=== PATIENT | male | born 1945 | race Caucasian/White ===

== ENCOUNTER 2016-05-29 20:33 | Emergency (ER) | payer OTHER ==
[~2016-05-29] VITALS: Ht 175.3 cm; Wt 87.3 kg
[~2016-05-29 20:33] MED LIST: EFFSR75 PO; METF1TAB85 PO; RISP0.5T3 PO
[2016-05-29 20:46] VITALS: TEMP 36.5; Ht 175.3 cm; Wt 87.3 kg
[2016-05-29 21:10] VITALS: O2SAT 98
[2016-05-29] MEDS ORDERED: ARC10 PO (21:15)
[2016-05-29] MEDS ORDERED: CARB50TA3 PO (21:15)
[2016-05-29] MEDS ORDERED: LPT/20 PO (21:15)
[2016-05-29] MEDS ORDERED: QUET5TAB PO (21:15)
[2016-05-29] MEDS ORDERED: PRED20TA PO (21:19)
[2016-05-29] MEDS ORDERED: ULT50 PO (21:19)
[2016-05-29 21:20] LABS: BASO % 0.2 %; BASO ABS # 0.02 K/uL (0-0.2); COMPLETE YES; IG% 2.1 %; MEAN CELL VOLUME 91.9 fL (80-100); MEAN CORPUSCULAR HEMOGLOBIN 33.4 pg (25-34); MEAN CORPUSCULAR HGB CONC 36.4 g/dl (32-36); MEAN PLATELET VOLUME 10.6 fL (7.4-10.4); MONO % 6.3 %; NEUT % 70.4 %; PLATELET COUNT 248 K/uL (130-400); RED BLOOD COUNT 4.79 M/uL (4.7-6.1); WHITE BLOOD COUNT 8.09 K/uL (4.8-10.8)
[2016-05-29] MEDS ORDERED: EFFSR150 PO (21:33)
[2016-05-29] MEDS ORDERED: ASPI81TA28 PO (21:33)
[2016-05-29] MEDS ORDERED: DIVA250T4 PO (21:41)
[2016-05-29] MEDS ORDERED: DIVA500T5 PO (21:41)
[2016-05-29] MEDS ORDERED: SODIUM CHLORIDE 0.9% 500ML 500 ML IV STA ×2 (21:44→23:38)
[2016-05-29] MEDS ORDERED: SODIUM CHLORIDE 0.9% 1000ML 1,000 ML IV STA (21:44)
[2016-05-29 21:46] LABS: ALKALINE PHOSPHATASE 76 U/L (45-117); ALT/SGPT 19 U/L (12-78); AST/SGOT 11 U/L (15-37); BLOOD UREA NITROGEN 18 mg/dl (7-18); BUN/CREATININE RATIO 16.5 (10-20); CALCIUM 9.1 mg/dl (8.5-10.1); CARBON DIOXIDE 26 mmol/L (21-32); CHLORIDE 94 mmol/L (98-107); GLUCOSE 521 mg/dl (70-99); POTASSIUM 4.8 mmol/L (3.5-5.1); SODIUM 131 mmol/L (136-145)
[2016-05-29 21:58] LABS: BETA-HYDROXYBUTYRATE 2.01 mg/dL (0.2-2.81)
--- NOTE | 2016-05-29 22:05 | DIAGNOSTIC IMAGING REPORT ---
CHEST ONE VIEW PORTABLE CLINICAL HISTORY: Chest pain. COMPARISON STUDY: Chest radiograph May 14, 2015. FINDINGS: Lung volumes are normal. There is no pneumothorax or pleural effusion. Cardiomediastinal silhouette is stable. There is no evidence of pulmonary edema. IMPRESSION: No acute cardiopulmonary findings. Electronically signed by: Vladimir Sharp M.D. 05/29/2016 10:04 PM Dictated Date/Time: 05/29/2016 10:02 PM
[2016-05-29 22:15] LABS: ALB/GLOB RATIO 0.8 (0.9-2)
--- NOTE | 2016-05-29 22:31 | DIAGNOSTIC IMAGING REPORT ---
CT OF THE HEAD WITHOUT CONTRAST CLINICAL HISTORY: Blurry vision. COMPARISON STUDY: Head CT May 17, 2014. CT DOSE: 580.48 mGy.cm TECHNIQUE: Helical axial images of the head were obtained without IV contrast. Automated exposure control was utilized for the study. FINDINGS: No acute intracranial hemorrhage, midline shift or mass effect is present. Ventricular system is stable. The basilar cisterns are patent. There are no extra axial collections. Extensive white matter hypodensities likely reflect small vessel disease. There are no findings to suggest acute dural sinus thrombosis or acute territorial infarct. There are no significant calvarial abnormalities. IMPRESSION: No acute intracranial findings. Electronically signed by: Vladimir Sharp M.D. 05/29/2016 10:30 PM Dictated Date/Time: 05/29/2016 10:28 PM
[2016-05-29 22:41] LABS: VEN BLD GAS O2 SATURATION 84.2 %; VEN BLOOD GAS BASE EXCESS 4.2 mmol/L
[2016-05-29] MEDS ORDERED: NovoLIN-R INSULIN PER UNIT CHARGE IV STA (23:38)
--- NOTE | 2016-05-29 23:42 | EMERGENCY ROOM VISIT NOTE ---
ED Visit Note First contact with patient: 21:22 Patient was seen by our PA/DIESEL ENGINE INSPECTOR. I was involved in the patient's care and did evaluate the patient myself. I was involved in the care throughout the ER stay. The patient presents with hyperglycemia. He recently started prednisone and I think this is causing the elevation to the sugar. He is receiving IV saline and will receive some IV insulin. He does not appear to be in DKA. Once his sugar is better controlled, he can be discharged home. He will need to stop the prednisone.
[2016-05-30 01:01] VITALS: BP 131/82; PULSE 61; O2SAT 97
--- NOTE | 2016-05-30 01:05 | EMERGENCY ROOM VISIT NOTE ---
History First contact with patient: 21:22 Chief Complaint: HYPERGLYCEMIA Stated Complaint: SUGAR IS ABOVE 600, CANT SEE Nursing Triage Summary: Patient c/o high blood sugars x a few days. Worsened tonight. Patient developed blurred vision. Denies any recent illness. NIDDM. History of Present Illness The patient is a 71 year old male who presents to the Emergency Department by private vehicle for evaluation of his elevated blood glucose levels and blurry vision. Patient reports that this evening he was having difficulty with vision while reading the newspaper at approximately 6 PM. He did take his blood glucose which was found to be greater than 600. His symptoms persisted which prompted visit to the emergency department today. The patient is only on metformin in the evening. There is been no changes in his diabetic medications recently. The patient was recently placed on prednisone on Thursday for ongoing back pain issues. His symptoms of back pain have improved. He has an MRI scheduled for tomorrow. The patient currently denies any pain. He denies any double vision, headaches, dizziness, lightheadedness, slurred speech, facial droop, unilateral weakness/numbness, chest pain, palpitations, shortness of breath, nausea, vomiting, or abdominal pain. Review of Systems A complete 10-point Review of Systems was discussed with the patient, with pertinent positives and negatives listed in the History of Present Illness. All remaining Review of Systems questions can be considered negative unless otherwise specified. Past Medical/Surgical History Medical Problems: (1) Depression (2) Diabetes Family History Diabetes mellitus Social History Smoking Status: Never Smoker Smokeless Tobacco Use: No Alcohol Use: none Drug Use: none Marital Status: Housing Status: lives with family Occupation Status: retired Current/Historical Medications Scheduled Aspirin (Aspirin Ec), 81 MG PO DAILY Atorvastatin (Atorvastatin Calcium), 20 MG PO BID Carbidopa/Levodopa (Sinemet Cr 50MG/200MG), 1 TAB PO TID Divalproex Sodium (Depakote Delay Rel), 250 MG PO HS Divalproex Sodium (Depakote Delay Rel), 1,000 MG PO HS Donepezil HCl (Donepezil HCl), 10 MG PO HS Metformin Hcl (Metformin Hcl Er), 500 MG PO QPM Prednisone (Prednisone), 20 MG PO TAPER UD Quetiapine Fumarate (Seroquel), 50 MG PO HS Risperidone (Risperdal), 0.5 MG PO HS Tramadol HCl (Tramadol HCl), 50 MG PO PRN UD Venlafaxine Hcl (Effexor Extended Rel), 150 MG PO BID Allergies Coded Allergies: Penicillins (Verified Allergy, Severe, SWELL UP,HIVES, 05/29/16) SWELLS UP, HIVES Sulfa Drugs (Verified Allergy, Unknown, 05/29/16) Uncoded Allergies: [id number] (Allergy, Severe, SWELL UP,HIVES, 07/29/14) Penicillins [id number] (Allergy, Unknown, 07/29/14) Sulfa Drugs Physical Exam Vital Signs Date Time Temp Pulse Resp B/P Pulse Ox O2 Delivery O2 Flow Rate FiO2 05/30/16 01:01 61 18 131/82 97 Room Air 05/30/16 00:20 56 18 142/93 98 Room Air 05/29/16 22:21 69 20 129/87 98 Room Air 05/29/16 21:18 61 05/29/16 21:10 98 Room Air 05/29/16 20:46 36.5 66 20 128/84 93 Room Air Pain Rating (0-10): 0 Physical Exam VITAL SIGNS - Vital signs and nursing notes were reviewed. GENERAL - 71-year-old male appearing his stated age who is in no acute distress. Communicates well with provider and answers questions appropriately. HEAD - Normocephalic, Atraumatic. No Damico's Sign or Raccoon's Eyes. No depressed skull fractures palpable. EYES - PERRL with EOMI bilaterally. Sclera anicteric. Palpebral conjunctiva pink and moist with no injection noted. EARS - No deformities of external structures noted on gross examination bilaterally. No pain elicited with palpation of the tragus bilaterally. External auditory canals without discharge or otorrhea. Tympanic membranes pearly walters without retraction or bulging. NOSE - Midline and without cyanosis. No epistaxis or purulent drainage noted. Septum midline without deviation or septal hematoma noted. MOUTH/OROPHARYNX - Without perioral cyanosis. Buccal mucosa pink and moist and without leukoplakia. Tongue midline with equal elevation of palate bilaterally. No tonsillar hypertrophy, erythema, or exudates noted. NECK - Neck with FROM. Supple to palpation. No lymphadenopathy noted. No nuchal rigidity. LUNGS - Chest wall symmetric without accessory muscle use, intercostals retractions, or central cyanosis. Normal vesicular breath sounds CTA B/L. No wheezes, rales, or rhonchi appreciated. CARDIAC - RRR with S1/S2. No murmur, rubs, or gallops appreciated. ABDOMEN - Abdominal contour flat and without pulsations or visible masses. BS normoactive all four quadrants. No tenderness, palpable masses, hepatosplenomegaly, or ascites noted. EXTREMITIES - No pretibial edema present. +3/5 radial and dorsalis pedis pulses palpated throughout. FROM with no tremors, fasciculations, or clonus noted on PROM throughout. +5/5 strength noted in UE/LE bilaterally. NEUROLOGIC - Cranial nerves II through XII grossly intact. Sensory intact to light touch throughout. Patellar reflexes +2/4. Patient able to perform rapid alternating movements appropriately. Negative Pronator Drift. Negative finger-to -nose. PSYCH - A&Ox3 and cooperates fully with examiner. Pt is very pleasant and interacts well with examiner. Medical Decision & Procedures ER Provider Diagnostic Interpretation: Radiological imaging and reports were reviewed by myself. Radiologist's Interpretation as follows: CHEST ONE VIEW PORTABLE CLINICAL HISTORY: Chest pain. COMPARISON STUDY: Chest radiograph May 14, 2015. FINDINGS: Lung volumes are normal. There is no pneumothorax or pleural effusion. Cardiomediastinal silhouette is stable. There is no evidence of pulmonary edema. IMPRESSION: No acute cardiopulmonary findings. CT OF THE HEAD WITHOUT CONTRAST CLINICAL HISTORY: Blurry vision. COMPARISON STUDY: Head CT May 17, 2014. CT DOSE: 580.48 mGy.cm TECHNIQUE: Helical axial images of the head were obtained without IV contrast. Automated exposure control was utilized for the study. FINDINGS: No acute intracranial hemorrhage, midline shift or mass effect is present. Ventricular system is stable. The basilar cisterns are patent. There are no extra axial collections. Extensive white matter hypodensities likely reflect small vessel disease. There are no findings to suggest acute dural sinus thrombosis or acute territorial infarct. There are no significant calvarial abnormalities. IMPRESSION: No acute intracranial findings. Laboratory Results 05/29/16 21:05 Red Blood Count 4.79, Mean Corpuscular Volume 91.9, Mean Corpuscular Hemoglobin 33.4, Mean Corpuscular Hemoglobin Concent 36.4, Mean Platelet Volume 10.6, Neutrophils (%) (Auto) 70.4, Lymphocytes (%) (Auto) 21.0, Monocytes (%) (Auto) 6.3, Eosinophils (%) (Auto) 0.0, Basophils (%) (Auto) 0.2, Neutrophils # (Auto) 5.69, Lymphocytes # (Auto) 1.70, Monocytes # (Auto) 0.51, Eosinophils # (Auto) 0.00, Basophils # (Auto) 0.02 05/29/16 21:05 Test 05/29/16 21:05 05/29/16 22:22 05/30/16 00:57 White Blood Count 8.09 K/uL (4.8-10.8) Red Blood Count 4.79 M/uL (4.7-6.1) Hemoglobin 16.0 g/dL (14.0-18.0) Hematocrit 44.0 % (42-52) Mean Corpuscular Volume 91.9 fL (80-100) Mean Corpuscular Hemoglobin 33.4 pg (25-34) Mean Corpuscular Hemoglobin Concent 36.4 g/dl (32-36) Platelet Count 248 K/uL (130-400) Mean Platelet Volume 10.6 fL (7.4-10.4) Neutrophils (%) (Auto) 70.4 % Lymphocytes (%) (Auto) 21.0 % Monocytes (%) (Auto) 6.3 % Eosinophils (%) (Auto) 0.0 % Basophils (%) (Auto) 0.2 % Neutrophils # (Auto) 5.69 K/uL (1.4-6.5) Lymphocytes # (Auto) 1.70 K/uL (1.2-3.4) Monocytes # (Auto) 0.51 K/uL (0.11-0.59) Eosinophils # (Auto) 0.00 K/uL (0-0.5) Basophils # (Auto) 0.02 K/uL (0-0.2) RDW Standard Deviation 41.3 fL (36.4-46.3) RDW Coefficient of Variation 12.3 % (11.5-14.5) Immature Granulocyte % (Auto) 2.1 % Immature Granulocyte # (Auto) 0.17 K/uL (0.00-0.02) Anion Gap 11.0 mmol/L (3-11) Est Creatinine Clear Calc Drug Dose 69.4 ml/min Estimated GFR () 79.0 Estimated GFR (Non- 68.1 BUN/Creatinine Ratio 16.5 (10-20) Calcium Level 9.1 mg/dl (8.5-10.1) Total Bilirubin 0.7 mg/dl (0.2-1) Aspartate Amino Transf (AST/SGOT) 11 U/L (15-37) Alanine Aminotransferase (ALT/SGPT) 19 U/L (12-78) Alkaline Phosphatase 76 U/L (45-117) Troponin I < 0.015 ng/ml (0-0.045) Total Protein 7.5 gm/dl (6.4-8.2) Albumin 3.4 gm/dl (3.4-5.0) Globulin 4.1 gm/dl (2.5-4.0) Albumin/Globulin Ratio 0.8 (0.9-2) Beta-Hydroxybutyric Acid 2.01 mg/dL (0.2-2.81) Thyroid Stimulating Hormone (TSH) 1.890 uIu/ml (0.300-4.500) Venous Blood pH 7.47 (7.36-7.41) Venous Blood Partial Pressure CO2 39 mmHg (38.0-50.0) Venous Blood Partial Pressure O2 48 mmHg Venous Blood HCO3 28 mmol/L Venous Blood Oxygen Saturation 84.2 % Venous Blood Base Excess 4.2 mmol/L Bedside Glucose 258 mg/dl (70-99) Medications Administered Medications (Trade) Dose Ordered Sig/Maria De Jesus Route Start Time Stop Time Status Last Admin Dose Admin Sodium Chloride 500 ml @ 999 mls/hr Q31M STAT IV 05/29/16 21:44 05/29/16 22:14 DC 05/29/16 21:55 999 MLS/HR Sodium Chloride 1,000 ml @ 250 mls/hr Q4H STAT IV 05/29/16 21:44 05/30/16 01:42 DC 05/29/16 21:44 250 MLS/HR Sodium Chloride (Nss 500ml) 500 ml @ 999 mls/hr Q31M STAT IV 05/29/16 23:38 05/30/16 00:08 DC 05/29/16 23:49 999 MLS/HR Insulin Human Regular (novoLIN-R U-100 PER UNIT) 8 units NOW STAT IV 05/29/16 23:38 05/29/16 23:39 DC 05/29/16 23:49 8 UNITS Procedure Patient was placed on the groundwater monitoring technician and monitored throughout the entire extent of their stay. In addition, the patient's pulse oximetry was monitored throughout the entire stay. Any abnormalities or aberrancies were addressed appropriately. ECG Indication: toxicologic Rate (beats per minute): 52 Rhythm: normal sinus Findings: RBBB, no acute ischemic change, no ectopy Change: no significant change (05/31/2013.) ED Course Patient was seen and evaluated by myself. Labs were drawn, saline lock in place. The patient was hydrated with 500 mL normal saline bolus followed by 1000 mL at a rate of [address] the head and chest x-rays were obtained. EKG was obtained. Laboratory results demonstrate no acute leukocytosis, worrisome anemia, or bandemia. The patient has no significant electrolyte abnormalities. VBG was otherwise unremarkable. Patient's BSG was elevated at 512. Case was discussed my attending physician who independently evaluated the patient and agrees with the diagnostic approach and treatment plan. Patient was hydrated with an additional 500 mL normal saline bolus and received 8 units of normal insulin IV. Patient was monitored for greater than 1 hour period his blood glucose did drop to 258. The patient has no complaints other than continued blurry vision. Patient feels fine otherwise. The patient was encouraged to follow-up with his primary care provider for continued management. He was instructed on refraining from continued prednisone doses. He was educated on worrisome symptoms for return visit to the emergency department. Patient discharged home in good condition. Medical Decision Given the patient's presentation and stated complaints, I did elect to perform the above-mentioned workup. The patient presents with elevated blood glucose and blurry vision. His exam is otherwise unremarkable. He has no focal neurological deficits. CT the head and chest x-rays are unremarkable. Cardiac enzymes are negative. The patient is not acidotic. His blood glucose is elevated. This does appear to be independent to the recent steroid use. I suspect that his vision changes are certainly related to this as well. His blood glucose was aggressively managed in the emergency setting. He will refrain from outpatient prednisone use. He'll follow-up with his primary care provider or return for any changing/worsening symptoms. Patient discharged home afebrile and in good condition. In the evaluation and treatment of this patient, the following differential diagnoses were considered: Migraine Headache, Intracranial Hemorrhage, Subdural Hematoma, Subarachnoid Hemorrhage, Cerebral Aneurysm, Temporal/Giant Cell Arteritis, Tension Headache, Meningitis, Encephalitis, or Hydrocephalus. Impression Primary Impression: Hyperglycemia Additional Impression: Blurry vision, bilateral Departure Information Dispostion Home / Self-Care Condition GOOD Referrals Gilberto Pollard M.D. (PCP) Patient Instructions ED Hyperglycemia Diabetic, My [facility] Additional Instructions You have been seen in the emergency department today for your hyperglycemia and blurry vision. Please refrain from using your steroid. Follow-up with your primary care provider from today's visit. Return for any changing or worsening symptoms. Problem Qualifiers
[2016-06-25] MEDS ORDERED: OXYC-57 PO (10:28)
[2016-10-30] MEDS ORDERED: RXC5 PO (08:04)
== END 2016-05-30 01:14 | disposition home or self-care (01) ==
LOC: C.EDB 20:36 → C.EDC 05-30 01:14
DX: E11.65 Type 2 diabetes mellitus with hyperglycemia (principal); F32.9 Major depressive disorder, single episode, unspecified; Z79.4 Long term (current) use of insulin; Z79.82 Long term (current) use of aspirin; Z79.84 Long term (current) use of oral hypoglycemic drugs; Z79.899 Other long term (current) drug therapy; Z88.0 Allergy status to penicillin; Z88.2 Allergy status to sulfonamides; Z83.3 Family history of diabetes mellitus

== ENCOUNTER 2016-06-02 16:38 | Emergency (ER) | payer OTHER ==
[~2016-06-02] VITALS: Ht 177.8 cm; Wt 83.7 kg
[~2016-06-02 16:38] MED LIST changes: +ARC10 PO; +ASPI81TA28 PO; +CARB50TA3 PO; +DIVA250T4 PO; +DIVA500T5 PO; +EFFSR150 PO; -EFFSR75 PO; +LPT/20 PO; +PRED20TA PO; +QUET5TAB PO; +ULT50 PO
[2016-06-02 17:00] VITALS: TEMP 36.5; Ht 177.8 cm; Wt 83.7 kg
[2016-06-02] MEDS ORDERED: NovoLIN-R INSULIN PER UNIT CHARGE SC STA (18:30)
[2016-06-02] MEDS ORDERED: PERCOCET HOME PACK PO ONE (18:30)
[2016-06-02] MEDS ORDERED: MoRPHine SULFATE 4 MG/ML 1 ML CARP\\VIAL IM STA (18:30)
--- NOTE | 2016-06-02 18:37 | EMERGENCY ROOM VISIT NOTE ---
History Report prepared by Mikayla: Zack Barnes Under the Supervision of: Dr. Fransico Malik D.O. First contact with patient: 18:20 Chief Complaint: HYPERGLYCEMIA Stated Complaint: SEVERE BACK PAIN, HIGH SUGAR Nursing Triage Summary: Patient c/o back pain all the time that "runs up and down the back" worse today , vomiting today and BSG was high. 346 at home. MRI done Thursday Steroids until because his BSG was running high. History of Present Illness The patient is a 71 year old male who presents to the Emergency Room with complaints of worsening back pain beginning about 1 week ago. Per the patient and his family, he has bulging discs per an MRI, and had been on steroids which he stopped taking 4 days ago. He had been on the steroids for about 5 days which helped his back pain. He somewhat relieves his pain by lying on the floor on his side, but notes being generally unable to control his pain currently. He is taking 50 mg of Tramadol with no relief of his symptoms. The patient also notes having episodes of hyperglycemia recently, and reports his blood sugar was over 600 last week. His blood sugar was 369 today in the hospital. He takes metformin to manage his sugar levels. The patient reports vomiting today, but denies having any fever or urinary symptoms. Source of History: patient, transfer records Onset: about 1 week ago Position: back Quality: other (back pain) Timing: worsening Modifying Factors (Relieving): other (lying down) Associated Symptoms: + vomiting, No fevers, No urinary symptoms Review of Systems See HPI for pertinent positives & negatives. A total of 10 systems reviewed and were otherwise negative. Past Medical & Surgical Medical Problems: (1) Depression (2) Diabetes (3) History of back pain Family History Diabetes mellitus Social History Smoking Status: Never Smoker Alcohol Use: none Drug Use: none Marital Status: Housing Status: lives with family Occupation Status: retired Current/Historical Medications Scheduled Aspirin (Aspirin Ec), 81 MG PO DAILY Atorvastatin (Atorvastatin Calcium), 20 MG PO BID Carbidopa/Levodopa (Sinemet Cr 50MG/200MG), 1 TAB PO TID Divalproex Sodium (Depakote Delay Rel), 250 MG PO HS Divalproex Sodium (Depakote Delay Rel), 1,000 MG PO HS Donepezil HCl (Donepezil HCl), 10 MG PO HS Metformin Hcl (Metformin Hcl Er), 500 MG PO QPM Quetiapine Fumarate (Seroquel), 50 MG PO HS Risperidone (Risperdal), 0.5 MG PO HS Tramadol HCl (Tramadol HCl), 50 MG PO PRN UD Venlafaxine Hcl (Effexor Extended Rel), 150 MG PO BID Allergies Coded Allergies: Penicillins (Verified Allergy, Severe, SWELL UP,HIVES, 06/02/16) SWELLS UP, HIVES Sulfa Drugs (Verified Allergy, Unknown, 06/02/16) Physical Exam Vital Signs Date Time Temp Pulse Resp B/P Pulse Ox O2 Delivery O2 Flow Rate FiO2 06/02/16 20:42 65 18 126/87 93 06/02/16 19:29 71 16 127/85 95 06/02/16 17:00 36.5 70 16 96/75 93 Room Air Physical Exam CONSTITUTIONAL/VITAL SIGNS: Reviewed / noted above. GENERAL: Non-toxic in appearance. INTEGUMENTARY: Warm, dry, and [place]. HEAD: Normocephalic. EYES: without scleral icterus or trauma. ENT/OROPHARYNX: clear and moist. LYMPHADENOPATHY/NECK: Is supple without lymphadenopathy or meningismus. RESPIRATORY: Lungs clear and equal. CARDIOVASCULAR: Regular rate and rhythm. GI/ABDOMEN: Soft and nontender. No organomegaly or pulsatile mass. No rebound or guarding. Normal bowel sounds. EXTREMITIES: Warm and well perfused. BACK: No CVA tenderness. NEUROLOGICAL: Intact without focal deficits. PSYCHIATRIC: normal affect. MUSCULOSKELETAL: Normally developed with good muscle tone. Medical Decision & Procedures Laboratory Results Test 06/02/16 19:28 Bedside Glucose 266 mg/dl (70-99) Laboratory results as stated above per my review. Medications Administered Medications (Trade) Dose Ordered Sig/Maria De Jesus Route Start Time Stop Time Status Last Admin Dose Admin Morphine Sulfate (MoRPHine SULFATE INJ) 4 mg NOW STAT IM 06/02/16 18:30 06/02/16 18:32 DC 06/02/16 19:35 4 MG Oxycodone/ Acetaminophen (Percocet 5/ 325MG Home Pack) 1 homepack UD ONCE PO 06/02/16 18:30 06/02/16 18:32 DC 06/02/16 20:34 1 HOMEPACK Insulin Human Regular (novoLIN-R) 3 units ACHS SC 06/02/16 21:00 06/02/16 21:00 DC 06/02/16 20:34 3 UNITS ED Course 1819: Previous medical records were reviewed. The patient was evaluated in room B11B. A complete history and physical examination was performed. 183: Ordered Insulin Human Regular 5 units SC, Oxycodone/Acetaminophen 1 homepack PO, and Morphine Sulfate 4 mg IM. 1839: On reevaluation, the patient is doing well. I discussed the results and findings with the patient. He verbalized agreement of the treatment plan. The patient was discharged home. Medical Decision Differential considered includes cauda equina syndrome, conus medullaris, spinal cord compression syndrome, peripheral nerve compression, fractures or subluxations, intra-abdominal pathology such as abdominal aortic aneurysm or kidney stones, muscle strain, transverse myelitis, spinal cord injury. This is a 71-year-old male who presents to the ED with a chief complaint of low back pain. The patient has had the pack pain for a long time, according to the patient and family. The patient had an MRI on the of last month that revealed multi-level degenerative disc changes. This was ordered by Dr. Nguyen. He has an appointment with Dr. Nguyen tomorrow as well as Dr. Olivier. He has seen Dr. Olivier for pain management. He is currently on Ultra. The daughter states that the pain is only improved with him lying on one of his sides. He recently hasn't been on steroids for his back which did seem to help the pain. He has not been on them since . His blood sugar here today was around 370. His physical exam did not reveal any obvious abnormalities. He is in no distress while lying on his back. His vital signs are stable. The patient was treated here with morphine 4 mg IM. He was given 5 units of subcutaneous insulin and a Percocet home pack. He is to see his back specialist and pain specialist tomorrow. Impression Primary Impression: Acute exacerbation of chronic low back pain Scribe Attestation The scribe's documentation has been prepared under my direction and personally reviewed by me in its entirety. I confirm that the note above accurately reflects all work, treatment, procedures, and medical decision making performed by me. Departure Information Dispostion Home / Self-Care Referrals Gilberto Pollard M.D. (PCP) Patient Instructions My [facility] Additional Instructions Take 1 Percocet every 6 hours as needed for pain. No driving within 6 hours of use. See your doctors tomorrow as scheduled. See your PCP with regards to your blood sugar sometime this week. Drink plenty of water.
[2016-06-02] MEDS ORDERED: NovoLIN-R INSULIN PER UNIT CHARGE ONE (20:38)
[2016-06-02 20:42] VITALS: BP 126/87; PULSE 65; O2SAT 93
[2016-06-02] MEDS ORDERED: INSULIN HUMAN REGULAR SC SCH (21:00)
[2016-06-25] MEDS ORDERED: OXYC-57 PO (10:28)
[2016-10-30] MEDS ORDERED: RXC5 PO (08:04)
== END 2016-06-02 20:42 | disposition home or self-care (01) ==
LOC: C.EDB 16:39
DX: M54.5 Low back pain (principal); E11.65 Type 2 diabetes mellitus with hyperglycemia; R11.10 Vomiting, unspecified; F32.9 Major depressive disorder, single episode, unspecified; Z79.899 Other long term (current) drug therapy

== ENCOUNTER 2016-06-04 12:46 | Inpatient (IN) | payer OTHER ==
[~2016-06-04] VITALS: Ht 177.8 cm; Wt 84.6 kg
[~2016-06-04 12:46] MED LIST changes: -PRED20TA PO
[2016-06-04 13:45] VITALS: BP 105/66; PULSE 62; TEMP 36.5; O2SAT 94
[2016-06-04 13:54] VITALS: O2SAT 97; BMI 26.8
[2016-06-04] MEDS ORDERED: ONDANSETRON INJ 2 MG/ML 2 ML VIAL IV PRN (14:15)
[2016-06-04] MEDS ORDERED: LORAZEPAM 2 MG/ML 1 ML VIAL IV PRN (14:15)
[2016-06-04] MEDS ORDERED: LORAZEPAM 0.5 MG TAB PO PRN (14:15)
[2016-06-04] MEDS ORDERED: HYDROmorphone INJ 1 MG/ML SYR IV PRN (14:15)
[2016-06-04] MEDS ORDERED: POLYETHYLENE (MIRALAX) 17 GM PACK PO PRN (14:15)
[2016-06-04] MEDS ORDERED: ACETAMINOPHEN 325 MG TAB PO PRN (14:15)
[2016-06-04] MEDS ORDERED: PNEUMOCOCCAL ADMINISTRATION CHARGE ONE ×2 (14:15→14:30)
[2016-06-04] MEDS ORDERED: INFLUENZA ADMINISTRATION CHARGE ONE ×2 (14:15→14:30)
[2016-06-04] MEDS ORDERED: HYDROmorphone INJ 0.5 MG/0.5 ML SYR IV PRN (14:15)
[2016-06-04] MEDS ORDERED: PNEUMOCOCCAL POLYSACCHARIDES 25 MCG/0.5 ML VIAL/SYR IM. ONE (14:15)
[2016-06-04] MEDS ORDERED: INFLUENZA VIRUS QUAD VACCINE 0.5 ML SYR IM. ONE (14:15)
[2016-06-04] MEDS ORDERED: MAGNESIUM HYDROXIDE SUSP 30 ML UDC PO PRN (14:15)
[2016-06-04] MEDS ORDERED: INSULIN GLARGINE PER UNIT 8 UNITS in SYRINGE 0 ML SC STA (14:17)
[2016-06-04] MEDS ORDERED: GLUCAGON FOR INJ 1 MG VIAL SQ PRN (14:30)
[2016-06-04] MEDS ORDERED: GLUCOSE 40% GEL 15 GM TUBE PO PRN (14:30)
[2016-06-04] MEDS ORDERED: GLUCOSE 10 TABS/TUBE PO PRN (14:30)
[2016-06-04] MEDS ORDERED: DEXTROSE 50% 50 ML SYR IV PRN (14:30)
[2016-06-04] MEDS: SODIUM CHLORIDE 0.9% 1000ML 1,000 ML IV SCH ×2 (14:30→23:35)
[2016-06-04] MEDS ORDERED: LORAZEPAM INJ 0.5 MG in SYRINGE 0.75 ML IV PRN (14:45)
[2016-06-04] MEDS ORDERED: BISACODYL 10 MG SUPP PR STA (14:50)
[2016-06-04] MEDS: INSULIN ASPART 100 UNITS/ML 3 ML PEN SC SCH ×3 (14:58→22:02)
[2016-06-04] MEDS ORDERED: OXYCODONE HCL IR 5 MG TAB (IMMEDIATE RELEASE) PO PRN (15:00)
[2016-06-04] MEDS ORDERED: INSULIN GLARGINE SOLOSTAR 100 UNITS/ML 3 ML PEN SC SCH (15:00)
[2016-06-04 15:21] LABS: BASO % 0.2 %; BASO ABS # 0.01 K/uL (0-0.2); COMPLETE YES; EOS % 1.4 %; IG% 0.3 %; LYMPH % 35.8 %; LYMPH ABS # 2.35 K/uL (1.2-3.4); MEAN CORPUSCULAR HEMOGLOBIN 33.9 pg (25-34); MEAN CORPUSCULAR HGB CONC 35.7 g/dl (32-36); MEAN PLATELET VOLUME 10.5 fL (7.4-10.4); MONO % 6.4 %; NEUT % 55.9 %; PLATELET COUNT 167 K/uL (130-400); RED BLOOD COUNT 4.84 M/uL (4.7-6.1); WHITE BLOOD COUNT 6.56 K/uL (4.8-10.8)
[2016-06-04 15:29] LABS: INR 0.9 (0.9-1.1); PROTHROMBIN TIME (PATIENT) 10.1 SECONDS (9.0-12.0)
[2016-06-04] MEDS: LIDODERM (LIDOCAINE) PATCH 5% TD SCH (15:43)
[2016-06-04 15:44] LABS: BUN/CREATININE RATIO 25.6 (10-20); CALCIUM 8.9 mg/dl (8.5-10.1); CREATININE 0.81 mg/dl (0.60-1.40); POTASSIUM 4.1 mmol/L (3.5-5.1)
[2016-06-04 15:47] VITALS: BP 98/61; PULSE 69; TEMP 36.2; O2SAT 93
[2016-06-04 15:54] LABS: BETA-HYDROXYBUTYRATE 1.15 mg/dL (0.2-2.81)
[2016-06-04 16:00] VITALS: O2SAT 97
[2016-06-04] MEDS: SENNA 8.6 MG TAB PO SCH (16:09)
--- NOTE | 2016-06-04 16:36 | HISTORY & PHYSICAL EXAMINATION ---
DATE OF ADMISSION: 06/04/2016 CHIEF COMPLAINT: Back pain. ADMITTING DIAGNOSES: 1. Uncontrolled diabetes. 2. Intractable back pain. HISTORY OF PRESENT ILLNESS: Mr. Ratliff is a 71-year-old male patient of Dr. Gilberto Pollard. Over the last [address] Pollard, he has had an escalation of his usual chronic low back pain. Reportedly, the patient had an MRI scan done which did not show any operative opportunity to help relieve his pain. The patient's was at the bedside states that Dr. Salinas said that there was a disc impinging on her and that he may be amenable to injections; however, his blood glucose is poorly controlled. To this end, the patient was placed on steroids but he presented to the Emergency Department at [facility] last week with uncontrolled pain and was found to have markedly elevated blood glucose, this was on June 02. The patient had his prednisone discontinued, was given insulin and sent home to take along with his metformin. The patient presented to Dr. Pollard's office today with no relief of his discomfort with the blood glucose that was elevated with clinical signs of dehydration due to dry mucous membranes and lower blood pressure per him and he was therefore recommended for direct admission to our facility. Upon my evaluation, his is at the bedside. He is lying on his left side with his knees flexed. He says this is the only position he can get into that this relieves his pain. He says his pain is radicular, radiates down his leg, does not cross his knee, it sort of circles around from his SI area to the side or front of his knee, but does not go to his foot. He has no paresthesias with it. He has had no loss of bowel or bladder function. He has been constipated because of his recent opiate use. Initial bedside glucose testing on presentation was 284. 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 MEDICATIONS: On presentation are aspirin 81 a day, Lipitor 20 a day, Sinemet extended release 250 t.i.d., Depakote extended release 1250 bedtime, Aricept 10 a day, metformin 500 as directed, Neurontin 300 b.i.d., Seroquel 25 mg at bedtime and Effexor ER 300 a day. SOCIAL HISTORY: The patient has never smoked or drank. FAMILY HISTORY: Positive for hypertension, marked diabetes throughout his family, many people on insulin and addiction. REVIEW OF SYSTEMS: Ten systems were reviewed and are negative with the exception listed in the HPI. PHYSICAL EXAMINATION: VITAL SIGNS: Temperature 36.5, pulse 62, respirations 14, BP 105/66, O2 sat 94 on room air. HEENT: PERRL, EOMI. Oropharynx clear. Normocephalic, atraumatic. Dry mucous membranes. NECK: Without lymphadenopathy. Trachea is midline. HEART: Regular without murmur. LUNGS: Clear without wheezes or crackles. Good air movement. ABDOMEN: Normoactive bowel sounds, soft. He is minorly uncomfortable in the left lower quadrant. BACK AND SPINE: His spine is tender to percussion in the lower spine. His CVA angles are not tender. His SI joints are slightly tender on the left. EXTREMITIES: He has tenderness to straight leg raising. His reflexes are equal and symmetrical bilaterally. He has good sensation distally to his feet in normal plantar flexion, dorsiflexion and proprioception. SKIN: Without lesions, growths, bruises or bleeding. LABORATORIES: currently pending at this time. ASSESSMENT: A 71-year-old male here with intractable radicular back pain and uncontrolled diabetes, worsened by steroid use. PLAN: For his diabetes, we will put him on insulin sliding scale. We discussed the pros and cons of remaining on insulin. He may benefit as this may be a situational thing from his steroids; however, we may consider involving glycemic management because this would involve diabetic education etc. We will have him on a sliding scale right now and a diabetic diet. Regarding his back, we will try to amend his back pain with parenteral and oral opiates. We will put Lidoderm patch on, begin Celebrex, schedule Tylenol, and a Lidoderm patch. A pain management consult will be undertaken. We will not perform additional imaging, although this may be required. We will try to obtain the image performed from Dr. Adame's office. Regarding his psychological and closed head injury situations, we will continue his Sinemet, Depakote, Aricept, Seroquel, and Effexor. Not mentioned above, we will continue his Neurontin for possibility of any neuropathic pain. Heparin will be used for DVT prevention. MTDD
[2016-06-04] MEDS: GABAPENTIN 300 MG CAP PO SCH (20:00)
[2016-06-04] MEDS: CeleBREX 100 MG CAP PO SCH (20:01)
[2016-06-04] MEDS: CARBIDOPA/LEVODOPA 50/200MG EXT REL TAB PO SCH (20:02)
[2016-06-04] MEDS: ACETAMINOPHEN 500 MG TAB PO SCH (20:02)
[2016-06-04] MEDS: VENLAFAXINE HCL XR 150 MG CAPXR PO SCH (20:02)
[2016-06-04] MEDS: QUETIAPINE FUMARATE 25 MG TAB PO SCH (21:55)
[2016-06-04] MEDS: DIVALPROEX SODIUM 500 MG DELAY RELEASE TAB PO SCH (21:55)
[2016-06-04] MEDS: DONEPEZIL HCL 10 MG TAB PO SCH (21:56)
[2016-06-04] MEDS: DIVALPROEX SODIUM 250 MG DELAY REL TAB PO SCH (21:56)
[2016-06-04] MEDS: RISPERIDONE 0.5 MG TAB PO SCH (21:57)
[2016-06-04] MEDS: HEPARIN SOD 5000 UNIT/0.5 ML CARP SQ SCH (22:02)
[2016-06-04 23:56] VITALS: BP 106/64; PULSE 72; TEMP 36.8; O2SAT 92
[2016-06-05 06:55] LABS: HEMATOCRIT 39.6 % (42-52); MEAN CELL VOLUME 95.7 fL (80-100); MEAN CORPUSCULAR HEMOGLOBIN 33.3 pg (25-34); MEAN CORPUSCULAR HGB CONC 34.8 g/dl (32-36); MEAN PLATELET VOLUME 10.2 fL (7.4-10.4); PLATELET COUNT 135 K/uL (130-400); RED BLOOD COUNT 4.14 M/uL (4.7-6.1); WHITE BLOOD COUNT 7.73 K/uL (4.8-10.8)
[2016-06-05 06:59] VITALS: BP 114/77; PULSE 66; TEMP 36.8; O2SAT 92
[2016-06-05 07:12] LABS: BUN/CREATININE RATIO 28.5 (10-20); CALCIUM 7.1 mg/dl (8.5-10.1); CREATININE 0.65 mg/dl (0.60-1.40); POTASSIUM 3.3 mmol/L (3.5-5.1)
[2016-06-05] MEDS: CARBIDOPA/LEVODOPA 50/200MG EXT REL TAB PO SCH ×3 (08:20→20:45)
[2016-06-05] MEDS: GABAPENTIN 300 MG CAP PO SCH ×2 (08:20→20:45)
[2016-06-05] MEDS: ACETAMINOPHEN 500 MG TAB PO SCH ×2 (08:20→20:45)
[2016-06-05] MEDS: CeleBREX 100 MG CAP PO SCH ×2 (08:22→20:47)
[2016-06-05] MEDS: SENNA 8.6 MG TAB PO SCH (08:23)
[2016-06-05] MEDS: VENLAFAXINE HCL XR 150 MG CAPXR PO SCH ×2 (08:24→20:46)
[2016-06-05] MEDS: LIDODERM (LIDOCAINE) PATCH 5% TD SCH (08:24)
[2016-06-05] MEDS: INSULIN ASPART 100 UNITS/ML 3 ML PEN SC SCH ×4 (08:32→21:01)
[2016-06-05] MEDS: HEPARIN SOD 5000 UNIT/0.5 ML CARP SQ SCH ×2 (10:06→21:02)
[2016-06-05] MEDS: SODIUM CHLORIDE 0.9% 1000ML 1,000 ML IV SCH (10:30)
[2016-06-05 10:38] VITALS: O2SAT 97
--- NOTE | 2016-06-05 11:51 | Progress Note ---
Subjective Date of Service: Jun 05, 2016. Subjective Pt evaluation today including: conversation w/ patient, conversation w/ family , physical exam, chart review Problem List Medical Problems: (1) Acute exacerbation of chronic low back pain Status: Acute (2) Blurry vision, bilateral Status: Acute (3) Hyperglycemia Status: Acute Review of Systems Respiratory: No cough, No dyspnea at rest, No dyspnea on exertion, No hemoptysis, No problem reported, No see HPI, No shortness of breath, No sputum, No wheezing Cardiac: No PND, No chest pain, No claudication, No edema, No orthopnea, No palpitations, No problem reported, No see HPI Musculoskeletal: + problem reported (back pain) Medications Medications (Trade) Dose Ordered Sig/Maria De Jesus Route Start Time Stop Time Status Last Admin Dose Admin Polyethylene (Miralax Powder Packet) 17 gm DAILY PRN PO 06/04/16 14:15 07/04/16 14:14 06/05/16 10:07 17 GM Heparin Sodium (Porcine) (Heparin Sq 5000 Unit/0.5ml) 5,000 unit Q12H SQ 06/04/16 21:00 07/04/16 20:59 06/05/16 10:06 5,000 UNIT Insulin Aspart (novoLOG ASPART) SLIDING SCALE PARAMETER ACHS SC 06/04/16 16:30 07/04/16 16:29 06/05/16 08:32 1 UNITS Carbidopa/Levodopa (Sinemet Cr 50/ 200MG Tab) 1 tab TID PO 06/04/16 20:00 07/04/16 19:59 06/05/16 08:20 1 TAB Divalproex Sodium (Depakote Delay Rel Tab) 250 mg HS PO 06/04/16 22:00 07/04/16 21:59 06/04/16 21:56 250 MG Divalproex Sodium (Depakote Delay Rel Tab) 1,000 mg HS PO 06/04/16 22:00 07/04/16 21:59 06/04/16 21:55 1,000 MG Donepezil HCl (Aricept Tab) 10 mg HS PO 06/04/16 22:00 07/04/16 21:59 06/04/16 21:56 10 MG Quetiapine Fumarate (seroQUEL TAB) 50 mg HS PO 06/04/16 22:00 07/04/16 21:59 06/04/16 21:55 50 MG Risperidone (Risperdal Tab) 0.5 mg HS PO 06/04/16 22:00 07/04/16 21:59 06/04/16 21:57 0.5 MG Venlafaxine HCl 150 mg 150 mg BID PO 06/04/16 20:00 07/04/16 19:59 06/05/16 08:24 150 MG Sodium Chloride (Nss 1000ml) 1,000 ml @ 100 mls/hr Q10H IV 06/04/16 14:30 07/04/16 14:29 06/04/16 23:35 100 MLS/HR Acetaminophen (Tylenol Tab) 1,000 mg BID PO 06/04/16 20:00 07/04/16 19:59 06/05/16 08:20 1,000 MG Lidocaine (Lidoderm Patch 5%) 1 patch QAM TD 06/04/16 15:00 07/04/16 14:59 06/05/16 08:24 1 PATCH Miscellaneous (Remove Lidoderm Patch) 1 ea DAILY@21 N/A 06/04/16 21:00 07/04/16 20:59 06/04/16 21:00 1 EA Celecoxib (CeleBREX CAP) 100 mg BID PO 06/04/16 20:00 07/04/16 19:59 06/05/16 08:22 100 MG Bisacodyl (Dulcolax Supp) 10 mg NOW STAT OR 06/04/16 14:50 06/04/16 15:09 DC 06/04/16 15:42 10 MG Senna (Senokot Tab) 17.2 mg QAM PO 06/04/16 16:00 07/04/16 15:59 06/05/16 08:23 17.2 MG Gabapentin (Neurontin Cap) 300 mg BID PO 06/04/16 20:00 07/04/16 19:59 06/05/16 08:20 300 MG Objective Vital Signs Date Time Temp Pulse Resp B/P Pulse Ox O2 Delivery O2 Flow Rate FiO2 06/05/16 10:38 97 Room Air 06/05/16 06:59 36.8 66 20 114/77 92 Room Air 06/05/16 00:00 Room Air 06/04/16 23:56 36.8 72 18 106/64 92 Room Air 06/04/16 16:00 97 Room Air 06/04/16 15:47 36.2 69 18 98/61 93 Room Air 06/04/16 13:54 97 Room Air 06/04/16 13:45 36.5 62 14 105/66 94 Room Air Laboratory Results Last 24 Hours Test 06/04/16 13:42 06/04/16 15:00 06/04/16 16:47 06/04/16 20:47 Bedside Glucose 284 mg/dl 258 mg/dl 210 mg/dl White Blood Count 6.56 K/uL Red Blood Count 4.84 M/uL Hemoglobin 16.4 g/dL Hematocrit 46.0 % Mean Corpuscular Volume 95.0 fL Mean Corpuscular Hemoglobin 33.9 pg Mean Corpuscular Hemoglobin Concent 35.7 g/dl Platelet Count 167 K/uL Mean Platelet Volume 10.5 fL Neutrophils (%) (Auto) 55.9 % Lymphocytes (%) (Auto) 35.8 % Monocytes (%) (Auto) 6.4 % Eosinophils (%) (Auto) 1.4 % Basophils (%) (Auto) 0.2 % Neutrophils # (Auto) 3.67 K/uL Lymphocytes # (Auto) 2.35 K/uL Monocytes # (Auto) 0.42 K/uL Eosinophils # (Auto) 0.09 K/uL Basophils # (Auto) 0.01 K/uL RDW Standard Deviation 44.5 fL RDW Coefficient of Variation 12.8 % Immature Granulocyte % (Auto) 0.3 % Immature Granulocyte # (Auto) 0.02 K/uL Prothrombin Time 10.1 SECONDS Prothromb Time International Ratio 0.9 Activated Partial Thromboplast Time 25.6 SECONDS Partial Thromboplastin Ratio 1.0 Sodium Level 138 mmol/L Potassium Level 4.1 mmol/L Chloride Level 103 mmol/L Carbon Dioxide Level 26 mmol/L Anion Gap 9.0 mmol/L Blood Urea Nitrogen 21 mg/dl Creatinine 0.81 mg/dl Est Creatinine Clear Calc Drug Dose 88.9 ml/min Estimated GFR () 105.1 Estimated GFR (Non- 90.7 BUN/Creatinine Ratio 25.6 Random Glucose 316 mg/dl Calcium Level 8.9 mg/dl Beta-Hydroxybutyric Acid 1.15 mg/dL Test 06/05/16 05:50 06/05/16 07:14 06/05/16 11:11 White Blood Count 7.73 K/uL Red Blood Count 4.14 M/uL Hemoglobin 13.8 g/dL Hematocrit 39.6 % Mean Corpuscular Volume 95.7 fL Mean Corpuscular Hemoglobin 33.3 pg Mean Corpuscular Hemoglobin Concent 34.8 g/dl RDW Standard Deviation 44.2 fL RDW Coefficient of Variation 12.8 % Platelet Count 135 K/uL Mean Platelet Volume 10.2 fL Sodium Level 145 mmol/L Potassium Level 3.3 mmol/L Chloride Level 112 mmol/L Carbon Dioxide Level 26 mmol/L Anion Gap 7.0 mmol/L Blood Urea Nitrogen 19 mg/dl Creatinine 0.65 mg/dl Est Creatinine Clear Calc Drug Dose 110.7 ml/min Estimated GFR () 115.1 Estimated GFR (Non- 99.3 BUN/Creatinine Ratio 28.5 Random Glucose 141 mg/dl Calcium Level 7.1 mg/dl Bedside Glucose 163 mg/dl 318 mg/dl Assessment and Plan Back pain secondary to disc disease Consult to . Cont with current pain meds Eventual PT/OT. DM2 Restart home DM meds check Hgb a1c. Hypokalemia Replete K.
--- NOTE | 2016-06-05 12:39 | Pain Management Consultation ---
Pain Management Consultation Date of Consultation Jun 05, 2016. Reason for Consultation Hyperglycemia, confusion, lumbar radiculitis History Mr. Ratliff is a 71 y/o white male that has been referred for hyperglycemia, confusion, and left low back pain. Patient states that over the last 2-3 weeks he has developed left low back pain without any known injury. He described a sharp, stabbing, burning pain along the left low back and into the left lateral leg into the foot. Patient was prescribed Prednisone and receive a lumbar MRI recently. Reportedly, he has a nerve impingement in the lumbar spine that is causing the patient's pain. Patient has seen Dr. Olivier regarding this low back pain but injection was going to be performed at this time because his blood sugars were elevated too high. He had discontinued the Prednisone but his blood sugar levels did continue to escalate and the patient developed confusion. As the patient has been admitted, he is now on Celebrex 100mg BID with moderate pain relief. He states that the back pain has significantly decreased. He is able to walk further and perform more activities. He does continue to experience increased pain with sitting for extended amounts of time. Patient denies any leg weakness, foot drop, saddle anesthesia, bowel/ bladder incontinence, or falls. Case discussed with Dr. 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 (8) Diabetes Social / Work History Smoking Status: Never smoker Smokeless Tobacco Use: No Alcohol Use: none Drug Use: none Marital Status: Housing Status: lives with family Occupation: retired Allergies Coded Allergies: Penicillins (Verified Allergy, Severe, SWELL UP,HIVES, 06/02/16) SWELLS UP, HIVES Sulfa Drugs (Verified Allergy, Unknown, 06/02/16) Medications Current Inpatient Medications Medications (Trade) Dose Ordered Sig/Maria De Jesus Route Start Time Stop Time Status Last Admin Dose Admin Acetaminophen (Tylenol Tab) 650 mg Q4H PRN PO 06/04/16 14:15 07/04/16 14:14 Magnesium Hydroxide (Milk Of Magnesia Susp) 30 ml Q6H PRN PO 06/04/16 14:15 07/04/16 14:14 Polyethylene (Miralax Powder Packet) 17 gm DAILY PRN PO 06/04/16 14:15 07/04/16 14:14 06/05/16 10:07 17 GM Ondansetron HCl (Zofran Inj) 4 mg Q6H PRN IV 06/04/16 14:15 07/04/16 14:14 Heparin Sodium (Porcine) (Heparin Sq 5000 Unit/0.5ml) 5,000 unit Q12H SQ 06/04/16 21:00 07/04/16 20:59 06/05/16 10:06 5,000 UNIT Lorazepam (Ativan Inj) 0.5 mg Q4H PRN IV 06/04/16 14:15 07/04/16 14:14 Lorazepam (Ativan Tab) 0.5 mg Q6 PRN PO 06/04/16 14:15 07/04/16 14:14 Hydromorphone HCl (Dilaudid Inj) 0.5 mg Q4 PRN IV 06/04/16 14:15 06/18/16 14:14 Hydromorphone HCl (Dilaudid Inj) 1 mg Q4 PRN IV 06/04/16 14:15 06/18/16 14:14 Insulin Aspart (novoLOG ASPART) SLIDING SCALE PARAMETER ACHS SC 06/04/16 16:30 07/04/16 16:29 06/05/16 08:32 1 UNITS Carbidopa/Levodopa (Sinemet Cr 50/ 200MG Tab) 1 tab TID PO 06/04/16 20:00 07/04/16 19:59 06/05/16 08:20 1 TAB Divalproex Sodium (Depakote Delay Rel Tab) 250 mg HS PO 06/04/16 22:00 07/04/16 21:59 06/04/16 21:56 250 MG Divalproex Sodium (Depakote Delay Rel Tab) 1,000 mg HS PO 06/04/16 22:00 07/04/16 21:59 06/04/16 21:55 1,000 MG Donepezil HCl (Aricept Tab) 10 mg HS PO 06/04/16 22:00 07/04/16 21:59 06/04/16 21:56 10 MG Quetiapine Fumarate (seroQUEL TAB) 50 mg HS PO 06/04/16 22:00 07/04/16 21:59 06/04/16 21:55 50 MG Risperidone (Risperdal Tab) 0.5 mg HS PO 06/04/16 22:00 07/04/16 21:59 06/04/16 21:57 0.5 MG Venlafaxine HCl 150 mg 150 mg BID PO 06/04/16 20:00 07/04/16 19:59 06/05/16 08:24 150 MG Sodium Chloride (Nss 1000ml) 1,000 ml @ 100 mls/hr Q10H IV 06/04/16 14:30 07/04/16 14:29 06/04/16 23:35 100 MLS/HR Acetaminophen (Tylenol Tab) 1,000 mg BID PO 06/04/16 20:00 07/04/16 19:59 06/05/16 08:20 1,000 MG Lidocaine (Lidoderm Patch 5%) 1 patch QAM TD 06/04/16 15:00 07/04/16 14:59 06/05/16 08:24 1 PATCH Miscellaneous (Remove Lidoderm Patch) 1 ea DAILY@21 N/A 06/04/16 21:00 07/04/16 20:59 06/04/16 21:00 1 EA Glucose (Glucose 40% Gel) 15-30 GRAMS 15 GRAMS... UD PRN PO 06/04/16 14:30 07/04/16 14:29 Glucose (Glucose Chew Tab) 4-8 Tablets 4 Tabl... UD PRN PO 06/04/16 14:30 07/04/16 14:29 Dextrose (Dextrose 50% 50ML Syringe) 25-50ML OF 50% DW IV FOR... UD PRN IV 06/04/16 14:30 07/04/16 14:29 Glucagon 1 mg 1 mg UD PRN SQ 06/04/16 14:30 07/04/16 14:29 Lorazepam/Syringe (Ativan Inj/ Syringe) 1 ml @ 1 mls/min Q4H PRN IV 06/04/16 14:45 07/04/16 14:44 Celecoxib (CeleBREX CAP) 100 mg BID PO 06/04/16 20:00 07/04/16 19:59 06/05/16 08:22 100 MG Senna (Senokot Tab) 17.2 mg QAM PO 06/04/16 16:00 07/04/16 15:59 06/05/16 08:23 17.2 MG Gabapentin (Neurontin Cap) 300 mg BID PO 06/04/16 20:00 07/04/16 19:59 06/05/16 08:20 300 MG Oxycodone HCl (Roxicodone Immediate Rel Tab) 10 mg Q6 PRN PO 06/04/16 15:00 06/18/16 14:59 Metformin HCl (Glucophage Tab) 500 mg BIDM PO 06/05/16 17:00 07/05/16 16:59 Review of Systems Denies any constitutional, cardiac, pulmonary, neurological, GI, , extremity, endocrine, neuro, ENT, dermatological, or musculoskeletal complaints other than stated in HPI Physical Exam Height & Weight: Height 5 feet, 10.00 inches. Weight 84.600 (Kilograms) 186 (Pounds) Last Vital Signs Documentation Date Time Temp Pulse Resp B/P Pulse Ox O2 Delivery O2 Flow Rate FiO2 06/05/16 10:38 97 Room Air 06/05/16 06:59 36.8 66 20 114/77 Exam: GENERAL: Mr. Ratliff is a 71 y/o white male that appears his stated age. Speech and cognition is intact. Flat affect. Sitting quietly in the hospital bed, in no acute distress. HEAD: Normocephalic; atraumatic. EYES: Pupils are round, equal, and reactive to light; EOM intact. ENT: No external ear discharge or lesions. No rhinorrhea or epistaxis. No mucosal lesions. CHEST: Regular chest respiration and excursion. EXTREMITIES: 5/5 strength of the bilateral lower extremities. Sensation is equal and intact to the bilateral lower extremities. Positive straight leg raise on the left, negative on the right. Negative Fabere maneuver bilaterally. BACK: Full ROM. Mild loss of lumbar lordosis. There is lidocaine patch located on the left flank. There is tenderness located at the left L4-L5 region as well as mild tenderness of the left SI joint. No midline tenderness. There is mild left quadratus lumborum Mack spasm without myoneural trigger points. NEURO: CN II-XII grossly intact with no focal deficits noted. Normal gait. SKIN: No lesions, erythema, or rashes noted. Laboratory / Imaging Results Laboratory Results (Last CBC): 06/05/16 05:50 Assessment 1. Lumbar radiculitis, left-sided 2. Depressive disorder 3. History of suicidal attempts 3. Uncontrolled diabetes mellitus 4. History of explosive personality disorder Recommendations 1. Patient states that his low back pain has significantly improved. He is unsure if it was the oral prednisone or the oral Celebrex is pleased with the pain relief at this time. Reports approximately 70% pain relief. 2. Lumbar MRI has not yet been obtained. Patient states that the lumbar MRI was recently performed at [facility] in [place] 3. Patient has previously seen Dr. Olivier and he would prefer to follow up with his office for possible injections when discharged. 4. Continue Celebrex 100mg BID for pain relief. He does have Oral Oxycodone ordered PRN breakthrough pain but the patient states that his pain is manageable and he does not need it. [employer] Voice Recognition This chart was completed in part utilizing [employer] Voice Recognition Software. Random word insertions, pronoun errors, and incomplete sentences are an occasional consequence of this system due to software limitations and ambient noise. Any questions or concerns about the content, text or information contained within the body of this dictation should be directly addressed to the provider for clarification.
[2016-06-05 13:05] VITALS: BMI 26.8
[2016-06-05] MEDS ORDERED: NURSING VERBAL MED ORDER ONE (14:45)
[2016-06-05] MEDS ORDERED: POTASSIUM CHLORIDE 20 MEQ TABCR PO STA (14:46)
[2016-06-05 14:59] VITALS: BP 112/71; PULSE 55; TEMP 36.8; O2SAT 96
--- NOTE | 2016-06-05 15:33 | ORTHOPEDIC CONSULTATION ---
DATE OF CONSULTATION: 06/05/2016 CHIEF COMPLAINT: Evaluate back and left thigh pain. HISTORY OF PRESENT ILLNESS: This is a 71-year-old male who has had a longstanding history of low back pain; it is chronic axial low back pain that has had a recent exacerbation. He has no specific injury, no fall. Back pain is his primary complaint, says he occasionally gets some radiation to the hip, groin, and anterior thigh that is less severe and position dependent. He denies any farhana numbness or weakness. He is able to go up and down stairs without increased pain. He was seen by pain management but did not have an epidural steroid injection due to his elevated blood glucose levels. Years prior, he has had epidural injections with short term relief. He has had no outpatient physical therapy or chiropractic manipulation. An MRI done at our institution was reviewed by myself and revealed really mild degenerative changes in lumbar spine. There is a small disk protrusion at L3-L4 and the foraminal position, but does not cause any overt pressure on the nerve roots, based upon my read. This is really fairly inconsequential in appearance. There is some bulging of L4-L5 with some slight annular tearing but no significant neural compression. He has no evidence of spinal stenosis or significant neural compression due to disk herniation. The degenerative findings are relatively mild for his age. No other imaging was available. PAST MEDICAL HISTORY ILLNESS: Chronic headaches, previous closed head injury, history of attempted suicide, depression, PTSD, previous psych admissions, asthma, GERD, diabetes. MEDICATIONS: Per the electronic medical record and were reviewed. SOCIAL HISTORY: He is a nonsmoker, does not use alcohol. REVIEW OF SYSTEMS: Negative for known coronary artery disease, incontinence, weakness or loss of balance. PHYSICAL EXAMINATION: The patient had normal vitals as reviewed in the EMR. He was lying on his left side when I evaluated the patient. He is able to roll independently comfortably to supine position, both legs straight. The straight leg raise is negative on the left with reproduction of groin and thigh pain with hip flexion and internal rotation. He had no weakness with resisted hip flexion, quadriceps or ankle dorsiflexion on the left lower extremity with intact sensation to light touch in all distributions. He had symmetric normal DTRs. No clonus. ASSESSMENT AND PLAN: The patient has exacerbation of low back pain, presumably due to an aggravation of mechanical pain. He has no significant neural impingement, no significant disk herniations and no instability. He certainly appears to have some symptoms referable to the hip. He reports remote history of a fracture in the pelvis or hip, he is unsure as to what was treated nonoperatively and obtained hip radiographs as well. In terms of orthopedic spine surgery, none is required at this time. As I said, his disk protrusions appeared to be relatively small and have no significant neural impingement. It would be reasonable to pursue a selective nerve root injection to see if his pain can be localized, once his pain is managed on an outpatient basis and his blood is glucose controlled. Certainly would trial a course of nonoperative treatment in the form of physical therapy as well. Safe to mobilize him as he tolerates. Thank you for the consultation.
--- NOTE | 2016-06-05 15:49 | DIAGNOSTIC IMAGING REPORT ---
LEFT HIP 2 VIEWS HISTORY: Left hip pain COMPARISON: Abdomen and pelvis CT 09/05/2015. FINDINGS: There is no fracture or dislocation. Soft tissues are unremarkable. No radiopaque foreign bodies. Cartilage spaces are maintained for age. There is a pelvic bones are intact. IMPRESSION: Unremarkable left hip for age. Electronically signed by: John Chavis M.D. 06/05/2016 3:47 PM Dictated Date/Time: 06/05/2016 3:42 PM
[2016-06-05] MEDS: METFORMIN HCL 500 MG TAB PO SCH (16:50)
[2016-06-05] MEDS: RISPERIDONE 0.5 MG TAB PO SCH (20:54)
[2016-06-05] MEDS: DIVALPROEX SODIUM 250 MG DELAY REL TAB PO SCH (20:54)
[2016-06-05] MEDS: DIVALPROEX SODIUM 500 MG DELAY RELEASE TAB PO SCH (20:54)
[2016-06-05] MEDS: DONEPEZIL HCL 10 MG TAB PO SCH (20:54)
[2016-06-05] MEDS: QUETIAPINE FUMARATE 25 MG TAB PO SCH (20:55)
[2016-06-06] VITALS: O2SAT 91; O2SAT 97
[2016-06-06 00:24] VITALS: BP 99/62; PULSE 71; TEMP 36.4; O2SAT 91
[2016-06-06] MEDS: INSULIN ASPART 100 UNITS/ML 3 ML PEN SC SCH ×2 (06:30→11:48)
[2016-06-06 07:11] VITALS: BP 96/60; PULSE 68; TEMP 36.7; O2SAT 93
[2016-06-06 07:41] LABS: BASO % 0.3 %; BASO ABS # 0.03 K/uL (0-0.2); COMPLETE YES; EOS % 1.2 %; IG% 0.2 %; LYMPH % 25.4 %; LYMPH ABS # 2.25 K/uL (1.2-3.4); MEAN CELL VOLUME 94.3 fL (80-100); MEAN CORPUSCULAR HEMOGLOBIN 33.6 pg (25-34); MEAN CORPUSCULAR HGB CONC 35.6 g/dl (32-36); MEAN PLATELET VOLUME 10.2 fL (7.4-10.4); MONO % 5.5 %; NEUT % 67.4 %; PLATELET COUNT 127 K/uL (130-400); RED BLOOD COUNT 4.56 M/uL (4.7-6.1); WHITE BLOOD COUNT 8.86 K/uL (4.8-10.8)
[2016-06-06 08:17] LABS: ESTIMATED AVERAGE GLUCOSE 246 mg/dl; HA1C FLAG Normal (Normal)
[2016-06-06 08:24] LABS: CALCIUM 8.6 mg/dl (8.5-10.1); CREATININE 0.81 mg/dl (0.60-1.40); POTASSIUM 3.7 mmol/L (3.5-5.1)
[2016-06-06] MEDS: GABAPENTIN 300 MG CAP PO SCH (08:48)
[2016-06-06] MEDS: METFORMIN HCL 500 MG TAB PO SCH (08:48)
[2016-06-06] MEDS: LIDODERM (LIDOCAINE) PATCH 5% TD SCH (08:48)
[2016-06-06] MEDS: CeleBREX 100 MG CAP PO SCH (08:48)
[2016-06-06] MEDS: CARBIDOPA/LEVODOPA 50/200MG EXT REL TAB PO SCH ×2 (08:48→14:00)
[2016-06-06] MEDS: ACETAMINOPHEN 500 MG TAB PO SCH (08:48)
[2016-06-06] MEDS: SENNA 8.6 MG TAB PO SCH (08:49)
[2016-06-06] MEDS: VENLAFAXINE HCL XR 150 MG CAPXR PO SCH (08:49)
[2016-06-06] MEDS: HEPARIN SOD 5000 UNIT/0.5 ML CARP SQ SCH (08:52)
--- NOTE | 2016-06-06 09:14 | ORTHOPEDIC CONSULTATION ---
DATE OF CONSULTATION: 06/06/2016 ORTHOPEDIC SPINE CONSULTATION FOLLOWUP SUBJECTIVE: The patient's hip x-rays reviewed. They are unremarkable. Showed no significant degenerative changes or other pathology that would account for his pain. After discussion with the daughter yesterday and evaluation of the patient, I feel there is a possibility his symptoms are related to the left L3-L4 foraminal disk herniation. Once his pain is controlled, I would recommend an outpatient left L3 selective nerve root injection to determine if this is the source of his pain. If it is and he responds long-term this could be an effective treatment and if it is only short term surgery could be considered. He has seen Dr. Olivier in the past and this could be scheduled once discharged. Thank you for the consultation.
[2016-06-06 11:19] VITALS: Ht 177.8 cm; Wt 84.6 kg
--- NOTE | 2016-06-06 12:54 | Discharge Instructions ---
Discharge Instructions Date of Service Jun 06, 2016. Admission Reason for Admission: Hyperglycemia, Back Pain, Uncontrolled Diabetes Discharge Discharge Diagnosis / Problem: Back pain Discharge Goals Goal(s): Learn about illness Activity Recommendations Activity Limitations: as noted below Lifting Limitations: until after follow-up appointment Exercise/Sports Limitations: until after follow-up appointment May Resume Sexual Activity: after follow-up appointment Shower/Bathe: no limitations Driving or Machine Use: no limitations . Instructions / Follow-Up Instructions / Follow-Up Followup with Orthopedics Current Hospital Diet Patient's current hospital diet: Diabetes Type 2 Diet Discharge Diet Recommended Diet: Diabetes Type 2 Diet Pending Studies Studies pending at discharge: no Laboratory Results Hemoglobin A1c Test 06/06/16 07:32 Range/Units Estimated Average Glucose 246 mg/dl Hemoglobin A1c 10.2 H 4.5-5.6 % Medical Emergencies . Who to Call and When: Medical Emergencies: If at any time you feel your situation is an emergency, please call 911 immediately. . Non-Emergent Contact Non-Emergency issues call your: Primary Care Provider . Past History Medical & Surgical History: (1) Diabetes (2) Depression (3) History of back pain . "Provider Documentation" section prepared by Maria Isabel Richter. VTE Core Measure Inpt VTE Proph given/why not?: SCD's
--- NOTE | 2016-06-06 12:56 | Discharge Summary ---
Discharge Summary Date of Service Jun 06, 2016. Discharge Summary Admission Date: Jun 04, 2016 at 13:14 Discharge Date: Jun 06, 2016 Discharge Disposition: Home Principal Diagnosis: Back pain Problems/Secondary Diagnoses: DM2 Immunizations: Have You Had Influenza Vaccine: Yes History of Tetanus Vaccine?: Unknown History of Pneumococcal: Yes History of Hepatitis B Vaccine: Unknown Consultations: Orthopedics Discharge Exam Physical Exam: General Appearance: WD/WN Eyes: normal inspection ENT: normal ENT inspection Neck: supple Respiratory/Chest: chest non-tender, lungs clear Cardiovascular: regular rate, rhythm, no edema Abdomen / GI: normal bowel sounds, non tender, soft Extremities: normal inspection Neurologic/Psychiatric: hand molder meat II-XII nml as tested, oriented x 3 Skin: normal color Hospital Course Back pain secondary to disc disease Consult to . Cont with current pain meds Eventual PT/OT. DM2 Restart home DM meds Hgb a1c poorly controlled at 10.2 Follow up with PCP at discharge. Hypokalemia Replete K. Ortho recommendations as below The patient's hip x-rays reviewed. They are unremarkable. Showed no significant degenerative changes or other pathology that would account for his pain. After discussion with the daughter yesterday and evaluation of the patient, I feel there is a possibility his symptoms are related to the left L3-L4 foraminal disk herniation. Once his pain is controlled, I would recommend an outpatient left L3 selective nerve root injection to determine if this is the source of his pain. If it is and he responds long-term this could be an effective treatment and if it is only short term surgery could be considered. He has seen Dr. Olivier in the past and this could be scheduled once discharged. Total Time Spent: Greater than 30 minutes This includes examination of the patient, discharge planning, medication reconciliation, and communication with other providers. Discharge Instructions Please refer to the electronic Patient Visit Report (Discharge Instructions) for additional information. Follow-Up Orthopedics in one to two weeks
[2016-06-06 13:15] VITALS: BP 96/60; PULSE 68; TEMP 36.7; O2SAT 93
[2016-06-25] MEDS ORDERED: OXYC-57 PO (10:28)
[2016-10-30] MEDS ORDERED: RXC5 PO (08:04)
== END 2016-06-06 14:05 | disposition home or self-care (01) | DRG 552 ==
LOC: C.MS4W 13:14
PROVIDERS: ADMIT Internal Medicine; ATTEND Internal Medicine
DX: M54.16 Radiculopathy, lumbar region (principal); E11.65 Type 2 diabetes mellitus with hyperglycemia; E87.6 Hypokalemia; K59.00 Constipation, unspecified; K21.9 Gastro-esophageal reflux disease without esophagitis; Z79.899 Other long term (current) drug therapy; Z83.3 Family history of diabetes mellitus; R41.0 Disorientation, unspecified; F32.9 Major depressive disorder, single episode, unspecified; R11.10 Vomiting, unspecified

== ENCOUNTER 2016-06-23 14:01 | Inpatient (IN) | payer OTHER ==
[~2016-06-23] VITALS: Ht 177.8 cm; Wt 81.8 kg
[2016-06-23 15:22] VITALS: BP 109/61; PULSE 65; TEMP 36.8; O2SAT 92
[2016-06-23 15:34] VITALS: BMI 25.9
[2016-06-23] MEDS: SODIUM CHLORIDE 0.9% 1000ML 1,000 ML IV SCH (16:18)
[2016-06-23] MEDS ORDERED: LORAZEPAM INJ 1 MG in SYRINGE 0.5 ML IV PRN (16:30)
[2016-06-23] MEDS ORDERED: PROMETHAZINE HCL INJ 12.5 MG in SODIUM CHLORIDE 0.9% 50ML 50 ML IV PRN (16:30)
[2016-06-23] MEDS ORDERED: ONDANSETRON INJ 2 MG/ML 2 ML VIAL IV PRN (16:30)
[2016-06-23] MEDS ORDERED: ACETAMINOPHEN 325 MG TAB PO PRN (16:30)
[2016-06-23] MEDS ORDERED: LORAZEPAM 1 MG TAB PO PRN (16:30)
[2016-06-23] MEDS ORDERED: NALOXONE HCL 0.4 MG/1 ML VIAL/CARP IV PRN (16:30)
[2016-06-23 17:17] LABS: BASO % 0.4 %; BASO ABS # 0.03 K/uL (0-0.2); COMPLETE YES; EOS % 2.4 %; HEMATOCRIT 48.7 % (42-52); IG% 0.3 %; LYMPH % 32.6 %; LYMPH ABS # 2.48 K/uL (1.2-3.4); MEAN CELL VOLUME 96.1 fL (80-100); MEAN CORPUSCULAR HEMOGLOBIN 33.9 pg (25-34); MEAN CORPUSCULAR HGB CONC 35.3 g/dl (32-36); MEAN PLATELET VOLUME 10.1 fL (7.4-10.4); MONO % 8.3 %; PLATELET COUNT 260 K/uL (130-400); RED BLOOD COUNT 5.07 M/uL (4.7-6.1); WHITE BLOOD COUNT 7.61 K/uL (4.8-10.8)
--- NOTE | 2016-06-23 17:23 | DIAGNOSTIC IMAGING REPORT ---
CHEST 2 VIEWS ROUTINE HISTORY: preop COMPARISON: Chest 05/29/2016. FINDINGS: The heart is normal in size. No pleural effusions. No pneumothorax. Mild bibasilar interstitial thickening which is likely chronic. No new focal lung consolidations to suggest pneumonia. No evidence for pulmonary edema. The patient is slightly rotated on this study. IMPRESSION: Mild bibasilar interstitial thickening which is likely chronic. No new focal lung consolidations. Electronically signed by: John Chavis M.D. 06/23/2016 5:21 PM Dictated Date/Time: 06/23/2016 5:19 PM
[2016-06-23 17:41] LABS: BUN/CREATININE RATIO 17.3 (10-20); CALCIUM 9.1 mg/dl (8.5-10.1); CREATININE 0.91 mg/dl (0.60-1.40); POTASSIUM 4.2 mmol/L (3.5-5.1)
--- NOTE | 2016-06-23 18:11 | DIAGNOSTIC IMAGING REPORT ---
ULTRASOUND BILATERAL LOWER EXTREMITY VENOUS CLINICAL HISTORY: Immobilized patient. COMPARISON STUDY: No priors. TECHNIQUE: Real-time, grayscale, and color Doppler sonography of the deep veins of the right and left lower extremity was performed from the inguinal crease to the calf. Compression and augmentation were utilized. FINDINGS: There is no sonographic evidence of deep venous thrombosis identified in the right or left lower extremity. The common femoral, superficial femoral, and popliteal veins are patent and normally compressible bilaterally. The greater saphenous vein and the profunda femoris vein at the junction with the common femoral vein are clear in both legs. The visualized calf veins are patent bilaterally. IMPRESSION: There is no sonographic evidence of deep venous thrombosis identified in the right or left lower extremity. Electronically signed by: Vivek Hemphill M.D. 06/23/2016 6:09 PM Dictated Date/Time: 06/23/2016 6:08 PM
[2016-06-23] MEDS: LACTATED RINGER'S 1000ML 1,000 ML IV SCH (18:13)
[2016-06-23] MEDS: MoRPHine SULFATE 1 MG/ML 50 ML PCA CASS IV PRN ×2 (18:14→23:01)
[2016-06-23 18:25] VITALS: BP 101/64; PULSE 68; TEMP 36.8; O2SAT 93
--- NOTE | 2016-06-23 19:01 | Anesthesiology Progress Note ---
Anesthesia Progress Note Date of Service Jun 23, 2016. Progress Notes The patient is a 71 y/o male with a h/o Asthma, JAVON, GERD, DM, chronic headaches s/p closed head injury in 2000, depression with PTSD scheduled for L3- 4 microdiscectomy/possible tomorrow with Dr. Adame. The patient was recently admitted for uncontrolled BSG in the 300-400s. He had been on prednisone which has been discontinued. The patient's BSG on admission today is 207. All of his other labs are unremarkable. His EKG shows NSR HR 73 with RBBB. He had a stress echo in 2010 that was negative for ischemia with EF 60%. CXR showed NAD. On exam the patient is lying in bed in no acute distress. VSS. He has a Mallampati class III airway with good neck flexion/extension. He has upper and lower dentures. Lungs are CTAB and heart is RRR. The patient appears optimized for surgery tomorrow. He will need his BSG checked prior to surgery. He was consented for GA and instructed to remain NPO after midnight except for medications. All questions were answered.
[2016-06-23 19:10] VITALS: BP 126/84; PULSE 69; TEMP 36.7; O2SAT 93
[2016-06-23 20:15] VITALS: BP 103/63; PULSE 81; TEMP 36.8; O2SAT 94
--- NOTE | 2016-06-23 20:25 | Medical Consult ---
Consultation Date of Consultation: Jun 23, 2016. Attending Physician: Mark Adame M.D. Reason for Consultation: medical management of uncontrolled T2DM History of Present Illness 71yo male with h/o uncontrolled T2DM, PTSD, explosive personality disorder, and other mood disorder who presented as a direct admission from Dr. Adame's office for ongoing severe lumbar back pain with left leg radicular pain. Despite conservative measures including narcotics he has failed to improve. At this time lumbar spine surgery is tentatively planned for tomorrow AM. Dr. Adame, by report, plans to perform an L3-4 microdiscectomy. The patient reports his fingerstick blood sugars have been in the 150-200 range on metformin monotherapy. He has chronic dyspnea on exertion but no sob at rest. Denies exertional chest pain. Denies PND/orthopnea. Past Medical/Surgical History PMH: 1. chronic headaches 2. closed head injury in 2000 3. GERD 4. T2DM 5. h/o asthma but he denies this during my visit 6. explosive personality disorder 7. PTSD 8. depression 9. 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 hyperlipidemia 11. JAVON PSH: 1. salivary gland removal Family History mother - age 87 from renal failure father - age 86 from renal failure T2DM by report Social History Smoking Status: Never Smoker Smokeless Tobacco Use: No Alcohol Use: none Drug Use: none Marital Status: (has 4 children) Housing Status: lives with family Occupation Status: disabled (previously worked at [employer]) Allergies Coded Allergies: Penicillins (Verified Allergy, Severe, SWELL UP,HIVES, 06/02/16) SWELLS UP, HIVES Sulfa Antibiotics (Verified Allergy, Unknown, unknown, 06/23/16) Home Medications Reported Home Medications Medications Dose Route/Sig Max Daily Dose Days Date Category Dose Instructions Tramadol HCl 50 Mg Tab 50 Mg PO PRN UD 05/29/16 Reported Sinemet Cr 50MG/200MG (Carbidopa/Levodopa) Tabcr 1 Tab PO TID 05/29/16 Reported Donepezil HCl 10 Mg Tab 10 Mg PO BID 05/29/16 Reported Atorvastatin Calcium (Atorvastatin) 20 Mg Tab 20 Mg PO DAILY 05/29/16 Reported Seroquel (Quetiapine Fumarate) 50 Mg Tab 50 Mg PO HS 05/29/16 Reported Risperdal (Risperidone) 0.5 Mg Tab 0.5 Mg PO HS 02/13/14 Reported Depakote Delay Rel (Divalproex Sodium) 500 Mg Tab 1,000 Mg PO HS 02/13/14 Reported TAKE TWO 500 MG TABLETS ALONG WITH ONE 250 MG TABLET TO EQUAL HS DOSE OF 1250 MG. Depakote Delay Rel (Divalproex Sodium) 250 Mg Tab 250 Mg PO HS 02/13/14 Reported TAKE ONE 250 MG TABLET ALONG WITH TWO 500 MG TABLETS TO EQUAL HS DOSE OF 1250 MG. Effexor Extended Rel (Venlafaxine Hcl) 150 Mg Capcr 150 Mg PO BID 02/13/14 Reported Aspirin Ec (Aspirin) 81 Mg Tab 81 Mg PO DAILY 02/13/14 Reported Metformin Hcl Er (Metformin Hcl) 500 Mg Tab 500 Mg PO QPM 04/07/13 Reported Current Inpatient Medications Current Inpatient Medications Medications (Trade) Dose Ordered Sig/Maria De Jesus Route Start Time Stop Time Status Last Admin Dose Admin Lactated Ringer's (Lr 1000ml) 1,000 ml @ 75 mls/hr [id number] IV 06/23/16 16:18 07/23/16 16:17 06/23/16 18:13 75 MLS/HR Acetaminophen (Tylenol Tab) 650 mg Q6H PRN PO 06/23/16 16:30 07/23/16 16:29 Docusate Sodium 100 mg 100 mg BID PO 06/23/16 21:00 07/23/16 20:59 Promethazine HCl/ Sodium Chloride (Phenergan Inj/ Nss 50ml) 50.5 ml @ 202 mls/hr Q6H PRN IV 06/23/16 16:30 07/23/16 16:29 Ondansetron HCl (Zofran Inj) 4 mg Q6H PRN IV 06/23/16 16:30 07/23/16 16:29 Lorazepam 1 mg 1 mg Q6H PRN PO 06/23/16 16:30 07/23/16 16:29 Lorazepam/Syringe (Ativan Inj/ Syringe) 1 ml @ 1 mls/min Q6H PRN IV 06/23/16 16:30 07/23/16 16:29 Oxycodone/ Acetaminophen (Percocet 5-325mg Tab) Moderate to Severe rhiannon... Q4H PRN PO 06/23/16 16:30 07/07/16 16:29 Naloxone HCl (Narcan Inj) 0.1 mg Q5M PRN IV 06/23/16 16:30 07/23/16 16:29 Morphine Sulfate 50 mg 50 mg PRN PRN IV 06/23/16 16:30 07/07/16 16:29 06/23/16 18:14 50 MG Sodium Chloride (Nss 1000ml) 1,000 ml @ 15 mls/hr Q24H IV 06/23/16 16:18 07/23/16 16:17 Aspirin (Ecotrin Tab) 81 mg DAILY PO 06/24/16 09:00 07/24/16 08:59 Carbidopa/Levodopa (Sinemet Cr 50/ 200MG Tab) 1 tab TID PO 06/23/16 21:00 07/23/16 20:59 Divalproex Sodium (Depakote Delay Rel Tab) 250 mg HS PO 06/23/16 21:00 07/23/16 20:59 Divalproex Sodium (Depakote Delay Rel Tab) 1,000 mg HS PO 06/23/16 21:00 07/23/16 20:59 Quetiapine Fumarate (seroQUEL TAB) 50 mg HS PO 06/23/16 21:00 07/23/16 20:59 Risperidone (Risperdal Tab) 0.5 mg HS PO 06/23/16 21:00 07/23/16 20:59 Atorvastatin Calcium (Lipitor Tab) 20 mg HS PO 06/23/16 21:00 07/23/16 20:59 Donepezil HCl (Aricept Tab) 10 mg BID PO 06/23/16 21:00 07/23/16 20:59 Insulin Glargine (Lantus Solostar Pen) 10 unit HS SC 06/23/16 21:00 07/23/16 20:59 UNV Insulin Aspart (novoLOG ASPART) SLIDING SCALE G... ACHS SC 06/23/16 21:00 07/23/16 20:59 UNV Review of Systems Constitutional: + weight loss (10-15 pounds over the last month due to not eating (he attributes lack of appetite to pain)), No chills, No fatigue, No fever, No sweats, No weakness Eyes: No worsening of vision ENT: No nasal symptoms, No sore throat, No trouble swallowing Respiratory: + dyspnea on exertion (chronic), No dyspnea at rest, No sputum, No wheezing Cardiovascular: No PND, No chest pain, No claudication, No edema, No orthopnea , No palpitations Abdomen: No GI bleeding, No constipation, No diarrhea, No nausea, No pain, No vomiting Musculoskeletal: No joint pain, No muscle pain Genitourinary - Male: No dysuria, No hematuria Neurologic: + numbness/tingling (left leg), + weakness (left leg) Psychiatric: + anxiety, + depression symptoms Endocrine: No fatigue Hematologic / Lymphatic: No abnormal bleeding/bruising Integumentary: No rash Physical Exam Date Time Temp Pulse Resp B/P Pulse Ox O2 Delivery O2 Flow Rate FiO2 06/23/16 19:10 36.7 69 20 126/84 93 Room Air 06/23/16 18:25 36.8 68 18 101/64 93 Room Air 06/23/16 15:34 Room Air 06/23/16 15:22 36.8 65 18 109/61 92 Room Air 06/23/16 15:00 Room Air General Appearance: WD/WN, no apparent distress Head: normocephalic, atraumatic Eyes: PERRL ENT: pharynx normal Neck: no JVD, no carotid bruits Respiratory/Chest: no respiratory distress, no accessory muscle use, + rales ( bibasilar - "dry") Cardiovascular: regular rate, rhythm, no gallop, no murmur, normal peripheral pulses Abdomen/GI: normal bowel sounds, non tender, soft, no organomegaly Back: normal inspection Extremities/Musculoskelatal: no pedal edema Neurologic/Psych: no motor/sensory deficits, alert, normal reflexes, oriented x 3 Skin: no rash, + pertinent finding (clubbing of the fingernails) Laboratory Results Last 24 Hours Test 06/23/16 17:05 White Blood Count 7.61 K/uL Red Blood Count 5.07 M/uL Hemoglobin 17.2 g/dL Hematocrit 48.7 % Mean Corpuscular Volume 96.1 fL Mean Corpuscular Hemoglobin 33.9 pg Mean Corpuscular Hemoglobin Concent 35.3 g/dl Platelet Count 260 K/uL Mean Platelet Volume 10.1 fL Neutrophils (%) (Auto) 56.0 % Lymphocytes (%) (Auto) 32.6 % Monocytes (%) (Auto) 8.3 % Eosinophils (%) (Auto) 2.4 % Basophils (%) (Auto) 0.4 % Neutrophils # (Auto) 4.27 K/uL Lymphocytes # (Auto) 2.48 K/uL Monocytes # (Auto) 0.63 K/uL Eosinophils # (Auto) 0.18 K/uL Basophils # (Auto) 0.03 K/uL RDW Standard Deviation 44.4 fL RDW Coefficient of Variation 12.7 % Immature Granulocyte % (Auto) 0.3 % Immature Granulocyte # (Auto) 0.02 K/uL Sodium Level 138 mmol/L Potassium Level 4.2 mmol/L Chloride Level 102 mmol/L Carbon Dioxide Level 31 mmol/L Anion Gap 5.0 mmol/L Blood Urea Nitrogen 16 mg/dl Creatinine 0.91 mg/dl Est Creatinine Clear Calc Drug Dose 79.1 ml/min Estimated GFR () 99.3 Estimated GFR (Non- 85.7 BUN/Creatinine Ratio 17.3 Random Glucose 207 mg/dl Calcium Level 9.1 mg/dl Assessment & Plan 71yo male with uncontrolled T2DM, hyperlipidemia, PTSD, explosive personality disorder, and depression with ongoing lumbar back pain for several years but worse in the last month. He was a direct admission today for pain control and to optimize his care in preparation for lumbar back surgery tomorrow. 1. anticipated lumbar back surgery - from a cardiovascular standpoint he is optimized. He reports chronic, baseline dyspnea on exertion. He has dry rales in the bases on exam which corresponds to the interstitial markings on chest x-ray. He could have an underlying, chronic interstitial lung disease. He does not have CHF or any ischemic symptoms. EKG shows RBBB but no ST changes. I recommended to him that he have pulmonary consultation in the future given his symptoms and chest x-ray findings. The chest x-ray findings should not preclude him from surgery tomorrow. 2. uncontrolled T2DM - most recent hemoglobin a1c was over 10%. He will not achieve optimal control with metformin alone. Will start lantus 10 units HS, check fsbs qac/hs, and novolog supplemental scale using correction factor of 40 and carb ratio of 14. Hold metformin. 3. explosive personality disorder, depression, mood disorder - continue all home psychotropic meds. Will check depakote level tonight to ensure he is in therapeutic range. 4. h/o JAVON - he did not mention this during my history but it is mentioned in the record. Watch for sedation/hypercarbia post-op. 5. hyperlipidemia - continue statin agent. 6. DVT proph - per primary orthopedic team. 7. pain control - agree with OFFICE CLERK ASSISTANT narcotics as primary orthopedic team is doing. Thank you for this consult. We will follow along with you. Caden Lynch MD Additional Copies To Gilberto Pollard M.D.; Mark Adame M.D.
[2016-06-23] MEDS: RISPERIDONE 0.5 MG TAB PO SCH (20:26)
[2016-06-23] MEDS: DOCUSATE SODIUM 100 MG CAP PO SCH (20:29)
[2016-06-23] MEDS: CARBIDOPA/LEVODOPA 50/200MG EXT REL TAB PO SCH (20:29)
[2016-06-23] MEDS: QUETIAPINE FUMARATE 25 MG TAB PO SCH (20:29)
[2016-06-23] MEDS: ATORVASTATIN 20 MG TAB PO SCH (20:29)
[2016-06-23] MEDS: DONEPEZIL HCL 10 MG TAB PO SCH (20:29)
[2016-06-23] MEDS ORDERED: GLUCOSE 10 TABS/TUBE PO PRN (20:30)
[2016-06-23] MEDS ORDERED: DEXTROSE 50% 50 ML SYR IV PRN (20:30)
[2016-06-23] MEDS ORDERED: GLUCAGON FOR INJ 1 MG VIAL SQ PRN (20:30)
[2016-06-23] MEDS: DIVALPROEX SODIUM 500 MG DELAY RELEASE TAB PO SCH (20:30)
[2016-06-23] MEDS: DIVALPROEX SODIUM 250 MG DELAY REL TAB PO SCH (20:30)
[2016-06-23] MEDS ORDERED: GLUCOSE 40% GEL 15 GM TUBE PO PRN (20:30)
[2016-06-23] MEDS ORDERED: DONEPEZIL HCL 10 MG TAB PO SCH (21:00)
[2016-06-23] MEDS ORDERED: ATORVASTATIN 20 MG TAB PO SCH (21:00)
[2016-06-23] MEDS ORDERED: VENLAFAXINE HCL XR 150 MG CAPXR PO SCH (21:00)
[2016-06-23] MEDS ORDERED: INSULIN ASPART 100 UNITS/ML 3 ML PEN SC SCH (21:00)
[2016-06-23 21:15] VITALS: BP 100/63; PULSE 77; TEMP 36.7; O2SAT 90
[2016-06-23] MEDS: INSULIN GLARGINE SOLOSTAR 100 UNITS/ML 3 ML PEN SC SCH (21:20)
[2016-06-23] MEDS ORDERED: DEXAMETHASONE INJ 8 MG in SYRINGE 0 ML IV SCH (22:00)
[2016-06-23 23:50] VITALS: BP 106/67; PULSE 62; TEMP 36.5; O2SAT 92
[2016-06-24] VITALS (9 sets, daily range): BP systolic 96–129; BP diastolic 59–82; PULSE 67–92; TEMP 36.4–36.9; O2SAT 91–97
[2016-06-24] MEDS ORDERED: NURSING VERBAL MED ORDER ONE (02:00)
[2016-06-24] MEDS: LACTATED RINGER'S 1000ML 1,000 ML IV SCH ×2 (05:53→19:07)
[2016-06-24] MEDS: INSULIN ASPART 100 UNITS/ML 3 ML PEN SC SCH ×4 (05:54→21:18)
[2016-06-24] MEDS ORDERED: CLINDAMYCIN 600 MG/54 ML D5W IV SCH (06:00)
[2016-06-24] MEDS: MoRPHine SULFATE 1 MG/ML 50 ML PCA CASS IV PRN ×5 (07:00→22:57)
[2016-06-24] MEDS ORDERED: ONDANSETRON INJ 2 MG/ML 2 ML VIAL IV PRN (07:45)
[2016-06-24] MEDS ORDERED: HYDROmorphone INJ 1 MG/ML SYR IV PRN ×2 (07:45→13:15)
[2016-06-24] MEDS ORDERED: FENTANYL CITRATE INJ 50 MCG/1 ML 2 ML VIAL IV PRN (07:45)
[2016-06-24] MEDS ORDERED: EpHEDrine SULFATE INJ 50 MG/ML AMP IV PRN (07:45)
[2016-06-24] MEDS ORDERED: ATROPINE SULFATE 0.1 MG/ML 5ML SYR IV PRN (07:45)
[2016-06-24] MEDS ORDERED: IV FLUIDS COMPLETED PRN (08:15)
[2016-06-24] MEDS: DONEPEZIL HCL 10 MG TAB PO SCH ×2 (09:16→21:10)
[2016-06-24] MEDS: ASPIRIN 81 MG ECTAB PO SCH (09:16)
[2016-06-24] MEDS: DOCUSATE SODIUM 100 MG CAP PO SCH ×2 (09:16→21:10)
[2016-06-24] MEDS: CARBIDOPA/LEVODOPA 50/200MG EXT REL TAB PO SCH ×3 (09:16→21:10)
--- NOTE | 2016-06-24 09:35 | HISTORY & PHYSICAL EXAMINATION ---
DATE OF ADMISSION: 06/23/2016 CHIEF COMPLAINT: Evaluate back and left thigh pain. HISTORY OF PRESENT ILLNESS: This patient has been treated both inpatient and outpatient over the past month for exacerbation acute on chronic back pain. He has fluctuated with the degree of pain but recently has become more prominent. He recently underwent a left L3 transforaminal epidural steroid injection to try and identify the nerve root response to pain and he had 3 days complete relief of his leg pain. His MRI did suggest a small left L3-4 foraminal disc herniation and it was felt that this may be responsible for his pain. When the injection wore off, his leg pain became severe, he presented to our office with essentially an inability to mobilize due to pain. He has been at bed rest due to poor pain tolerance with ambulation. This is despite oral narcotics. He was admitted from the office for pain control and anticipated lumbar discectomy. He has failed to see any lasting relief despite various oral and interventional treatments over the past 4-6 weeks. He denies right leg pain. He denies incontinence. He denies fevers or chills. PAST MEDICAL HISTORY: History of closed head injury, headaches, GERD, type 2 diabetes, posttraumatic stress disorder, obstructive sleep apnea, and hyperlipidemia. PAST SURGICAL HISTORY: ENT surgery. ALLERGIES: PENICILLIN AND SULFA. SOCIAL HISTORY: The patient is a nonsmoker, no alcohol use. , has 4 children. His daughter works in our office. MEDICATIONS: Tramadol, Sinemet, donepezil, atorvastatin, Seroquel, Risperdal, Depakote, Effexor, aspirin, and metformin. REVIEW OF SYSTEMS: Denies chest pain, shortness of breath, dyspnea on exertion, incontinence, recent fevers. PHYSICAL EXAMINATION: He has subjective tingling and dysesthesias in the left anterior thigh, does not go below the knee. PHYSICAL EXAMINATION: GENERAL: The patient was comfortable lying supine. He had normal affect and answers appropriately. He is oriented x3. HEART AND LUNGS: Had a regular rate and rhythm with auscultation of the lungs and his lungs are clear to auscultation bilaterally. EXTREMITIES: Showed nontender hip range of motion with log roll. He did have some reproduction of pain in the buttock with straight leg raise as well as back pain. It did not radiate distally. He has intact sensation to light touch in all dermatomes in both lower extremities. He has intact motor function, 5/5 strength in ankle dorsiflexion and plantarflexion in bilateral lower extremities. He had good strength with hip flexion bilaterally. He has symmetric 2+ DTRs at patellar and no clonus the ankles. Lower extremities showed normal palpable pulses and no calf swelling or edema. IMAGING DATA: MRI has been reviewed. There is a very small left L3 foraminal disc herniation. It was felt that may contact the dorsal root ganglion. ASSESSMENT AND PLAN: Given the responses to the transforaminal injection and his poor pain control, we discussed left L3-4 microdiscectomy with a possible fusion and a full facetectomy is required to fully remove the disc fragment. Actually, given the small size of the fragment, I cannot guarantee this eliminate all of his symptoms. He and the family were agreeable. Based on his clinical exam, he does not appear to have any hip pathology that would account for the symptoms and the pattern of the pain is consistent with L3 radiculopathy. BRAD
[2016-06-24] MEDS ORDERED: MIDAZOLAM HCL 1 MG/ML 2ML VIAL ONE (11:05)
[2016-06-24] MEDS ORDERED: FENTANYL CITRATE INJ 50 MCG/1 ML 2 ML VIAL ONE (11:05)
[2016-06-24] MEDS ORDERED: NURSING VERBAL MED ORDER STA (11:12)
--- NOTE | 2016-06-24 11:36 | Progress Note ---
Subjective Date of Service: Jun 24, 2016. Subjective Pt evaluation today including: conversation w/ patient, conversation w/ family , physical exam, chart review For surgery today at 11 am. Problem List Medical Problems: (1) Acute exacerbation of chronic low back pain Status: Acute (2) Blurry vision, bilateral Status: Acute (3) Hyperglycemia Status: Acute Review of Systems Respiratory: No cough, No dyspnea at rest, No dyspnea on exertion, No hemoptysis, No problem reported, No see HPI, No shortness of breath, No sputum, No wheezing Cardiac: No PND, No chest pain, No claudication, No edema, No orthopnea, No palpitations, No problem reported, No see HPI Medications Medications (Trade) Dose Ordered Sig/Maria De Jesus Route Start Time Stop Time Status Last Admin Dose Admin Lactated Ringer's (Lr 1000ml) 1,000 ml @ 75 mls/hr [id number] IV 06/23/16 16:18 07/23/16 16:17 06/24/16 05:53 75 MLS/HR Docusate Sodium (coLACE CAP) 100 mg BID PO 06/23/16 21:00 07/23/16 20:59 06/24/16 09:16 100 MG Ondansetron HCl (Zofran Inj) 4 mg Q6H PRN IV 06/23/16 16:30 07/23/16 16:29 06/24/16 01:27 4 MG Morphine Sulfate (moRPHine SULFATE SHOE TURNER) 50 mg PRN PRN IV 06/23/16 16:30 07/07/16 16:29 06/24/16 07:00 50 MG Aspirin (Ecotrin Tab) 81 mg DAILY PO 06/24/16 09:00 07/24/16 08:59 06/24/16 09:16 81 MG Carbidopa/Levodopa (Sinemet Cr 50/ 200MG Tab) 1 tab TID PO 06/23/16 21:00 07/23/16 20:59 06/24/16 09:16 1 TAB Divalproex Sodium (Depakote Delay Rel Tab) 250 mg HS PO 06/23/16 21:00 07/23/16 20:59 06/23/16 20:30 250 MG Divalproex Sodium (Depakote Delay Rel Tab) 1,000 mg HS PO 06/23/16 21:00 07/23/16 20:59 06/23/16 20:30 1,000 MG Quetiapine Fumarate (seroQUEL TAB) 50 mg HS PO 06/23/16 21:00 07/23/16 20:59 06/23/16 20:29 50 MG Atorvastatin Calcium (Lipitor Tab) 20 mg HS PO 06/23/16 21:00 07/23/16 20:59 06/23/16 20:29 20 MG Donepezil HCl (Aricept Tab) 10 mg BID PO 06/23/16 21:00 07/23/16 20:59 06/24/16 09:16 10 MG Insulin Glargine (Lantus Solostar Pen) 10 unit HS SC 06/23/16 21:00 07/23/16 20:59 06/23/16 21:20 10 UNIT Objective Vital Signs Date Time Temp Pulse Resp B/P Pulse Ox O2 Delivery O2 Flow Rate FiO2 06/24/16 08:10 36.6 67 16 104/64 91 Room Air 06/24/16 08:00 Room Air 06/24/16 03:18 36.4 81 16 128/82 92 Room Air 06/23/16 23:51 Room Air 06/23/16 23:50 36.5 62 16 106/67 92 Room Air 06/23/16 21:15 36.7 77 18 100/63 90 Room Air 06/23/16 20:15 36.8 81 18 103/63 94 Room Air 06/23/16 19:10 36.7 69 20 126/84 93 Room Air 06/23/16 18:25 36.8 68 18 101/64 93 Room Air 06/23/16 15:34 Room Air 06/23/16 15:22 36.8 65 18 109/61 92 Room Air 06/23/16 15:00 Room Air Physical Exam General Appearance: WD/WN Neck: supple Respiratory/Chest: chest non-tender, lungs clear Cardiovascular: regular rate, rhythm, no edema, no murmur Abdomen: normal bowel sounds, non tender, soft Neurologic/Psychiatric: alert, oriented x 3 Laboratory Results Last 24 Hours Test 06/23/16 17:05 06/23/16 20:50 06/23/16 20:58 06/24/16 05:51 White Blood Count 7.61 K/uL Red Blood Count 5.07 M/uL Hemoglobin 17.2 g/dL Hematocrit 48.7 % Mean Corpuscular Volume 96.1 fL Mean Corpuscular Hemoglobin 33.9 pg Mean Corpuscular Hemoglobin Concent 35.3 g/dl Platelet Count 260 K/uL Mean Platelet Volume 10.1 fL Neutrophils (%) (Auto) 56.0 % Lymphocytes (%) (Auto) 32.6 % Monocytes (%) (Auto) 8.3 % Eosinophils (%) (Auto) 2.4 % Basophils (%) (Auto) 0.4 % Neutrophils # (Auto) 4.27 K/uL Lymphocytes # (Auto) 2.48 K/uL Monocytes # (Auto) 0.63 K/uL Eosinophils # (Auto) 0.18 K/uL Basophils # (Auto) 0.03 K/uL RDW Standard Deviation 44.4 fL RDW Coefficient of Variation 12.7 % Immature Granulocyte % (Auto) 0.3 % Immature Granulocyte # (Auto) 0.02 K/uL Sodium Level 138 mmol/L Potassium Level 4.2 mmol/L Chloride Level 102 mmol/L Carbon Dioxide Level 31 mmol/L Anion Gap 5.0 mmol/L Blood Urea Nitrogen 16 mg/dl Creatinine 0.91 mg/dl Est Creatinine Clear Calc Drug Dose 79.1 ml/min Estimated GFR () 99.3 Estimated GFR (Non- 85.7 BUN/Creatinine Ratio 17.3 Random Glucose 207 mg/dl Calcium Level 9.1 mg/dl Bedside Glucose 124 mg/dl 132 mg/dl Vitamin B12 Level 744 pg/mL Valproic Acid (Depakene) Level 49 mcg/ml Assessment and Plan 71yo male with uncontrolled T2DM, hyperlipidemia, PTSD, explosive personality disorder, and depression with ongoing lumbar back pain for several years but worse in the last month. He was a direct admission today for pain control and to optimize his care in preparation for lumbar back surgery tomorrow. 1. anticipated lumbar back surgery - from a cardiovascular standpoint he is optimized. 2. uncontrolled T2DM - most recent hemoglobin a1c was over 10%. He will not achieve optimal control with metformin alone. Will start lantus 10 units HS, check fsbs qac/hs, and novolog supplemental scale using correction factor of 40 and carb ratio of 14. Hold metformin. 3. explosive personality disorder, depression, mood disorder - continue all home psychotropic meds. Will check depakote level tonight to ensure he is in therapeutic range. 4. h/o JAVON - he did not mention this during my history but it is mentioned in the record. Watch for sedation/hypercarbia post-op. 5. hyperlipidemia - continue statin agent. 6. DVT proph - per primary orthopedic team. 7. pain control - agree with SHOE TURNER narcotics as primary orthopedic team is doing. Thank you for this consult. We will follow along with you
[2016-06-24] MEDS ORDERED: BACITRACIN 50000 UNIT VIAL ONE (11:52)
[2016-06-24] MEDS ORDERED: BUPIVACAINE/EPINEPHRINE 0.5% MPF 1:200,000 30 ML VIAL ONE (11:52)
[2016-06-24] MEDS ORDERED: THROMBIN 5000 UNITS KIT ONE (11:52)
[2016-06-24] MEDS ORDERED: HEPARIN SOD (PORCINE) 1000 UNIT/ML 10 ML VIAL ONE (11:52)
[2016-06-24] MEDS ORDERED: THROMBIN FOR SOLN 20000 UNIT KIT ONE (11:53)
[2016-06-24] MEDS ORDERED: HYDROmorphone INJ 2 MG/ML SYR/VIAL ONE ×3 (12:41→13:16)
--- NOTE | 2016-06-24 13:04 | [facility] Post Operative Brief Note ---
Immediate Operative Summary Operative Date Jun 24, 2016. Pre-Operative Diagnosis Small left L3 foraminal disc herniation Post-Operative Diagnosis same as pre-operative Procedure(s) Performed Left L3-[address] Mark Adame Sweet Dough Mixer Surgeon(s) Malcolm Morrell PA-C Estimated Blood Loss 10cc Findings dict Specimens none per surgeon
[2016-06-24] MEDS ORDERED: FLOSEAL HEMOSTATIC MATRIX 10ML TOP ONE (13:06)
[2016-06-24] MEDS ORDERED: ONDANSETRON INJ 2 MG/ML 2 ML VIAL ONE (13:15)
[2016-06-24] MEDS ORDERED: LIDOCAINE HCL 2% 2 ML VIAL (20MG/ML) ONE (13:15)
[2016-06-24] MEDS ORDERED: KETOROLAC TROMETHAMINE 30 MG/ML VIAL ONE (13:15)
[2016-06-24] MEDS ORDERED: OXYCODONE/ACETAMINOPHEN 5-325 TAB PO PRN ×2 (13:15)
[2016-06-24] MEDS ORDERED: ACETAMINOPHEN 325 MG TAB PO PRN (13:15)
[2016-06-24] MEDS ORDERED: PROPOFOL IV EMULSION 10 MG/ML 20 ML VIAL IV ONE (13:15)
[2016-06-24] MEDS ORDERED: ROCURONIUM BROMIDE 10 MG/ML 5 ML VIAL ONE (13:15)
[2016-06-24] MEDS ORDERED: DEXAMETHASONE SOD INJ 4 MG/ML VIAL ONE (13:15)
[2016-06-24] MEDS ORDERED: METOPROLOL TARTRATE 1 MG/ML VIAL ONE (13:33)
--- NOTE | 2016-06-24 13:57 | DIAGNOSTIC IMAGING REPORT ---
LUMBAR SPINE, INTRAOPERATIVE FLUOROSCOPY HISTORY: L3-L4 microdiscectomy. FLUOROSCOPY TIME: 7 seconds. FINDINGS: Intraoperative fluoroscopy was provided for the lumbar spine. A single fluoroscopic spot image demonstrates a surgical instrument posterior to the L3-L4 disc space. IMPRESSION: Fluoroscopy provided for a L3-L4 microdiscectomy. Electronically signed by: John Chavis M.D. 06/24/2016 1:55 PM Dictated Date/Time: 06/24/2016 1:55 PM
--- NOTE | 2016-06-24 14:12 | OPERATIVE REPORT ---
DATE OF OPERATION: 06/23/2016 PREOPERATIVE DIAGNOSES: Left L3-L4 foraminal herniated nucleus pulposus. POSTOPERATIVE DIAGNOSIS: Same. PROCEDURES: Left L3-L4 microdiscectomy, foraminotomy. SURGEON: Dr. Adame. OBJECTIVE C DEVELOPER: Malcolm Morrell PA-C. Please note he participated in all portions of procedure and was critical for performance of procedure, participated in positioning, prepping, draping, retraction and wound closure. ANESTHESIA: General endotracheal anesthesia. COMPLICATIONS: None. ESTIMATED BLOOD LOSS: Minimal. OPERATION AND FINDINGS: PROCEDURE: After identification of patient and operative level, he was brought to the OR where he underwent induction of general anesthesia. He was then positioned prone on [facility] OR table with all bony prominences well padded. Care was taken to avoid pressure on the periorbital area. Lumbosacral area was sterilely prepped and draped in usual fashion. Antibiotics were administered. Time-out was performed. Level was confirmed and skin incision was localized with lateral fluoroscopy and a spinal needle. I infiltrated the skin with 0.5% Marcaine with epinephrine, made skin incision over the spinous process of L3 and L4 and exposed left L3-L4 interlaminar window. I placed a marker in the lamina of L3, confirmed level with fluoroscopy and marked it and placed a belt molder retractor. I then created a small laminotomy under the caudal edge of L4, took down the ligamentum flavum and burred away the medial facets at L3-L4 to facilitate foraminal view. I then mobilized the L4 nerve root, placed a nerve retractor and identified a broad-based disc bulge of the distended annulus that extended from the lateral recess to the neural foramina. There was a small amount of annular tearing in the foramen with a few tails of loose disc material here. I explored the disc space, removed all loose disc fragments deep to the annulus which appeared to decompress the annulus and thereby the L3 and L4 nerve roots. Initially I was unable to pass Loretto elevator through the foramen distally and laterally with ease after discectomy I was able to pass the probe easily. I then removed any loose fragments deep to the annulus to make sure reherniation was less likely. I irrigated with bacitracin solution and reconfirmed level with marker in the foramen and then applied FloSeal for hemostasis. I then closed in layered fashion. All sponge and needle counts were correct at the end of the case. I attest to the content of the Intraoperative Record and any orders documented therein. Any exceptions are noted below. MTDD
--- NOTE | 2016-06-24 14:17 | Anesthesiology Progress Note ---
Anesthesia Post Op Note Date & Time Jun 24, 2016 at 14:16 Vital Signs Pain Intensity: 0 Vital Signs Past 12 Hours Date Time Temp Pulse Resp B/P Pulse Ox O2 Delivery O2 Flow Rate FiO2 06/24/16 14:10 36.1 88 12 120/79 96 Nasal Cannula 4 06/24/16 14:00 90 13 113/75 97 Nasal Cannula 4 06/24/16 13:50 89 11 115/75 96 Mask 10 06/24/16 13:40 90 11 115/76 98 Mask 10 06/24/16 13:30 96 15 132/86 95 Mask 10 06/24/16 13:28 36.5 100 12 124/79 92 Mask 10 06/24/16 08:10 36.6 67 16 104/64 91 Room Air 06/24/16 08:00 Room Air 06/24/16 03:18 36.4 81 16 128/82 92 Room Air Notes Mental Status: alert / awake / arousable, participated in evaluation Pt Amnestic to Procedure: Yes Nausea / Vomiting: adequately controlled Pain: adequately controlled Airway Patency, RR, SpO2: stable & adequate BP & HR: stable & adequate Hydration State: stable & adequate Anesthetic Complications: no major complications apparent
[2016-06-24] MEDS: SODIUM CHLORIDE 0.9% 1000ML 1,000 ML IV SCH (15:35)
[2016-06-24] MEDS: CLINDAMYCIN IV 600 MG in DEXTROSE 5% ADD-VANTAGE 50ML 50 ML IV SCH (20:05)
[2016-06-24] MEDS: RISPERIDONE 0.5 MG TAB PO SCH (21:00)
[2016-06-24] MEDS: QUETIAPINE FUMARATE 25 MG TAB PO SCH (21:10)
[2016-06-24] MEDS: ATORVASTATIN 20 MG TAB PO SCH (21:10)
[2016-06-24] MEDS: DIVALPROEX SODIUM 500 MG DELAY RELEASE TAB PO SCH (21:10)
[2016-06-24] MEDS: DIVALPROEX SODIUM 250 MG DELAY REL TAB PO SCH (21:11)
[2016-06-24] MEDS: INSULIN GLARGINE SOLOSTAR 100 UNITS/ML 3 ML PEN SC SCH (21:19)
[2016-06-25] MEDS: CLINDAMYCIN IV 600 MG in DEXTROSE 5% ADD-VANTAGE 50ML 50 ML IV SCH ×2 (03:32→11:30)
[2016-06-25 03:46] VITALS: BP 133/79; PULSE 70; TEMP 36.9; O2SAT 93
[2016-06-25] MEDS: MoRPHine SULFATE 1 MG/ML 50 ML PCA CASS IV PRN (07:02)
[2016-06-25] MEDS: LACTATED RINGER'S 1000ML 1,000 ML IV SCH (07:39)
[2016-06-25 07:46] VITALS: BP 139/75; PULSE 68; TEMP 37; O2SAT 90
[2016-06-25] MEDS: DONEPEZIL HCL 10 MG TAB PO SCH (08:44)
[2016-06-25] MEDS: DOCUSATE SODIUM 100 MG CAP PO SCH (08:45)
[2016-06-25] MEDS: ASPIRIN 81 MG ECTAB PO SCH (08:45)
[2016-06-25] MEDS: CARBIDOPA/LEVODOPA 50/200MG EXT REL TAB PO SCH ×2 (08:45→13:52)
[2016-06-25] MEDS: INSULIN ASPART 100 UNITS/ML 3 ML PEN SC SCH ×2 (08:51→13:11)
[2016-06-25] MEDS ORDERED: OXYC-57 PO (10:28)
--- NOTE | 2016-06-25 10:28 | Discharge Instructions ---
Discharge Instructions Date of Service Jun 25, 2016. Admission Reason for Admission: Back Pain Discharge Discharge Diagnosis / Problem: same Discharge Goals Goal(s): Decrease discomfort Activity Recommendations Activity Limitations: per Instructions/Follow-up section . Instructions / Follow-Up Instructions / Follow-Up ACTIVITY RECOMMENDATIONS: SELF CARE INSTRUCTIONS AFTER A LAMINECTOMY 1. No prolonged sitting (less than 30 minutes for the first 3 weeks after surgery). 2. No bending, lifting more than 5 pounds, or twisting (roll like a log when turning in bed). 3. You may shower 3 days after surgery if no drainage from wound. Thoroughly dry wound. Do not soak in the tub. 4. Please walk as much as you can for exercise. Gradually increase the distance that you walk as your endurance increases. 5. You may drive in 7-10 days if you are comfortable and no longer requiring pain medications. SPECIAL CARE INSTRUCTIONS: VERY IMPORTANT TO READ AND REVIEW A. Your surgical incision has been closed with a cosmetic suture under the skin that will dissolve in about 6 weeks. In 14 days, you can use a pair of clean scissors and cut the suture that is left outside of the skin at the ends of your incision. B. Complications are uncommon, but please contact us if you have any signs or symptoms of: 1. wound infection (fever higher than 102.5 degrees F, redness, separation of wound, drainage, or increasing pain from the incision) 2. blood clots in legs (pain, swelling, redness and warmth in legs) 3. urinary tract infection (fever higher than 102.5 degrees, burning upon urination or increased frequency of urination) 4. nerve problems (inability to walk on your toes or heels, numbness, loss of bowel or bladder control) 5. any other symptoms that concern you. C. Please call the office at if you have any concerns or questions about your operation or recovery. MANAGING PAIN AFTER SPINAL SURGERY 1. Narcotic medication is intended for short-term use and will be provided for surgical pain. Surgical pain usually lasts for a period of 4-6 weeks. Narcotic medication includes Percocet, Vicodin, Darvocet, Tylenol #3 or Lortab. 2. Longer-term pain is more appropriately treated with non-narcotic medication such as Tylenol ES. 3. Muscle spasm is not appropriately treated with narcotics. Muscle relaxers such as Soma, Flexeril or Skelaxin can be used along with Tylenol ES. 4. Remember that we all live with some "aches and pains". This is not unusual or uncommon after an injury or as we get older. 5. We will provide appropriate medication within the normal guidelines of their prescribed use. We will also be very cautious and aware of potential abuse and extended duration of patients' medication needs. 6. Please allow 2-3 days to process refills. Prescriptions will not be mailed but must be picked up at the office. FOLLOW UP VISIT: Keep your scheduled follow-up appointment. Any questions, please call the office at . Current Hospital Diet Patient's current hospital diet: Diabetes Type 2 Diet Discharge Diet Recommended Diet: Regular Diet Procedures Procedures Performed: Left L3-4 microdiscectomuy Pending Studies Studies pending at discharge: no Laboratory Results Hemoglobin A1c Test 06/06/16 07:32 Range/Units Estimated Average Glucose 246 mg/dl Hemoglobin A1c 10.2 H 4.5-5.6 % Medical Emergencies . Who to Call and When: Medical Emergencies: If at any time you feel your situation is an emergency, please call 911 immediately. . Non-Emergent Contact Non-Emergency issues call your: Surgeon . "Provider Documentation" section prepared by Mark Adame. . VTE Core Measure Inpt VTE Proph given/why not?: SCD's [place] Drug Monitoring Program Search Results: patient reviewed within database, no issues identified
--- NOTE | 2016-06-25 10:33 | Orthopedic Progress Note ---
Orthopedic Progress Note Date of Service Jun 25, 2016. Subjective Post OP Day: 1 Reports: feeling well, using PIPE COVERER HELPER Additional Notes: pain now better when walking but worse when supine-the opposite of preop. denies numbness or weakness Objective N/V intact, dressing C/D/I, A&O x3 Date Time Temp Pulse Resp B/P Pulse Ox O2 Delivery O2 Flow Rate FiO2 06/25/16 07:46 37.0 68 16 139/75 90 Room Air 06/25/16 03:46 36.9 70 16 133/79 93 Room Air 06/24/16 23:42 Room Air 06/24/16 23:26 36.9 92 16 129/80 93 Room Air 06/24/16 20:02 36.7 87 18 96/59 93 Room Air 06/24/16 17:40 36.5 81 16 123/75 96 Nasal Cannula 4.0 06/24/16 16:32 36.4 85 16 112/72 96 Nasal Cannula 4.0 06/24/16 15:35 36.4 83 18 123/78 97 Nasal Cannula 4.0 06/24/16 15:30 Nasal Cannula 4.0 06/24/16 15:08 36.4 83 16 119/74 96 Nasal Cannula 4.0 06/24/16 14:40 94 Nasal Cannula 4.0 06/24/16 14:40 36.4 13 118/77 94 Nasal Cannula 4.0 06/24/16 14:20 86 12 119/78 94 Nasal Cannula 4 06/24/16 14:10 36.1 88 12 120/79 96 Nasal Cannula 4 06/24/16 14:00 90 13 113/75 97 Nasal Cannula 4 06/24/16 13:50 89 11 115/75 96 Mask 10 06/24/16 13:40 90 11 115/76 98 Mask 10 06/24/16 13:30 96 15 132/86 95 Mask 10 06/24/16 13:28 36.5 100 12 124/79 92 Mask 10 Assessment & Plan Assessment: slight improvement postop, but not dramatic, will give toradol for periop inflammation and switch to PO narcs, PT.
[2016-06-25] MEDS ORDERED: KETOROLAC TROMETHAMINE 15 MG/ML VIAL IV. PRN (10:45)
[2016-06-25 11:13] VITALS: BP 151/91; PULSE 67; TEMP 36.9; O2SAT 92
[2016-06-25] MEDS: OXYCODONE/ACETAMINOPHEN 5-325 TAB PO PRN ×2 (11:29→15:46)
--- NOTE | 2016-06-25 13:15 | Anesthesiology Progress Note ---
Anesthesia Post Op Note Date & Time Jun 25, 2016 at 13:13 Vital Signs Pain Intensity: 8.0 Vital Signs Past 12 Hours Date Time Temp Pulse Resp B/P Pulse Ox O2 Delivery O2 Flow Rate FiO2 06/25/16 11:13 36.9 67 18 151/91 92 Room Air 06/25/16 07:46 37.0 68 16 139/75 90 Room Air 06/25/16 03:46 36.9 70 16 133/79 93 Room Air Notes Pain: improving with treatment (patient describes pain on pod 1. denies any problems with anesthesia at this time.)
[2016-06-25 14:51] VITALS: Ht 177.8 cm; Wt 81.8 kg
[2016-06-25 15:26] VITALS: BP 151/91; PULSE 67; TEMP 36.9; O2SAT 92
--- NOTE | 2016-07-18 14:48 | DISCHARGE SUMMARY ---
ADMISSION DIAGNOSIS: Lumbar disk herniation with severe radiculopathy. DISCHARGE DIAGNOSIS: Same BRIEF ADMISSION HISTORY AND HOSPITAL COURSE: The patient was admitted for pain control due to a severe lumbar radiculopathy. He underwent lumbar microdiskectomy on 06/24/2016 without complication and postoperatively had improvement of his radicular pain. He mobilized with physical therapy, had his pain controlled with oral pain medication and was deemed stable for discharge on postop day #1. He was medically stable at the time of discharge. Please see electronic medical record for details. MTDD
[2016-10-30] MEDS ORDERED: RXC5 PO (08:04)
== END 2016-06-25 16:10 | disposition home or self-care (01) | DRG 520 ==
LOC: C.3E 14:48 → OBSVTOIN 14:48 → INTOOBSV 14:48
PROVIDERS: ADMIT Orthopaedic Surgery Orthopaedic Surgery of the Spine; ATTEND Orthopaedic Surgery Orthopaedic Surgery of the Spine
PROC: 0SB20ZZ Excision of Lumbar Vertebral Disc, Open Approach (ICD-10-PCS; principal; 2016-06-23)
DX: M51.16 Intervertebral disc disorders with radiculopathy, lumbar region (principal); E11.65 Type 2 diabetes mellitus with hyperglycemia; E78.5 Hyperlipidemia, unspecified; K21.9 Gastro-esophageal reflux disease without esophagitis; J45.909 Unspecified asthma, uncomplicated; T14.90 Injury, unspecified; R51 Headache; X58.XXXS Exposure to other specified factors, sequela; G47.33 Obstructive sleep apnea (adult) (pediatric); F43.10 Post-traumatic stress disorder, unspecified; F32.9 Major depressive disorder, single episode, unspecified; F60.3 Borderline personality disorder; Z79.82 Long term (current) use of aspirin; Z79.899 Other long term (current) drug therapy; Z79.891 Long term (current) use of opiate analgesic; Z79.84 Long term (current) use of oral hypoglycemic drugs

== ENCOUNTER 2016-06-26 09:23 | Inpatient (IN) | payer OTHER ==
[~2016-06-26] VITALS: Ht 172.7 cm; Wt 84.7 kg
[~2016-06-26 09:23] MED LIST changes: +OXYC-57 PO; -ULT50 PO
[2016-06-26] MEDS ORDERED: ALBUT/IPRATROP 3MG/0.5MG NEB 3 ML VIAL INH STA (09:58)
[2016-06-26] MEDS ORDERED: SODIUM CHLORIDE 0.9% 1000ML 1,000 ML IV STA (09:58)
[2016-06-26] MEDS ORDERED: LEVAQUIN 750MG / 150ML D5W IV ONE (10:00)
--- NOTE | 2016-06-26 10:21 | DIAGNOSTIC IMAGING REPORT ---
CHEST ONE VIEW PORTABLE CLINICAL HISTORY: Fever. Sepsis. COMPARISON STUDY: Chest radiograph June 23, 2016. FINDINGS: No pneumothorax or pleural effusion is present. Minimal left basilar opacity favors atelectasis. Mild interstitial thickening is unchanged. There is no evidence for pulmonary edema. Cardiomediastinal silhouette is stable. IMPRESSION: No acute cardiopulmonary findings. Electronically signed by: Vladimir Sharp M.D. 06/26/2016 10:20 AM Dictated Date/Time: 06/26/2016 10:19 AM
[2016-06-26 10:23] LABS: BASO % 0.3 %; BASO ABS # 0.04 K/uL (0-0.2); COMPLETE YES; EOS % 1.2 %; HEMATOCRIT 45.1 % (42-52); IG% 0.2 %; LYMPH ABS # 3.78 K/uL (1.2-3.4); MEAN CELL VOLUME 97.4 fL (80-100); MEAN CORPUSCULAR HEMOGLOBIN 33.7 pg (25-34); MEAN CORPUSCULAR HGB CONC 34.6 g/dl (32-36); MEAN PLATELET VOLUME 10.6 fL (7.4-10.4); MONO % 11.5 %; NEUT % 55.8 %; PLATELET COUNT 226 K/uL (130-400); RED BLOOD COUNT 4.63 M/uL (4.7-6.1); WHITE BLOOD COUNT 12.19 K/uL (4.8-10.8)
[2016-06-26 10:32] LABS: ALT/SGPT 10 U/L (12-78); AST/SGOT 24 U/L (15-37); BLOOD UREA NITROGEN 9 mg/dl (7-18); BUN/CREATININE RATIO 9.9 (10-20); CALCIUM 9.7 mg/dl (8.5-10.1); CARBON DIOXIDE 27 mmol/L (21-32); CHLORIDE 102 mmol/L (98-107); CREATININE 0.93 mg/dl (0.60-1.40); GLUCOSE 140 mg/dl (70-99); POTASSIUM 3.5 mmol/L (3.5-5.1); SODIUM 139 mmol/L (136-145)
[2016-06-26 10:34] LABS: PARTIAL THROMBOPLASTIN RATIO 1.1; PROTHROMBIN TIME (PATIENT) 10.7 SECONDS (9.0-12.0)
[2016-06-26 10:37] LABS: ALKALINE PHOSPHATASE 68 U/L (45-117); CKMB/CK RATIO 0.9 (0-3.0)
--- NOTE | 2016-06-26 12:54 | EMERGENCY ROOM VISIT NOTE ---
History Report prepared by Mikayla: Keisha Alejandro Under the Supervision of: Dr. Fransico Malik D.O. First contact with patient: 09:46 Chief Complaint: BACK PAIN Stated Complaint: BACK PAIN History of Present Illness The patient is a 71 year old male who presents to the Emergency Room with complaints of persistent back pain that began several weeks ago. He currently rates his discomfort as an 8/10 in severity. Per the patient's the patient had back surgery on Thursday. She states that since the patient was discharged from the hospital yesterday, but still seemed too weak. The patient' s states that since he has been on the pain medications, the patient has been increasingly confused. She states that when she went to wake the patient this morning, he had been incontinent of urine. The patient's states that she tried to stand the patient multiple times, but notes that the patient was too weak. She states that the patient was incontinent again once he was standing. The patient's states that the patient went to bed around 2030 last evening, and had not been up since then. She notes that the patient has been able to ambulate small distances during physical therapy. The patient's states that the patient has had a cough and sounds congested. She denies the patient wearing oxygen at home. The patient's states that the patient has a history of Parkinson's disease and diabetes. Source of History: patient, spouse/significant other () Onset: several weeks ago Position: back Symptom Intensity: 8/10 Timing: other (persistent) Associated Symptoms: + cough, + weakness Note: Associated Symptoms: congestion, urinary incontinence, confusion Review of Systems See HPI for pertinent positives & negatives. A total of 10 systems reviewed and were otherwise negative. 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 (7) History of back pain (8) HNP (herniated nucleus pulposus) (9) Hx of suicide attempt (10) PTSD (post-traumatic stress disorder) (11) Uncontrolled diabetes mellitus Family History Diabetes mellitus Social History Smoking Status: Never Smoker Alcohol Use: none Drug Use: none Marital Status: Housing Status: lives with family Occupation Status: disabled Current/Historical Medications Scheduled Aspirin (Aspirin Ec), 81 MG PO DAILY Atorvastatin (Atorvastatin Calcium), 20 MG PO DAILY Carbidopa/Levodopa (Sinemet Cr 50MG/200MG), 1 TAB PO TID Divalproex Sodium (Depakote Delay Rel), 250 MG PO HS Divalproex Sodium (Depakote Delay Rel), 1,000 MG PO HS Donepezil HCl (Donepezil HCl), 10 MG PO BID Metformin Hcl (Metformin Hcl Er), 500 MG PO QPM Quetiapine Fumarate (Seroquel), 50 MG PO HS Risperidone (Risperdal), 0.5 MG PO HS Venlafaxine Hcl (Effexor Extended Rel), 150 MG PO BID Scheduled PRN Oxycodone/Acetaminophen 5MG/325MG (Percocet 5MG/325MG), 1-2 TAB PO Q4H PRN for MODERATE TO SEVERE PAIN Allergies Coded Allergies: Penicillins (Verified Allergy, Severe, SWELL UP,HIVES, 06/02/16) SWELLS UP, HIVES Sulfa Antibiotics (Verified Allergy, Unknown, unknown, 06/23/16) Physical Exam Vital Signs Date Time Temp Pulse Resp B/P Pulse Ox O2 Delivery O2 Flow Rate FiO2 06/26/16 12:00 92 16 100/71 97 Room Air 06/26/16 10:52 93 16 116/79 98 Nebulizer 06/26/16 09:46 83 06/26/16 09:32 38.3 81 16 134/83 88 Room Air 06/26/16 09:30 95 Nasal Cannula 4.0 Physical Exam CONSTITUTIONAL/VITAL SIGNS: Reviewed / noted above. GENERAL: Non-toxic in appearance. INTEGUMENTARY: Warm, dry, and [place]. HEAD: Normocephalic. EYES: without scleral icterus or trauma. ENT/OROPHARYNX: clear and moist. LYMPHADENOPATHY/NECK: Is supple without lymphadenopathy or meningismus. RESPIRATORY: Bibasilar crackles, scattered expiratory wheezes. CARDIOVASCULAR: Regular rate and rhythm. GI/ABDOMEN: Soft and nontender. No organomegaly or pulsatile mass. No rebound or guarding. Normal bowel sounds. EXTREMITIES: Warm and well perfused. BACK: Lumbar incision has sutures in place, minimal erythema, minimal discharge. No CVA tenderness. NEUROLOGICAL: Intact without focal deficits. PSYCHIATRIC: normal affect. MUSCULOSKELETAL: Normally developed with good muscle tone. Medical Decision & Procedures ER Provider Diagnostic Interpretation: X ray results and stated below per my interpretation and radiology interpretation. CHEST ONE VIEW PORTABLE CLINICAL HISTORY: Fever. Sepsis. COMPARISON STUDY: Chest radiograph June 23, 2016. FINDINGS: No pneumothorax or pleural effusion is present. Minimal left basilar opacity favors atelectasis. Mild interstitial thickening is unchanged. There is no evidence for pulmonary edema. Cardiomediastinal silhouette is stable. IMPRESSION: No acute cardiopulmonary findings. Electronically signed by: Vladimir Sharp M.D. 06/26/2016 10:20 AM Dictated Date/Time: 06/26/2016 10:19 AM Laboratory Results 06/26/16 09:45 Red Blood Count 4.63, Mean Corpuscular Volume 97.4, Mean Corpuscular Hemoglobin 33.7, Mean Corpuscular Hemoglobin Concent 34.6, Mean Platelet Volume 10.6, Neutrophils (%) (Auto) 55.8, Lymphocytes (%) (Auto) 31.0, Monocytes (%) (Auto) 11.5, Eosinophils (%) (Auto) 1.2, Basophils (%) (Auto) 0.3, Neutrophils # (Auto ) 6.79, Lymphocytes # (Auto) 3.78, Monocytes # (Auto) 1.40, Eosinophils # (Auto ) 0.15, Basophils # (Auto) 0.04 06/26/16 09:45 Test 06/26/16 09:45 06/26/16 10:05 06/26/16 10:12 White Blood Count 12.19 K/uL (4.8-10.8) Red Blood Count 4.63 M/uL (4.7-6.1) Hemoglobin 15.6 g/dL (14.0-18.0) Hematocrit 45.1 % (42-52) Mean Corpuscular Volume 97.4 fL (80-100) Mean Corpuscular Hemoglobin 33.7 pg (25-34) Mean Corpuscular Hemoglobin Concent 34.6 g/dl (32-36) Platelet Count 226 K/uL (130-400) Mean Platelet Volume 10.6 fL (7.4-10.4) Neutrophils (%) (Auto) 55.8 % Lymphocytes (%) (Auto) 31.0 % Monocytes (%) (Auto) 11.5 % Eosinophils (%) (Auto) 1.2 % Basophils (%) (Auto) 0.3 % Neutrophils # (Auto) 6.79 K/uL (1.4-6.5) Lymphocytes # (Auto) 3.78 K/uL (1.2-3.4) Monocytes # (Auto) 1.40 K/uL (0.11-0.59) Eosinophils # (Auto) 0.15 K/uL (0-0.5) Basophils # (Auto) 0.04 K/uL (0-0.2) RDW Standard Deviation 46.4 fL (36.4-46.3) RDW Coefficient of Variation 13.0 % (11.5-14.5) Immature Granulocyte % (Auto) 0.2 % Immature Granulocyte # (Auto) 0.03 K/uL (0.00-0.02) Prothrombin Time 10.7 SECONDS (9.0-12.0) Prothromb Time International Ratio 1.0 (0.9-1.1) Activated Partial Thromboplast Time 27.3 SECONDS (21.0-31.0) Partial Thromboplastin Ratio 1.1 Anion Gap 10.0 mmol/L (3-11) Est Creatinine Clear Calc Drug Dose 79.4 ml/min Estimated GFR () 96.7 Estimated GFR (Non- 83.5 BUN/Creatinine Ratio 9.9 (10-20) Calcium Level 9.7 mg/dl (8.5-10.1) Total Bilirubin 0.9 mg/dl (0.2-1) Direct Bilirubin 0.2 mg/dl (0-0.2) Aspartate Amino Transf (AST/SGOT) 24 U/L (15-37) Alanine Aminotransferase (ALT/SGPT) 10 U/L (12-78) Alkaline Phosphatase 68 U/L (45-117) Total Creatine Kinase 562 U/L (39-308) Creatine Kinase MB 5.3 ng/ml (0.5-3.6) Creatine Kinase MB Ratio 0.9 (0-3.0) Troponin I < 0.015 ng/ml (0-0.045) Total Protein 8.3 gm/dl (6.4-8.2) Albumin 3.7 gm/dl (3.4-5.0) Lipase 88 U/L (73-393) Influenza Type A Antigen Neg for Influ A (NEG) Influenza Type B Antigen Neg for Influ B (NEG) Lactic Acid Level 2.4 mmol/L (0.4-2.0) Laboratory results as stated above per my review. Medications Administered Medications (Trade) Dose Ordered Sig/Maria De Jesus Route Start Time Stop Time Status Last Admin Dose Admin Sodium Chloride (Nss 1000ml) 1,000 ml @ 999 mls/hr Q1H1M STAT IV 06/26/16 09:58 06/26/16 10:58 DC 06/26/16 10:47 999 MLS/HR Albuterol/ Ipratropium (Duoneb) 3 ml NOW STAT INH 06/26/16 09:58 06/26/16 10:01 DC 06/26/16 10:45 3 ML Levofloxacin (Levaquin / D5W) 750 mg NOW ONCE IV 06/26/16 10:00 06/26/16 10:01 DC 06/26/16 10:47 750 MG ECG Indication: weakness Rate (beats per minute): 89 Rhythm: normal sinus Findings: RBBB, no acute ischemic change, no ectopy ED Course 0952: Previous medical records were reviewed. The patient was evaluated in room A9B. A complete history and physical examination was performed. 0958: Ordered DuoNeb 3 ml INH, Sodium Chloride 1000 ml @ 999 mls/hr IV. 1000: Ordered Levofloxacin 750 mg IV. 1147: I discussed the patients case with Dr. Lynch [place]. He is going to evaluate the patient for further treatment. 1200: I reevaluated the patient and he is doing well. I discussed all the exam findings with the patient and his family and I discussed the treatment plan. They verbalized complete understanding and agreement. The patient will be evaluated for further treatment. Medical Decision Differential includes viral illness, influenza, streptococcal pharyngitis, meningitis, pneumonia, sinusitis, UTI, pyelonephritis, otitis media. This is a 71-year-old male who presents to the ED with a chief complaint of generalized weakness, fever and hypoxia. The patient has had a cough recently as well as some congestion according to the . He was unable to get out of bed this morning. He was discharged from the hospital yesterday and according to the was able to walk with physical therapy. The patient has a temperature of 38.3. His saturations are 88% on room air. The patient slightly confused today as well. He had a lumbar discectomy 2 days ago. His white blood cell count was 12.2. Lactate was 2.4. Glucose is 140. Troponin is negative. Lipase is negative. Complete metabolic panel was unremarkable. Flu swab was negative. Chest x-ray was negative for acute disease. EKG shows a normal sinus rhythm. The patient was treated with IV fluids, IV Levaquin and EMS provided IV fentanyl. The patient will be seen by the hospitalist for further inpatient evaluation and care. Consults Time Called: 1141 Consulting Physician: SLAVA Rob Returned Call: [phone] I discussed the patients case with SLAVA Rob. He is going to evaluate the patient for further treatment. Impression Primary Impression: Fever Additional Impressions: Hypoxia Pneumonia Weakness Scribe Attestation The scribe's documentation has been prepared under my direction and personally reviewed by me in its entirety. I confirm that the note above accurately reflects all work, treatment, procedures, and medical decision making performed by me. Departure Information Dispostion Being Evaluated By Hospitalist Referrals Gilberto Pollard M.D. (PCP) Problem Qualifiers
[2016-06-26] MEDS ORDERED: ONDANSETRON INJ 2 MG/ML 2 ML VIAL IV PRN (13:00)
[2016-06-26] MEDS ORDERED: GLUCOSE 10 TABS/TUBE PO PRN (13:00)
[2016-06-26] MEDS ORDERED: ACETAMINOPHEN 325 MG TAB PO PRN (13:00)
[2016-06-26] MEDS ORDERED: ALUMINUM/MAGNESIUM/SIMETH (MAALOX MAX) 30 ML UDC PO PRN (13:00)
[2016-06-26] MEDS ORDERED: DEXTROSE 50% 50 ML SYR IV PRN (13:00)
[2016-06-26] MEDS ORDERED: GLUCAGON FOR INJ 1 MG VIAL SQ PRN (13:00)
[2016-06-26] MEDS ORDERED: POLYETHYLENE (MIRALAX) 17 GM PACK PO PRN (13:00)
[2016-06-26] MEDS ORDERED: MAGNESIUM HYDROXIDE SUSP 30 ML UDC PO PRN (13:00)
[2016-06-26] MEDS ORDERED: ENOXAPARIN 40 MG/0.4 ML SYR SQ SCH (13:00)
[2016-06-26] MEDS ORDERED: GLUCOSE 40% GEL 15 GM TUBE PO PRN (13:00)
[2016-06-26] MEDS ORDERED: BISACODYL 10 MG SUPP PR SCH (14:00)
--- NOTE | 2016-06-26 14:03 | History and Physical ---
History & Physical Date & Time of Service: Jun 26, 2016 at 13:26 Chief Complaint: Back Pain Primary Care Physician: Gilberto Pollard M.D. History of Present Illness Source: patient, family ( and children at bedside), clinic records, hospital records This is a 71 y/o male with a history of recent L3-L4 microdiscectomy on 06/24, DM II, Parkinson's disease with dementia, depression, explosive personality disorder, hyperlipidemia, and obstructive sleep apnea who presented to the ED on 06/26 with weakness, confusion, and back pain. The patient was recently admitted on 06/23 with persistent back pain that failed conservative measures. He had a L3-L4 microdiscectomy on 06/[address] Adame and was discharged on . The patient is currently lethargic and confused. The history was obtained primarily from and children who are at bedside. The states that the patient has been very weak since the surgery and has not been able to get up on his own. She states that he is more confused than usual and that this seems to be worse with the Percocet, although he's taken Percocet in the past without worsening confusion. The also notes that the patient has been coughing a lot lately, although the patient denies that he has a cough. She states that nothing comes up, but that it is a wet cough that sounds like there is something rattling in the chest. The patient had 2 episodes of urinary incontinence earlier today due to difficulties moving and not being able to make it to the bathroom on time. The patient himself complains of nausea and weakness and states that he has a 10/10 aching back pain at the surgical site. The patient denies subjective fevers, chills, sweats, chest pain , palpitations, claudication, cough, wheezing, shortness of breath, vomiting, abdominal pain, dysuria, hematuria, urinary retention, paralysis, new numbness and tingling. Past Medical/Surgical History Medical Problems: (1) Depression Status: Chronic (2) Diabetes mellitus type II, uncontrolled Status: Chronic Explosive personality disorder Parkinson's disease with dementia Hyperlipidemia Obstructive sleep apnea Family History Anxiety disorder Diabetes mellitus Hypertension Social History Smoking Status: Never Smoker Smokeless Tobacco Use: No Alcohol Use: none Drug Use: none Marital Status: Housing status: lives with significant other Occupational Status: retired Immunizations History of Influenza Vaccine: Yes History of Tetanus Vaccine?: Unknown History of Pneumococcal: Yes History of Hepatitis B Vaccine: Unknown Multi-Drug Resistant Organisms History of MDRO: No Allergies Coded Allergies: Penicillins (Verified Allergy, Severe, SWELL UP,HIVES, 06/02/16) SWELLS UP, HIVES Sulfa Antibiotics (Verified Allergy, Unknown, unknown, 06/23/16) Home Medications Scheduled Aspirin (Aspirin Ec), 81 MG PO DAILY Atorvastatin (Atorvastatin Calcium), 20 MG PO DAILY Carbidopa/Levodopa (Sinemet Cr 50MG/200MG), 1 TAB PO TID Divalproex Sodium (Depakote Delay Rel), 250 MG PO HS Divalproex Sodium (Depakote Delay Rel), 1,000 MG PO HS Donepezil HCl (Donepezil HCl), 10 MG PO BID Metformin Hcl (Metformin Hcl Er), 500 MG PO QPM Quetiapine Fumarate (Seroquel), 50 MG PO HS Risperidone (Risperdal), 0.5 MG PO HS Venlafaxine Hcl (Effexor Extended Rel), 150 MG PO BID Scheduled PRN Oxycodone/Acetaminophen 5MG/325MG (Percocet 5MG/325MG), 1-2 TAB PO Q4H PRN for MODERATE TO SEVERE PAIN Review of Systems Constitutional: + fatigue, + weakness, No chills, No fever (denies fevers at home), No sweats Eyes: No diplopia, No eye pain, No worsening of vision ENT: No hearing loss, No sore throat, No trouble swallowing Respiratory: + cough (per ), No shortness of breath, No sputum, No wheezing Cardiovascular: No chest pain, No claudication, No palpitations Abdomen: + nausea, No pain, No vomiting Musculoskeletal: + joint pain (low back pain), No calf pain, No muscle pain Genitourinary - Male: + urinary incontinence, No dysuria, No hematuria Neurologic: No numbness/tingling, No paralysis, No weakness Integumentary: No color change, No itch, No rash Physical Exam Vital Signs Date Time Temp Pulse Resp B/P Pulse Ox O2 Delivery O2 Flow Rate FiO2 06/26/16 12:00 92 16 100/71 97 Room Air 06/26/16 10:52 93 16 116/79 98 Nebulizer 4/27/17 09:46 83 06/26/16 09:32 38.3 81 16 134/83 88 Room Air 06/26/16 09:30 95 Nasal Cannula 4.0 General Appearance: WD/WN, no apparent distress, + pertinent finding (lethargic ) Head: normocephalic, atraumatic Eyes: normal inspection, PERRL, sclerae normal ENT: normal ENT inspection, hearing grossly normal, pharynx normal Neck: supple, no JVD, trachea midline Respiratory/Chest: lungs clear, normal breath sounds, no respiratory distress, + decreased breath sounds Cardiovascular: regular rate, rhythm, no gallop, no murmur, + tachycardia Abdomen/GI: normal bowel sounds, soft, + tenderness (mild diffuse tenderness) Back: no CVA tenderness, no muscle spasm, + pertinent finding (lumbar spine TTP at level of L3-L4. incision site covered in Steri strips. no erythema, minimal drainage) Extremities/Musculoskelatal: normal inspection, no calf tenderness, no pedal edema Neurologic/Psych: normal mood/affect, + disoriented (oriented to person only), + pertinent finding (lethargic. able to answer questions slowly but confused) Skin: normal color, warm/dry, no rash Diagnostics Laboratory Results Results Past 24 Hours Test 06/26/16 09:45 06/26/16 10:05 06/26/16 10:12 06/26/16 13:11 Range/Units White Blood Count 12.19 4.8-10.8 K/uL Red Blood Count 4.63 4.7-6.1 M/uL Hemoglobin 15.6 14.0-18.0 g/dL Hematocrit 45.1 42-52 % Mean Corpuscular Volume 97.4 80-100 fL Mean Corpuscular Hemoglobin 33.7 25-34 pg Mean Corpuscular Hemoglobin Concent 34.6 32-36 g/dl Platelet Count 226 130-400 K/uL Mean Platelet Volume 10.6 7.4-10.4 fL Neutrophils (%) (Auto) 55.8 % Lymphocytes (%) (Auto) 31.0 % Monocytes (%) (Auto) 11.5 % Eosinophils (%) (Auto) 1.2 % Basophils (%) (Auto) 0.3 % Neutrophils # (Auto) 6.79 1.4-6.5 K/uL Lymphocytes # (Auto) 3.78 1.2-3.4 K/uL Monocytes # (Auto) 1.40 0.11-0.59 K/uL Eosinophils # (Auto) 0.15 0-0.5 K/uL Basophils # (Auto) 0.04 0-0.2 K/uL RDW Standard Deviation 46.4 36.4-46.3 fL RDW Coefficient of Variation 13.0 11.5-14.5 % Immature Granulocyte % (Auto) 0.2 % Immature Granulocyte # (Auto) 0.03 0.00-0.02 K/uL Prothrombin Time 10.7 9.0-12.0 SECONDS Prothromb Time International Ratio 1.0 0.9-1.1 Activated Partial Thromboplast Time 27.3 21.0-31.0 SECONDS Partial Thromboplastin Ratio 1.1 Sodium Level 139 136-145 mmol/L Potassium Level 3.5 3.5-5.1 mmol/L Chloride Level 102 98-107 mmol/L Carbon Dioxide Level 27 21-32 mmol/L Anion Gap 10.0 3-11 mmol/L Blood Urea Nitrogen 9 7-18 mg/dl Creatinine 0.93 0.60-1.40 mg/dl Est Creatinine Clear Calc Drug Dose 79.4 ml/min Estimated GFR () 96.7 Estimated GFR (Non- 83.5 BUN/Creatinine Ratio 9.9 10-20 Random Glucose 140 70-99 mg/dl Calcium Level 9.7 8.5-10.1 mg/dl Total Bilirubin 0.9 0.2-1 mg/dl Direct Bilirubin 0.2 0-0.2 mg/dl Aspartate Amino Transf (AST/SGOT) 24 15-37 U/L Alanine Aminotransferase (ALT/SGPT) 10 12-78 U/L Alkaline Phosphatase 68 45-117 U/L Total Creatine Kinase 562 39-308 U/L Creatine Kinase MB 5.3 0.5-3.6 ng/ml Creatine Kinase MB Ratio 0.9 0-3.0 Troponin I < 0.015 0-0.045 ng/ml Total Protein 8.3 6.4-8.2 gm/dl Albumin 3.7 3.4-5.0 gm/dl Lipase 88 73-393 U/L Influenza Type A Antigen Neg for Influ A NEG Influenza Type B Antigen Neg for Influ B NEG Lactic Acid Level 2.4 0.4-2.0 mmol/L Microbiology Results 06/26/16 Blood Culture, Received Pending 06/26/16 Blood Culture, Received Pending Diagnostic Radiology Reviewed the following studies and agree with interpretation as follows: Patient Name: JESSICA MATHEWS Unit Number: [id number] Dictated: 06/26/161018 Transcribed: 06/26/161018 JA Printed Date/Time: [~ rep prt dt]/[~ rep prt tm] [~ rep ct labl] - [~ rep ct ivnm] [facility] [place] [address] Dictated: 06/26/161018 Transcribed: 06/26/16 101 JA Printed Date/Time: [~ rep prt dt]/[~ rep prt tm] [~ rep ct labl] - [~ rep ct ivnm] Patient: JESSICA MATHEWS Address1: [address] [place] [address] Rec: [id number] Address2: Acct ID: [id number] [facility] Zip: [place] [address] Date: 1945 Sex: M Room/Bed: Ref Phy: Mark Adame M.D. SC: RAYMOND Larios Phy: Report #: [id number] Zofia Phy: Gilberto Pollard M.D. Test: [id number] Admit Phy: Product Development Manager: CATHY Interpreting Phy: Vladimir Sharp MD Diagnosis: BACK PAIN Ordering Phy: Fransico Malik D.O. Service Date: 06/26/16 Admit Date: 06/26/16 MNE: [id number] CONF: DICTATED BY: Vladimir Sharp MD]] CC: Gilberto Pollard M.D. Mishock, Kevin, D.O. Torretti, Joel A., M.D. Endcc: [~ rep ct add3]] CHEST ONE VIEW PORTABLE CLINICAL HISTORY: Fever. Sepsis. COMPARISON STUDY: Chest radiograph June 23, 2016. FINDINGS: No pneumothorax or pleural effusion is present. Minimal left basilar opacity favors atelectasis. Mild interstitial thickening is unchanged. There is no evidence for pulmonary edema. Cardiomediastinal silhouette is stable. IMPRESSION: No acute cardiopulmonary findings. Electronically signed by: Vladimir Sharp M.D. 06/26/2016 10:20 AM Dictated Date/Time: 06/26/2016 10:19 AM The status of this report is Signed. Draft = Not yet reviewed or approved by Radiologist. Signed = Reviewed and approved by Radiologist. <AttendingPhy></AttendingPhy> <FamilyPhy>Mark Adame M.D.</FamilyPhy> < PrimaryPhy>Gilberto Pollard M.D.</PrimaryPhy> <UnitNumber>[id number]</UnitNumber> <VisitNumber>[id number]</VisitNumber> <PatientName>JESSICA MATHEWS</PatientName > <DateOfBirth>1945</DateOfBirth> <Location>[facility]</Location> <ServiceDate> 06/26/16</ServiceDate> <MNE>ESINDI</MNE> <OrderingPhy>Fransico Malik D.O.</ OrderingPhy> <OrderingPhyMNE>f rep ord dr trejo</OrderingPhyMNE> <DictatingPhyMNE> f rep dict dr trejo</DictatingPhyMNE> <CCListMNE>f rep ct mne</CCListMNE> < AdmittingPhyMNE>f pt admit dr trejo</AdmittingPhyMNE> <AttendingPhyMNE>f pt attend dr trejo</AttendingPhyMNE> <ConsultingPhyMNE>f pt consult dr trejo</ConsultingPhyMNE> <FamilyPhyMNE>f pt fam dr trejo</FamilyPhyMNE> <OtherPhyMNE>f pt other dr trejo</OtherPhyMNE> < PrimaryPhyMNE>f pt prim care dr trejo</PrimaryPhyMNE> <ReferringPhyMNE>f pt referring dr trejo</ReferringPhyMNE> EKG Reviewed EKG and agree with interpretation as follows: 89 bpm, NSR, RBBB (chronic) Impression Assessment and Plan 71 y/o male with a history of recent L3-L4 microdiscectomy on 06/24, DM II, Parkinson's disease with dementia, depression, explosive personality disorder, hyperlipidemia, and obstructive sleep apnea who presented to the ED on 06/26 with weakness, confusion, and back pain. Patient febrile on arrival with a temperature of 38.3C and hypoxic with saturations at 88% on room air. Patient does not wear oxygen at home. CXR showed minimal left basilar opacity favoring atelectasis and chronic mild interstitial thickening without acute findings. EKG shows no ischemic changes. WBC elevated at 12.19. Lactic acid elevated at 2.4. CK elevated at 562. Fevers, weakness, hypoxia: possible HCAP/post op PNA vs possible UTI--patient technically meets sepsis criteria with fever, WBC >12k and presumed source of infection, however, leukocytosis could be secondary to intraoperative steroid use 2 days prior to arrival, and fever could be non-infectious -Admit to MedSurg -Repeat CXR in the morning. May be too early for PNA to show up on film -Levaquin 750 mg IV qd and aztreonam 2 gm IV q8h to cover for possible HCAP. Pt has PCN allergy. -Duonebs QIDR and q2h prn SOB/wheezing -Incentive spirometry -IVF NSS at 100 cc/hr -Repeat lactic acid at 1300 -UA and urine cultures uncollected, has not urinated since earlier incontinence episodes -Insert Otoole -Blood cultures pending -Tylenol prn fever -PT/OT evaluate and treat -O2 by protocol Back pain s/p L3-L4 microdiscectomy on 06/24 -D/C home Percocet, family states makes pt more confused -Tramadol 50 mg PO q4h prn pain Constipation--no BM in several days, fecal impaction could contribute to fever? -Dulcolax suppository x 1 -Milk of magnesia 30 mL PO q6h prn constipation -Miralax 17 gm PO qd prn constipation Diabetes mellitus type 2, uncontrolled--last HgbA1c checked on 06/06/16 was 10.2 -Hold metformin -Continue previous regimen during last admission as this seemed to control sugars well -Lantus 10 units SC qhs -Insulin sliding scale -Check BSGs q ac and qhs Parkinson's disease with dementia -Continue Sinemet 50/200 PO TID -Continue donepezil 10 mg PO BID Depression -Continue venlafaxine 150 mg PO BID Explosive personality disorder -Continue Depakote 1250 mg PO qhs, Seroquel 50 PO qhs, and Risperdal 0.5 mg PO qhs HLD -Continue atorvastatin 20 mg PO qd JAVON--pt noncompliant with CPAP per -Consider CPAP inpatient, although pt may not tolerate due to mental status DVT prophylaxis -Heparin 5000 units SC q12h, POD #2 s/p spinal surgery -DUDLEY blevins and SCDs Code Status -Level III, FULL RESUSCITATION NO MECHANICAL VENTILATION Level of Care Med/Surg Resuscitation Status FULL NO MECH VENTILATION VTE Prophylaxis VTE Risk Assessment Done? Y/N: Yes Risk Level: Moderate Given or contraindicated: Unfractionated heparin SQ, T.E.D. Stockings, SCD's Note Attending Attestation & Admission Note: Pt seen/examined, chart reviewed, and care plan d/w LINDA Carballo. I agree w/ the martell components of her admission documentation. 71yo male with PD, dementia, explosive personality disorder, uncontrolled T2DM, and 2 days post-op from L3/L4 back surgery. Was d/c home yesterday and had a poor night with confusion, extreme weakness, urinary incontinence, and then this AM poor appetite. ?worsening cough. PMH, PSH, allergies, meds, sochx, famhx, ros - reviewed vitals - febrile, O2 sats 88% gen - looks ill but nontoxic, confused mouth - MM dry neck - no JVD heart - RRR, s1, s2, no murmur lungs - mild, dry rales bases; no wheezing during my exam; no increased work of breathing abd - soft, tender suprapubic region, ND, BS+, small umbilical hernia present/ reducible ext - pulses 2+ b/l, no edema neuro - strength 5/5 x 4 exts skin - lumbar incision clean, no drainage, no erythema WBC 12 lactate 2.4 CPK 500+ A/P: encephalopathy, likely metabolic from infectious process ?UTI ?bronchitis lactic acidosis probable early sepsis - urine vs lung source PD with dementia recent L-spine surgery agree with u/a, urine cx place otoole broad-spectrum IV abx consider repeat cxr tomorrow consider rapid flu if u/a is normal PT + OT evals may need placement after discharge mild rhabdomyolysis - from his L-spine surgery; hydrate family updated Caden Lynch MD
[2016-06-26 15:19] LABS: URINE APPEARANCE CLEAR (CLEAR); URINE BILIRUBIN NEG (NEG); URINE COLOR YELLOW; URINE NITRITE NEG (NEG); URINE PH 6.5 (4.5-7.5); URINE SPECIFIC GRAVITY 1.011 (1.000-1.030); UROBILINOGEN NEG (NEG); ZZUR CULT IF INDIC CLEAN CATCH NO
[2016-06-26 15:24] LABS: MANUAL MICROSCOPIC REQUIRED? NO; REVIEW REQ? NO
[2016-06-26 16:34] VITALS: O2SAT 98
[2016-06-26 16:40] VITALS: BP 110/66; PULSE 79; TEMP 37.3; O2SAT 93; Ht 172.7 cm; Wt 84.7 kg
[2016-06-26] MEDS: TRAMADOL HCL 50 MG TAB PO PRN (17:22)
[2016-06-26] MEDS: CARBIDOPA/LEVODOPA 50/200MG EXT REL TAB PO SCH ×2 (17:23→22:24)
[2016-06-26] MEDS: SODIUM CHLORIDE 0.9% 1000ML 1,000 ML IV SCH ×2 (17:29→23:37)
[2016-06-26] MEDS: AZTREONAM IV 2,000 MG in DEXTROSE 5% 100ML 100 ML IV SCH ×2 (17:30→23:37)
[2016-06-26] MEDS: INSULIN ASPART 100 UNITS/ML 3 ML PEN SC SCH ×2 (18:29→22:35)
[2016-06-26] MEDS: ALBUT/IPRATROP 3MG/0.5MG NEB 3 ML VIAL INH SCH (20:09)
[2016-06-26 20:10] VITALS: PULSE 80; O2SAT 93
[2016-06-26] MEDS ORDERED: RISPERIDONE 0.5 MG TAB PO SCH (21:00)
[2016-06-26] MEDS: VENLAFAXINE HCL XR 150 MG CAPXR PO SCH (22:25)
[2016-06-26] MEDS: DIVALPROEX SODIUM 250 MG DELAY REL TAB PO SCH (22:26)
[2016-06-26] MEDS: QUETIAPINE FUMARATE 25 MG TAB PO SCH (22:26)
[2016-06-26] MEDS: DONEPEZIL HCL 10 MG TAB PO SCH (22:26)
[2016-06-26] MEDS: DIVALPROEX SODIUM 500 MG DELAY RELEASE TAB PO SCH (22:27)
[2016-06-26] MEDS: INSULIN GLARGINE SOLOSTAR 100 UNITS/ML 3 ML PEN SC SCH (22:36)
[2016-06-26] MEDS: HEPARIN SOD 5000 UNIT/0.5 ML CARP SQ SCH (22:37)
[2016-06-26 22:50] VITALS: BP 104/61; PULSE 69; TEMP 37.1; O2SAT 92
[2016-06-27] VITALS (7 sets, daily range): BP systolic 115–130; BP diastolic 72–83; PULSE 65–94; TEMP 37–37.3; O2SAT 91–97
[2016-06-27] MEDS: ALBUT/IPRATROP 3MG/0.5MG NEB 3 ML VIAL INH SCH ×4 (07:13→19:41)
[2016-06-27 07:38] LABS: BASO % 0.1 %; BASO ABS # 0.01 K/uL (0-0.2); COMPLETE YES; EOS % 1.3 %; HEMATOCRIT 40.6 % (42-52); IG% 0.3 %; LYMPH % 38.9 %; LYMPH ABS # 2.62 K/uL (1.2-3.4); MEAN CELL VOLUME 97.8 fL (80-100); MEAN CORPUSCULAR HEMOGLOBIN 33.3 pg (25-34); MEAN PLATELET VOLUME 10.3 fL (7.4-10.4); MONO % 9.3 %; NEUT % 50.1 %; PLATELET COUNT 191 K/uL (130-400); RED BLOOD COUNT 4.15 M/uL (4.7-6.1); WHITE BLOOD COUNT 6.74 K/uL (4.8-10.8)
[2016-06-27] MEDS: AZTREONAM IV 2,000 MG in DEXTROSE 5% 100ML 100 ML IV SCH ×3 (07:39→23:14)
[2016-06-27 08:05] LABS: BUN/CREATININE RATIO 16.2 (10-20); CREATININE 0.77 mg/dl (0.60-1.40); POTASSIUM 3.4 mmol/L (3.5-5.1)
--- NOTE | 2016-06-27 08:08 | ORTHOPEDIC CONSULTATION ---
DATE OF CONSULTATION: 06/27/2016 DATE OF CONSULTATION: 06/27/2016. HISTORY OF PRESENT ILLNESS: The patient is well known to myself having undergone a lumbar microdiscectomy on the left side for acute radiculopathy due to foraminal disc herniation earlier in the week. He was discharged to home and struggled postoperatively due to what sounds like deconditioning and some of his longstanding cognitive issues combined with postop narcotics use. He was readmitted to medicine for and appears to be much more comfortable this morning. At time of my examination, he was alert, answers questions appropriately. Reported his back pain was minimal, left leg pain had resolved. He was ambulating to the bathroom, had no incontinence and denied any chills or fevers. PHYSICAL EXAMINATION: On examination the patient has returned to his baseline affect. He is afebrile with stable vital signs. He appears comfortable in bed. His incision is clean, dry and intact without swelling and erythema. He has nontender hip range of motion and negative straight leg raise. He is grossly neurologically intact to strength and sensation testing lower extremities, both yesterday and today. ASSESSMENT AND PLAN: The patient appears to be improved after admission for back pain and confusion. Appreciate medicine's involvement. The patient is neurologically stable and given his pain is improved, he can start physical therapy and occupational therapy and consideration for rehab when medically stable will be undertaken. I will continue to follow the patient.
--- NOTE | 2016-06-27 08:09 | Hospitalist Progress Note ---
Hospitalist Progress Note Date of Service Jun 27, 2016. Subjective Pt evaluation today including: conversation w/ patient, conversation w/ family , physical exam, chart review, lab review, review of studies Pain: none PO Intake: Good Voiding: no voiding problems The patient was seen and examined this morning. Pt's daughter is present at bedside this morning. He reports feeling pretty good this morning, he just returned from xray. He denies having much pain in the low back s/p hemidiscectomy a few days ago. He got good sleep last night and does not feel weak or lethargic this morning. His daughter stated she thought he was disoriented, however he answered all my questions timely and correctly during the interview. All their questions and concerns were answered at bedside. Constitutional: No chills, No fatigue, No fever, No sweats Eyes: No diplopia, No redness ENT: No nasal symptoms, No sore throat, No trouble swallowing Respiratory: No cough, No dyspnea at rest, No dyspnea on exertion, No shortness of breath, No sputum Cardiovascular: No chest pain, No palpitations Abdomen: No constipation, No diarrhea, No nausea, No pain, No vomiting Musculoskeletal: No joint pain Male : No dysuria Neurologic: No balance problems, No numbness/tingling, No weakness Psychiatric: No anxiety, No insomnia Endo: No fatigue Skin: No itch, No rash Objective Vital Signs Date Time Temp Pulse Resp B/P Pulse Ox O2 Delivery O2 Flow Rate FiO2 06/27/16 07:13 94 14 93 Room Air 06/26/16 23:40 Room Air 06/26/16 22:50 37.1 69 16 104/61 92 Room Air 06/26/16 20:10 80 14 93 Room Air 06/26/16 16:40 37.3 79 16 110/66 93 Room Air 06/26/16 16:34 98 Nasal Cannula 2.0 06/26/16 14:40 98 16 125/88 97 Nasal Cannula 4.0 06/26/16 13:31 90 16 140/95 97 Nasal Cannula 4.0 06/26/16 12:30 96 16 113/75 95 Room Air 06/26/16 12:00 92 16 100/71 97 Room Air 06/26/16 10:52 93 16 116/79 98 Nebulizer 06/26/16 09:46 83 06/26/16 09:32 38.3 81 16 134/83 88 Room Air 06/26/16 09:30 95 Nasal Cannula 4.0 Physical Exam General Appearance: WD/WN, no apparent distress Eyes: PERRL, EOMI ENT: hearing grossly normal, pharynx normal Neck: supple, no JVD Respiratory/Chest: chest non-tender, no respiratory distress, no accessory muscle use, + pertinent finding (+ faint crackles at bilateral bases, on room air) Cardiovascular: regular rate, rhythm, no murmur Abdomen: normal bowel sounds, non tender, soft, no organomegaly Extremities: non-tender, no pedal edema, no calf tenderness Neurologic/Psychiatric: no motor/sensory deficits, alert, oriented x 3, + pertinent finding (Strenght is equal bilaterally in UE and LE, 5/5 throughout, sensation intact to light touch.) Skin: normal color, warm/dry Notes: Back: dressing over lumbar region appears c/d/i, no signs of surrounding erythema or edema, nontender with palpation. Laboratory Results Last 24 Hours Test 06/26/16 09:45 06/26/16 10:05 06/26/16 10:12 06/26/16 14:10 White Blood Count 12.19 K/uL Red Blood Count 4.63 M/uL Hemoglobin 15.6 g/dL Hematocrit 45.1 % Mean Corpuscular Volume 97.4 fL Mean Corpuscular Hemoglobin 33.7 pg Mean Corpuscular Hemoglobin Concent 34.6 g/dl Platelet Count 226 K/uL Mean Platelet Volume 10.6 fL Neutrophils (%) (Auto) 55.8 % Lymphocytes (%) (Auto) 31.0 % Monocytes (%) (Auto) 11.5 % Eosinophils (%) (Auto) 1.2 % Basophils (%) (Auto) 0.3 % Neutrophils # (Auto) 6.79 K/uL Lymphocytes # (Auto) 3.78 K/uL Monocytes # (Auto) 1.40 K/uL Eosinophils # (Auto) 0.15 K/uL Basophils # (Auto) 0.04 K/uL RDW Standard Deviation 46.4 fL RDW Coefficient of Variation 13.0 % Immature Granulocyte % (Auto) 0.2 % Immature Granulocyte # (Auto) 0.03 K/uL Prothrombin Time 10.7 SECONDS Prothromb Time International Ratio 1.0 Activated Partial Thromboplast Time 27.3 SECONDS Partial Thromboplastin Ratio 1.1 Sodium Level 139 mmol/L Potassium Level 3.5 mmol/L Chloride Level 102 mmol/L Carbon Dioxide Level 27 mmol/L Anion Gap 10.0 mmol/L Blood Urea Nitrogen 9 mg/dl Creatinine 0.93 mg/dl Est Creatinine Clear Calc Drug Dose 79.4 ml/min Estimated GFR () 96.7 Estimated GFR (Non- 83.5 BUN/Creatinine Ratio 9.9 Random Glucose 140 mg/dl Calcium Level 9.7 mg/dl Total Bilirubin 0.9 mg/dl Direct Bilirubin 0.2 mg/dl Aspartate Amino Transf (AST/SGOT) 24 U/L Alanine Aminotransferase (ALT/SGPT) 10 U/L Alkaline Phosphatase 68 U/L Total Creatine Kinase 562 U/L Creatine Kinase MB 5.3 ng/ml Creatine Kinase MB Ratio 0.9 Troponin I < 0.015 ng/ml Total Protein 8.3 gm/dl Albumin 3.7 gm/dl Lipase 88 U/L Influenza Type A Antigen Neg for Influ A Influenza Type B Antigen Neg for Influ B Lactic Acid Level 2.4 mmol/L 3.3 mmol/L Test 06/26/16 14:20 06/26/16 15:53 06/26/16 17:06 06/26/16 20:33 Urine Color YELLOW Urine Appearance CLEAR Urine pH 6.5 Urine Specific [place] 1.011 Urine Protein NEG Urine Glucose (UA) NEG Urine Ketones 1+ Urine Occult Blood NEG Urine Nitrite NEG Urine Bilirubin NEG Urine Urobilinogen NEG Urine Leukocyte Esterase NEG Urine WBC (Auto) 0 /hpf Urine RBC (Auto) 0-4 /hpf Urine Hyaline Casts (Auto) 0 /lpf Urine Epithelial Cells (Auto) 5-10 /lpf Urine Bacteria (Auto) NEG Bedside Glucose 160 mg/dl 160 mg/dl 241 mg/dl Test 06/27/16 06:50 06/27/16 07:49 White Blood Count 6.74 K/uL Red Blood Count 4.15 M/uL Hemoglobin 13.8 g/dL Hematocrit 40.6 % Mean Corpuscular Volume 97.8 fL Mean Corpuscular Hemoglobin 33.3 pg Mean Corpuscular Hemoglobin Concent 34.0 g/dl Platelet Count 191 K/uL Mean Platelet Volume 10.3 fL Neutrophils (%) (Auto) 50.1 % Lymphocytes (%) (Auto) 38.9 % Monocytes (%) (Auto) 9.3 % Eosinophils (%) (Auto) 1.3 % Basophils (%) (Auto) 0.1 % Neutrophils # (Auto) 3.37 K/uL Lymphocytes # (Auto) 2.62 K/uL Monocytes # (Auto) 0.63 K/uL Eosinophils # (Auto) 0.09 K/uL Basophils # (Auto) 0.01 K/uL RDW Standard Deviation 47.0 fL RDW Coefficient of Variation 13.1 % Immature Granulocyte % (Auto) 0.3 % Immature Granulocyte # (Auto) 0.02 K/uL Assessment and Plan 71 y/o male with a history of recent L3-L4 microdiscectomy on 06/24, DM II, Parkinson's disease with dementia, depression, explosive personality disorder, hyperlipidemia, and obstructive sleep apnea who presented to the ED on 06/26 with weakness, confusion, and back pain. Fevers, weakness, hypoxia: possible HCAP/post op PNA vs possible UTI--patient technically meets sepsis criteria with fever, WBC >12k and presumed source of infection, however, leukocytosis could be secondary to intraoperative steroid use 2 days prior to arrival, and fever could be non-infectious - Possible PNA but repeat CXR has only minimal left basilar opacity favoring atelectasis and chronic mild interstitial thickening without acute findings, repeat completed this morning and is unchanged. - UA is clean - Blood cultures in process- follow - Levaquin 750 mg IV qd and aztreonam 2 gm IV q8h to cover for possible HCAP. Pt has PCN allergy. - Incentive spirometry and Duonebs QIDR and q2h prn SOB/wheezing - Maintenance fluids NSS at 100 cc/hr - LA trending downward - Insert Boogie - can dc -Tylenol prn fever -PT/OT Back pain s/p L3-L4 microdiscectomy on 06/24 -D/C home Percocet, family states makes pt more confused -Tramadol 50 mg PO q4h prn pain Constipation--no BM in several days, fecal impaction could contribute to fever? - Dulcolax suppository x 1 - had one large bowel movement - Milk of magnesia 30 mL PO q6h prn constipation - Miralax 17 gm PO qd prn constipation DM type 2, uncontrolled--last HgbA1c checked on 06/06/16 was 10.2 - Hold metformin - Lantus 10 units SC qhs - ISS with accuchekcs achs Parkinson's disease with dementia -Continue Sinemet 50/200 PO TID -Continue donepezil 10 mg PO BID Depression -Continue venlafaxine 150 mg PO BID Explosive personality disorder -Continue Depakote 1250 mg PO qhs, Seroquel 50 PO qhs, and Risperdal 0.5 mg PO qhs HLD -Continue atorvastatin 20 mg PO qd JAVON--pt noncompliant with CPAP per -Consider CPAP inpatient, although pt may not tolerate due to mental status DVT ppx -Heparin 5000 units SC q12h, POD #2 s/p spinal surgery -DUDLEY blevins and Lela Code Status -Level III, FULL CODE, NO MECHANICAL VENTILATION Disposition: From home, likely d/c with home health services tomorrow after BCx return
[2016-06-27] MEDS: HEPARIN SOD 5000 UNIT/0.5 ML CARP SQ SCH ×2 (08:53→22:14)
[2016-06-27] MEDS: DONEPEZIL HCL 10 MG TAB PO SCH ×2 (08:54→22:10)
[2016-06-27] MEDS: CARBIDOPA/LEVODOPA 50/200MG EXT REL TAB PO SCH ×3 (08:54→22:10)
[2016-06-27] MEDS: ATORVASTATIN 20 MG TAB PO SCH (08:54)
[2016-06-27] MEDS: VENLAFAXINE HCL XR 150 MG CAPXR PO SCH ×2 (08:54→22:10)
[2016-06-27] MEDS: ASPIRIN 81 MG ECTAB PO SCH (08:54)
[2016-06-27] MEDS: INSULIN ASPART 100 UNITS/ML 3 ML PEN SC SCH ×4 (09:01→22:13)
[2016-06-27] MEDS: LEVOFLOXACIN / D5W 750 MG in PREMIXED IN D5W 150 ML IV SCH (09:06)
[2016-06-27] MEDS: SODIUM CHLORIDE 0.9% 1000ML 1,000 ML IV SCH ×2 (09:07→22:09)
--- NOTE | 2016-06-27 10:10 | DIAGNOSTIC IMAGING REPORT ---
TWO VIEW CHEST CLINICAL HISTORY: Hypoxia. Cough. FINDINGS: PA and lateral chest radiographs are compared to study dated 06/26/2016. Correlation is made with chest CT dated 03/22/2010. The PA view is degraded by patient rotation. The cardiomediastinal silhouette is unremarkable. Chronic interstitial thickening is similar to previous. There is no airspace consolidation or pleural effusion. There is no pneumothorax. The bony thorax appears intact. IMPRESSION: No acute cardiopulmonary abnormality and no significant change from yesterday. Electronically signed by: Vivek Hemphill M.D. 06/27/2016 10:09 AM Dictated Date/Time: 06/27/2016 10:08 AM
[2016-06-27] MEDS: TRAMADOL HCL 50 MG TAB PO PRN (11:36)
[2016-06-27] MEDS: DIVALPROEX SODIUM 250 MG DELAY REL TAB PO SCH (22:09)
[2016-06-27] MEDS: QUETIAPINE FUMARATE 25 MG TAB PO SCH (22:10)
[2016-06-27] MEDS: DIVALPROEX SODIUM 500 MG DELAY RELEASE TAB PO SCH (22:10)
[2016-06-27] MEDS: INSULIN GLARGINE SOLOSTAR 100 UNITS/ML 3 ML PEN SC SCH (22:14)
[2016-06-28] VITALS (8 sets, daily range): BP systolic 112–127; BP diastolic 66–83; PULSE 69–91; TEMP 34.8–36.9; O2SAT 91–98
[2016-06-28] MEDS: SODIUM CHLORIDE 0.9% 1000ML 1,000 ML IV SCH (05:19)
[2016-06-28 06:57] LABS: BASO % 0.2 %; BASO ABS # 0.01 K/uL (0-0.2); COMPLETE YES; EOS % 3.5 %; HEMATOCRIT 37.4 % (42-52); IG% 0.2 %; MEAN CELL VOLUME 96.1 fL (80-100); MEAN CORPUSCULAR HEMOGLOBIN 33.4 pg (25-34); MEAN CORPUSCULAR HGB CONC 34.8 g/dl (32-36); MONO % 8.6 %; NEUT % 44.5 %; PLATELET COUNT 185 K/uL (130-400); RED BLOOD COUNT 3.89 M/uL (4.7-6.1); WHITE BLOOD COUNT 4.88 K/uL (4.8-10.8)
[2016-06-28 07:34] LABS: BUN/CREATININE RATIO 20.3 (10-20); CALCIUM 8.7 mg/dl (8.5-10.1); CREATININE 0.62 mg/dl (0.60-1.40); POTASSIUM 3.5 mmol/L (3.5-5.1)
[2016-06-28] MEDS: AZTREONAM IV 2,000 MG in DEXTROSE 5% 100ML 100 ML IV SCH ×3 (08:10→23:15)
[2016-06-28] MEDS: ALBUT/IPRATROP 3MG/0.5MG NEB 3 ML VIAL INH SCH ×4 (08:11→19:27)
[2016-06-28] MEDS: INSULIN ASPART 100 UNITS/ML 3 ML PEN SC SCH ×4 (09:37→21:14)
[2016-06-28] MEDS: CARBIDOPA/LEVODOPA 50/200MG EXT REL TAB PO SCH ×3 (09:38→21:07)
[2016-06-28] MEDS: ATORVASTATIN 20 MG TAB PO SCH (09:38)
[2016-06-28] MEDS: ASPIRIN 81 MG ECTAB PO SCH (09:38)
[2016-06-28] MEDS: DONEPEZIL HCL 10 MG TAB PO SCH ×2 (09:39→21:07)
[2016-06-28] MEDS: VENLAFAXINE HCL XR 150 MG CAPXR PO SCH ×2 (09:39→21:09)
[2016-06-28] MEDS: HEPARIN SOD 5000 UNIT/0.5 ML CARP SQ SCH ×2 (09:41→21:15)
[2016-06-28] MEDS: LEVOFLOXACIN / D5W 750 MG in PREMIXED IN D5W 150 ML IV SCH (09:41)
--- NOTE | 2016-06-28 09:43 | Progress Note ---
Subjective Date of Service: Jun 28, 2016. Subjective Pt evaluation today including: conversation w/ patient, physical exam, chart review, lab review, review of studies, review of inpatient medication list Continue doing well, no fever, awake and alert and orientated, no cough no sputum, Problem List Medical Problems: (1) Acute exacerbation of chronic low back pain Status: Acute (2) Blurry vision, bilateral Status: Acute (3) Fever Status: Acute (4) Hyperglycemia Status: Acute (5) Hypoxia Status: Acute (6) Pneumonia Status: Acute (7) Weakness Status: Acute Review of Systems Constitutional: No chills, No fatigue, No fever, No problem reported, No sweats , No weakness, No weight loss Eyes: No diplopia, No discharge, No eye pain, No redness, No worsening of vision ENT: No dental problems, No hearing loss, No nasal symptoms, No sore throat, No tinnitus, No trouble swallowing, No unusual epistaxis Respiratory: No cough, No dyspnea at rest, No dyspnea on exertion, No hemoptysis, No shortness of breath, No sputum, No wheezing Cardiac: No PND, No chest pain, No claudication, No edema, No orthopnea, No palpitations Abdomen: No constipation, No diarrhea, No nausea, No pain, No vomiting Musculoskeletal: No calf pain, No joint pain, No muscle pain, No swelling Male : No dysuria, No hematuria, No incontinence, No nocturia more than once/ night, No slowing stream, No urinary frequency Neurologic: No balance problems, No memory loss, No numbness/tingling, No paralysis, No vertigo, No weakness Psychiatric: No anhedonism, No anxiety, No depression symptoms, No insomnia, No substance abuse Heme: No abnormal bleeding/bruising, No clotting problems, No night sweats, No swollen lymph nodes Endo: No excessive thirst, No excessive urination, No fatigue Skin: No bleeding, No color change, No itch, No new/changing skin lesions, No rash Objective Vital Signs Date Time Temp Pulse Resp B/P Pulse Ox O2 Delivery O2 Flow Rate FiO2 06/28/16 08:11 80 16 94 Room Air 06/28/16 07:23 36.7 91 16 127/83 91 Room Air 06/27/16 23:32 Room Air 06/27/16 23:25 37.0 65 18 130/72 95 Room Air 06/27/16 19:41 76 16 97 Room Air 06/27/16 16:30 Room Air 06/27/16 15:55 87 16 91 Room Air 06/27/16 15:30 37.1 76 16 115/76 95 Room Air 06/27/16 11:43 84 16 92 Room Air Physical Exam General Appearance: WD/WN, no apparent distress Eyes: normal inspection, PERRL, EOMI, sclerae normal ENT: normal ENT inspection, hearing grossly normal, pharynx normal Neck: supple, no adenopathy, thyroid normal, no JVD, no carotid bruits, trachea midline Respiratory/Chest: chest non-tender, lungs clear, normal breath sounds, no respiratory distress, no accessory muscle use Cardiovascular: regular rate, rhythm, no edema, no gallop, no JVD, no murmur Abdomen: normal bowel sounds, non tender, soft, no organomegaly, no pulsatile mass Extremities: normal range of motion, non-tender, normal inspection, no pedal edema, no calf tenderness, normal capillary refill, pelvis stable Neurologic/Psychiatric: breast buffer II-XII nml as tested, no motor/sensory deficits, alert, normal mood/affect, oriented x 3 Skin: normal color, warm/dry, no rash Lymphatic: no adenopathy Laboratory Results Last 24 Hours Test 06/27/16 12:07 06/27/16 17:14 06/27/16 20:20 06/28/16 06:30 Bedside Glucose 233 mg/dl 139 mg/dl 221 mg/dl White Blood Count 4.88 K/uL Red Blood Count 3.89 M/uL Hemoglobin 13.0 g/dL Hematocrit 37.4 % Mean Corpuscular Volume 96.1 fL Mean Corpuscular Hemoglobin 33.4 pg Mean Corpuscular Hemoglobin Concent 34.8 g/dl Platelet Count 185 K/uL Mean Platelet Volume 10.0 fL Neutrophils (%) (Auto) 44.5 % Lymphocytes (%) (Auto) 43.0 % Monocytes (%) (Auto) 8.6 % Eosinophils (%) (Auto) 3.5 % Basophils (%) (Auto) 0.2 % Neutrophils # (Auto) 2.17 K/uL Lymphocytes # (Auto) 2.10 K/uL Monocytes # (Auto) 0.42 K/uL Eosinophils # (Auto) 0.17 K/uL Basophils # (Auto) 0.01 K/uL RDW Standard Deviation 44.0 fL RDW Coefficient of Variation 12.7 % Immature Granulocyte % (Auto) 0.2 % Immature Granulocyte # (Auto) 0.01 K/uL Sodium Level 143 mmol/L Potassium Level 3.5 mmol/L Chloride Level 108 mmol/L Carbon Dioxide Level 27 mmol/L Anion Gap 8.0 mmol/L Blood Urea Nitrogen 13 mg/dl Creatinine 0.62 mg/dl Est Creatinine Clear Calc Drug Dose 119.1 ml/min Estimated GFR () 117.3 Estimated GFR (Non- 101.2 BUN/Creatinine Ratio 20.3 Random Glucose 119 mg/dl Calcium Level 8.7 mg/dl Test 06/28/16 08:16 Bedside Glucose 118 mg/dl Assessment and Plan 71 y/o male admitted on 06/26 with possible Sirs/mild sepsis with weakness, confusion, and back pain. possible Sirs/mild sepsis upon admission with Fevers, weakness, hypoxia upon admission: patient meets sepsis criteria with fever, WBC >12k and presumed source of infection, with an elevated lactase I don't feel he has pneumonia because he has no cough, no obvious wheezing, osat is normal, does not need oxygen, CXR x2 time He has no UTI Back pain s/p L3-L4 microdiscectomy on 06/24, spine surgeon saw patient, feel patient is stable, no local infection Therefore patient's Sirs / sepsis is unknown , possible infectious source is unknown, For now we will continue IV antibiotics, follow-up blood culture metabolic encephalopathy from Parkinson's disease and baseline dementia, totally resolved however, leukocytosis could be secondary to intraoperative steroid use 2 days prior to arrival, and fever could be non-infectious Back pain s/p L3-L4 microdiscectomy on 06/24, spine surgeon saw patient, feel patient is stable, Constipation, resolved, continue stool softener DM type 2, uncontrolled--last HgbA1c checked on 06/06/16 was 10.2 Parkinson's disease with dementia Depression Explosive personality disorder HLD JAVON The above condition stable Continue home medication DVT ppx -Heparin 5000 units SC q12h, POD #2 s/p spinal surgery -DUDLEY blevins and SCDs Code Status -Level III, FULL CODE, NO MECHANICAL VENTILATION Disposition: From home, OT recs continue skilled OT services while inpatient [facility] and upon discharge to maximize pt's overall independence. PT report possible okay to go home after more treatment. likely d/c with home health services tomorrow after BCx return Continued [facility] stay due to: multiple IV medications needed Discharge planning: home
[2016-06-28] MEDS: TRAMADOL HCL 50 MG TAB PO PRN (14:23)
[2016-06-28] MEDS ORDERED: COUGH DROP (SUGAR FREE) LOZ 24 LOZ/1 BOX ONE (19:45)
[2016-06-28] MEDS ORDERED: NURSING VERBAL MED ORDER ONE (20:00)
[2016-06-28] MEDS ORDERED: COUGH DROP (SUGAR FREE) LOZ 24 LOZ/1 BOX PO PRN (20:15)
[2016-06-28] MEDS: DIVALPROEX SODIUM 250 MG DELAY REL TAB PO SCH (21:08)
[2016-06-28] MEDS: DIVALPROEX SODIUM 500 MG DELAY RELEASE TAB PO SCH (21:09)
[2016-06-28] MEDS: QUETIAPINE FUMARATE 25 MG TAB PO SCH (21:09)
[2016-06-28] MEDS: INSULIN GLARGINE SOLOSTAR 100 UNITS/ML 3 ML PEN SC SCH (21:15)
[2016-06-29 06:39] LABS: BASO % 0.5 %; BASO ABS # 0.02 K/uL (0-0.2); COMPLETE YES; EOS % 4.5 %; HEMATOCRIT 38.4 % (42-52); IG% 0.2 %; LYMPH % 41.7 %; LYMPH ABS # 1.84 K/uL (1.2-3.4); MEAN CELL VOLUME 96.5 fL (80-100); MEAN CORPUSCULAR HEMOGLOBIN 32.9 pg (25-34); MEAN CORPUSCULAR HGB CONC 34.1 g/dl (32-36); MEAN PLATELET VOLUME 10.1 fL (7.4-10.4); NEUT % 41.1 %; PLATELET COUNT 189 K/uL (130-400); RED BLOOD COUNT 3.98 M/uL (4.7-6.1); WHITE BLOOD COUNT 4.41 K/uL (4.8-10.8)
[2016-06-29 07:15] LABS: BUN/CREATININE RATIO 16.1 (10-20); CALCIUM 8.6 mg/dl (8.5-10.1); CREATININE 0.69 mg/dl (0.60-1.40); POTASSIUM 3.4 mmol/L (3.5-5.1)
[2016-06-29 07:35] VITALS: BP 113/69; PULSE 71; TEMP 37; O2SAT 92
[2016-06-29 07:51] VITALS: PULSE 75; O2SAT 93
[2016-06-29] MEDS: ALBUT/IPRATROP 3MG/0.5MG NEB 3 ML VIAL INH SCH (07:51)
[2016-06-29] MEDS: AZTREONAM IV 2,000 MG in DEXTROSE 5% 100ML 100 ML IV SCH (08:50)
[2016-06-29] MEDS: INSULIN ASPART 100 UNITS/ML 3 ML PEN SC SCH ×4 (09:04→21:00)
[2016-06-29] MEDS: DONEPEZIL HCL 10 MG TAB PO SCH ×2 (09:05→21:04)
[2016-06-29] MEDS: ASPIRIN 81 MG ECTAB PO SCH (09:05)
[2016-06-29] MEDS: HEPARIN SOD 5000 UNIT/0.5 ML CARP SQ SCH ×2 (09:05→21:03)
[2016-06-29] MEDS: CARBIDOPA/LEVODOPA 50/200MG EXT REL TAB PO SCH ×3 (09:05→21:07)
[2016-06-29] MEDS: ATORVASTATIN 20 MG TAB PO SCH (09:05)
[2016-06-29] MEDS: VENLAFAXINE HCL XR 150 MG CAPXR PO SCH ×2 (09:05→21:06)
[2016-06-29] MEDS: LEVOFLOXACIN / D5W 750 MG in PREMIXED IN D5W 150 ML IV SCH (10:09)
[2016-06-29] MEDS: IPRATROPIUM BROMIDE/ALBUTEROL respimat INH INH SCH ×4 (12:38→20:58)
[2016-06-29] MEDS ORDERED: POTASSIUM CHLORIDE 10 MEQ TABCR PO ONE (12:45)
--- NOTE | 2016-06-29 13:42 | Progress Note ---
Subjective Date of Service: Jun 29, 2016. Subjective Pt evaluation today including: conversation w/ patient, conversation w/ family , physical exam, chart review, lab review, review of studies, review of inpatient medication list Continue doing well, no fever, eating /bowel movement and urination are okay, Problem List Medical Problems: (1) Acute exacerbation of chronic low back pain Status: Acute (2) Blurry vision, bilateral Status: Acute (3) Fever Status: Acute (4) Hyperglycemia Status: Acute (5) Hypoxia Status: Acute (6) Pneumonia Status: Acute (7) Weakness Status: Acute Review of Systems Constitutional: No chills, No fatigue, No fever, No problem reported, No sweats , No weakness, No weight loss Eyes: No diplopia, No discharge, No eye pain, No redness, No worsening of vision ENT: No dental problems, No hearing loss, No nasal symptoms, No sore throat, No tinnitus, No trouble swallowing, No unusual epistaxis Respiratory: No cough, No dyspnea at rest, No dyspnea on exertion, No hemoptysis, No shortness of breath, No sputum, No wheezing Cardiac: No PND, No chest pain, No claudication, No edema, No orthopnea, No palpitations Abdomen: No constipation, No diarrhea, No nausea, No pain, No vomiting Musculoskeletal: No calf pain, No joint pain, No muscle pain, No swelling Male : No dysuria, No hematuria, No incontinence, No nocturia more than once/ night, No slowing stream, No urinary frequency Neurologic: No balance problems, No memory loss, No numbness/tingling, No paralysis, No vertigo, No weakness Psychiatric: No anhedonism, No anxiety, No depression symptoms, No insomnia, No substance abuse Heme: No abnormal bleeding/bruising, No clotting problems, No night sweats, No swollen lymph nodes Endo: No excessive thirst, No excessive urination, No fatigue Skin: No bleeding, No color change, No itch, No new/changing skin lesions, No rash Objective Vital Signs Date Time Temp Pulse Resp B/P Pulse Ox O2 Delivery O2 Flow Rate FiO2 06/29/16 09:00 Room Air 06/29/16 07:51 75 16 93 Room Air 06/29/16 07:35 37.0 71 15 113/69 92 Room Air 06/28/16 23:10 36.8 69 18 112/66 94 Room Air 06/28/16 19:27 76 16 94 Room Air 06/28/16 17:09 36.9 06/28/16 16:30 Room Air 06/28/16 15:41 75 16 96 Room Air 06/28/16 15:32 34.8 78 18 117/80 98 Room Air Physical Exam General Appearance: WD/WN, no apparent distress Eyes: normal inspection, PERRL, EOMI, sclerae normal ENT: normal ENT inspection, hearing grossly normal, pharynx normal Neck: supple, no adenopathy, thyroid normal, no JVD, no carotid bruits, trachea midline Respiratory/Chest: chest non-tender, lungs clear, normal breath sounds, no respiratory distress, no accessory muscle use Cardiovascular: regular rate, rhythm, no edema, no gallop, no JVD, no murmur Abdomen: normal bowel sounds, non tender, soft, no organomegaly, no pulsatile mass Extremities: normal range of motion, non-tender, normal inspection, no pedal edema, no calf tenderness, normal capillary refill, pelvis stable Neurologic/Psychiatric: human resources coordinator II-XII nml as tested, no motor/sensory deficits, alert, normal mood/affect, oriented x 3 Skin: normal color, warm/dry, no rash Lymphatic: no adenopathy Laboratory Results Last 24 Hours Test 06/28/16 17:02 06/28/16 20:41 06/29/16 05:55 06/29/16 08:03 Bedside Glucose 156 mg/dl 162 mg/dl 120 mg/dl White Blood Count 4.41 K/uL Red Blood Count 3.98 M/uL Hemoglobin 13.1 g/dL Hematocrit 38.4 % Mean Corpuscular Volume 96.5 fL Mean Corpuscular Hemoglobin 32.9 pg Mean Corpuscular Hemoglobin Concent 34.1 g/dl Platelet Count 189 K/uL Mean Platelet Volume 10.1 fL Neutrophils (%) (Auto) 41.1 % Lymphocytes (%) (Auto) 41.7 % Monocytes (%) (Auto) 12.0 % Eosinophils (%) (Auto) 4.5 % Basophils (%) (Auto) 0.5 % Neutrophils # (Auto) 1.81 K/uL Lymphocytes # (Auto) 1.84 K/uL Monocytes # (Auto) 0.53 K/uL Eosinophils # (Auto) 0.20 K/uL Basophils # (Auto) 0.02 K/uL RDW Standard Deviation 44.9 fL RDW Coefficient of Variation 12.8 % Immature Granulocyte % (Auto) 0.2 % Immature Granulocyte # (Auto) 0.01 K/uL Sodium Level 144 mmol/L Potassium Level 3.4 mmol/L Chloride Level 108 mmol/L Carbon Dioxide Level 28 mmol/L Anion Gap 8.0 mmol/L Blood Urea Nitrogen 11 mg/dl Creatinine 0.69 mg/dl Est Creatinine Clear Calc Drug Dose 107.1 ml/min Estimated GFR () 112.3 Estimated GFR (Non- 96.9 BUN/Creatinine Ratio 16.1 Random Glucose 116 mg/dl Calcium Level 8.6 mg/dl Test 06/29/16 11:58 Bedside Glucose 204 mg/dl Assessment and Plan 71 y/o male admitted on 06/26 with possible Sirs/mild sepsis with weakness, confusion, and back pain. possible Sirs/mild sepsis upon admission with Fevers, weakness, hypoxia upon admission: patient meets sepsis criteria with fever, WBC >12k and presumed source of infection, with an elevated lactase I don't feel he has any infectious process going on Back pain s/p L3-L4 microdiscectomy on 06/24, spine surgeon saw patient, feel patient is stable, no local infection In the physical exam I pressed local wounds there was no any obvious pain Therefore patient's source of Sirs / sepsis is unknown , possible no real infection After 48 hours of IV antibiotics with negative blood culture, and patient has been continue stable and doing well for 2 days, he does not look toxic Therefore will stop all IV antibiotics and watch overnight metabolic encephalopathy from Parkinson's disease and baseline dementia, totally resolved however, leukocytosis could be secondary to intraoperative steroid use 2 days prior to arrival, and fever could be non-infectious Back pain s/p L3-L4 microdiscectomy on 06/24, spine surgeon saw patient, feel patient is stable, Constipation, resolved, continue stool softener DM type 2, uncontrolled--last HgbA1c checked on 06/06/16 was 10.2 Parkinson's disease with dementia Depression Explosive personality disorder HLD JAVON The above condition stable Continue home medication DVT ppx -Heparin 5000 units SC q12h, POD #2 s/p spinal surgery -DUDLEY blevins and SCDs Code Status -Level III, FULL CODE, NO MECHANICAL VENTILATION Disposition: From home, OT recs continue skilled OT services while inpatient [facility] and upon discharge to maximize pt's overall independence. PT report possible okay to go home after more treatment. likely d/c with home health services tomorrow if continued doing well Continued [facility] stay due to: multiple IV medications needed Discharge planning: home
[2016-06-29 15:21] VITALS: BP 123/82; PULSE 73; TEMP 37; O2SAT 93
[2016-06-29] MEDS: INSULIN GLARGINE SOLOSTAR 100 UNITS/ML 3 ML PEN SC SCH (21:03)
[2016-06-29] MEDS: DIVALPROEX SODIUM 250 MG DELAY REL TAB PO SCH (21:04)
[2016-06-29] MEDS: DIVALPROEX SODIUM 500 MG DELAY RELEASE TAB PO SCH (21:06)
[2016-06-29] MEDS: QUETIAPINE FUMARATE 25 MG TAB PO SCH (21:07)
[2016-06-29 23:02] VITALS: BP 102/70; PULSE 80; TEMP 36.9; O2SAT 93
[2016-06-30 07:09] VITALS: BP 96/63; PULSE 69; TEMP 37; O2SAT 92
[2016-06-30] MEDS: IPRATROPIUM BROMIDE/ALBUTEROL respimat INH INH SCH (08:19)
[2016-06-30] MEDS: INSULIN ASPART 100 UNITS/ML 3 ML PEN SC SCH (08:20)
[2016-06-30] MEDS: HEPARIN SOD 5000 UNIT/0.5 ML CARP SQ SCH (08:21)
[2016-06-30] MEDS: VENLAFAXINE HCL XR 150 MG CAPXR PO SCH (08:21)
[2016-06-30] MEDS: ATORVASTATIN 20 MG TAB PO SCH (08:21)
[2016-06-30] MEDS: DONEPEZIL HCL 10 MG TAB PO SCH (08:21)
[2016-06-30] MEDS: ASPIRIN 81 MG ECTAB PO SCH (08:21)
[2016-06-30] MEDS: CARBIDOPA/LEVODOPA 50/200MG EXT REL TAB PO SCH (08:22)
--- NOTE | 2016-06-30 10:50 | Discharge Instructions ---
Discharge Instructions Date of Service June 30, 2016. Admission Reason for Admission: Fever, Weakness Discharge Discharge Diagnosis / Problem: Fever, resolved, weakness, improving, s/p lumbar surgery Discharge Goals Goal(s): Improve function, Increase independence Activity Recommendations Activity Limitations: resume your previous activity Lifting Limitations: until after follow-up appointment (with spine surgeon) Exercise/Sports Limitations: as tolerated May Resume Sexual Activity: when tolerated Shower/Bathe: no limitations Driving or Machine Use: no limitations . Instructions / Follow-Up Instructions / Follow-Up Medications: no changes made, refer to list Fever/weakness: no obvious cause on chest x-ray or urinalysis, no signs of infection with the spine surgery, blood cultures negative treated with empiric antibiotics for 48 hours, stopped when no source of infection found Diabetes: HbA1c 10.2, you are currently only on Metformin, you will need to be on higher dose of Metformin and likely other medications to improve you sugar control as we discussed, you were supposed to follow up with Dr. Pollard to discuss this issue please call to make an appointment within the next 1-2 weeks FOLLOW UP - Dr. Adame, call to schedule a follow up - Dr. Pollard, call to schedule an appointment in the next 1-2 weeks Current Hospital Diet Patient's current hospital diet: Diabetes Type 2 Diet Discharge Diet Recommended Diet: Diabetes Type 2 Diet Pending Studies Studies pending at discharge: no Laboratory Results Hemoglobin A1c Test 06/06/16 07:32 Range/Units Estimated Average Glucose 246 mg/dl Hemoglobin A1c 10.2 H 4.5-5.6 % Medical Emergencies . Who to Call and When: Medical Emergencies: If at any time you feel your situation is an emergency, please call 911 immediately. . Non-Emergent Contact Non-Emergency issues call your: Primary Care Provider, Surgeon Call Non-Emergent contact if: you have a fever, your pain is worsening, wound has increased drainage, wound has increased redness . . "Provider Documentation" section prepared by Son Nuñez. . VTE Core Measure Inpt VTE Proph given/why not?: Unfractionated heparin SQ, T.E.D. Stockings, SCD 's [place] Drug Monitoring Program Search Results: no issues identified
[2016-06-30 10:55] VITALS: BP 96/63; PULSE 69; TEMP 37; O2SAT 92
--- NOTE | 2016-06-30 11:01 | Discharge Summary ---
Discharge Summary Date of Service June 30, 2016. Discharge Summary Admission Date: Jun 26, 2016 at 13:11 Discharge Date: June 30, 2016 Discharge Disposition: Home with services Principal Diagnosis: SIRS criteria, no source, resolved Problems/Secondary Diagnoses: s/p lumbar surgery DM type II, poorly controlled Parkinson's disease Immunizations: Have You Had Influenza Vaccine: Yes History of Tetanus Vaccine?: Unknown History of Pneumococcal: Yes History of Hepatitis B Vaccine: Unknown Procedures: none Consultations: Orthopedic surgery Medication Reconciliation Continued Medications: Aspirin (Aspirin Ec) 81 Mg Tab 81 MG PO DAILY Atorvastatin (Atorvastatin Calcium) 20 Mg Tab 20 MG PO DAILY, #90 Carbidopa/Levodopa (Sinemet Cr 50MG/200MG) Tabcr 1 TAB PO TID, TAB Divalproex Sodium (Depakote Delay Rel) 250 Mg Tab 250 MG PO HS TAKE ONE 250 MG TABLET ALONG WITH TWO 500 MG TABLETS TO EQUAL HS DOSE OF 1250 MG. Divalproex Sodium (Depakote Delay Rel) 500 Mg Tab 1000 MG PO HS TAKE TWO 500 MG TABLETS ALONG WITH ONE 250 MG TABLET TO EQUAL HS DOSE OF 1250 MG. Donepezil HCl (Donepezil HCl) 10 Mg Tab 10 MG PO BID, #180 Metformin Hcl (Metformin Hcl Er) 500 Mg Tab 500 MG PO QPM Oxycodone/Acetaminophen 5MG/325MG (Percocet 5MG/325MG) Tab 1-2 TAB PO Q4H PRN for MODERATE TO SEVERE PAIN, #90 TAB PAIN Quetiapine Fumarate (Seroquel) 50 Mg Tab 50 MG PO HS, #90 Venlafaxine Hcl (Effexor Extended Rel) 150 Mg Capcr 150 MG PO BID Discharge Exam Patient feeling really well today, wants to go home. No fevers, no back pain, eating well, set up for home health services. Discussed elevated HbA1c and need for close follow up with Dr. Pollard, he and voiced understanding of the importance of this Review of Systems: Constitutional: + weakness, No chills, No fatigue, No fever, No problem reported, No sweats, No weight loss Eyes: No diplopia, No discharge, No eye pain, No problem reported, No redness, No worsening of vision ENT: No dental problems, No hearing loss, No nasal symptoms, No problem reported, No sore throat, No tinnitus, No trouble swallowing, No unusual epistaxis Respiratory: No cough, No dyspnea at rest, No dyspnea on exertion, No hemoptysis, No problem reported, No shortness of breath, No sputum, No wheezing Cardiovascular: No PND, No chest pain, No claudication, No edema, No orthopnea, No palpitations, No problem reported Abdomen: No GI bleeding, No constipation, No diarrhea, No nausea, No pain, No problem reported, No vomiting Musculoskeletal: + joint pain (back), No calf pain, No muscle pain, No problem reported, No swelling Genitourinary - Male: No dysuria, No hematuria, No urinary frequency, No urinary urgency Neurologic: + weakness, No balance problems, No memory loss, No numbness/ tingling, No paralysis, No problem reported, No vertigo Psychiatric: No anhedonism, No anxiety, No depression symptoms, No insomnia , No problem reported, No substance abuse Endocrine: No excessive thirst, No excessive urination, No fatigue, No problem reported Hematologic / Lymphatic: No abnormal bleeding/bruising, No clotting problems , No night sweats, No problem reported, No swollen lymph nodes Physical Exam: General Appearance: WD/WN, no apparent distress Eyes: normal inspection, EOMI, sclerae normal ENT: normal ENT inspection, hearing grossly normal, pharynx normal Neck: supple, no adenopathy, no JVD, trachea midline Respiratory/Chest: chest non-tender, lungs clear, normal breath sounds, no respiratory distress, no accessory muscle use Cardiovascular: regular rate, rhythm, no edema, no gallop, no JVD, no murmur , normal peripheral pulses Abdomen / GI: normal bowel sounds, non tender, soft, no organomegaly Neurologic/Psychiatric: support worker II-XII nml as tested, no motor/sensory deficits , alert, normal mood/affect, normal reflexes, oriented x 3 Skin: normal color, warm/dry, no rash Lymphatic: no adenopathy Hospital Course 71 y/o male admitted on 06/26 with possible Sirs/mild sepsis with weakness, confusion, and back pain. - possible Sirs/mild sepsis upon admission with Fevers, weakness, hypoxia upon admission: no clear source of infection found, leukocytosis likely attributed to steroids received diane-operatively antibiotics for 48 hours then stopped when cultures negative Back pain s/p L3-L4 microdiscectomy on 06/24, spine surgeon saw patient, no evidence of a local wound infection - metabolic encephalopathy from Parkinson's disease and baseline dementia, completely resolved - DM type 2, uncontrolled--last HgbA1c checked on 06/06/16 was 10.2 currently only takes Metformin 500mg twice a day d/w patient and his , he was supposed to see Dr. Pollard soon to discuss management will defer to Dr. Pollard, instructed patient to get follow up in 1-2 weeks Back pain s/p L3-L4 microdiscectomy on 06/24, spine surgeon saw patient, feel patient is stable, Constipation, resolved, continue stool softener Parkinson's disease with dementia Depression Explosive personality disorder HLD JAVON Total Time Spent: Less than 30 minutes This includes examination of the patient, discharge planning, medication reconciliation, and communication with other providers. Discharge Instructions Please refer to the electronic Patient Visit Report (Discharge Instructions) for additional information. Follow-Up Dr. Adame in 1-[address] Pollard in 1-2 weeks Additional Copies To Gilberto Pollard M.D.; Mark Adame M.D.
[2016-10-30] MEDS ORDERED: RXC5 PO (08:04)
== END 2016-06-30 11:19 | disposition home health service (06) | DRG 871 ==
LOC: ENRESERVTM → ENRESERVDT → EDBD 09:23 → C.EDA 09:25 → C.MSN 13:11
PROVIDERS: ADMIT Internal Medicine; ATTEND Internal Medicine
DX: R65.10 Systemic inflammatory response syndrome (SIRS) of non-infectious origin without acute organ dysfunction (principal); G93.41 Metabolic encephalopathy; G89.18 Other acute postprocedural pain; M54.9 Dorsalgia, unspecified; G20 Parkinson's disease; F03.90 Unspecified dementia, unspecified severity, without behavioral disturbance, psychotic disturbance, mood disturbance, and anxiety; K59.00 Constipation, unspecified; F60.3 Borderline personality disorder; F32.9 Major depressive disorder, single episode, unspecified; E78.5 Hyperlipidemia, unspecified; Z81.8 Family history of other mental and behavioral disorders; Z83.3 Family history of diabetes mellitus; Z82.49 Family history of ischemic heart disease and other diseases of the circulatory system; Z79.82 Long term (current) use of aspirin; G47.33 Obstructive sleep apnea (adult) (pediatric); D72.829 Elevated white blood cell count, unspecified; T38.0X5A Adverse effect of glucocorticoids and synthetic analogues, initial encounter; E11.8 Type 2 diabetes mellitus with unspecified complications

== ENCOUNTER → 2016-08-27 | Outpatient (CLI) | payer OTHER ==
[~2016-08-27] MED LIST changes: +DOCU-94 PO; +GABA1CAP PO; +HYDR-5688 PO; -RISP0.5T3 PO; +RXC5 PO; +SENN1TAB77 PO
[2016-08-27 11:24] LABS: BLOOD UREA NITROGEN 15 mg/dl (7-18); CREATININE 0.91 mg/dl (0.60-1.40)
== END | disposition home or self-care (01) ==
LOC: C.LAB 10:36
PROVIDERS: ATTEND Orthopaedic Surgery Orthopaedic Surgery of the Spine
DX: Z01.812 Encounter for preprocedural laboratory examination (principal)

== ENCOUNTER 2016-09-04 10:47 | Emergency (ER) | payer OTHER ==
[~2016-09-04] VITALS: Ht 177.8 cm; Wt 88.0 kg
[~2016-09-04 10:47] MED LIST changes: -DOCU-94 PO; -GABA1CAP PO; -HYDR-5688 PO; -RXC5 PO; -SENN1TAB77 PO
[2016-09-04 10:50] VITALS: TEMP 36.6; Ht 177.8 cm; Wt 88.0 kg
[2016-09-04 11:08] VITALS: O2SAT 92
--- NOTE | 2016-09-04 11:17 | EMERGENCY ROOM VISIT NOTE ---
History Report prepared by Mikayla: Radha Tello Under the Supervision of: Dr. Fransico Carrillo M.D. First contact with patient: 11:01 Chief Complaint: FALL Stated Complaint: FELL HIT HIS HEAD, BACK PAIN/INJURY History of Present Illness The patient is a 71 year old male who presents to the Emergency Room with complaints of lower back pain starting a few weeks ago and worsening over the past 2 weeks. He has pain radiation down the bilateral legs down to his knees. He has been taking Percocet with some relief. He had a back surgery in May. About 2 weeks ago, he started having severe bilateral lower extremity weakness and worsening back pain. The patient had an MRI 3 days ago which showed disc problems. He is scheduled to have a second MRI. The patient had a fall today due to the weakness. He denies any trauma or injuries from the fall. He denies any dizziness prior to the fall. The patient hit the back of his head. He denies any loss of consciousness. The patient is on Aspirin. Source of History: patient Onset: a few weeks ago Position: back (lower) Quality: other (radiation down the bilateral legs down to his knees) Timing: worsening Modifying Factors (Relieving): other (Percocet with some relief) Associated Symptoms: + weakness, No LOC Review of Systems See HPI for pertinent positives & negatives. A total of 10 systems reviewed and were otherwise negative. 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 (7) History of back pain (8) HNP (herniated nucleus pulposus) (9) Hx of suicide attempt (10) PTSD (post-traumatic stress disorder) (11) Uncontrolled diabetes mellitus Family History Anxiety disorder Diabetes mellitus Hypertension Social History Smoking Status: Never Smoker Alcohol Use: none Drug Use: none Marital Status: Housing Status: lives with family Occupation Status: retired Current/Historical Medications Scheduled Aspirin (Aspirin Ec), 81 MG PO DAILY Atorvastatin (Atorvastatin Calcium), 20 MG PO DAILY Carbidopa/Levodopa (Sinemet Cr 50MG/200MG), 1 TAB PO TID Divalproex Sodium (Depakote Delay Rel), 250 MG PO HS Divalproex Sodium (Depakote Delay Rel), 1,000 MG PO HS Docusate Sodium (Colace), 1 CAP PO BID Donepezil HCl (Donepezil HCl), 10 MG PO BID Gabapentin (Neurontin), 1 CAP PO TID Metformin Hcl (Metformin Hcl Er), 500 MG PO QPM Quetiapine Fumarate (Seroquel), 75 MG PO HS Sennosides (Senokot), 8.6 MG PO HS Venlafaxine Hcl (Effexor Extended Rel), 150 MG PO BID Scheduled PRN Hydrocodone/Acetaminophen 5MG/325MG (Weldon 5MG/325MG), 2 TABLETS PO Q6 PRN for Pain Oxycodone/Acetaminophen 5MG/325MG (Percocet 5MG/325MG), 1-2 TAB PO Q4H PRN for MODERATE TO SEVERE PAIN Allergies Coded Allergies: Penicillins (Verified Allergy, Severe, SWELL UP,HIVES, 09/04/16) SWELLS UP, HIVES Sulfa Antibiotics (Verified Allergy, Unknown, unknown, 09/04/16) Physical Exam Vital Signs Date Time Temp Pulse Resp B/P (MAP) Pulse Ox O2 Delivery O2 Flow Rate FiO2 09/04/16 15:29 76 18 113/67 92 09/04/16 13:41 59 18 119/77 93 Room Air 09/04/16 12:17 62 09/04/16 11:48 61 16 115/74 91 Room Air 09/04/16 11:24 61 18 103/66 96 Room Air 85 101/70 93 96/64 09/04/16 11:10 63 09/04/16 11:08 92 Room Air 09/04/16 10:50 36.6 76 16 101/66 94 Room Air Physical Exam GENERAL: Patient is a healthy-appearing well-nourished [] HEAD: Normocephalic atraumatic EYES: Ocular movements intact pupils equal and react to light OROPHARYNX mucous membranes are moist no exudates present no erythema or edema present NECK: Supple no nuchal rigidity CHEST: Good equal expansion LUNGS: Clear and equal to auscultation CARDIAC: Normal S1 and S2 ABDOMEN: Soft nontender no guarding BACK: No CVA tenderness EXTREMITIES: No pain upon palpation normal muscle strength in all groups no clubbing cyanosis or edema NEURO: Patient is following commands and answering questions appropriately. Alert and oriented x3 Cranial Nerves 2-12 grossly intact. 5/5 strength bilateral lower extremities Medical Decision & Procedures ER Provider Diagnostic Interpretation: X-ray results as stated below per interpretation by me and the radiologist: CHEST ONE VIEW PORTABLE CLINICAL HISTORY: 71 years-old Male presenting with Pt c/o gen weakness. TECHNIQUE: Portable upright AP view of the chest was obtained. COMPARISON: 06/27/2016 FINDINGS: Cardiomediastinal silhouette normal. No focal infiltrate. Apparent blunting of the left costophrenic angle may indicate trace pleural effusion. Osseous structures and upper abdomen normal. IMPRESSION: 1. No convincing evidence of acute cardiopulmonary disease. Possible trace left effusion. Electronically signed by: Gilberto Almeida 09/04/2016 11:59 AM Dictated Date/Time: 09/04/2016 11:57 AM Laboratory Results 09/04/16 11:08 Red Blood Count 4.95, Mean Corpuscular Volume 94.7, Mean Corpuscular Hemoglobin 33.1, Mean Corpuscular Hemoglobin Concent 35.0, Mean Platelet Volume 10.2, Neutrophils (%) (Auto) 60.1, Lymphocytes (%) (Auto) 30.0, Monocytes (%) (Auto) 7.4, Eosinophils (%) (Auto) 1.9, Basophils (%) (Auto) 0.3, Neutrophils # (Auto) 5.34, Lymphocytes # (Auto) 2.67, Monocytes # (Auto) 0.66, Eosinophils # (Auto) 0.17, Basophils # (Auto) 0.03 09/04/16 11:08 Test 09/04/16 11:08 09/04/16 11:18 White Blood Count 8.90 K/uL (4.8-10.8) Red Blood Count 4.95 M/uL (4.7-6.1) Hemoglobin 16.4 g/dL (14.0-18.0) Hematocrit 46.9 % (42-52) Mean Corpuscular Volume 94.7 fL (80-100) Mean Corpuscular Hemoglobin 33.1 pg (25-34) Mean Corpuscular Hemoglobin Concent 35.0 g/dl (32-36) Platelet Count 205 K/uL (130-400) Mean Platelet Volume 10.2 fL (7.4-10.4) Neutrophils (%) (Auto) 60.1 % Lymphocytes (%) (Auto) 30.0 % Monocytes (%) (Auto) 7.4 % Eosinophils (%) (Auto) 1.9 % Basophils (%) (Auto) 0.3 % Neutrophils # (Auto) 5.34 K/uL (1.4-6.5) Lymphocytes # (Auto) 2.67 K/uL (1.2-3.4) Monocytes # (Auto) 0.66 K/uL (0.11-0.59) Eosinophils # (Auto) 0.17 K/uL (0-0.5) Basophils # (Auto) 0.03 K/uL (0-0.2) RDW Standard Deviation 42.2 fL (36.4-46.3) RDW Coefficient of Variation 12.3 % (11.5-14.5) Immature Granulocyte % (Auto) 0.3 % Immature Granulocyte # (Auto) 0.03 K/uL (0.00-0.02) Anion Gap 12.0 mmol/L (3-11) Est Creatinine Clear Calc Drug Dose 87.5 ml/min Estimated GFR () 101.1 Estimated GFR (Non- 87.2 BUN/Creatinine Ratio 19.0 (10-20) Calcium Level 9.1 mg/dl (8.5-10.1) Total Bilirubin 0.7 mg/dl (0.2-1) Direct Bilirubin 0.1 mg/dl (0-0.2) Aspartate Amino Transf (AST/SGOT) 20 U/L (15-37) Alanine Aminotransferase (ALT/SGPT) 22 U/L (12-78) Alkaline Phosphatase 65 U/L (45-117) Total Creatine Kinase 49 U/L (39-308) Creatine Kinase MB 0.8 ng/ml (0.5-3.6) Creatine Kinase MB Ratio 1.6 (0-3.0) Troponin I < 0.015 ng/ml (0-0.045) Total Protein 7.6 gm/dl (6.4-8.2) Albumin 3.4 gm/dl (3.4-5.0) Thyroid Stimulating Hormone (TSH) 6.330 uIu/ml (0.300-4.500) Bedside Glucose 147 mg/dl (70-99) Labs reviewed by ED physician. Medications Administered Medications (Trade) Dose Ordered Sig/Maria De Jesus Route Start Time Stop Time Status Last Admin Dose Admin Sodium Chloride 500 ml @ 999 mls/hr Q31M STAT IV 09/04/16 11:29 09/04/16 11:59 DC 09/04/16 11:32 999 MLS/HR Gabapentin (Neurontin Cap) 100 mg NOW STAT PO 09/04/16 12:16 09/04/16 12:17 DC 09/04/16 12:31 100 MG ECG Indication: weakness Rate (beats per minute): 73 Rhythm: normal sinus Findings: RBBB, no acute ischemic change, no ectopy ED Course 1101: Past medical records reviewed. The patient was evaluated in room C03. A complete history and physical examination was performed. 1117: I discussed the patient's case with Marylin Lemus PA-C with [facility]. She recommended placing the patient on Neurontin, stopping the Percocet, and placing him on Weldon. 1129: Sodium Chloride 500 ml @ 999 mls/hr IV 1216: Gabapentin 100 mg PO 1245: Upon reexamination the patient is resting comfortably. I discussed results and treatment plan with the patient. He verbalizes agreement and understanding. The patient is currently being evaluated for rehab. Medical Decision Medication Reconciliation: I attest that I have personally reviewed the patient' s current medication list Differential diagnosis: Etiologies such as musculoskeletal, disc herniation, fracture, aortic disease, metastatic disease, cord compression, discitis, infection, renal colic, gastrointestinal, acute exacerbation of chronic back pain, sciatica, cauda equina, as well as others were entertained. This is a 71-year-old male who presents emergency department complaining of back pain and not getting around his house well.. The patient was told he had a disc slippage in his back and therefore came to the emergency department. This was on an MRI that was performed at [facility]. [facility] was contacted to go over the patient's MRI with the patient. They felt that this was scar tissue and not the cause of the patient's pain. They asked that the patient be placed on Neurontin and the patient be switched over to Vicodin from Percocet. I feel that the patient is not doing well at home and recommended that the patient go to rehabilitation. The patient's family also concurred with this. For this reason PTOT evaluations were obtained the patient was sent for rehabilitation. Consults Time Called: 1105 Consulting Physician: Marylin Lemus PA-C with [facility] Returned Call: 1117 I discussed the patient's case with Marylin Lemus PA-C with [facility]. She recommended placing the patient on Neurontin, stopping the Percocet, and placing him on Weldon. Impression Primary Impression: Fall Additional Impression: Back pain Scribe Attestation The scribe's documentation has been prepared under my direction and personally reviewed by me in its entirety. I confirm that the note above accurately reflects all work, treatment, procedures, and medical decision making performed by me. Departure Information Dispostion Rehab Inpatient Facility Prescriptions Docusate Sodium (COLACE) 100 Mg Cap 1 CAP PO BID for 10 Days, #20 CAP Prov: Fransico Carrillo MD 09/04/16 Sennosides (SENOKOT) 8.6 Mg Tab 8.6 MG PO HS, #10 TAB Prov: Fransico Carrillo MD 09/04/16 Hydrocodone/Acetaminophen 5MG/325MG (Weldon 5MG/325MG) Tab 2 TABLETS PO Q6 Y for Pain, #14 TAB Prov: Fransico Carrillo MD 09/04/16 Gabapentin (NEURONTIN) 100 Mg Cap 1 CAP PO TID for 10 Days, #30 CAP Prov: Fransico Carrillo MD 09/04/16 Referrals Gilberto Pollard M.D. (PCP) Patient Instructions [facility] Problem Qualifiers
[2016-09-04] MEDS ORDERED: SODIUM CHLORIDE 0.9% 500ML 500 ML IV STA (11:29)
[2016-09-04 11:31] LABS: BASO % 0.3 %; BASO ABS # 0.03 K/uL (0-0.2); COMPLETE YES; EOS % 1.9 %; HEMATOCRIT 46.9 % (42-52); IG% 0.3 %; LYMPH ABS # 2.67 K/uL (1.2-3.4); MEAN CELL VOLUME 94.7 fL (80-100); MEAN CORPUSCULAR HEMOGLOBIN 33.1 pg (25-34); MEAN PLATELET VOLUME 10.2 fL (7.4-10.4); MONO % 7.4 %; NEUT % 60.1 %; PLATELET COUNT 205 K/uL (130-400); RED BLOOD COUNT 4.95 M/uL (4.7-6.1)
[2016-09-04 11:45] LABS: ALT/SGPT 22 U/L (12-78); AST/SGOT 20 U/L (15-37); BLOOD UREA NITROGEN 17 mg/dl (7-18); CALCIUM 9.1 mg/dl (8.5-10.1); CARBON DIOXIDE 21 mmol/L (21-32); CHLORIDE 105 mmol/L (98-107); CREATININE 0.89 mg/dl (0.60-1.40); GLUCOSE 156 mg/dl (70-99); POTASSIUM 3.7 mmol/L (3.5-5.1); SODIUM 138 mmol/L (136-145)
[2016-09-04 11:55] LABS: ALKALINE PHOSPHATASE 65 U/L (45-117); CKMB/CK RATIO 1.6 (0-3.0)
--- NOTE | 2016-09-04 12:01 | DIAGNOSTIC IMAGING REPORT ---
CHEST ONE VIEW PORTABLE CLINICAL HISTORY: 71 years-old Male presenting with Pt c/o gen weakness. TECHNIQUE: Portable upright AP view of the chest was obtained. COMPARISON: 06/27/2016 FINDINGS: Cardiomediastinal silhouette normal. No focal infiltrate. Apparent blunting of the left costophrenic angle may indicate trace pleural effusion. Osseous structures and upper abdomen normal. IMPRESSION: 1. No convincing evidence of acute cardiopulmonary disease. Possible trace left effusion. Electronically signed by: Gilberto Almeida 09/04/2016 11:59 AM Dictated Date/Time: 09/04/2016 11:57 AM
[2016-09-04] MEDS ORDERED: GABAPENTIN 100 MG CAP PO STA (12:16)
--- NOTE | 2016-09-04 12:56 | Orthopedic Consultation ---
Orthopedic Consultation Date of Consultation: Sep 04, 2016. Attending Physician: History of Present Illness 71yo gentleman with b/l lower extremity weakness/pain and low back pain for 2 weeks. 2 weeks ago he was lifting a bag of fertil;izer and had acute LBP and leg weakness. He's had a prior laminectomy by Dr. Adame in May 2016 and done well until 2 weeks ago. Denies bowel/bladder changes. He has been taking Percocet as well as tramadol for pain control without relief. He has mostly been using a walker for activity because of the pain. He reports symptoms are 50% right leg 50% left leg. No specific pattern. Past Medical/Surgical History Medical Problems: (1) Acute exacerbation of chronic low back pain Status: Acute (2) Blurry vision, bilateral Status: Acute (3) Fever Status: Acute (4) Hyperglycemia Status: Acute (5) Hypoxia Status: Acute (6) Pneumonia Status: Acute (7) Weakness Status: Acute Family History Anxiety disorder Diabetes mellitus Hypertension Social History Smoking Status: Never Smoker Drug Use: none Marital Status: Housing Status: lives with family Occupation Status: retired Allergies Coded Allergies: Penicillins (Verified Allergy, Severe, SWELL UP,HIVES, 09/04/16) SWELLS UP, HIVES Sulfa Antibiotics (Verified Allergy, Unknown, unknown, 09/04/16) Home Medications Scheduled Aspirin (Aspirin Ec), 81 MG PO DAILY Atorvastatin (Atorvastatin Calcium), 20 MG PO DAILY Carbidopa/Levodopa (Sinemet Cr 50MG/200MG), 1 TAB PO TID Divalproex Sodium (Depakote Delay Rel), 250 MG PO HS Divalproex Sodium (Depakote Delay Rel), 1,000 MG PO HS Donepezil HCl (Donepezil HCl), 10 MG PO BID Metformin Hcl (Metformin Hcl Er), 500 MG PO QPM Quetiapine Fumarate (Seroquel), 75 MG PO HS Venlafaxine Hcl (Effexor Extended Rel), 150 MG PO BID Scheduled PRN Oxycodone/Acetaminophen 5MG/325MG (Percocet 5MG/325MG), 1-2 TAB PO Q4H PRN for MODERATE TO SEVERE PAIN Physical Exam Date Time Temp Pulse Resp B/P (MAP) Pulse Ox O2 Delivery O2 Flow Rate FiO2 09/04/16 12:17 62 09/04/16 11:48 61 16 115/74 91 Room Air 09/04/16 11:24 61 18 103/66 96 Room Air 85 101/70 93 96/64 09/04/16 11:10 63 09/04/16 11:08 92 Room Air 09/04/16 10:50 36.6 76 16 101/66 94 Room Air Neurologic/Psych: + motor weakness (intact) Laboratory Results Last 24 Hours Test 09/04/16 11:08 09/04/16 11:18 White Blood Count 8.90 K/uL Red Blood Count 4.95 M/uL Hemoglobin 16.4 g/dL Hematocrit 46.9 % Mean Corpuscular Volume 94.7 fL Mean Corpuscular Hemoglobin 33.1 pg Mean Corpuscular Hemoglobin Concent 35.0 g/dl Platelet Count 205 K/uL Mean Platelet Volume 10.2 fL Neutrophils (%) (Auto) 60.1 % Lymphocytes (%) (Auto) 30.0 % Monocytes (%) (Auto) 7.4 % Eosinophils (%) (Auto) 1.9 % Basophils (%) (Auto) 0.3 % Neutrophils # (Auto) 5.34 K/uL Lymphocytes # (Auto) 2.67 K/uL Monocytes # (Auto) 0.66 K/uL Eosinophils # (Auto) 0.17 K/uL Basophils # (Auto) 0.03 K/uL RDW Standard Deviation 42.2 fL RDW Coefficient of Variation 12.3 % Immature Granulocyte % (Auto) 0.3 % Immature Granulocyte # (Auto) 0.03 K/uL Sodium Level 138 mmol/L Potassium Level 3.7 mmol/L Chloride Level 105 mmol/L Carbon Dioxide Level 21 mmol/L Anion Gap 12.0 mmol/L Blood Urea Nitrogen 17 mg/dl Creatinine 0.89 mg/dl Est Creatinine Clear Calc Drug Dose 87.5 ml/min Estimated GFR () 101.1 Estimated GFR (Non- 87.2 BUN/Creatinine Ratio 19.0 Random Glucose 156 mg/dl Calcium Level 9.1 mg/dl Total Bilirubin 0.7 mg/dl Direct Bilirubin 0.1 mg/dl Aspartate Amino Transf (AST/SGOT) 20 U/L Alanine Aminotransferase (ALT/SGPT) 22 U/L Alkaline Phosphatase 65 U/L Total Creatine Kinase 49 U/L Creatine Kinase MB 0.8 ng/ml Creatine Kinase MB Ratio 1.6 Troponin I < 0.015 ng/ml Total Protein 7.6 gm/dl Albumin 3.4 gm/dl Thyroid Stimulating Hormone (TSH) 6.330 uIu/ml Bedside Glucose 147 mg/dl Assessment & Plan neurontin 100mg po tid norco 5 admit to acute rehab for lower extremity strengthening f/u Dr. Olivier for possible injections
[2016-09-04] MEDS ORDERED: DOCU-94 PO (14:05)
[2016-09-04] MEDS ORDERED: GABA1CAP PO (14:05)
[2016-09-04] MEDS ORDERED: HYDR-5688 PO (14:05)
[2016-09-04] MEDS ORDERED: SENN1TAB77 PO (14:05)
[2016-09-04 15:29] VITALS: BP 113/67; PULSE 76; O2SAT 92
[2016-10-30] MEDS ORDERED: RXC5 PO (08:04)
== END 2016-09-04 15:18 ==
LOC: C.EDB 10:51 → C.EDC 15:18
DX: M54.5 Low back pain (principal); I44.0 Atrioventricular block, first degree; E11.9 Type 2 diabetes mellitus without complications; F32.9 Major depressive disorder, single episode, unspecified; Z87.828 Personal history of other (healed) physical injury and trauma; Z79.82 Long term (current) use of aspirin; Z79.84 Long term (current) use of oral hypoglycemic drugs; Z79.899 Other long term (current) drug therapy; Z88.0 Allergy status to penicillin; Z88.2 Allergy status to sulfonamides; Z83.3 Family history of diabetes mellitus; Z82.49 Family history of ischemic heart disease and other diseases of the circulatory system; Z81.8 Family history of other mental and behavioral disorders

== ENCOUNTER → 2016-10-20 | Outpatient (CLI) | payer OTHER ==
[~2016-10-20] MED LIST changes: +GABA1CAP PO; +HYDR-5688 PO; +RXC5 PO
[2016-10-20 14:22] LABS: ESTIMATED AVERAGE GLUCOSE 186 mg/dl; HA1C FLAG Normal (Normal)
[2016-10-20 14:35] LABS: BASO % 0.4 %; BASO ABS # 0.03 K/uL (0-0.2); COMPLETE YES; EOS % 2.5 %; HEMATOCRIT 47.7 % (42-52); IG% 0.3 %; LYMPH % 39.3 %; LYMPH ABS # 3.12 K/uL (1.2-3.4); MEAN CELL VOLUME 93.5 fL (80-100); MEAN CORPUSCULAR HEMOGLOBIN 32.7 pg (25-34); MEAN PLATELET VOLUME 11.1 fL (7.4-10.4); MONO % 7.1 %; NEUT % 50.4 %; PLATELET COUNT 211 K/uL (130-400); WHITE BLOOD COUNT 7.93 K/uL (4.8-10.8)
[2016-10-20 16:52] LABS: BLOOD UREA NITROGEN 16 mg/dl (7-18); BUN/CREATININE RATIO 18.4 (10-20); CALCIUM 9.5 mg/dl (8.5-10.1); CARBON DIOXIDE 26 mmol/L (21-32); CHLORIDE 105 mmol/L (98-107); CREATININE 0.88 mg/dl (0.60-1.40); GLUCOSE 211 mg/dl (70-99); POTASSIUM 3.8 mmol/L (3.5-5.1); SODIUM 139 mmol/L (136-145)
--- NOTE | 2016-11-04 12:32 | CODING QUERY MEDICAL NECESSITY ---
CQSUPPORTING DIAGNOSIS NEEDED A supporting diagnosis is required for the test/procedure performed on this patient in order for us to be reimbursed by the patient's insurance. Please provide a supporting diagnosis for the following test/procedure listed below next to the test name along with your signature. *If there is no additional diagnosis for this patient that would support the following test/procedure please document that below next to the test/procedure. Test(s)/Procedure(s) that require a supporting diagnosis: DOS 10/20/16 PROSTATE SPECIFIC ANTIGEN TEST ORDERED BY LINDA SCHWARTZ Provider Signature: Date: Thank you Janine Caal [facility] Information Management Once completed, please kindly fax back to [phone] For questions please call [phone]
== END | disposition home or self-care (01) ==
LOC: C.LABBC 12:15
PROVIDERS: ATTEND Physician Assistant Medical
DX: E11.9 Type 2 diabetes mellitus without complications (principal); M54.5 Low back pain; F32.9 Major depressive disorder, single episode, unspecified; Z12.5 Encounter for screening for malignant neoplasm of prostate

== ENCOUNTER 2016-10-27 10:44 | Inpatient (IN) | payer OTHER ==
[~2016-10-27] VITALS: Ht 177.8 cm; Wt 72.3 kg
[~2016-10-27 10:44] MED LIST changes: -RXC5 PO
[2016-10-27] MEDS ORDERED: MoRPHine SULFATE 10 MG/ML CARP/VIAL IV STA (12:40)
[2016-10-27] MEDS ORDERED: ONDANSETRON INJ 2 MG/ML 2 ML VIAL IV STA (12:40)
[2016-10-27] MEDS ORDERED: SODIUM CHLORIDE 0.9% 1000ML 1,000 ML IV ONE (12:45)
[2016-10-27 14:34] VITALS: O2SAT 92
--- NOTE | 2016-10-27 15:13 | EMERGENCY ROOM VISIT NOTE ---
ED Visit Note First contact with patient: 11:27 I have seen and examined this patient with the PA and generally agree with the treatment plan as discussed. Patient sent to the emergency room by Dr. Christina was planning on admitting the patient. Patient had no complaints or requests during my bedside evaluation.
[2016-10-27] MEDS ORDERED: ONDANSETRON INJ 2 MG/ML 2 ML VIAL IV PRN (15:30)
[2016-10-27] MEDS ORDERED: ACETAMINOPHEN 325 MG TAB PO PRN (15:30)
--- NOTE | 2016-10-27 15:30 | History and Physical ---
History & Physical Date Oct 27, 2016. Chief Complaint Back and bilateral leg pain after the right. History of Present Illness The patient is a 71 year old male with complaints of worsening back and buttock and bilateral leg pain for the past 6 weeks. She denies any trauma fall or event. Is status post lumbar laminectomy L3 and May of this year. He states he had done well initially postop but has had a significant decline recently. Symptoms worsen the lumbosacral junction rating to the bilateral buttocks down the left lower extremity into the knee in the anterior left tibia. Markedly exacerbated by standing and walking. His only comfortable position is lying supine. He is undergone several courses of rn home care and pain management. He states the pain is becoming capacity is no longer able to undergo his activities of daily living. Does have a history of Parkinson's and orally controlled diabetes. 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 (7) History of back pain (8) HNP (herniated nucleus pulposus) (9) Hx of suicide attempt (10) Lumbar stenosis with neurogenic claudication (11) PTSD (post-traumatic stress disorder) (12) Uncontrolled diabetes mellitus Additional History Hepatic Disease: No Endocrine Disorder: No Kidney Disease: No Hypertension: No Heart Disease: No Bleeding Tendencies: No Infectious Diseases: No Allergies Coded Allergies: Penicillins (Verified Allergy, Severe, SWELL UP,HIVES, 10/27/16) SWELLS UP, HIVES Sulfa Antibiotics (Verified Allergy, Unknown, unknown, 10/27/16) Home Medications Scheduled Aspirin (Aspirin Ec), 81 MG PO DAILY Atorvastatin (Atorvastatin Calcium), 20 MG PO DAILY Carbidopa/Levodopa (Sinemet Cr 50MG/200MG), 1 TAB PO TID Divalproex Sodium (Depakote Delay Rel), 250 MG PO HS Divalproex Sodium (Depakote Delay Rel), 1,000 MG PO HS Donepezil HCl (Donepezil HCl), 10 MG PO BID Metformin Hcl (Metformin Hcl Er), 500 MG PO BID Quetiapine Fumarate (Seroquel), 75 MG PO HS Venlafaxine Hcl (Effexor Extended Rel), 150 MG PO BID Physical Examination Skin: warm/dry, no rash Eyes: normal inspection, EOMI, sclerae normal ENT: normal ENT inspection, pharynx normal Head: normocephalic, atraumatic Neck: supple, no adenopathy, trachea midline Respiratory/Chest: lungs clear, normal breath sounds, no respiratory distress Cardiovascular: regular rate, rhythm, no edema, no murmur Abdomen / GI: normal bowel sounds, non tender Back: normal inspection Extremities: normal inspection, normal range of motion Neurologic/Psych: no motor/sensory deficits, alert, normal reflexes, oriented x 3 Addiitonal Comments: Patient's does demonstrate excellent strength detailed testing bilateral lower extremity is with a +5 over 5 plantar flexion dorsiflexion extensor pollicis longus as well as quadriceps bilaterally. Negative logroll bilaterally. Full sensation to light touch and cold bilateral x-rays. His well-healed midline lumbar incision. Nontender to palpation. His does have some tenderness to palpation of bilateral sacral notch regions. No greater trochanteric tenderness. Diagnosis Lumbar spinal stenosis. Plan of Treatment At this time patient's of a marked decline in status with neurogenic claudication. He will be admitted for pain control and further imaging which will include a CAT scan lumbar spine. Further recommendations will be made upon further review of imaging.
[2016-10-27 16:45] VITALS: BP 129/77; PULSE 65; TEMP 36.8; O2SAT 94
[2016-10-27 17:19] VITALS: Ht 177.8 cm; Wt 72.3 kg
[2016-10-27 17:29] LABS: BASO % 0.4 %; BASO ABS # 0.03 K/uL (0-0.2); COMPLETE YES; EOS % 2.1 %; HEMATOCRIT 48.6 % (42-52); IG% 0.3 %; LYMPH % 28.2 %; LYMPH ABS # 2.18 K/uL (1.2-3.4); MEAN CELL VOLUME 94.7 fL (80-100); MEAN CORPUSCULAR HEMOGLOBIN 31.8 pg (25-34); MEAN CORPUSCULAR HGB CONC 33.5 g/dl (32-36); MEAN PLATELET VOLUME 11.1 fL (7.4-10.4); MONO % 8.1 %; NEUT % 60.9 %; PLATELET COUNT 210 K/uL (130-400); RED BLOOD COUNT 5.13 M/uL (4.7-6.1); WHITE BLOOD COUNT 7.74 K/uL (4.8-10.8)
[2016-10-27 17:42] LABS: ALB/GLOB RATIO 0.8 (0.9-2); BUN/CREATININE RATIO 21.8 (10-20); CALCIUM 9.4 mg/dl (8.5-10.1); CREATININE 0.92 mg/dl (0.60-1.40); POTASSIUM 4.1 mmol/L (3.5-5.1)
--- NOTE | 2016-10-27 17:42 | DIAGNOSTIC IMAGING REPORT ---
CT OF THE LUMBAR SPINE WITHOUT CONTRAST CLINICAL HISTORY: Back and leg pain. COMPARISON STUDY: Lumbar spine radiograph February 21, 2008. TECHNIQUE: Axial images of the lumbar spine were obtained without IV contrast. Sagittal and coronal reconstructions were viewed. FINDINGS: For purposes of numbering on this exam, the L5-S1 disc space is assigned to axial image 661 of 802. Alignment of the lumbar spine is anatomic. Vertebral body heights are maintained. Note is made of a left-sided pars defect at the L3 level. There is no acute lumbar spine fracture. Paravertebral soft tissues are unremarkable. Central canal and neural foramen are suboptimally assessed by CT. There are post surgical findings consistent with a left L3-L4 foraminotomy and microdiscectomy. Evaluation of the operative bed/central canal and neural foramen is suboptimal given CT technique. A suspected disc bulge at the L3-L4 level is noted which results in mild narrowing of the central canal. There is abnormal left paracentral/left foraminal soft tissue density at the L3-L4 level which may reflect postoperative change or recurrent disc herniation. Right neural foramen is patent. Otherwise, the central canal and neural foramen appear patent by CT. There are are no suspicious osseous lesions. IMPRESSION: 1. Status post left L3-L4 foraminotomy and microdiscectomy. 2. Suboptimal evaluation of the central canal, neural foramen and operative bed given CT technique. Disc bulge at L3-L4 results in mild narrowing of the central canal. Soft tissue density within the left lateral recess and left neural foramen at the L3-L4 level could reflect postsurgical change or recurrent disc herniation with resultant narrowing of the left neural foramen. 3. Otherwise, mild multilevel degenerative changes of the lumbar spine. 4. Left L3 pars defect. Electronically signed by: Vladimir Sharp M.D. 10/27/2016 5:41 PM Dictated Date/Time: 10/27/2016 5:31 PM
[2016-10-27] MEDS: METFORMIN HCL 500 MG TABCR PO SCH (18:11)
[2016-10-27] MEDS: OXYCODONE/ACETAMINOPHEN 5-325 TAB PO PRN ×2 (20:23→20:57)
[2016-10-27] MEDS: DOCUSATE SODIUM 100 MG CAP PO SCH (20:53)
[2016-10-27] MEDS: CARBIDOPA/LEVODOPA 50/200MG EXT REL TAB PO SCH (20:53)
[2016-10-27] MEDS: DONEPEZIL HCL 10 MG TAB PO SCH (20:53)
[2016-10-27] MEDS: DIVALPROEX SODIUM 500 MG DELAY RELEASE TAB PO SCH (20:54)
[2016-10-27] MEDS: VENLAFAXINE HCL XR 150 MG CAPXR PO SCH (20:54)
[2016-10-27] MEDS: DIVALPROEX SODIUM 250 MG DELAY REL TAB PO SCH (20:55)
[2016-10-27] MEDS: QUETIAPINE FUMARATE 25 MG TAB PO SCH (20:55)
[2016-10-27 23:30] VITALS: BP 113/74; PULSE 60; TEMP 36.4; O2SAT 91
--- NOTE | 2016-10-28 06:30 | EMERGENCY ROOM VISIT NOTE ---
ED Visit Note First contact with patient: 11:27 Chief Complaint: Lower back pain. History of Present Illness: Mr. Ratliff is a 71-year-old white male who ambulates into the ED accompanied by his complaining of lumbar back pain. Patient reports he was sent over from Dr. Christina's office for direct admission for his lumbar back pain. Historically patient reports he has had a lumbar laminectomy earlier this year in May. Imaging today showed bulging disc with a bony fragment pushing on the nerves of his spinal cord; I looked for his imaging was not able to find it. Currently patient reports he has having lumbar back pain in the area of L3 through L5. He describes his pain as a sharp sensation. He rates his discomfort 9/10. The pain is radiating into the bilateral buttock with right sided prominence. All movement of his lower back worsens his pain. He has mild relief when he is lying flat on his back. He reports he has been using chiropractic medicine and has been seen pain management without relief of his discomfort. He denies fevers, chills, sweats, skin eruptions, skin color changes, upper respiratory tract symptoms, shortness of breath, chest pain, abdominal pain, nausea, vomiting, diarrhea, constipation, urinary symptoms, hematuria, rectal bleeding, black/tarry stools, genital paresthesias, bowel and bladder dysfunction, lower extremity weakness/numbness/tingling. Review of Systems: As noted above in history of present illness. At least body systems were reviewed and found to be negative as noted above. 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 (7) History of back pain (8) HNP (herniated nucleus pulposus) (9) Hx of suicide attempt (10) Lumbar stenosis with neurogenic claudication (11) PTSD (post-traumatic stress disorder) (12) Uncontrolled diabetes mellitus Current Medications: Medications Dose Route/Sig Max Daily Dose Days Date Category Dose Instructions Sinemet Cr 50MG/200MG (Carbidopa/Levodopa) Tabcr 1 Tab PO TID 05/29/16 Reported Donepezil HCl 10 Mg Tab 10 Mg PO BID 05/29/16 Reported Atorvastatin Calcium (Atorvastatin) 20 Mg Tab 20 Mg PO DAILY 05/29/16 Reported Seroquel (Quetiapine Fumarate) 50 Mg Tab 75 Mg PO HS 05/29/16 Reported TAKE 1.5 TAB AT BEDTIME Depakote Delay Rel (Divalproex Sodium) 500 Mg Tab 1,000 Mg PO HS 02/13/14 Reported TAKE TWO 500 MG TABLETS ALONG WITH ONE 250 MG TABLET TO EQUAL HS DOSE OF 1250 MG. Depakote Delay Rel (Divalproex Sodium) 250 Mg Tab 250 Mg PO HS 02/13/14 Reported TAKE ONE 250 MG TABLET ALONG WITH TWO 500 MG TABLETS TO EQUAL HS DOSE OF 1250 MG. Effexor Extended Rel (Venlafaxine Hcl) 150 Mg Capcr 150 Mg PO BID 02/13/14 Reported Aspirin Ec (Aspirin) 81 Mg Tab 81 Mg PO DAILY 02/13/14 Reported Metformin Hcl Er (Metformin Hcl) 500 Mg Tab 500 Mg PO BID 04/07/13 Reported Allergies to Medications: Penicillin, sulfa. Social History: Patient is not currently employed; he lives with his and feels safe in his home environment; he denies tobacco use. Physical Examination: Vital Signs: Date Time Temp Pulse Resp B/P (MAP) Pulse Ox O2 Delivery O2 Flow Rate FiO2 10/27/16 14:34 79 14 128/84 92 Room Air 10/27/16 13:35 67 10/27/16 13:30 69 16 125/80 93 Room Air 10/27/16 12:54 72 20 104/63 94 Room Air 10/27/16 12:16 72 20 104/63 92 Room Air 10/27/16 10:46 37.0 92 20 100/65 95 Room Air GENERAL: 71-year-old male in mild to moderate distress due to pain, nontoxic- appearing, afebrile and hemodynamically stable. NEUROLOGICAL: Awake, alert and oriented to person, place and time. Answering questions appropriately and following commands. Normal gait. SKIN: Warm, dry and pink. HEENT: Atraumatic and normocephalic. PERRLA. Sclera white and conjunctiva pink. Pharynx is nonerythematous or edematous. Speech normal. No lymphadenopathy. Trachea midline. No jugular venous distention. BACK: Normal inspection. Moderate tenderness throughout the bony musculature in the L4 through L5 area. Do not appreciate any paraspinous muscle spasm. Previous surgical wound is clean dry and intact without signs of infection. Straight leg rest test was deferred due to patient's pain. No CVA tenderness. THORAX: Lungs sounds are clear to auscultation and equal bilaterally with symmetrical chest wall. No wheezing, rales or rhonchi. HEART: Regular rate and rhythm. No gallops, rubs or murmurs are appreciated. ABDOMEN: Flat, soft and nontender. Positive bowel sounds in all quadrants. No guarding, rigidity or organomegaly. LOWER EXTREMITIES: Moves all extremities well on command and with purpose. All distal neurovascular statuses are intact and equal bilaterally. No calf tenderness or cords. 2+ patellar and Achilles deep tendon reflexes intact and equal bilaterally. 4/5 muscle strength in hip flexion, extension, abduction and abduction, knee flexion and extension and ankle plantar flexion and dorsiflexion. He was able to distinguish light sensations through all dermatomes of the lower legs and feet. ED Course: Patient was assessed as noted above. Patient's medication list was reviewed. Dr. Christina was pain and return phone call to the secretarial staff in the emergency department reporting that he was in the operating room and when he finished his current operation he would come down assessed the patient. No recommendations for laboratory testing or imaging studies were given. An IV lock was initiated, patient had blood drawn in case laboratory tests would be needed. An IV lock was initiated and patient received 6 mg of morphine IV for pain and 4 mg of Zofran. Patient was reassessed multiple times during his stay in the emergency department. A she was case was reviewed with Dr. Arango; she apparently assessed the patient we agreed on diagnostic approach, treatment, disposition and plan. Dr. Christina came and evaluated the patient; please see his notes and orders for final disposition and plan. Clinical Impression: Lumbar back pain. Disposition and Plan: Patient be brought in the hospital; please see Dr. Christina' s notes and orders for final disposition and plan.
[2016-10-28 07:36] VITALS: BP 95/69; PULSE 61; TEMP 36.9; O2SAT 91
[2016-10-28] MEDS: OXYCODONE/ACETAMINOPHEN 5-325 TAB PO PRN (07:56)
[2016-10-28] MEDS ORDERED: GLUCOSE 10 TABS/TUBE PO PRN (08:30)
[2016-10-28] MEDS ORDERED: GLUCAGON FOR INJ 1 MG VIAL SQ PRN (08:30)
[2016-10-28] MEDS ORDERED: GLUCOSE 40% GEL 15 GM TUBE PO PRN (08:30)
[2016-10-28] MEDS ORDERED: DEXTROSE 50% 50 ML SYR IV PRN (08:30)
--- NOTE | 2016-10-28 09:01 | Progress Note ---
Progress Note Date of Service Oct 28, 2016. Progress Note Patient continues going of back and left leg pain. I did review his CAT scan findings. In addition to recurrent disc herniation L3-4 on the left determined on his MRI of time days ago P. He has evidence of a pars defect the 3 level on the left. This is consistent the postoperative finding and undoubtedly shooting to his neural irritation. Subsequently we will are considering surgical intervention. Would require a lumbar decompression and fusion L3 4. Risks benefits pros cons alternatives outlined in detail. Risk include but not limited to from anesthesia blindness sterile process nerve damage but last current transfusion infection requiring reoperation. Benefits of a marked improvement of his back and leg symptoms. He understands he may have some underlying permanent nerve damage that would not be remedied with surgical intervention.
[2016-10-28] MEDS: VENLAFAXINE HCL XR 150 MG CAPXR PO SCH ×2 (09:16→20:56)
[2016-10-28] MEDS: DOCUSATE SODIUM 100 MG CAP PO SCH ×2 (09:16→20:55)
[2016-10-28] MEDS: ATORVASTATIN 20 MG TAB PO SCH (09:16)
[2016-10-28] MEDS: ASPIRIN 81 MG ECTAB PO SCH (09:16)
[2016-10-28] MEDS: DONEPEZIL HCL 10 MG TAB PO SCH ×2 (09:17→20:55)
[2016-10-28] MEDS: METFORMIN HCL 500 MG TABCR PO SCH ×2 (09:17→18:09)
[2016-10-28] MEDS: CARBIDOPA/LEVODOPA 50/200MG EXT REL TAB PO SCH ×3 (09:17→20:56)
[2016-10-28] MEDS: INSULIN ASPART 100 UNITS/ML 3 ML PEN SC SCH ×3 (12:00→21:19)
[2016-10-28 15:00] VITALS: BP 105/66; PULSE 65; TEMP 36.9; O2SAT 93
--- NOTE | 2016-10-28 16:51 | Anesthesiology Progress Note ---
Anesthesia Progress Note Date of Service Oct 28, 2016. Progress Notes Patient scheduled for lumbar decompression. fusion. instrumentation tomorrow. Had laminectomy in May. No problems with anesthesia. History of Yesika's as well as closed head injury with PTSD symptoms. NIDDM but no cardiopulmonary issues. Will be NPO for surgery but should get his Parkinson's medicines preop with sips of water.
--- NOTE | 2016-10-28 18:50 | Medical Consult ---
History General Date of Service: Oct 28, 2016. Stated Complaint: Lumbar Stenosis With Neurogenic Claudication HPI The patient is a 71 year old male who presents to [facility] with complaints of Lumbar Stenosis With Neurogenic Claudication. The patient's primary care provider is Gilberto Pollard M.D.. This patient presented with radicular leg pain to his foot with a previous history of back surgery. The patient otherwise has had fairly stable medical problems mostly bothered by depression Parkinson's disease and dementia. He has very mild diabetes usually controlled only with oral metformin he is under consideration to proceed to the operating room for lumbar decompressive surgery by Dr. Christina Review of Systems ROS: well nourished well developed No double vision blurry vision No problems with speech or swallowing No palpitations, chest pain or pressure, he is quizzed about exertional problems such as shortness of breath or orthopnea which he says he has none No Wheezing or breathing issues No abdominal pain nausea vomiting diarrhea changes in appetite or weight No burning urine urine frequency or changes in color No focal joint pain or muscle pain No skin rashes or oral lesions No unusual bruising or bleeding Patient has left lower back pain radiating down his leg to his foot No changes in memory or confusion Family History Anxiety disorder Diabetes mellitus Hypertension Social History Hx Tobacco Use In Past Year?: No Smoking Status: Never Smoker Marital status: Housing status: lives with significant other Occupational Status: retired Immunizations History of Influenza Vaccine: Yes History of Tetanus Vaccine?: Unknown History of Pneumococcal: Yes History of Hepatitis B Vaccine: Unknown History of MDRO History of MDRO: No Allergies Coded Allergies: Penicillins (Verified Allergy, Severe, SWELL UP,HIVES, 10/27/16) SWELLS UP, HIVES Sulfa Antibiotics (Verified Allergy, Unknown, unknown, 10/27/16) Current Medications Reported Home Medications Medications Dose Route/Sig Max Daily Dose Days Date Category Dose Instructions Sinemet Cr 50MG/200MG (Carbidopa/Levodopa) Tabcr 1 Tab PO TID 05/29/16 Reported Donepezil HCl 10 Mg Tab 10 Mg PO BID 05/29/16 Reported Atorvastatin Calcium (Atorvastatin) 20 Mg Tab 20 Mg PO DAILY 05/29/16 Reported Seroquel (Quetiapine Fumarate) 50 Mg Tab 75 Mg PO HS 05/29/16 Reported TAKE 1.5 TAB AT BEDTIME Depakote Delay Rel (Divalproex Sodium) 500 Mg Tab 1,000 Mg PO HS 02/13/14 Reported TAKE TWO 500 MG TABLETS ALONG WITH ONE 250 MG TABLET TO EQUAL HS DOSE OF 1250 MG. Depakote Delay Rel (Divalproex Sodium) 250 Mg Tab 250 Mg PO HS 02/13/14 Reported TAKE ONE 250 MG TABLET ALONG WITH TWO 500 MG TABLETS TO EQUAL HS DOSE OF 1250 MG. Effexor Extended Rel (Venlafaxine Hcl) 150 Mg Capcr 150 Mg PO BID 02/13/14 Reported Aspirin Ec (Aspirin) 81 Mg Tab 81 Mg PO DAILY 02/13/14 Reported Metformin Hcl Er (Metformin Hcl) 500 Mg Tab 500 Mg PO BID 04/07/13 Reported Physical Physical Exam Vital Signs: Date Time Temp Pulse Resp B/P (MAP) Pulse Ox O2 Delivery O2 Flow Rate FiO2 10/28/16 15:00 36.9 65 16 105/66 (79) 93 Room Air 10/28/16 08:00 Room Air 10/28/16 07:36 36.9 61 18 95/69 (78) 91 Room Air 10/27/16 23:30 36.4 60 16 113/74 (87) 91 Room Air 10/27/16 23:20 Room Air General Appearance: WELL-APPEARING, uncomfortable, moderate distress Head: NORMOCEPHALIC, ATRAUMATIC Eyes: PERRLA, EOMI Neck: NORMAL RANGE OF MOTION, NO TENDERNESS, TRACHEA MIDLINE Respiratory: BREATH SOUNDS NORMAL, CLEAR TO AUSCULTATION, CLEAR TO PERCUSSION Cardiovasular: NORMAL S1S2, NO M/G/R Abdomen: NON TENDER, NORMAL BOWEL SOUNDS, NO REBOUND Upper Extremities: NO EDEMA, NO DEFORMITY Lower Extremities: NO EDEMA, NO DEFORMITY Neuro: ALERT, ORIENTED x 3 (flat affect) Diagnostics Labs Results Past 24 Hours Test 10/27/16 20:59 10/28/16 07:56 10/28/16 11:56 10/28/16 16:46 Range/Units Bedside Glucose 116 116 168 129 70-99 mg/dl Radiology Interpretation: CXR NORMAL EKG Interpretation: NORMAL EKG Impression Assessment and Plan 71-year-old male with radicular back pain for possible lumbar decompressive surgery For his diabetes metformin will be held most to insulin sliding scale pharmacy glycemic management consult at the pleasure of the surgeon For his Parkinson's disease we would recur recommend continuing Sinemet therapy For his depression Seroquel Effexor and Depakote should be continued for likely dementia which might be associated with Parkinson's disease Aricept will be continued DVT prevention will be based in surgical preference
[2016-10-28] MEDS: DIVALPROEX SODIUM 250 MG DELAY REL TAB PO SCH (20:56)
[2016-10-28] MEDS: QUETIAPINE FUMARATE 25 MG TAB PO SCH (20:56)
[2016-10-28] MEDS: DIVALPROEX SODIUM 500 MG DELAY RELEASE TAB PO SCH (21:20)
[2016-10-28 23:06] VITALS: BP 110/64; PULSE 66; TEMP 36.6; O2SAT 91
[2016-10-28] MEDS ORDERED: NURSING VERBAL MED ORDER ONE (23:30)
[2016-10-29] VITALS (7 sets, daily range): BP systolic 93–108; BP diastolic 52–70; PULSE 65–94; TEMP 36.3–36.7; O2SAT 93–97
[2016-10-29] MEDS: INSULIN ASPART 100 UNITS/ML 3 ML PEN SC SCH ×4 (06:00→22:27)
[2016-10-29] MEDS: VENLAFAXINE HCL XR 150 MG CAPXR PO SCH ×2 (07:37→22:20)
[2016-10-29] MEDS: OXYCODONE/ACETAMINOPHEN 5-325 TAB PO PRN (07:37)
[2016-10-29] MEDS: DONEPEZIL HCL 10 MG TAB PO SCH ×2 (07:37→22:18)
[2016-10-29] MEDS: CARBIDOPA/LEVODOPA 50/200MG EXT REL TAB PO SCH ×3 (07:37→22:17)
[2016-10-29] MEDS: DOCUSATE SODIUM 100 MG CAP PO SCH ×2 (09:00→22:18)
[2016-10-29] MEDS: ATORVASTATIN 20 MG TAB PO SCH (09:00)
[2016-10-29] MEDS: ASPIRIN 81 MG ECTAB PO SCH (09:00)
[2016-10-29] MEDS ORDERED: BACITRACIN 50000 UNIT VIAL ONE ×2 (12:36→12:52)
[2016-10-29] MEDS ORDERED: BUPIVACAINE/EPINEPHRINE 0.5% MPF 1:200,000 10 ML VIAL ONE ×2 (12:36→12:52)
[2016-10-29] MEDS ORDERED: MIDAZOLAM HCL 1 MG/ML 2ML VIAL ONE (12:54)
[2016-10-29] MEDS ORDERED: FENTANYL CITRATE INJ 50 MCG/1 ML 2 ML VIAL ONE (12:54)
[2016-10-29] MEDS ORDERED: CLINDAMYCIN 600 MG/54 ML D5W IV ONE (13:14)
[2016-10-29] MEDS ORDERED: NURSING VERBAL MED ORDER ONE ×2 (13:15→18:30)
--- NOTE | 2016-10-29 13:20 | History & Physical Bridge Note ---
H&P Re-Evaluation Bridge Note: I have examined the patient, reviewed the History & Physical and in the interval since the performance of the History & Physical I have noted the following changes of clinical significance: No changes noted
[2016-10-29] MEDS ORDERED: HYDROmorphone INJ 2 MG/ML SYR/VIAL ONE (13:47)
[2016-10-29] MEDS ORDERED: PROPOFOL IV EMULSION 10 MG/ML 20 ML VIAL IV ONE (14:19)
[2016-10-29] MEDS ORDERED: LIDOCAINE HCL 2% 2 ML VIAL (20MG/ML) ONE (14:19)
[2016-10-29] MEDS ORDERED: ONDANSETRON INJ 2 MG/ML 2 ML VIAL ONE ×2 (14:20→14:24)
[2016-10-29] MEDS ORDERED: ROCURONIUM BROMIDE 10 MG/ML 5 ML VIAL IV ONE (14:20)
[2016-10-29] MEDS ORDERED: PHENYLEPHRINE 100MCG/ML 5ML SYR ONE (14:20)
[2016-10-29] MEDS ORDERED: DEXAMETHASONE SOD INJ 4 MG/ML VIAL ONE (14:20)
[2016-10-29] MEDS ORDERED: NEOSTIGMINE METHYLSULFATE 1 MG/ML 10ML VIAL ONE (14:24)
[2016-10-29] MEDS ORDERED: GLYCOPYRROLATE INJ 0.2 MG/ML VIAL ONE (14:24)
--- NOTE | 2016-10-29 14:38 | Hospitalist Progress Note ---
Hospitalist Progress Note Date of Service Oct 29, 2016. (Suzie Bates PA-C) Subjective Pt evaluation today including: conversation w/ patient, conversation w/ family , physical exam, chart review, lab review, review of studies Pain: Moderate low back PO Intake: NPO Voiding: no voiding problems The patient was seen and examined this morning. Pts is present at bedside. Pt reports low back pain, radiation of numbness and tingling into bilateral legs , the left is worse than the right. He has been struggling with this pain for > 1 mo at this time. He denies any other acute complaints. Anticipating surgery today. Constitutional: + fatigue, No fever, No chills, No sweats Eyes: No problem reported ENT: No trouble swallowing, No problem reported Respiratory: No cough, No sputum, No dyspnea at rest Cardiovascular: No chest pain, No palpitations Abdomen: No pain, No nausea, No vomiting, No diarrhea, No constipation Musculoskeletal: No joint pain, No muscle pain Male : No dysuria, No incontinence Neurologic: + see HPI, + numbness/tingling, + problem reported (Parkinsons disease causing shuffling gait and fine tremor), No weakness Skin: No rash, No itch (Suzie Bates PA-C) Objective Vital Signs Date Time Temp Pulse Resp B/P (MAP) Pulse Ox O2 Delivery O2 Flow Rate FiO2 10/29/16 11:28 107/69 (82) 10/29/16 07:33 36.7 67 18 93/59 (70) 94 Room Air 10/29/16 07:25 Room Air 10/28/16 23:25 Room Air 10/28/16 23:06 36.6 66 16 110/64 (79) 91 Room Air 10/28/16 15:20 Room Air 10/28/16 15:00 36.9 65 16 105/66 (79) 93 Room Air (Suzie Bates PA-C) Physical Exam General Appearance: WD/WN, no apparent distress, + pertinent finding (laying on his stomach during interview) Eyes: PERRL, EOMI ENT: hearing grossly normal, pharynx normal Neck: supple, no JVD Respiratory/Chest: lungs clear, no respiratory distress, no accessory muscle use Cardiovascular: regular rate, rhythm Abdomen: normal bowel sounds, non tender, soft Extremities: non-tender, no pedal edema, no calf tenderness Neurologic/Psychiatric: alert, oriented x 3, + pertinent finding (flat affect) Skin: normal color, warm/dry (Suzie Bates PA-C) Laboratory Results Last 24 Hours Test 10/28/16 16:46 10/28/16 20:49 10/29/16 06:03 10/29/16 12:04 Bedside Glucose 129 mg/dl 206 mg/dl 113 mg/dl 117 mg/dl (Suzie Bates PA-C) Assessment and Plan 71-year-old male with radicular back pain: - [place] consulted, Dr. Christina plans to do lumbar decompression/fusion surgery today. - NPO - Pain management and bowel regimen in place - Will need PT/OT postoperatively DM II - Holding metformin - ISS with accuchecks, glycemic management consulted Parkinson's disease ? Dementia - Continue sinemet 50/200 TID and Aricept 100 mg BID Depression - Continue Seroquel 75 mg QHS, Effexor 150 mg BID and Depakote 1250 mg QHS HTN - Cont ASA 81 mg daily, HLD - Continue atorvastatin DVT ppx: Teds, scds, no chemical anticoagulation with spinal surgery CODE STATUS: Full code Disposition: to assist with discharge planning, possible in 2 days, PT/OT evals (Suzie Bates PA-C) LINDA Physician Supervision Note: I interviewed and examined the patient. Discussed with Suzie Bates PAC and agree with findings and plan as documented in the note. Any exceptions or clarifications are listed here: None Patient here with radicular back pain Dr. Christina prompted to do decompressive surgery medical problems have been stable including depression Parkinson's disease. Reengage oral medications as soon as possible With regard to his diabetes his metformin is on hold he'll be on insulin sliding scale due to variable by mouth intake during his perioperative period Documented By: Joaquin Brown (Joaquin Brown M.D.)
[2016-10-29] MEDS ORDERED: EpHEDrine SULFATE 50MG/5ML SYR ONE (14:46)
[2016-10-29] MEDS ORDERED: FLOSEAL HEMOSTATIC MATRIX 10ML TOP ONE (14:52)
[2016-10-29] MEDS ORDERED: SODIUM CHLORIDE 0.9% 1000ML 1,000 ML IV SCH (14:58)
[2016-10-29] MEDS ORDERED: ALUMINUM/MAGNESIUM SUSP 30 ML UDC PO PRN (15:00)
[2016-10-29] MEDS ORDERED: DO NOT ADMINISTER PNEUMOCOCCAL VACCINE PRN ×2 (15:00)
[2016-10-29] MEDS ORDERED: ONDANSETRON INJ 2 MG/ML 2 ML VIAL IV PRN ×2 (15:00→15:45)
[2016-10-29] MEDS ORDERED: PROMETHAZINE HCL INJ 12.5 MG in SODIUM CHLORIDE 0.9% 50ML 50 ML IV PRN ×2 (15:00→15:45)
[2016-10-29] MEDS ORDERED: MAGNESIUM HYDROXIDE SUSP 30 ML UDC PO PRN (15:00)
[2016-10-29] MEDS ORDERED: FAMOTIDINE 20 MG TAB PO PRN (15:00)
[2016-10-29] MEDS ORDERED: LORAZEPAM INJ 0.5 MG in SYRINGE 0.75 ML IV PRN (15:00)
[2016-10-29] MEDS ORDERED: NALOXONE HCL 0.4 MG/1 ML VIAL/CARP IV PRN ×3 (15:00→15:45)
[2016-10-29] MEDS ORDERED: DO NOT ADMINISTER FLU VACCINE PRN ×3 (15:00)
[2016-10-29] MEDS ORDERED: ACETAMINOPHEN 500 MG TAB PO PRN (15:00)
[2016-10-29] MEDS ORDERED: SOD PHOSPHATE/SOD BIPHOSPHATE ENEMA 132 ML BTL PR PRN (15:00)
[2016-10-29] MEDS ORDERED: METOCLOPRAMIDE HCL INJ 5 MG/ML 2 ML VIAL IV PRN (15:00)
[2016-10-29] MEDS ORDERED: LORAZEPAM 0.5 MG TAB PO PRN (15:00)
[2016-10-29] MEDS ORDERED: BISACODYL 10 MG SUPP PR PRN (15:00)
[2016-10-29] MEDS ORDERED: hydrOXYzine HCL 25 MG TAB PO PRN (15:00)
[2016-10-29] MEDS ORDERED: ACETAMINOPHEN IV 100 ML IV PRN (15:00)
--- NOTE | 2016-10-29 15:06 | DIAGNOSTIC IMAGING REPORT ---
LUMBAR SPINE 2 OR 3 VIEW CLINICAL HISTORY: L3-L4 decompression and fusion. COMPARISON STUDY: Lumbar spine CT October 27, 2016. Fluoroscopy time: 14.7 seconds. FINDINGS: 2 fluoroscopic images demonstrate L3-L4 discectomy with interbody spacer placement. There is a posterior decompression with bilateral pedicle screws at the L3 and L4 levels. IMPRESSION: Fluoroscopic images demonstrating an L3-L4 discectomy and bilateral pedicle screw fusion with decompression. Electronically signed by: Vladimir Sharp M.D. 10/29/2016 3:04 PM Dictated Date/Time: 10/29/2016 3:03 PM
--- NOTE | 2016-10-29 15:07 | [facility] Operative Report ---
Operative Report Operative Date Oct 29, 2016. Pre-Operative Diagnosis Lumbar spinal stenosis Post-Operative Diagnosis Lumbar spinal stenosis Procedure(s) Performed #1 revision decompression medial facetectomy foraminotomies L3 4. 2 posterior spinal fusion L3 4. #3 posterior instrumentation L3 4. #4 interbody fusion L3 4. #5 placement peek Cage 14 x 22 mm at L3 4. #6 placement locally harvested morcellized autograft in the posterior gutters. #7 placement osteoamp in the interbody space and posterior lateral gutters. Surgeon Dr. Jamaal Christina Apprise Counselor Surgeon(s) Marylin Lemus PA-C Estimated Blood Loss 150ml Findings Severe spinal stenosis with evidence of pars defect on the left at L3 4 Specimens None per surgeon Description of Procedure Patient was met with preoperatively case discussed all questions are dressed. After informed consent patient was taken to the operative suite and intubated and placed in prone position the [place] table top [place] frame. All bony promises well-padded eyes inspected to ensure there is no external pressure placed upon them. This point the lumbar spine was prepped and draped nostril fashion. Utilizing the previous incision site sharp dissection assistance of Bovie cautery was performed onto an exposing the remaining lamina and transverse processes of L3 4 bilaterally. Pars defect was appreciated L3 4 on the left.. Revision complete laminectomy of L3 was then performed including foraminotomy on the left a did note significant scarring of the exiting L3 nerve root. Pedicle screws then placed in L3 and 4 bilaterally with assistance of fluoroscopy the purposes tulio provisionally placed. Through a transforaminal approach on the left we discectomy was performed and plate curetted to subcortical bleeding bone and a 14 x 22 mm peek cage filled with bone graft was tapped in position. Rods were then compressed locked and final position. The transverse processes of L3-L4 burred to subcortical bleeding bone. Bone graft was placed and posterior gutters a 15 round JHONY drain inserted. Incision was then closed with 1 Vicryl fascia 2-0 Vicryl subcutaneous C 4 Monocryl for final skin closure Steri-Strip sterile dressing placed. Patient was then awakened taken to PACU stable condition. Please note Marylin Roe was present throughout the entire procedure involved in patient positioning complex portions of surgery and final skin closure. I attest to the content of the Intraoperative Record and any orders documented therein. Any exceptions are noted below.
[2016-10-29] MEDS ORDERED: LABETALOL HCL IV 5 MG/ML 20ML IV ONE (15:13)
[2016-10-29] MEDS ORDERED: HYDROmorphone HCL 0.5MG/ML 50 ML CASSETTE ONE (15:27)
[2016-10-29] MEDS ORDERED: HYDROmorphone INJ 1 MG/ML SYR ONE (15:42)
[2016-10-29] MEDS ORDERED: FLUMAZENIL 0.1 MG/1 ML 10 ML VIAL IV PRN (15:45)
[2016-10-29] MEDS ORDERED: ATROPINE SULFATE 0.1 MG/ML 5ML SYR IV PRN (15:45)
[2016-10-29] MEDS ORDERED: EpHEDrine SULFATE INJ 50 MG/ML AMP IV PRN (15:45)
[2016-10-29] MEDS ORDERED: LABETALOL HCL IV 5 MG/ML 20ML IV PRN (15:45)
[2016-10-29] MEDS: HYDROmorphone INJ 1 MG/ML SYR IV PRN ×5 (15:57→16:25)
[2016-10-29] MEDS ORDERED: KETOROLAC TROMETHAMINE 30 MG/ML VIAL ONE (16:25)
--- NOTE | 2016-10-29 16:27 | Anesthesiology Progress Note ---
Anesthesia Post Op Note Date & Time Oct 29, 2016 at 16:27 Vital Signs Pain Intensity: 9.0 Vital Signs Past 12 Hours Date Time Temp Pulse Resp B/P (MAP) Pulse Ox O2 Delivery O2 Flow Rate FiO2 10/29/16 16:16 109/74 10/29/16 16:13 81 17 95 10/29/16 16:13 81 17 10/29/16 16:11 93/67 10/29/16 16:08 78 13 95 10/29/16 16:08 78 13 10/29/16 16:06 111/71 10/29/16 16:03 78 14 96 10/29/16 16:03 78 14 10/29/16 16:02 80 12 10/29/16 16:02 79 12 96 10/29/16 16:01 104/73 10/29/16 15:57 81 14 10/29/16 15:57 82 14 97 10/29/16 15:56 109/72 10/29/16 15:52 81 14 10/29/16 15:52 81 14 95 10/29/16 15:51 108/73 10/29/16 15:47 82 19 94 10/29/16 15:47 82 19 10/29/16 15:46 108/75 10/29/16 15:42 86 21 94 10/29/16 15:42 86 21 10/29/16 15:41 113/77 10/29/16 15:37 84 17 10/29/16 15:37 84 17 96 10/29/16 15:36 107/76 10/29/16 15:32 86 21 97 10/29/16 15:32 86 21 10/29/16 15:31 114/79 10/29/16 15:29 90 19 96 10/29/16 15:29 90 19 10/29/16 15:26 112/75 10/29/16 15:24 86 18 10/29/16 15:24 87 18 97 10/29/16 15:21 110/73 10/29/16 15:20 115/77 10/29/16 15:19 36.6 87 12 110/73 97 Mask 10 10/29/16 11:28 107/69 (82) 10/29/16 07:33 36.7 67 18 93/59 (70) 94 Room Air 10/29/16 07:25 Room Air Notes Mental Status: alert / awake / arousable, participated in evaluation Pt Amnestic to Procedure: Yes Nausea / Vomiting: adequately controlled Pain: adequately controlled Airway Patency, RR, SpO2: stable & adequate BP & HR: stable & adequate Hydration State: stable & adequate Anesthetic Complications: no major complications apparent
[2016-10-29] MEDS ORDERED: KETOROLAC TROMETHAMINE 15 MG/ML VIAL IV. ONE (17:00)
[2016-10-29] MEDS: HYDROmorphone HCL 0.5MG/ML 50 ML CASSETTE IV PRN ×2 (17:04→23:06)
[2016-10-29] MEDS: SODIUM CHLORIDE 0.9% 1000ML 1,000 ML IV SCH ×2 (18:16→22:24)
[2016-10-29] MEDS: DOCUSATE SODIUM/SENNA 50/8.6MG TAB PO SCH (22:17)
[2016-10-29] MEDS: DIVALPROEX SODIUM 250 MG DELAY REL TAB PO SCH (22:19)
[2016-10-29] MEDS: DIVALPROEX SODIUM 500 MG DELAY RELEASE TAB PO SCH (22:19)
[2016-10-29] MEDS: QUETIAPINE FUMARATE 25 MG TAB PO SCH (22:22)
[2016-10-29] MEDS: CLINDAMYCIN IV 600 MG in DEXTROSE 5% 50ML 50 ML IV SCH (22:23)
[2016-10-29] MEDS: DEXAMETHASONE INJ 6 MG in SYRINGE 0 ML IV SCH (22:34)
[2016-10-30] VITALS (9 sets, daily range): BP systolic 88–123; BP diastolic 49–73; PULSE 62–98; TEMP 36.7–37; O2SAT 91–96
[2016-10-30] MEDS: SODIUM CHLORIDE 0.9% 1000ML 1,000 ML IV SCH ×3 (04:26→20:59)
[2016-10-30] MEDS: CLINDAMYCIN IV 600 MG in DEXTROSE 5% 50ML 50 ML IV SCH (05:46)
[2016-10-30] MEDS: DEXAMETHASONE INJ 6 MG in SYRINGE 0 ML IV SCH ×2 (05:47→13:49)
[2016-10-30] MEDS ORDERED: HYDROmorphone INJ 0.5 MG/0.5 ML SYR IV PRN (06:00)
[2016-10-30] MEDS: DC PCA SCH (06:05)
[2016-10-30 06:16] LABS: COMPLETE YES; HEMATOCRIT 37.2 % (42-52); IG% 0.2 %; LYMPH % 12.1 %; LYMPH ABS # 1.17 K/uL (1.2-3.4); MEAN CELL VOLUME 93.2 fL (80-100); MEAN CORPUSCULAR HEMOGLOBIN 32.6 pg (25-34); MEAN CORPUSCULAR HGB CONC 34.9 g/dl (32-36); MEAN PLATELET VOLUME 10.5 fL (7.4-10.4); NEUT % 80.7 %; PLATELET COUNT 182 K/uL (130-400); RED BLOOD COUNT 3.99 M/uL (4.7-6.1); WHITE BLOOD COUNT 9.63 K/uL (4.8-10.8)
[2016-10-30 06:54] LABS: BUN/CREATININE RATIO 23.6 (10-20); CALCIUM 8.4 mg/dl (8.5-10.1); CREATININE 0.86 mg/dl (0.60-1.40); POTASSIUM 4.4 mmol/L (3.5-5.1)
[2016-10-30] MEDS: OXYCODONE HCL IR 5 MG TAB (IMMEDIATE RELEASE) PO PRN ×4 (07:21→22:34)
[2016-10-30] MEDS ORDERED: RXC5 PO (08:04)
--- NOTE | 2016-10-30 08:05 | Discharge Instructions ---
Discharge Instructions Date of Service Oct 30, 2016. Admission Reason for Admission: Lumbar Stenosis With Neurogenic Claudication Discharge Discharge Diagnosis / Problem: lumbar stenosis Discharge Goals Goal(s): Improve function Activity Recommendations Activity Limitations: per Instructions/Follow-up section . Instructions / Follow-Up Instructions / Follow-Up ACTIVITY RECOMMENDATIONS: SELF CARE INSTRUCTIONS AFTER THORACIC/LUMBAR FUSIONS 1. You may walk to your tolerance. It is good exercise for your legs and back. Expect some back and intermittent leg aches and pains. 2. You may perform "counter-top" level activities (make a sandwich, erich with a project, etc.). 3. No bending or lifting of more than 10 pounds or back twisting of any nature (roll like a log when turning in bed). 4. You may ride in a car for 20-30 minutes at a time. No driving until after your first visit with your doctor. 5. Frequent changes of position and restricting sitting to 30 minutes at a time will help limit the amount of back spasms and stiffness you may experience. 6. You may discontinue the use of ambulatory aids (cane, crutches, etc.) once your strength and confidence allow. 7. You may air conditioning technician the shower and let water strike your incision when you arrive home at least once daily. Do not take a tub bath, sit in a hot tub or go into a swimming pool until after your first recheck in the office. SPECIAL CARE INSTRUCTIONS: VERY IMPORTANT TO READ AND REVIEW A. Your surgical incision has been closed with a cosmetic suture under the skin that will dissolve in about 6 weeks. In 14 days, you can use a pair of clean scissors and cut the suture that is left outside of the skin at the ends of your incision. 1. The small skin tapes can be removed 7 days after surgery if they have not fallen off by that point. 2. You may keep the wound open to air as much as possible to promote healing after post-op day number 5 unless told otherwise by your doctor. 3. If you think the wound looks like it is becoming infected (redness or worsening drainage) and/or you are experiencing fever, chill or worsening back pain and muscle spasms, contact the office so that we may evaluate you as soon as possible. B. Complications are uncommon, but please contact us if you have any signs or symptoms of: 1. wound infection (fever higher than 102.5 degrees F, redness, separation of wound, drainage, or increasing pain from the incision) 2. blood clots in legs (pain, swelling, redness and warmth in legs) 3. urinary tract infection (fever higher than 102.5 degrees F, burning upon urination or increased frequency of urination) 4. nerve problems (inability to walk on your toes or heels, numbness, loss of bowel or bladder control) 5. any other symptoms that concern you C. Please call the office at if you have any concerns or questions about your operation or recovery. D. No smoking! Smoking drastically decreases the chance of a solid fusion. E. Do not take any anti-inflammatory medications (Indocin, Advil, Motrin, Aspirin, Naprosyn, etc.) as these may inhibit the chance of a solid fusion. Tylenol is okay to take for pain. MANAGING PAIN AFTER SPINAL SURGERY 1. Narcotic medication is intended for short-term use and will be provided for surgical pain. Surgical pain usually lasts for a period of 4-6 weeks. Narcotic medication includes Percocet, Vicodin, Darvocet, Tylenol #3 or Lortab. 2. Longer-term pain is more appropriately treated with non-narcotic medication such as Tylenol ES. 3. Muscle spasm is not appropriately treated with narcotics. Muscle relaxers such as Soma, Flexeril or Skelaxin can be used along with Tylenol ES. 4. Remember that we all live with some "aches and pains". This is not unusual or uncommon after an injury or as we get older. a. Back pain is expected and may include muscle spasms for 4 to 6 weeks after surgery. The pain should gradually improve. If the pain worsens for no apparent reason, please contact the office. b. Intermittent leg pain may also be experienced and should not be concerned about unless it worsens for no apparent reason. If so, please contact the office. 5. We will provide appropriate medication within the normal guidelines of their prescribed use. We will also be very cautious and aware of potential abuse and extended duration of patients' medication needs. a. Pain medications are for your comfort and to assist with sleep and rest so that the tissue can heal. They are not provided in order to return to normal activity and should not be used through the day. To do so or worsening pain at night can result from ongoing tissue damage and development of tolerance to the prescribed medicine. 6. Please allow 2-3 days to process refills. Prescriptions will not be mailed but must be picked up at the office. FOLLOW UP VISIT: Keep your scheduled follow-up appointment. Any questions, please call the office at . Current Hospital Diet Patient's current hospital diet: Diabetes Type 2 Diet Discharge Diet Recommended Diet: Regular Diet Procedures Procedures Performed: #1 revision decompression medial facetectomy foraminotomies L3 4. 2 posterior spinal fusion L3 4. #3 posterior instrumentation L3 4. #4 interbody fusion L3 4. #5 placement peek Cage 14 x 22 mm at L3 4. #6 placement locally harvested morcellized autograft in the posterior gutters. #7 placement osteoamp in the interbody space and posterior lateral gutters. Pending Studies Studies pending at discharge: no Laboratory Results Hemoglobin A1c Test 10/20/16 12:18 Range/Units Estimated Average Glucose 186 mg/dl Hemoglobin A1c 8.1 H 4.5-5.6 % Medical Emergencies . Who to Call and When: Medical Emergencies: If at any time you feel your situation is an emergency, please call 911 immediately. . Non-Emergent Contact Non-Emergency issues call your: Primary Care Provider . "Provider Documentation" section prepared by Jamaal Christina. . VTE Core Measure Inpt VTE Proph given/why not?: Maeve Padron, [facility]
--- NOTE | 2016-10-30 08:08 | Progress Note ---
Progress Note Date of Service Oct 30, 2016. Progress Note Patient's back pain is controlled. Leg pain improved. On exam is good strength testing appears comfortable. Assessment status post revision decompression fusion. Planned this time initiate physical therapy advance his bowel regimen anticipate possible home tomorrow.
[2016-10-30] MEDS: ASPIRIN 81 MG ECTAB PO SCH (08:40)
[2016-10-30] MEDS: DOCUSATE SODIUM 100 MG CAP PO SCH ×2 (08:40→20:49)
[2016-10-30] MEDS: CARBIDOPA/LEVODOPA 50/200MG EXT REL TAB PO SCH ×3 (08:40→20:54)
[2016-10-30] MEDS: VENLAFAXINE HCL XR 150 MG CAPXR PO SCH ×2 (08:40→20:51)
[2016-10-30] MEDS: ATORVASTATIN 20 MG TAB PO SCH (08:40)
[2016-10-30] MEDS: DONEPEZIL HCL 10 MG TAB PO SCH ×2 (08:41→20:50)
[2016-10-30] MEDS: INSULIN ASPART 100 UNITS/ML 3 ML PEN SC SCH ×4 (08:45→20:58)
--- NOTE | 2016-10-30 09:07 | Hospitalist Progress Note ---
Hospitalist Progress Note Date of Service Oct 30, 2016. (Suzie Bates PA-C) Subjective Pt evaluation today including: conversation w/ patient, conversation w/ family , physical exam, chart review, lab review, review of studies Pain: Moderate low back pain PO Intake: Good Voiding: requires PRN straight cath, voiding difficulty The patient was seen and examined this morning. Pts and daughter are present at bedside this morning. He reports difficulty with slow movements, feeling off balance, and having worse fine tremor today. He was up to sit in the bedside chair but felt as if he was falling to either side. His gait is much worse today compared to yesterday. The patient required straight cath overnight for retained urine = 700 mL, he was again straight cathed this morning around 10:30 for 600mL. He reports this is uncomfortable, and family is asking for a otoole catheter if he needs it. Despite all this, pt reports his pain is a little better, and that he has no numbness or tingling down into his legs. Constitutional: No fever, No chills, No sweats Respiratory: No cough, No sputum, No wheezing, No shortness of breath Cardiovascular: No chest pain, No PND Abdomen: No pain, No nausea, No vomiting, No diarrhea, No constipation Musculoskeletal: + see HPI Male : + see HPI Neurologic: + see HPI Skin: No rash, No itch (Suzie Bates, CHRIS) Objective Vital Signs Date Time Temp Pulse Resp B/P (MAP) Pulse Ox O2 Delivery O2 Flow Rate FiO2 10/30/16 08:16 100/54 (69) 10/30/16 07:30 Room Air 10/30/16 07:29 37.0 76 18 88/49 (62) 95 Room Air 10/30/16 03:30 36.8 66 20 102/58 (73) 96 Room Air 10/30/16 00:05 Nasal Cannula 2.0 10/29/16 23:03 36.5 75 16 96/52 (67) 94 Nasal Cannula 2.0 10/29/16 20:05 36.5 94 16 95/62 (73) 94 Nasal Cannula 4.0 10/29/16 18:03 73 16 108/70 (83) 93 Nasal Cannula 4.0 10/29/16 17:35 36.3 65 16 105/70 (82) 93 Nasal Cannula 4.0 10/29/16 17:05 36.4 79 18 102/63 (76) 97 Nasal Cannula 4.0 10/29/16 17:05 Nasal Cannula 10/29/16 17:05 Nasal Cannula 10/29/16 16:51 103/67 10/29/16 16:48 71 19 94 10/29/16 16:48 71 19 10/29/16 16:46 100/67 10/29/16 16:43 36.4 10/29/16 16:43 80 15 10/29/16 16:43 81 15 95 10/29/16 16:41 104/66 10/29/16 16:38 71 12 94 10/29/16 16:38 72 12 10/29/16 16:37 82 13 94 10/29/16 16:37 72 13 10/29/16 16:36 103/66 10/29/16 16:32 74 20 94 10/29/16 16:32 75 20 10/29/16 16:31 103/69 10/29/16 16:27 77 12 10/29/16 16:27 76 12 94 10/29/16 16:26 97/66 10/29/16 16:22 71 24 10/29/16 16:22 70 24 95 10/29/16 16:21 104/67 10/29/16 16:17 84 18 10/29/16 16:17 85 18 94 10/29/16 16:16 109/74 10/29/16 16:13 81 17 95 10/29/16 16:13 81 17 10/29/16 16:11 93/67 10/29/16 16:08 78 13 95 10/29/16 16:08 78 13 10/29/16 16:06 111/71 10/29/16 16:03 78 14 96 10/29/16 16:03 78 14 10/29/16 16:02 80 12 10/29/16 16:02 79 12 96 10/29/16 16:01 104/73 10/29/16 15:57 81 14 10/29/16 15:57 82 14 97 10/29/16 15:56 109/72 10/29/16 15:52 81 14 10/29/16 15:52 81 14 95 10/29/16 15:51 108/73 10/29/16 15:47 82 19 94 10/29/16 15:47 82 19 10/29/16 15:46 108/75 10/29/16 15:42 86 21 94 10/29/16 15:42 86 21 10/29/16 15:41 113/77 10/29/16 15:37 84 17 10/29/16 15:37 84 17 96 10/29/16 15:36 107/76 10/29/16 15:32 86 21 97 10/29/16 15:32 86 21 10/29/16 15:31 114/79 10/29/16 15:29 90 19 96 10/29/16 15:29 90 19 10/29/16 15:26 112/75 10/29/16 15:24 86 18 10/29/16 15:24 87 18 97 10/29/16 15:21 110/73 10/29/16 15:20 115/77 10/29/16 15:19 36.6 87 12 110/73 97 Mask 10 10/29/16 11:28 107/69 (82) (Suzie Bates PA-C) Physical Exam General Appearance: WD/WN, no apparent distress Eyes: PERRL, EOMI ENT: hearing grossly normal, pharynx normal Neck: supple, no JVD Respiratory/Chest: lungs clear, no respiratory distress, no accessory muscle use Cardiovascular: regular rate, rhythm, no murmur Abdomen: normal bowel sounds, non tender, soft Extremities: non-tender, no pedal edema, no calf tenderness Neurologic/Psychiatric: alert, oriented x 3, + pertinent finding (flat affect, + fine tremor in hand bilaterally, strenth with dorsiflexion and plantar flexion is a 4/5, better in the left compared to right. ) Skin: normal color, warm/dry (Suzie Bates PA-C) Laboratory Results Last 24 Hours Test 10/29/16 12:04 10/29/16 16:13 10/29/16 17:23 10/29/16 21:47 Bedside Glucose 117 mg/dl 139 mg/dl 158 mg/dl 173 mg/dl Test 10/30/16 05:49 10/30/16 07:59 White Blood Count 9.63 K/uL Red Blood Count 3.99 M/uL Hemoglobin 13.0 g/dL Hematocrit 37.2 % Mean Corpuscular Volume 93.2 fL Mean Corpuscular Hemoglobin 32.6 pg Mean Corpuscular Hemoglobin Concent 34.9 g/dl Platelet Count 182 K/uL Mean Platelet Volume 10.5 fL Neutrophils (%) (Auto) 80.7 % Lymphocytes (%) (Auto) 12.1 % Monocytes (%) (Auto) 7.0 % Eosinophils (%) (Auto) 0.0 % Basophils (%) (Auto) 0.0 % Neutrophils # (Auto) 7.77 K/uL Lymphocytes # (Auto) 1.17 K/uL Monocytes # (Auto) 0.67 K/uL Eosinophils # (Auto) 0.00 K/uL Basophils # (Auto) 0.00 K/uL RDW Standard Deviation 43.5 fL RDW Coefficient of Variation 12.7 % Immature Granulocyte % (Auto) 0.2 % Immature Granulocyte # (Auto) 0.02 K/uL Sodium Level 139 mmol/L Potassium Level 4.4 mmol/L Chloride Level 104 mmol/L Carbon Dioxide Level 26 mmol/L Anion Gap 9.0 mmol/L Blood Urea Nitrogen 20 mg/dl Creatinine 0.86 mg/dl Est Creatinine Clear Calc Drug Dose 82.9 ml/min Estimated GFR () 102.5 Estimated GFR (Non- 88.5 BUN/Creatinine Ratio 23.6 Random Glucose 163 mg/dl Calcium Level 8.4 mg/dl Bedside Glucose 150 mg/dl (Suzie Bates, PA-C) Assessment and Plan 71-year-old male with radicular back pain: - [place] consulted, - Underwent lumbar decompression/fusion surgery on 10/[address] Christina - Pain management and bowel regimen in place - Will need PT/OT postoperatively - Pt seems to be having worsened gait, tremor, and imbalance, likely secondary to anesthesia. Family provides history that this happened to him in previous surgeries. - Will slow IVFs to 100mL/hr since BP is stable. Spoke with nursing regarding bladder scans and informing Medical team if he continues to retain urine. May need to place an indwelling otoole catheter while here in the hospital. Will see how he does this afternoon and consider placement if not improved. DM II - Holding metformin - ISS with accuchecks, glycemic management consulted Parkinson's disease ? Dementia - Continue sinemet 50/200 TID and Aricept 100 mg BID Depression - Continue Seroquel 75 mg QHS, Effexor 150 mg BID and Depakote 1250 mg QHS HTN - Cont ASA 81 mg daily HLD - Continue atorvastatin DVT ppx: Teds, scds, no chemical anticoagulation with spinal surgery CODE STATUS: Full code Disposition: CM to assist with discharge planning, possible in 1-2 days, PT/OT jie (Suzie Bates, CHRIS) PA Physician Supervision Note: I interviewed and examined the patient. Discussed with Suzie Bates PAC and agree with findings and plan as documented in the note. Any exceptions or clarifications are listed here: None This patient has some postoperative hypotension and some rigidity both could be from interruption of his Parkinson meds and some orthostasis. We will continue to hydrate him. The patient did participate well in physical therapy without any syncopal symptoms. Vital signs note slightly low blood pressure he is awake alert appropriate for exam is regular lungs are clear skin is warm and pink good perfusion is noted Patient status post lumbar decompressive surgery continuing his medications for Parkinson's disease dementia and depression following low blood pressure after volume resuscitation with crystalloid solution Documented By: Joaquin Brown (Joaquin Brown M.D.)
--- NOTE | 2016-10-30 13:08 | Anesthesiology Progress Note ---
Anesthesia Post Op Note Date & Time Oct 30, 2016 at 13:07 Vital Signs Pain Intensity: 8.0 Vital Signs Past 12 Hours Date Time Temp Pulse Resp B/P (MAP) Pulse Ox O2 Delivery O2 Flow Rate FiO2 10/30/16 11:38 37.0 68 18 123/67 (85) 93 Room Air 10/30/16 08:16 100/54 (69) 10/30/16 07:30 Room Air 10/30/16 07:29 37.0 76 18 88/49 (62) 95 Room Air 10/30/16 03:30 36.8 66 20 102/58 (73) 96 Room Air Notes Mental Status: alert / awake / arousable, participated in evaluation Pt Amnestic to Procedure: Yes Nausea / Vomiting: adequately controlled Pain: adequately controlled Airway Patency, RR, SpO2: stable & adequate BP & HR: stable & adequate Hydration State: stable & adequate Anesthetic Complications: no major complications apparent
[2016-10-30] MEDS: DOCUSATE SODIUM/SENNA 50/8.6MG TAB PO SCH (20:50)
[2016-10-30] MEDS: DIVALPROEX SODIUM 250 MG DELAY REL TAB PO SCH (20:55)
[2016-10-30] MEDS: DIVALPROEX SODIUM 500 MG DELAY RELEASE TAB PO SCH (20:55)
[2016-10-30] MEDS: QUETIAPINE FUMARATE 25 MG TAB PO SCH (20:56)
[2016-10-30] MEDS: HYDROmorphone INJ 1 MG/ML SYR IV PRN (23:59)
[2016-10-31] MEDS: OXYCODONE HCL IR 5 MG TAB (IMMEDIATE RELEASE) PO PRN (04:30)
[2016-10-31] MEDS: DC PCA SCH (05:18)
[2016-10-31] MEDS: POLYETHYLENE (MIRALAX) 17 GM PACK PO SCH ×2 (05:51→12:35)
[2016-10-31] MEDS: SODIUM CHLORIDE 0.9% 1000ML 1,000 ML IV SCH (05:51)
[2016-10-31 07:23] VITALS: BP 128/77; PULSE 67; TEMP 36.8; O2SAT 94
[2016-10-31] MEDS: INSULIN ASPART 100 UNITS/ML 3 ML PEN SC SCH ×2 (08:00→12:37)
[2016-10-31] MEDS: CARBIDOPA/LEVODOPA 50/200MG EXT REL TAB PO SCH ×2 (08:59→13:47)
[2016-10-31] MEDS: DOCUSATE SODIUM 100 MG CAP PO SCH (08:59)
[2016-10-31] MEDS: ASPIRIN 81 MG ECTAB PO SCH (08:59)
[2016-10-31] MEDS: ATORVASTATIN 20 MG TAB PO SCH (08:59)
[2016-10-31] MEDS: DONEPEZIL HCL 10 MG TAB PO SCH (08:59)
[2016-10-31] MEDS: VENLAFAXINE HCL XR 150 MG CAPXR PO SCH (09:23)
--- NOTE | 2016-10-31 10:12 | Hospitalist Progress Note ---
Hospitalist Progress Note Date of Service Oct 31, 2016. (Suzie Bates PA-C) Subjective Pt evaluation today including: conversation w/ patient, physical exam, chart review, lab review Pain: Minimal lower back pain PO Intake: Good Voiding: otoole catheter in place The patient was seen and examined this morning. Pt is sitting up in bedside chair, he reports feeling much better today. He was able to ambulate with the walker without much difficulty, and did not require a 2 assist like he was yesterday. His pain is well controlled, and denies any numbness or tingling into either leg. He is eating and drinking well. His last BM was 2 days ago. Constitutional: No fever, No chills, No sweats Respiratory: No cough, No shortness of breath Cardiovascular: No chest pain, No palpitations Abdomen: + constipation, No pain, No nausea, No vomiting, No diarrhea Musculoskeletal: No joint pain, No swelling Neurologic: No weakness, No numbness/tingling Endo: No fatigue Skin: No rash, No itch (Suzie Bates PA-C) Objective Vital Signs Date Time Temp Pulse Resp B/P (MAP) Pulse Ox O2 Delivery O2 Flow Rate FiO2 10/31/16 07:23 36.8 67 19 128/77 (94) 94 Room Air 10/31/16 00:05 Room Air 10/30/16 23:28 36.9 62 16 109/65 (80) 91 Room Air 10/30/16 19:25 37.0 72 16 114/65 (81) 94 Room Air 10/30/16 15:40 36.7 76 18 100/61 (74) 94 Room Air 10/30/16 15:00 Room Air 10/30/16 14:10 98 99/67 (78) 119/73 (88) 10/30/16 11:38 37.0 68 18 123/67 (85) 93 Room Air (Suzie Bates PA-C) Physical Exam Notes: General Appearance: WD/WN, no apparent distress, + appears brighter today, smiles and laughs appropriately Eyes: PERRL, EOMI ENT: hearing grossly normal, pharynx normal Neck: supple, no JVD Respiratory/Chest: lungs clear, no respiratory distress, no accessory muscle use Cardiovascular: regular rate, rhythm, no murmur Abdomen: normal bowel sounds, non tender, soft, otoole catheter in place Extremities: non-tender, no pedal edema, no calf tenderness Neurologic/Psychiatric: alert, oriented x 3, + pertinent finding (+ fine tremor in hand bilaterally is improved today) Skin: normal color, warm/dry (Suzie Bates PA-C) Laboratory Results Last 24 Hours Test 10/30/16 12:23 10/30/16 17:06 10/30/16 20:53 10/31/16 08:07 Bedside Glucose 165 mg/dl 162 mg/dl 190 mg/dl 126 mg/dl (Suzie Bates PA-C) Assessment and Plan 71-year-old male with radicular back pain: - [place] on board - Underwent lumbar decompression/fusion surgery on 10/[address] Christina - Pain management per primary team - pt notes does not do well with oxycodone - bowel regimen in place - if no BM by tomorrow give dulcolax suppository. ordered prn - PT/OT postoperatively - Pt seems to be having worsened gait, tremor, and imbalance, likely secondary to anesthesia. Family provides history that this happened to him in previous surgeries. - IVFs@ 100mL/hr - BP is improved today. Will d/c fluids - Had urinary retention from 10/29-10/30 so now Indwelling otoole was placed (on ) - remove prior to d/c with void trial DM II - Holding metformin - ISS with accuchecks, glycemic management consulted Parkinson's disease ? Dementia - Continue sinemet 50/200 TID and Aricept 100 mg BID Depression - Continue Seroquel 75 mg QHS, Effexor 150 mg BID and Depakote 1250 mg QHS HTN - Cont ASA 81 mg daily HLD - Continue atorvastatin DVT ppx: Teds, scds, no chemical anticoagulation with spinal surgery CODE STATUS: Full code Disposition: CM to assist with discharge planning - has [facility] already set up for d/c, possible in 1 day, PT/OT evals (Suzie Bates PA-C) LINDA Physician Supervision Note: I interviewed and examined the patient. Discussed with Suzie Bates PAC and agree with findings and plan as documented in the note. Any exceptions or clarifications are listed here: None Patient is doing well improved blood pressure and mentation on his medications, no medical issues anticipated, disposition will be based upon Dr. Christina Documented By: Joaquin Brown (Joaquin Brown M.D.)
[2016-10-31] MEDS: HYDROmorphone INJ 1 MG/ML SYR IV PRN (12:38)
--- NOTE | 2016-10-31 14:45 | Discharge Summary ---
Orthopedic Discharge Summary Admission Date/Reason Oct 27, 2016 at 15:26 Lumbar Stenosis With Neurogenic Claudication. Discharge Date/Disposition Oct 31, 2016 Home with services Diagnosis Principal Diagnosis: Lumbar spinal stenosis Admission Physical Exam As per Admitting History & Physical. Hospital Course Patient was admitted for severe left leg pain. Underwent further imaging and workup and determined to have recurrent disc herniation and pars defect L3 4. Substernally elected to undergo revision depression fusion. Tolerated this well. Possibly he was up and amatory leg pain improved such and posterior tibial to his discharge home with home health discharge orders and instructions found on the chart for further review. Discharge Instructions Please refer to the electronic Patient Visit Report (Discharge Instructions) for additional information.
[2016-10-31 16:20] VITALS: BP 134/74; PULSE 65; TEMP 36.4; O2SAT 96
[2016-10-31 16:32] VITALS: BP 134/74; PULSE 65; TEMP 36.4; O2SAT 96
== END 2016-10-31 18:00 | disposition home health service (06) | DRG 460 ==
LOC: C.EDB 10:47 → EEVIPCON 15:26 → C.3E 15:26 → ENRESERV 16:10
PROVIDERS: ADMIT Orthopaedic Surgery Orthopaedic Surgery of the Spine; ATTEND Orthopaedic Surgery Orthopaedic Surgery of the Spine
PROC: 0SG00AJ Fusion of Lumbar Vertebral Joint with Interbody Fusion Device, Posterior Approach, Anterior Column, Open Approach (ICD-10-PCS; principal; 2016-10-29 07:30)
PROC: 0SG0071 Fusion of Lumbar Vertebral Joint with Autologous Tissue Substitute, Posterior Approach, Posterior Column, Open Approach (ICD-10-PCS; principal; 2016-10-29 07:30)
PROC: 0SB20ZZ Excision of Lumbar Vertebral Disc, Open Approach (ICD-10-PCS; principal; 2016-10-29 07:30)
DX: M48.06 Spinal stenosis, lumbar region (principal); F32.9 Major depressive disorder, single episode, unspecified; E11.9 Type 2 diabetes mellitus without complications; F60.3 Borderline personality disorder; E78.5 Hyperlipidemia, unspecified; F43.10 Post-traumatic stress disorder, unspecified; Z88.0 Allergy status to penicillin; Z88.2 Allergy status to sulfonamides; I10 Essential (primary) hypertension

== ENCOUNTER → 2016-12-15 | Outpatient (CLI) | payer OTHER ==
[~2016-12-15] MED LIST changes: -GABA1CAP PO; -HYDR-5688 PO; -OXYC-57 PO; +RXC5 PO
[2016-12-15 10:40] LABS: HEMATOCRIT 45.3 % (42-52); MEAN CELL VOLUME 96.6 fL (80-100); MEAN CORPUSCULAR HEMOGLOBIN 32.2 pg (25-34); MEAN CORPUSCULAR HGB CONC 33.3 g/dl (32-36); MEAN PLATELET VOLUME 9.7 fL (7.4-10.4); PLATELET COUNT 283 K/uL (130-400); RED BLOOD COUNT 4.69 M/uL (4.7-6.1); WHITE BLOOD COUNT 9.22 K/uL (4.8-10.8)
[2016-12-15 11:17] LABS: ALT/SGPT 14 U/L (12-78); AST/SGOT 9 U/L (15-37); BLOOD UREA NITROGEN 16 mg/dl (7-18); BUN/CREATININE RATIO 19.9 (10-20); CALCIUM 9.3 mg/dl (8.5-10.1); CARBON DIOXIDE 29 mmol/L (21-32); CHLORIDE 104 mmol/L (98-107); CREATININE 0.81 mg/dl (0.60-1.40); GLUCOSE 120 mg/dl (70-99); POTASSIUM 4.2 mmol/L (3.5-5.1); SODIUM 141 mmol/L (136-145)
[2016-12-15 11:20] LABS: ALB/GLOB RATIO 0.8 (0.9-2); ALKALINE PHOSPHATASE 69 U/L (45-117); CHOLESTEROL 178 mg/dl (0-200); CHOLESTEROL/HDL RATIO 4.3; HDL CHOLESTEROL 41 mg/dl; LDL CHOLESTEROL CALCULATED 80 mg/dl; TRIGLYCERIDES 283 mg/dl (0-150); VERY LOW DENSITY LIPOPROT CALC 57 mg/dl
== END | disposition home or self-care (01) ==
LOC: C.LAB 09:47
PROVIDERS: ATTEND Student in an Organized Health Care Education/Training Program
DX: Z79.899 Other long term (current) drug therapy (principal)

== ENCOUNTER 2017-07-08 21:18 | Inpatient (IN) | payer OTHER ==
[~2017-07-08] VITALS: Ht 177.8 cm; Wt 75.9 kg
[~2017-07-08 21:18] MED LIST changes: -LPT/20 PO; +LPT20 PO
[2017-07-08] MEDS ORDERED: HYDROmorphone INJ 1 MG/ML SYR IV STA ×2 (21:55→23:53)
[2017-07-08] MEDS ORDERED: ONDANSETRON INJ 2 MG/ML 2 ML VIAL IV STA (21:55)
[2017-07-08] MEDS ORDERED: HYDROmorphone INJ 0.5 MG/0.5 ML SYR ONE ×2 (22:22→23:58)
[2017-07-08 22:32] LABS: BASO % 0.4 %; BASO ABS # 0.02 K/uL (0-0.2); EOS % 3.4 %; EOS ABS # 0.19 K/uL (0-0.5); HEMATOCRIT 44.2 % (42-52); HEMOGLOBIN 15.2 g/dL (14.0-18.0); IG# 0.01 K/uL (0.00-0.02); LYMPH % 39.2 %; LYMPH ABS # 2.22 K/uL (1.2-3.4); MEAN CELL VOLUME 94.8 fL (80-100); MEAN CORPUSCULAR HEMOGLOBIN 32.6 pg (25-34); MEAN CORPUSCULAR HGB CONC 34.4 g/dl (32-36); MEAN PLATELET VOLUME 10.1 fL (7.4-10.4); MONO % 9.5 %; MONO ABS # 0.54 K/uL (0.11-0.59); NEUT % 47.3 %; NEUT ABS # 2.68 K/uL (1.4-6.5); PLATELET COUNT 209 K/uL (130-400); RED CELL DISTRIBUTION WIDTH CV 12.8 % (11.5-14.5); RED CELL DISTRIBUTION WIDTH SD 44.5 fL (36.4-46.3); WHITE BLOOD COUNT 5.66 K/uL (4.8-10.8)
[2017-07-08] MEDS ORDERED: DPKEC500 PO (22:37)
[2017-07-08] MEDS ORDERED: GLC/500 PO (22:43)
[2017-07-08 22:44] LABS: PTT PATIENT 26.6 SECONDS (21.0-31.0)
[2017-07-08] MEDS ORDERED: QUET1TAB7 PO (22:55)
--- NOTE | 2017-07-08 22:56 | DIAGNOSTIC IMAGING REPORT ---
L-SPINE MIN 4 VIEWS ROUTINE CLINICAL HISTORY: 72 years-old Male presenting with eval for fx, fall, low back pain, weakness. TECHNIQUE: Frontal, bilateral oblique, lateral, and coned in lateral views of lumbar spine were obtained. COMPARISON: 02/21/[address] from 10/27/2016. FINDINGS: There has been interval bilateral transpedicular screw and tulio fixation of L3-4 with laminectomy defect of L3. Interbody spacer at L3-4 also noted. No scoliosis. Normal lumbar lordosis. No gross evidence of hardware complication. Vertebral bodies maintain normal height and alignment. Intervertebral disc heights preserved. No gross evidence of osseous neural foraminal narrowing. No compression deformity or subluxation. Nonobstructive bowel gas pattern. IMPRESSION: 1. Postsurgical changes of L3-4 posterior fusion. No hardware complication. 2. No radiographic evidence of acute osseous injury. Electronically signed by: Gilberto Almeida M.D. 07/08/2017 10:54 PM Dictated Date/Time: 07/08/2017 10:52 PM
--- NOTE | 2017-07-08 22:57 | DIAGNOSTIC IMAGING REPORT ---
PELVIS 1 OR 2 VIEW ROUTINE CLINICAL HISTORY: 72 years-old Male presenting with eval for fx, fall, low back pain, weakness. TECHNIQUE: Single frontal view of the pelvis was obtained. COMPARISON: CT from 09/05/2015. FINDINGS: Posterior lumbar fusion hardware at L3-4 with interbody spacer and L3 laminectomy defect now evident. Arcuate lines of the sacrum intact. Sacroiliac joints, hip joints, and pubic symphysis congruent. Bony pelvis intact. Femoral necks grossly intact. IMPRESSION: No radiographic evidence of acute osseous injury of the pelvis. Electronically signed by: Gilberto Almeida M.D. 07/08/2017 10:56 PM Dictated Date/Time: 07/08/2017 10:55 PM
[2017-07-08] MEDS ORDERED: LAMO100T16 PO (22:59)
[2017-07-08 23:00] LABS: CALCIUM 8.6 mg/dl (8.5-10.1); CREATININE 0.9 mg/dl (0.60-1.40); POTASSIUM 4.4 mmol/L (3.5-5.1)
[2017-07-09] VITALS (7 sets, daily range): BP systolic 97–134; BP diastolic 62–84; PULSE 60–87; TEMP 36.6–36.8; O2SAT 91–94; Ht 177.8 cm; Wt 75.9 kg
--- NOTE | 2017-07-09 00:25 | EMERGENCY ROOM VISIT NOTE ---
History Report prepared by Mikayla: Jael Hodges Under the Supervision of: Dr. Joaquin Linder M.D. First contact with patient: 21:46 Chief Complaint: FALL Stated Complaint: BACK PAIN,WEAK,CONFUSION History of Present Illness The patient is a 72 year old male who presents to the Emergency Room with complaints of a fall beginning around 1829 today. His daughter reports that he fell twice today and she found him lying flat on the floor although the patient states he just slid down. The patient describes his pain as "unbearable" and notes he has nausea but denies any fevers, headaches,abdominal pain, chest pain , or fecal or urinary incontinence. As per his daughter, he has had bilateral weakness in both of his legs with the right leg greater than the right for the past few months. He reports he can feel his legs and did not hit his head or had any LOC when he fell. The last time he took oxycodone was around 1899 today. His family also notes the patient does not eat or drink much and has not for the past few months. He only eats candy and junk food and only drinks enough water to take his medication. He did have an MRI of his lower back 3 weeks ago at [facility] [place]. He was told that he would likely need surgery again. He did have an injection in the sacrum which seemed to help temporarily. Source of History: patient, family Onset: 1829 today Position: leg (bilateral) Symptom Intensity: "unbearable" Quality: other (fall) Associated Symptoms: + nausea, + weakness (bilateral legs with right greater than left), No LOC, No fevers, No headache, No chest pain, No abdominal pain Note: Negative incontinence or hitting his head. Review of Systems See HPI for pertinent positives & negatives. A total of 10 systems reviewed and were otherwise negative. 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 (7) History of back pain (8) HNP (herniated nucleus pulposus) (9) Hx of suicide attempt (10) Lumbar stenosis with neurogenic claudication (11) PTSD (post-traumatic stress disorder) (12) Uncontrolled diabetes mellitus Family History Anxiety disorder Diabetes mellitus Hypertension Social History Smoking Status: Never Smoker Alcohol Use: none Drug Use: none Marital Status: Housing Status: lives with family Occupation Status: retired Current/Historical Medications Scheduled Aspirin (Aspirin Ec), 81 MG PO DAILY Atorvastatin (Lipitor), 20 MG PO DAILY Carbidopa/Levodopa (Sinemet Cr 50MG/200MG), 1 TAB PO TID Divalproex Sodium (Divalproex Sodium Dr), 1,000 MG PO HS Donepezil HCl (Donepezil HCl), 10 MG PO BID Lamotrigine (Lamictal), 100 MG PO DAILY Metformin Hcl (Metformin Hcl Er), 500 MG PO QAM Metformin Hcl (Glucophage), 1,000 MG PO QPM Quetiapine Fumarate (Seroquel), 25 MG PO DAILY Venlafaxine Hcl (Effexor Extended Rel), 300 MG PO DAILY Allergies Coded Allergies: Penicillins (Verified Allergy, Severe, SWELL UP,HIVES, 10/27/16) SWELLS UP, HIVES Sulfa Antibiotics (Verified Allergy, Unknown, unknown, 10/27/16) Physical Exam Vital Signs Date Time Temp Pulse Resp B/P (MAP) Pulse Ox O2 Delivery O2 Flow Rate FiO2 07/08/17 23:33 88 16 07/08/17 23:28 74 10 07/08/17 23:23 64 18 07/08/17 23:18 74 17 07/08/17 23:13 63 17 07/08/17 23:08 63 18 07/08/17 23:03 62 17 07/08/17 22:58 69 15 07/08/17 22:53 70 13 07/08/17 22:48 69 07/08/17 22:34 67 07/08/17 22:33 65 16 07/08/17 21:25 36.7 76 18 107/73 94 Room Air Physical Exam Constitutional: Vital signs reviewed. Eyes: Pupils are equal round reactive to light. Conjunctiva are noninjected. ENT: Pharynx is clear without erythema or exudate. Mucous membranes are dry. Neck supple without meningeal signs. Respiratory: Clear to auscultation bilaterally. Breath sounds are equal bilaterally. Cardiovascular: Regular rate and rhythm. No rubs or gallops. GI: Soft, nondistended and nontender. Bowel sounds are present. Musculoskeletal: No peripheral edema. No lower extremity tenderness. Integumentary: No cyanosis. Neurological: The patient is awake and alert. 4/5 strength in both lower extremities. DTRs diminished bilaterally. Psychiatric: Normal affect. Medical Decision & Procedures ER Provider Diagnostic Interpretation: Radiology results as stated below per my review and the radiologist's interpretation: PELVIS 1 OR 2 VIEW ROUTINE CLINICAL HISTORY: 72 years-old Male presenting with eval for fx, fall, low back pain, weakness. TECHNIQUE: Single frontal view of the pelvis was obtained. COMPARISON: CT from 09/05/2015. FINDINGS: Posterior lumbar fusion hardware at L3-4 with interbody spacer and L3 laminectomy defect now evident. Arcuate lines of the sacrum intact. Sacroiliac joints, hip joints, and pubic symphysis congruent. Bony pelvis intact. Femoral necks grossly intact. IMPRESSION: No radiographic evidence of acute osseous injury of the pelvis. Electronically signed by: Gilberto Almeida M.D. 07/08/2017 10:56 PM L-SPINE MIN 4 VIEWS ROUTINE CLINICAL HISTORY: 72 years-old Male presenting with eval for fx, fall, low back pain, weakness. TECHNIQUE: Frontal, bilateral oblique, lateral, and coned in lateral views of lumbar spine were obtained. COMPARISON: 02/21/[address] from 10/27/2016. FINDINGS: There has been interval bilateral transpedicular screw and tulio fixation of L3-4 with laminectomy defect of L3. Interbody spacer at L3-4 also noted. No scoliosis. Normal lumbar lordosis. No gross evidence of hardware complication. Vertebral bodies maintain normal height and alignment. Intervertebral disc heights preserved. No gross evidence of osseous neural foraminal narrowing. No compression deformity or subluxation. Nonobstructive bowel gas pattern. IMPRESSION: 1. Postsurgical changes of L3-4 posterior fusion. No hardware complication. 2. No radiographic evidence of acute osseous injury. Electronically signed by: Gilberto Almeida M.D. 07/08/2017 10:54 PM Laboratory Results 07/08/17 22:15 Red Blood Count 4.66, Mean Corpuscular Volume 94.8, Mean Corpuscular Hemoglobin 32.6, Mean Corpuscular Hemoglobin Concent 34.4, Mean Platelet Volume 10.1, Neutrophils (%) (Auto) 47.3, Lymphocytes (%) (Auto) 39.2, Monocytes (%) (Auto) 9.5, Eosinophils (%) (Auto) 3.4, Basophils (%) (Auto) 0.4, Neutrophils # (Auto) 2.68, Lymphocytes # (Auto) 2.22, Monocytes # (Auto) 0.54, Eosinophils # (Auto) 0.19, Basophils # (Auto) 0.02 07/08/17 22:15 Test 07/08/17 22:15 07/08/17 22:23 White Blood Count 5.66 K/uL (4.8-10.8) Red Blood Count 4.66 M/uL (4.7-6.1) Hemoglobin 15.2 g/dL (14.0-18.0) Hematocrit 44.2 % (42-52) Mean Corpuscular Volume 94.8 fL (80-100) Mean Corpuscular Hemoglobin 32.6 pg (25-34) Mean Corpuscular Hemoglobin Concent 34.4 g/dl (32-36) Platelet Count 209 K/uL (130-400) Mean Platelet Volume 10.1 fL (7.4-10.4) Neutrophils (%) (Auto) 47.3 % Lymphocytes (%) (Auto) 39.2 % Monocytes (%) (Auto) 9.5 % Eosinophils (%) (Auto) 3.4 % Basophils (%) (Auto) 0.4 % Neutrophils # (Auto) 2.68 K/uL (1.4-6.5) Lymphocytes # (Auto) 2.22 K/uL (1.2-3.4) Monocytes # (Auto) 0.54 K/uL (0.11-0.59) Eosinophils # (Auto) 0.19 K/uL (0-0.5) Basophils # (Auto) 0.02 K/uL (0-0.2) RDW Standard Deviation 44.5 fL (36.4-46.3) RDW Coefficient of Variation 12.8 % (11.5-14.5) Immature Granulocyte % (Auto) 0.2 % Immature Granulocyte # (Auto) 0.01 K/uL (0.00-0.02) Prothrombin Time 10.5 SECONDS (9.0-12.0) Prothromb Time International Ratio 1.0 (0.9-1.1) Activated Partial Thromboplast Time 26.6 SECONDS (21.0-31.0) Partial Thromboplastin Ratio 1.0 Anion Gap 6.0 mmol/L (3-11) Est Creatinine Clear Calc Drug Dose 78.5 ml/min Estimated GFR () 99.9 Estimated GFR (Non- 86.2 BUN/Creatinine Ratio 19.5 (10-20) Calcium Level 8.6 mg/dl (8.5-10.1) Chemistry Specimen Hemolysis Bedside Troponin I < 0.030 ng/ml (0-0.045) Laboratory results as reviewed by me. Medications Administered Medications (Trade) Dose Ordered Sig/Maria De Jesus Route Start Time Stop Time Status Last Admin Dose Admin Ondansetron HCl (Zofran Inj) 4 mg NOW STAT IV 07/08/17 21:55 07/08/17 21:57 DC 07/08/17 22:24 4 MG Hydromorphone HCl (Dilaudid Inj) 0.5 mg STK-MED ONCE .ROUTE 07/08/17 22:22 07/08/17 22:23 DC 07/08/17 22:27 0.5 MG Hydromorphone HCl (Dilaudid Inj) 0.5 mg STK-MED ONCE .ROUTE 07/08/17 23:58 07/08/17 23:59 DC 07/09/17 00:01 0.5 MG ECG Per My Interpretation Indication: weakness Rate (beats per minute): 71 Rhythm: normal sinus Findings: RBBB, other (no ST elevation ) ED Course 2145: The patient was evaluated in room B11. A complete history and physical exam was performed. 2154: Ordered Zofran Inj 4 mg IV, Dilaudid 0.5 mg IV 2221: Ordered Dilaudid Inj 0.5 mg IV 3: I spoke with Dr. Christina of [facility]. He said to admit the patient to medicine and he will see them tomorrow. 2258: I spoke with Dr. Ames of [facility]. We discussed the patient and her results. The patient will be further evaluated by her. Medical Decision This is a 72-year-old male presents with back pain and difficulty walking. Differential diagnosis includes spinal stenosis, lumbar disc disease, compression fracture, ambulatory dysfunction, strain. I did perform a limited focused review of portions of the patient's old chart on the electronic medical record. The patient was admitted in September 2016 for lumbar stenosis neurogenic clotification. Imaging showed recurrent dischronation. I did evaluate the patient as noted above. Patient has chronic issues with his lower back. He has had surgery about a year ago. He has had weakness in his legs for several months and recently had an MRI of the lumbar spine. He did feel better after the injection but stated his pain is gotten worse and he is having difficulty walking and fell twice today. IV access was established. I did treat the patient with IV Dilaudid and Zofran. I did order and personally review the patient's pelvic and lumbar spine x-ray as described above. There is no evidence of acute fracture or dislocation. He stated he felt weak and so I did do a 12-lead EKG as described above. I did order and review the patient' s blood work as noted in the electronic medical record. Labs are unremarkable. He had continued pain and was given Dilaudid 0.5 mg IV again. I did discuss case with Dr. Christina. He requested that the patient be admitted by the hospitalist and he will consult on him tomorrow. I did discuss case with Dr. Ames and the human services case manager. Medication Reconcilliation Current Medication List: was personally reviewed by me Blood Pressure Screening Patient's blood pressure: Normal blood pressure Blood pressure disposition: Did not require urgent referral Consults Time Called: 2251 Consulting Physician: Dr. Christina, [facility] Returned Call: [phone] Christina of [facility]. He said to admit the patient to medicine and he will see them tomorrow. Additional Consults: Time Called: [phone] Consulted Physician: Dr. Ames of [facility] Returned Call: [phone] Additional Comments: I spoke with Dr. Ames of [facility]. We discussed the patient and her results. The patient will be further evaluated by her. Impression Primary Impression: Low back pain Additional Impressions: Weakness Ambulatory dysfunction Fall Scribe Attestation The scribe's documentation has been prepared under my direct and personally reviewed by me in its entirety. I confirm that the note above accurately reflects all work, treatment, procedures, and medical decision making performed by me. Departure Information Dispostion Being Evaluated By Hospitalist (Dr. Ames of [facility]) Referrals Gilberto Pollard M.D. (PCP) Patient Instructions My [facility] Problem Qualifiers Primary Impression: Low back pain Chronicity: acute Back pain laterality: midline Sciatica presence: unspecified whether sciatica present Qualified Codes: M54.5 - Low back pain Additional Impressions: Fall Encounter type: initial encounter Qualified Codes: W19.XXXA - Unspecified fall, initial encounter
[2017-07-09] MEDS ORDERED: GLUCOSE 40% GEL 15 GM TUBE PO PRN (00:45)
[2017-07-09] MEDS ORDERED: DEXTROSE 50% 50 ML SYR IV PRN (00:45)
[2017-07-09] MEDS ORDERED: GLUCAGON FOR INJ 1 MG VIAL SQ PRN (00:45)
[2017-07-09] MEDS ORDERED: DC ALL PREVIOUSLY ORDERED DIABETES MEDS ONE (00:45)
[2017-07-09] MEDS ORDERED: GLUCOSE 10 TABS/TUBE PO PRN (00:45)
[2017-07-09] MEDS ORDERED: ONDANSETRON INJ 2 MG/ML 2 ML VIAL IV PRN (00:45)
[2017-07-09] MEDS ORDERED: CARBOHYDRATES FOR HYPOGLYCEMIA PO PRN (00:45)
[2017-07-09] MEDS ORDERED: MoRPHine SULFATE 4 MG/ML 1 ML CARP\\VIAL IV PRN ×3 (00:45→16:45)
--- NOTE | 2017-07-09 01:26 | History and Physical ---
History & Physical Date & Time of Service: July 09, 2017 at 00:51 Chief Complaint: Back Pain,Weak,Confusion Primary Care Physician: Gilberto Pollard M.D. History of Present Illness Source: patient, family Mr. Ratliff is a 72yo male presenting with back pain. Patient has diagnosis of lumbar stenosis and recurrent disc herniation at L3-L4. He had a prior laminectomy by Dr. Adame in May 2016. He had L3-L4 revision, decompression and spinal fusion October 2016. He receives spinal injections for pain control. Patient presents today after a mechanical fall at home. He reports trying to rise from the couch and having his legs feel weak. He slowly lowered himself to the floor after which he was unable to stand up again. His and daughter helped him to his feet and he reports feeling unsteady and weak with worsening low back pain 10/10. He denies CP/palpitations/loss of consciousness. He denies saddle anesthesia/numbness/weakness or radicular symptoms at present. He denies seizure activity or loss of bowel or bladder control. He denies hearing a crack/pop or tear, no trauma to the back. Patient states that he has been falling more frequently lately, 2 falls today and multiple falls over the last 3-4 months. He states that his legs give out on him and occasionally feel weak. He has completed PT at home in the past but is not currently receiving PT. Patient states that he is in chronic daily pain, 8/10, today 10/10 after his fall. He has had history of prior suicidal ideation and attempts. Family voiced concern due to patient again expressing the wish to end his life. 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 (12) History of back pain (13) HNP (herniated nucleus pulposus) (14) Hx of suicide attempt (15) Hyperglycemia (16) Hypoxia (17) Laceration of left wrist (18) Lumbar stenosis with neurogenic claudication (19) Mood disorder (20) Nausea, vomiting, and diarrhea (21) Pneumonia (22) PTSD (post-traumatic stress disorder) (23) Suicidal behavior (24) Suicidal ideation (25) Uncontrolled diabetes mellitus (26) Weakness Family History Anxiety disorder Diabetes mellitus Hypertension Social History Smoking Status: Never Smoker Alcohol Use: none Drug Use: none Marital Status: Housing status: lives with significant other Occupational Status: retired Immunizations History of Influenza Vaccine: Yes History of Tetanus Vaccine?: Unknown History of Pneumococcal: Yes History of Hepatitis B Vaccine: Unknown Allergies Coded Allergies: Penicillins (Verified Allergy, Severe, SWELL UP,HIVES, 10/27/16) SWELLS UP, HIVES Sulfa Antibiotics (Verified Allergy, Unknown, unknown, 10/27/16) Home Medications Scheduled Aspirin (Aspirin Ec), 81 MG PO DAILY Atorvastatin (Lipitor), 20 MG PO DAILY Carbidopa/Levodopa (Sinemet Cr 50MG/200MG), 1 TAB PO TID Divalproex Sodium (Divalproex Sodium Dr), 1,000 MG PO HS Donepezil HCl (Donepezil HCl), 10 MG PO BID Lamotrigine (Lamictal), 100 MG PO DAILY Metformin Hcl (Metformin Hcl Er), 500 MG PO QAM Metformin Hcl (Glucophage), 1,000 MG PO QPM Quetiapine Fumarate (Seroquel), 25 MG PO DAILY Venlafaxine Hcl (Effexor Extended Rel), 300 MG PO DAILY Review of Systems Constitutional: No fever, No chills, No weight loss, No fatigue Eyes: No worsening of vision, No eye pain, No redness ENT: No hearing loss, No sore throat, No trouble swallowing Respiratory: No cough, No sputum, No shortness of breath, No dyspnea on exertion Cardiovascular: No chest pain, No orthopnea, No edema, No claudication Abdomen: No pain, No nausea, No vomiting, No diarrhea, No constipation Musculoskeletal: No joint pain Genitourinary - Male: No hematuria, No dysuria, No urinary frequency, No urinary urgency Neurologic: + weakness, + balance problems, No numbness/tingling Psychiatric: + depression symptoms Endocrine: No fatigue Hematologic / Lymphatic: No abnormal bleeding/bruising, No clotting problems Integumentary: No rash Physical Exam Vital Signs Date Time Temp Pulse Resp B/P (MAP) Pulse Ox O2 Delivery O2 Flow Rate FiO2 07/08/17 23:33 88 16 07/08/17 23:28 74 10 07/08/17 23:23 64 18 07/08/17 23:18 74 17 07/08/17 23:13 63 17 07/08/17 23:08 63 18 07/08/17 23:03 62 17 07/08/17 22:58 69 15 07/08/17 22:53 70 13 07/08/17 22:48 69 07/08/17 22:34 67 07/08/17 22:33 65 16 07/08/17 21:25 36.7 76 18 107/73 94 Room Air General Appearance: WD/WN, no apparent distress Head: normocephalic, atraumatic Eyes: normal inspection, PERRL, sclerae normal ENT: normal ENT inspection, pharynx normal Neck: supple, no adenopathy, thyroid normal, trachea midline Respiratory/Chest: chest non-tender, lungs clear, normal breath sounds, no respiratory distress, no accessory muscle use Cardiovascular: regular rate, rhythm, no edema, no gallop, no JVD, no murmur, normal peripheral pulses Abdomen/GI: normal bowel sounds, non tender, soft Back: + pertinent finding (midline surgical scar on thoracic spine, tenderness with palpation of L4-L5 area and SI joint) Extremities/Musculoskelatal: normal inspection, no calf tenderness, non-tender Neurologic/Psych: no motor/sensory deficits, normal mood/affect, normal reflexes, oriented x 3 Skin: normal color, warm/dry Diagnostics Laboratory Results Results Past 24 Hours Test 07/08/17 22:15 07/08/17 22:23 Range/Units White Blood Count 5.66 4.8-10.8 K/uL Red Blood Count 4.66 4.7-6.1 M/uL Hemoglobin 15.2 14.0-18.0 g/dL Hematocrit 44.2 42-52 % Mean Corpuscular Volume 94.8 80-100 fL Mean Corpuscular Hemoglobin 32.6 25-34 pg Mean Corpuscular Hemoglobin Concent 34.4 32-36 g/dl Platelet Count 209 130-400 K/uL Mean Platelet Volume 10.1 7.4-10.4 fL Neutrophils (%) (Auto) 47.3 % Lymphocytes (%) (Auto) 39.2 % Monocytes (%) (Auto) 9.5 % Eosinophils (%) (Auto) 3.4 % Basophils (%) (Auto) 0.4 % Neutrophils # (Auto) 2.68 1.4-6.5 K/uL Lymphocytes # (Auto) 2.22 1.2-3.4 K/uL Monocytes # (Auto) 0.54 0.11-0.59 K/uL Eosinophils # (Auto) 0.19 0-0.5 K/uL Basophils # (Auto) 0.02 0-0.2 K/uL RDW Standard Deviation 44.5 36.4-46.3 fL RDW Coefficient of Variation 12.8 11.5-14.5 % Immature Granulocyte % (Auto) 0.2 % Immature Granulocyte # (Auto) 0.01 0.00-0.02 K/uL Prothrombin Time 10.5 9.0-12.0 SECONDS Prothromb Time International Ratio 1.0 0.9-1.1 Activated Partial Thromboplast Time 26.6 21.0-31.0 SECONDS Partial Thromboplastin Ratio 1.0 Sodium Level 139 136-145 mmol/L Potassium Level 4.4 3.5-5.1 mmol/L Chloride Level 105 98-107 mmol/L Carbon Dioxide Level 28 21-32 mmol/L Anion Gap 6.0 3-11 mmol/L Blood Urea Nitrogen 18 7-18 mg/dl Creatinine 0.90 0.60-1.40 mg/dl Est Creatinine Clear Calc Drug Dose 78.5 ml/min Estimated GFR () 99.9 Estimated GFR (Non- 86.2 BUN/Creatinine Ratio 19.5 10-20 Random Glucose 121 70-99 mg/dl Calcium Level 8.6 8.5-10.1 mg/dl Chemistry Specimen Hemolysis Bedside Troponin I < 0.030 0-0.045 ng/ml Diagnostic Radiology L-SPINE MIN 4 VIEWS ROUTINE CLINICAL HISTORY: 72 years-old Male presenting with eval for fx, fall, low back pain, weakness. TECHNIQUE: Frontal, bilateral oblique, lateral, and coned in lateral views of lumbar spine were obtained. COMPARISON: 02/21/[address] from 10/27/2016. FINDINGS: There has been interval bilateral transpedicular screw and tulio fixation of L3-4 with laminectomy defect of L3. Interbody spacer at L3-4 also noted. No scoliosis. Normal lumbar lordosis. No gross evidence of hardware complication. Vertebral bodies maintain normal height and alignment. Intervertebral disc heights preserved. No gross evidence of osseous neural foraminal narrowing. No compression deformity or subluxation. Nonobstructive bowel gas pattern. IMPRESSION: 1. Postsurgical changes of L3-4 posterior fusion. No hardware complication. 2. No radiographic evidence of acute osseous injury. Electronically signed by: Gilberto Almeida M.D. 07/08/2017 10:54 PM PELVIS 1 OR 2 VIEW ROUTINE CLINICAL HISTORY: 72 years-old Male presenting with eval for fx, fall, low back pain, weakness. TECHNIQUE: Single frontal view of the pelvis was obtained. COMPARISON: CT from 09/05/2015. FINDINGS: Posterior lumbar fusion hardware at L3-4 with interbody spacer and L3 laminectomy defect now evident. Arcuate lines of the sacrum intact. Sacroiliac joints, hip joints, and pubic symphysis congruent. Bony pelvis intact. Femoral necks grossly intact. IMPRESSION: No radiographic evidence of acute osseous injury of the pelvis. Electronically signed by: Gilberto Almeida M.D. 07/08/2017 10:56 PM EKG NSR, 71bpm, RBB, unchanged from previous Impression Assessment and Plan 72yo male with history of lumbar spinal stenosis s/p laminectomy, s/p fusion presenting with worsening back pain after mechanical fall at home 1. Back pain - acute on chronic, after mechanical fall. X-ray without evidence of osseous injury. No neurologic deficits appreciated on exam. -Pain control with Morphine 1mg IV q 3 hours PRN -Lidoderm patch -Nausea control with Zofran -Consultation with Orthopedic surgery, possible injection in AM. Appreciate assistance with this case -PT/OT and social work consultation - patient may benefit from additional PT on discharge 2. Diabetes - patient reports adequate control with Metformin at home. BS presently 121 -Hold metformin -ISS -Diabetic diet as tolerated -Continue ASA and Statin 3. Suicidal ideation and depression- patient has expressed suicidal ideation in the past, has had prior attempts. States that when his pain gets bad he thinks about ending his life. He presently is without a plan and has verbally contracted for safety while in the hospital. -1:1 sitter for overnight -Continue Effexor 300mg daily -Psychiatry consultation in the AM to assist with depression management 4. Explosive personality disorder/PTSD - -Continue Depakote 1000mg daily, Seroquel HS 5. F/E/N - heplock, electrolytes within normal limits, diabetic diet as tolerated 6. Ppx - DUDLEY stockings, possible procedure in AM 7. Code - DNR per discussion with patient 8. Dispo - Observation to medical floor for pain management Resuscitation Status DNR VTE Prophylaxis Will order VTE Prophylaxis: Yes
[2017-07-09] MEDS ORDERED: IV FLUIDS COMPLETED PRN (02:00)
[2017-07-09] MEDS: VENLAFAXINE HCL XR 150 MG CAPXR PO SCH (08:55)
[2017-07-09] MEDS: ATORVASTATIN 20 MG TAB PO SCH (08:55)
[2017-07-09] MEDS: LIDODERM (LIDOCAINE) PATCH 5% TD SCH (08:56)
[2017-07-09] MEDS: DONEPEZIL HCL 10 MG TAB PO SCH ×2 (08:56→20:46)
--- NOTE | 2017-07-09 08:59 | Orthopedic Consultation ---
Orthopedic Consultation Date of Consultation: July 09, 2017. Attending Physician: Keisha Ames D.O. Reason for Consultation: Back pain History of Present Illness This is a 72-year-old male well-known to me the presents with marked decline in status consistent with right sacroiliitis. This is been limiting for several months. He had undergone a diagnostic therapeutic injection approximately 2 weeks ago. He had significant improvement after the injection. Unfortunately the medication is worn off and is now debilitated again. It creates marked limitations with ambient ambulation and pain control. He has no complaints of radicular symptoms or leg pain today. Past Medical/Surgical History Medical Problems: (1) Acute exacerbation of chronic low back pain Status: Acute (2) Ambulatory dysfunction Status: Acute (3) Back pain Status: Acute (4) Blurry vision, bilateral Status: Acute (5) Fall Status: Acute (6) Fall Status: Acute (7) Fever Status: Acute (8) Hyperglycemia Status: Acute (9) Hypoxia Status: Acute (10) Low back pain Status: Acute (11) Pneumonia Status: Acute (12) Weakness Status: Acute (13) Weakness Status: Acute Family History Anxiety disorder Diabetes mellitus Hypertension Social History Smoking Status: Never Smoker Alcohol Use: none Drug Use: none Marital Status: Housing Status: lives with family Occupation Status: retired Allergies Coded Allergies: Penicillins (Verified Allergy, Severe, SWELL UP,HIVES, 10/27/16) SWELLS UP, HIVES Sulfa Antibiotics (Verified Allergy, Unknown, unknown, 10/27/16) Home Medications Scheduled Aspirin (Aspirin Ec), 81 MG PO DAILY Atorvastatin (Lipitor), 20 MG PO DAILY Carbidopa/Levodopa (Sinemet Cr 50MG/200MG), 1 TAB PO TID Divalproex Sodium (Divalproex Sodium Dr), 1,000 MG PO HS Donepezil HCl (Donepezil HCl), 10 MG PO BID Lamotrigine (Lamictal), 100 MG PO DAILY Metformin Hcl (Metformin Hcl Er), 500 MG PO QAM Metformin Hcl (Glucophage), 1,000 MG PO QPM Quetiapine Fumarate (Seroquel), 25 MG PO DAILY Venlafaxine Hcl (Effexor Extended Rel), 300 MG PO DAILY Current Inpatient Medications Current Inpatient Medications Medications (Trade) Dose Ordered Sig/Maria De Jesus Route Start Time Stop Time Status Last Admin Dose Admin Ondansetron HCl (Zofran Inj) 4 mg Q6H PRN IV 07/09/17 00:45 08/08/17 00:44 Insulin Aspart (novoLOG ASPART) SLIDING SCALE If C... ACHS SC 07/09/17 07:00 08/08/17 06:59 Glucose (Glucose 40% Gel) 15-30 GRAMS 15 GRAMS... UD PRN PO 07/09/17 00:45 08/08/17 00:44 Glucose (Glucose Chew Tab) 4-8 Tablets 4 Tabl... UD PRN PO 07/09/17 00:45 08/08/17 00:44 Dextrose (Dextrose 50% 50ML Syringe) 25-50ML 25ML FOR ... UD PRN IV 07/09/17 00:45 08/08/17 00:44 Glucagon (Glucagon Inj) 1 mg UD PRN SQ 07/09/17 00:45 08/08/17 00:44 Carbohydrates (Carbohydrates For Hypoglycemia) 15-30 GRAMS 15 grams if BSG 54-69... UD PRN PO 07/09/17 00:45 08/08/17 00:44 Aspirin (Ecotrin Tab) 81 mg DAILY PO 07/09/17 09:00 08/08/17 08:59 Atorvastatin Calcium (Lipitor Tab) 20 mg DAILY PO 07/09/17 09:00 08/08/17 08:59 Divalproex Sodium (Depakote Delay Rel Tab) 1,000 mg HS PO 07/09/17 21:00 08/08/17 20:59 Donepezil HCl (Aricept Tab) 10 mg BID PO 07/09/17 09:00 08/08/17 08:59 Quetiapine Fumarate (seroQUEL TAB) 25 mg DAILY PO 07/09/17 09:00 08/08/17 08:59 Venlafaxine HCl (effeXOR EXTENDED REL CAP) 300 mg DAILY PO 07/09/17 09:00 08/08/17 08:59 Morphine Sulfate (MoRPHine SULFATE INJ) 1 mg Q3HWA PRN IV 07/09/17 00:45 07/23/17 00:44 Lidocaine (Lidoderm Patch 5%) 1 patch QAM TD 07/09/17 09:00 08/08/17 08:59 Miscellaneous (Remove Lidoderm Patch) 1 ea DAILY@21 N/A 07/09/17 21:00 08/08/17 20:59 Miscellaneous (Iv Fluids Completed) 1 ea PRN PRN N/A 07/09/17 02:00 07/09/18 01:59 Physical Exam Date Time Temp Pulse Resp B/P (MAP) Pulse Ox O2 Delivery O2 Flow Rate FiO2 07/09/17 08:07 Room Air 07/09/17 07:07 36.6 60 16 129/81 (97) 94 Room Air 07/09/17 02:26 36.6 67 16 125/71 92 Room Air 07/09/17 01:48 Room Air 07/09/17 01:41 36.7 67 16 112/74 95 07/09/17 01:40 67 16 112/74 95 Room Air 07/09/17 00:43 67 16 07/09/17 00:38 82 17 07/09/17 00:33 66 15 07/09/17 00:28 67 12 07/09/17 00:23 71 12 07/09/17 00:18 67 14 07/09/17 00:13 77 14 07/09/17 00:08 64 17 07/09/17 00:03 62 18 07/08/17 23:58 63 14 07/08/17 23:53 61 10 07/08/17 23:48 63 11 07/08/17 23:43 64 10 07/08/17 23:38 82 18 07/08/17 23:33 88 16 07/08/17 23:28 74 10 07/08/17 23:23 64 18 07/08/17 23:18 74 17 07/08/17 23:13 63 17 07/08/17 23:08 63 18 07/08/17 23:03 62 17 07/08/17 22:58 69 15 07/08/17 22:53 70 13 07/08/17 22:48 69 07/08/17 22:34 67 07/08/17 22:33 65 16 07/08/17 21:25 36.7 76 18 107/73 94 Room Air On exam he is neurologically intact testing the lower extremities. He is significant tenderness palpation of the right SI joint. Laboratory Results Last 24 Hours Test 07/08/17 22:15 07/08/17 22:23 White Blood Count 5.66 K/uL Red Blood Count 4.66 M/uL Hemoglobin 15.2 g/dL Hematocrit 44.2 % Mean Corpuscular Volume 94.8 fL Mean Corpuscular Hemoglobin 32.6 pg Mean Corpuscular Hemoglobin Concent 34.4 g/dl Platelet Count 209 K/uL Mean Platelet Volume 10.1 fL Neutrophils (%) (Auto) 47.3 % Lymphocytes (%) (Auto) 39.2 % Monocytes (%) (Auto) 9.5 % Eosinophils (%) (Auto) 3.4 % Basophils (%) (Auto) 0.4 % Neutrophils # (Auto) 2.68 K/uL Lymphocytes # (Auto) 2.22 K/uL Monocytes # (Auto) 0.54 K/uL Eosinophils # (Auto) 0.19 K/uL Basophils # (Auto) 0.02 K/uL RDW Standard Deviation 44.5 fL RDW Coefficient of Variation 12.8 % Immature Granulocyte % (Auto) 0.2 % Immature Granulocyte # (Auto) 0.01 K/uL Prothrombin Time 10.5 SECONDS Prothromb Time International Ratio 1.0 Activated Partial Thromboplast Time 26.6 SECONDS Partial Thromboplastin Ratio 1.0 Sodium Level 139 mmol/L Potassium Level 4.4 mmol/L Chloride Level 105 mmol/L Carbon Dioxide Level 28 mmol/L Anion Gap 6.0 mmol/L Blood Urea Nitrogen 18 mg/dl Creatinine 0.90 mg/dl Est Creatinine Clear Calc Drug Dose 78.5 ml/min Estimated GFR () 99.9 Estimated GFR (Non- 86.2 BUN/Creatinine Ratio 19.5 Random Glucose 121 mg/dl Calcium Level 8.6 mg/dl Chemistry Specimen Hemolysis Bedside Troponin I < 0.030 ng/ml Assessment & Plan Assessment right sacroiliitis. Plan at this time he is markedly debilitated. We have confirmed the diagnosis with injection. In light of his limitation we are recommending right SI joint fusion. Risks benefits pros cons and alternatives were outlined in detail. We will plan for surgery tomorrow if cleared.
[2017-07-09] MEDS: INSULIN ASPART 100 UNITS/ML 3 ML PEN SC SCH ×4 (09:00→20:40)
[2017-07-09] MEDS ORDERED: ASPIRIN 81 MG ECTAB PO SCH (09:00)
[2017-07-09] MEDS ORDERED: QUETIAPINE FUMARATE 25 MG TAB PO SCH (09:00)
--- NOTE | 2017-07-09 10:56 | Psychiatric Consultation ---
Consultation Date of Consultation July 09, 2017. Identifying Data 72-year-old male who presented with back pain to the emergency department yesterday. He has a history of lumbar stenosis, disc herniation at L3-L4 and prior laminectomy with Dr. Shepard in May 2016 and further revisions in October 2016. He was admitted medically for further management. We are consulted to evaluate depression and statements of suicidal ideation. Information is gathered from the patient and the electronic medical record and considered to be reliable. Chief Complaint "It all comes back to the pain. ". History of Present Illness Mr. Gibbs is a 72-year-old gentleman who reports he has been having back problems with severe pain for more than a year. As per the medical record, he had lumbar stenosis, recurrent disc herniation at L3-L4 and had a laminectomy in May 2016 and revision with decompression and spinal fusion in October of 2016. He recently had a worsening of his pain, saw Dr. Christina in the outpatient clinic who began spinal injections for pain control. This has not been effective, he has continued to be in pain and has been experiencing additional falls. At the time he presented to the emergency department yesterday, he had experienced a fall and rated his pain 10 out of 10. During that evaluation, he admitted that he has been having thoughts of suicide and so consultation with our service was placed. Today the patient is seen in his room. He is lying on his right hand side. He appears to be comfortable and says he is getting IV pain medication which is been beneficial. He admits that he has been having suicidal thoughts for the last month or more, all related to his back pain. He has thoughts like "what the hell?", Meaning that if he is going to be in pain Y continue to live. He has made no recent attempts on his life although about 1 year ago he did attempt to cut his wrist in a suicide attempt. He currently sees Dr. Hadley Kwan who treats him for diagnoses of depression and intermittent explosive disorder. He last saw Dr. Kwan on June 17 on an urgent basis. At that time he was having suicidal ideation. Dr. Kwan adjusted his Seroquel 200 mg at bedtime to address some of the increasing irritability which generally leads to his explosiveness. Mr. Gibbs reports that his sleep has not been good secondary to his pain. His appetite has been fair to none again related to his level of pain. He has been using opiates at home for pain but generally they put him to sleep for 3 hours or so and then the pain returns. He reports having anxiety "a little" and usually triggered by arguing. He admits to being more irritable with a chronic high degree pain. He does say that he has some good days but nothing that would equate to a manic episode. He says that he feels safe here in the hospital and is hopeful that surgery, which he tells me is planned for tomorrow, will improve his current condition. Past Psychiatric History Current OP Treatment: psychiatrist (Dr. Kwan) Prior OP Treatment: therapist Prior Psych Hospitalizations: [facility], other ([place]) Access to a Gun: No Suicide Attempts: Yes Past Medical/Surgical History History of Concussion/Seizure: Yes (closed head trauma in 2005 when he fell from a tree) (1) Lumbar stenosis with neurogenic claudication (2) Diabetes (3) Low back pain Allergies Allergies: Coded Allergies: Penicillins (Verified Allergy, Severe, SWELL UP,HIVES, 10/27/16) SWELLS UP, HIVES Sulfa Antibiotics (Verified Allergy, Unknown, unknown, 10/27/16) Home Medications Scheduled Aspirin (Aspirin Ec), 81 MG PO DAILY Atorvastatin (Lipitor), 20 MG PO DAILY Carbidopa/Levodopa (Sinemet Cr 50MG/200MG), 1 TAB PO TID Divalproex Sodium (Divalproex Sodium Dr), 1,000 MG PO HS Donepezil HCl (Donepezil HCl), 10 MG PO BID Lamotrigine (Lamictal), 100 MG PO DAILY Metformin Hcl (Metformin Hcl Er), 500 MG PO QAM Metformin Hcl (Glucophage), 1,000 MG PO QPM Quetiapine Fumarate (Seroquel), 25 MG PO DAILY Venlafaxine Hcl (Effexor Extended Rel), 300 MG PO DAILY Family History Anxiety disorder Diabetes mellitus Hypertension History of Suicide: No History of Substance Abuse: Yes (nephew) Psychiatric History: Yes (Uncle with depession) Alcohol Use Alcohol Use In Past 12 Months: No Smoking Use Smoking Status: Never Smoker Substance History denies Personal History Lives in: [place] with his Childhood: Raised by both parents, locally. 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, and then at [email or web address] until his accident in 2005, and is now on disability Relationship History: Children: 4 Spiritual Affiliation: Worship Legal History: none Psychological Trauma History: Denies Hx Traumatic Event Review of Systems Constitutional: malaise Eyes: denies: no symptoms, as stated in HPI, eye pain, tearing, itching, redness, discharge, double vision, visual changes, blurred vision, photophobia, other ENT: denies: no symptoms reported, see HPI, ear pain, ear discharge, loss of hearing, tinnitus, nasal pain, nasal congestion, rhinorrhea, epistaxis, sore throat, stidor, throat swelling, mouth pain, mouth swelling, dental pain, gum swelling, other Cardiovascular: denies: no symptoms reported, see HPI, chest pain, chest tightness, chest pressure, diaphoresis, palpitations, syncope, other Respiratory: denies: no symptoms reported, see HPI, cough, orthopnea, short of breath, stridor, wheezing, sputum production, cyanosis, [place], PND, other Gastrointestinal: denies no symptoms reported, denies see HPI, denies abdominal pain, denies constipation, denies diarrhea, denies nausea, denies vomiting, denies other Genitourinary - Male: denies: no symptoms, see HPI, rash, amenorrhea, penile itching, penile discharge, testicular pain, testicular swelling, impotence, other Musculoskeletal: back pain (rated 7/10) Integumentary: denies no symptoms reported, denies see HPI, denies change in color, denies change in hair/nails, denies dryness, denies lesions, denies lumps , denies rash, denies other Neurologic: denies: no symptoms, see HPI, headache, numbness, paresthesias, pre -existing deficit, seizure, tingling, tremors, general weakness, tics, focal weakness, vertigo, lethargy, memory loss, dizziness, other Hematologic / Lymphatic: denies: no symptoms, as stated in HPI, abnormal clotting, adenopathy, anemia, easy bleeding, easy bruising, gums bleeding, petechiae, other Examination Vital Signs Vital Signs Past 12 Hours Date Time Temp Pulse Resp B/P (MAP) Pulse Ox O2 Delivery O2 Flow Rate FiO2 5/10/18 08:07 Room Air 07/09/17 07:07 36.6 60 16 129/81 (97) 94 Room Air 07/09/17 02:26 36.6 67 16 125/71 92 Room Air 07/09/17 01:48 Room Air 07/09/17 01:41 36.7 67 16 112/74 95 07/09/17 01:40 67 16 112/74 95 Room Air 07/09/17 00:43 67 16 07/09/17 00:38 82 17 07/09/17 00:33 66 15 07/09/17 00:28 67 12 07/09/17 00:23 71 12 07/09/17 00:18 67 14 07/09/17 00:13 77 14 07/09/17 00:08 64 17 07/09/17 00:03 62 18 07/08/17 23:58 63 14 07/08/17 23:53 61 10 07/08/17 23:48 63 11 07/08/17 23:43 64 10 07/08/17 23:38 82 18 07/08/17 23:33 88 16 07/08/17 23:28 74 10 07/08/17 23:23 64 18 07/08/17 23:18 74 17 07/08/17 23:13 63 17 07/08/17 23:08 63 18 07/08/17 23:03 62 17 07/08/17 22:58 69 15 07/08/17 22:53 70 13 07/08/17 22:48 69 07/08/17 22:34 67 07/08/17 22:33 65 16 Laboratory Results Last 24 Hours Test 07/08/17 22:15 07/08/17 22:23 White Blood Count 5.66 K/uL Red Blood Count 4.66 M/uL Hemoglobin 15.2 g/dL Hematocrit 44.2 % Mean Corpuscular Volume 94.8 fL Mean Corpuscular Hemoglobin 32.6 pg Mean Corpuscular Hemoglobin Concent 34.4 g/dl Platelet Count 209 K/uL Mean Platelet Volume 10.1 fL Neutrophils (%) (Auto) 47.3 % Lymphocytes (%) (Auto) 39.2 % Monocytes (%) (Auto) 9.5 % Eosinophils (%) (Auto) 3.4 % Basophils (%) (Auto) 0.4 % Neutrophils # (Auto) 2.68 K/uL Lymphocytes # (Auto) 2.22 K/uL Monocytes # (Auto) 0.54 K/uL Eosinophils # (Auto) 0.19 K/uL Basophils # (Auto) 0.02 K/uL RDW Standard Deviation 44.5 fL RDW Coefficient of Variation 12.8 % Immature Granulocyte % (Auto) 0.2 % Immature Granulocyte # (Auto) 0.01 K/uL Prothrombin Time 10.5 SECONDS Prothromb Time International Ratio 1.0 Activated Partial Thromboplast Time 26.6 SECONDS Partial Thromboplastin Ratio 1.0 Sodium Level 139 mmol/L Potassium Level 4.4 mmol/L Chloride Level 105 mmol/L Carbon Dioxide Level 28 mmol/L Anion Gap 6.0 mmol/L Blood Urea Nitrogen 18 mg/dl Creatinine 0.90 mg/dl Est Creatinine Clear Calc Drug Dose 78.5 ml/min Estimated GFR () 99.9 Estimated GFR (Non- 86.2 BUN/Creatinine Ratio 19.5 Random Glucose 121 mg/dl Calcium Level 8.6 mg/dl Chemistry Specimen Hemolysis Bedside Troponin I < 0.030 ng/ml Mental Examination During interview pt is: alert and oriented, cooperative Appearance: appropriately groomed Eye contact is: good Motor behavior is: no abnormal motor movements Speech: normal in rate, rhythm & volume Affect: flat Mood is: depressed Thought process: goal directed Thought content: reality based without delusions Suicidal thought are: present, Plan: denied, Intent: denied Homicidal thoughts are: denied Hallucinations: denies auditory, denies visual Cognition: memory grossly intact, attention grossly intact, language grossly intact Intelligence estimated to be: average Insight: fair Judgement: fair Impression / Recommendations Impression 72-year-old man with recent spinal stenosis and surgeries, admitted medically due to worsening pain and falls. The patient says that he is scheduled for surgery tomorrow and is hopeful this will help improve his pain. He admits to being depressed and having suicidal thoughts in the setting of chronic pain but denies any plan or intent. I have confirmed his medications with his outpatient psychiatrist and will take the liberty of correcting his Seroquel which is actually 100 mg at bedtime. All his other medications have been ordered appropriately. I do not think the patient is a candidate for inpatient mental health treatment given his medical conditions and plans for surgery however we will follow along loosely and if at the time he is medically cleared for discharge he continues to have suicidal thoughts and has active plan or intent then we will reevaluate. Inventory Assets Strengths: , hopeful for surgery Risk Factors Assessment Male: Yes : Yes /single/: No Higher / Fall in social status: No Access to guns: No Health problems: Yes Mental Health Diagnoses: Yes Substance use disorders: No Previous attempt: Yes Previous psychiatric stay: Yes Hopelessness: No Smoker: No Recommendations (1) Major depressive disorder, recurrent, moderate 07/09 - Continue OP psychiatric meds. I will correct Seroquel dosing - Have patient sign a release for information to be sent to Dr. Kwan -Patient hopeful for surgery, but if at the time he is medically cleared for discharge, he continues with SI, P/I, will re-evaluate for inpatient treatment (2) Intermittent explosive disorder in adult 07/09 - Continue OP meds - It is reasonable to expect that he will be more irritable with increase in pain. Dr. Margarette Diaz has personally been involved in the review of this case and development of these recommendations.
[2017-07-09] MEDS ORDERED: MoRPHine SULFATE 2 MG/ML CARP ONE (13:07)
[2017-07-09] MEDS ORDERED: NURSING VERBAL MED ORDER ONE (13:15)
[2017-07-09] MEDS ORDERED: MoRPHine SULFATE 2 MG/ML CARP IV PRN (13:15)
--- NOTE | 2017-07-09 14:10 | Medical Student: [facility] ---
Med Student Progress Note Date of Service July 09, 2017. Subjective Pain: Currently 8/10 PO Intake: Adequate Voiding: no voiding problems This is a 72-year-old man with a history of chronic low back pain secondary to lumbar spinal stenosis and disc herniation s/p microdiscectomy of L3-4 in May of 2016, revision decompression and spinal fusion in October of 2016, and steroid injections. He had his last injection a few weeks ago and had relief until this last week. He has been falling more often over the past few years with increasing frequency. He also has a history of major depressive disorder with a suicide attempt by cutting his wrists about 5-6 years ago. He presented to [facility] after having a fall that caused him to have 10/10 pain in his low back that did not radiate. He has no numbness, tingling, radicular pain , or problems urinating. He has not had a bowel movement in 24 hours however. The pain is predominantly right sided and is worsened with any movement. He also endorses weakness. He has been receiving 1mg of morphine q3 hours which has brought his pain down to a 8/10. Radiographs in the ED showed no osseous injury in the lumbar spine or pelvis. He has had suicidal ideation, which he feels is secondary to pain. When asked if his pain decreased would his ideation decrease, he says yes. He has been consulted by orthopedics and psychiatry. Orthopedics diagnosed sacroiliitis and plans to administer another injection in the OR tomorrow. Psychiatry discovered an error in his quetiapine dosing after contacting his psychiatrist, Dr. Kwan, and corrected accordingly. Review of Systems Constitutional: No fever, No chills Respiratory: No shortness of breath Cardiac: No chest pain Abdomen: + constipation, No nausea, No vomiting, No diarrhea Musculoskeletal: + problem reported (back pain) Male : No dysuria Neurologic: + weakness, No numbness/tingling Psychiatric: + depression symptoms, + problem reported (some suicidal ideation , secondary to intractable pain) Objective Vital Signs Date Time Temp Pulse Resp B/P (MAP) Pulse Ox O2 Delivery O2 Flow Rate FiO2 07/09/17 11:12 36.8 67 18 120/72 (88) 94 Room Air 07/09/17 08:07 Room Air 07/09/17 07:07 36.6 60 16 129/81 (97) 94 Room Air 07/09/17 02:26 36.6 67 16 125/71 92 Room Air 07/09/17 01:48 Room Air 07/09/17 01:41 36.7 67 16 112/74 95 07/09/17 01:40 67 16 112/74 95 Room Air 07/09/17 00:43 67 16 07/09/17 00:38 82 17 07/09/17 00:33 66 15 07/09/17 00:28 67 12 07/09/17 00:23 71 12 07/09/17 00:18 67 14 07/09/17 00:13 77 14 07/09/17 00:08 64 17 07/09/17 00:03 62 18 07/08/17 23:58 63 14 07/08/17 23:53 61 10 07/08/17 23:48 63 11 07/08/17 23:43 64 10 07/08/17 23:38 82 18 07/08/17 23:33 88 16 07/08/17 23:28 74 10 07/08/17 23:23 64 18 07/08/17 23:18 74 17 07/08/17 23:13 63 17 07/08/17 23:08 63 18 07/08/17 23:03 62 17 07/08/17 22:58 69 15 07/08/17 22:53 70 13 07/08/17 22:48 69 07/08/17 22:34 67 07/08/17 22:33 65 16 07/08/17 21:25 36.7 76 18 107/73 94 Room Air Physical Exam General Appearance: WD/WN, no apparent distress Eyes: bilateral eyes normal inspection Respiratory/Chest: normal breath sounds (at apex), + crackles (at bases bilaterally) Cardiovascular: regular rate, rhythm, no gallop, no murmur Abdomen: normal bowel sounds, non tender, soft Extremities: non-tender, no pedal edema Neurologic/Psychiatric: alert, + pertinent finding (patellar and achilles reflexes are 2+. Stength is 4+/5 in proximal and distal lower extremities bilaterally. Negative straight leg raise bilaterally) Laboratory Results Last 24 Hours Test 07/08/17 22:15 07/08/17 22:23 07/09/17 08:08 White Blood Count 5.66 K/uL Red Blood Count 4.66 M/uL Hemoglobin 15.2 g/dL Hematocrit 44.2 % Mean Corpuscular Volume 94.8 fL Mean Corpuscular Hemoglobin 32.6 pg Mean Corpuscular Hemoglobin Concent 34.4 g/dl Platelet Count 209 K/uL Mean Platelet Volume 10.1 fL Neutrophils (%) (Auto) 47.3 % Lymphocytes (%) (Auto) 39.2 % Monocytes (%) (Auto) 9.5 % Eosinophils (%) (Auto) 3.4 % Basophils (%) (Auto) 0.4 % Neutrophils # (Auto) 2.68 K/uL Lymphocytes # (Auto) 2.22 K/uL Monocytes # (Auto) 0.54 K/uL Eosinophils # (Auto) 0.19 K/uL Basophils # (Auto) 0.02 K/uL RDW Standard Deviation 44.5 fL RDW Coefficient of Variation 12.8 % Immature Granulocyte % (Auto) 0.2 % Immature Granulocyte # (Auto) 0.01 K/uL Prothrombin Time 10.5 SECONDS Prothromb Time International Ratio 1.0 Activated Partial Thromboplast Time 26.6 SECONDS Partial Thromboplastin Ratio 1.0 Sodium Level 139 mmol/L Potassium Level 4.4 mmol/L Chloride Level 105 mmol/L Carbon Dioxide Level 28 mmol/L Anion Gap 6.0 mmol/L Blood Urea Nitrogen 18 mg/dl Creatinine 0.90 mg/dl Est Creatinine Clear Calc Drug Dose 78.5 ml/min Estimated GFR () 99.9 Estimated GFR (Non- 86.2 BUN/Creatinine Ratio 19.5 Random Glucose 121 mg/dl Calcium Level 8.6 mg/dl Chemistry Specimen Hemolysis Bedside Troponin I < 0.030 ng/ml Bedside Glucose 99 mg/dl Assessment and Plan Assessment and Plan: This is a 72-year-old man with a history of chronic low back pain secondary to lumbar spinal stenosis and disc herniation s/p microdiscectomy of L3-4 in May of 2016, revision decompression and spinal fusion in October of 2016, and steroid injections who presented after a fall with severe low back pain causing suicidal ideation. Consult from ortho reveals R sacroiliitis and plan to undergo SI joint fusion. ACUTE ON CHRONIC LOW BACK PAIN: SACROILIITIS, LUMBAR SPINAL STENOSIS He has a history of lumbar spinal stenosis and disc herniation requiring lumbar spinal surgeries and steroid injections. Radiographs in the ED show no fracture , and ortho's assessment revealed sacroiliitis and plans to under right SI joint fusion. In the mean time, we will control his pain medically as following: He has been taking 5mg oxycodone 3-4 times daily recently. We will restart this PRN in addition to increasing morphine to 3 mg q4 PRN pain. We have added ondansetron PRN nausea. Continue lidocaine patch on lumbar spine. We will initiate senna and docusate for a bowel regimen. He will remain NPO after midnight in preparation for surgery. Of note, crackles were heard in the right lung base on exam. Chest x-ray shows mild RLL atelectasis but no other acute changes. Review of the medical record reveals a prior CT of the chest which showed several right lung nodules and shotty nodes. MAJOR DEPRESSIVE DISORDER WITH SUICIDAL IDEATION / INTERMITTENT EXPLOSIVE DISORDER / PTSD He reports he is currently doing "fine" and would have decreased suicidal thoughts if his pain were better controlled. We have increased his morphine dose to help regain control of his pain. Surgery tomorrow should also decrease pain. Psychiatry has made no changes to his outpatient medications with the exception of correcting his quetiapine dose to 100mg QHS. We will continue depakote 1000mg and venlafaxine 300mg. His irritability is worse with pain, but says he feels well currently. Psychiatry will re-evaluate post surgery. DIABETES MELLITUS We have held metformin as he prepares for surgery and will continue sliding scale insulin while admitted. Continue diabetic diet. HYPERLIPIDEMIA Continue statin. Hold aspirin tomorrow AM. UNSPECIFIED DEMENTIA Continue donepezil DVT PROPHYLAXIS Continue to wear DUDLEY stockings. DISPOSITION Admitted to med/surg in preparation for OR in the AM. Anticipate discharge to a rehabilitation facility as he has been bedridden the past few months due to weakness, and we expect further debilitation after surgery.
[2017-07-09] MEDS ORDERED: QUET1TAB7 PO (15:38)
[2017-07-09] MEDS ORDERED: POLYETHYLENE (MIRALAX) 17 GM PACK PO PRN (16:00)
[2017-07-09] MEDS ORDERED: DOCUSATE SODIUM/SENNA 50/8.6MG TAB PO ONE (16:00)
--- NOTE | 2017-07-09 16:10 | Anesthesiology Progress Note ---
Anesthesia Progress Note Date of Service July 09, 2017. Progress Notes This is a 72 y/o w male presenting for lumbar spine surgery.PSHx is sig. for two prior lumbar spine surgeries.PMHx is sig. for HTN,Hyperlipidemia,,NIDDM,PTSD ,Chronic H/A's, Hx/o closed head injuries, Hx/o explosive personality disorder,, Hx/o depression, and chronic lower extremity weakness.Discussed anesthesia w/pt, risks vs benefits ,all questions answered.Informed consent obtained. ASA 3
--- NOTE | 2017-07-09 16:18 | Hospitalist Progress Note ---
Hospitalist Progress Note Date of Service July 09, 2017. Subjective Pt evaluation today including: conversation w/ patient, conversation w/ family Voiding: no voiding problems Patient continues to have pain in the right lower back and sacroiliac region. Denies shooting pains down the legs, denies numbness or tingling. His family reports he has been weak and lying mostly in bed for many months secondary to his severe pain. Denies chest pain or shortness of breath, no abdominal pain. He reports that other than the pain in his back, he could walk up and down flight of stairs without chest pain or shortness of breath. Denies cough. No history of any cardiac or pulmonary issues that he knows of other than some pulmonary nodules many years ago that were followed with serial CT scans. All Other Systems: Reviewed and Negative Objective Vital Signs Date Time Temp Pulse Resp B/P (MAP) Pulse Ox O2 Delivery O2 Flow Rate FiO2 07/09/17 16:08 94 Room Air 07/09/17 11:12 36.8 67 18 120/72 (88) 94 Room Air 07/09/17 08:07 Room Air 07/09/17 07:07 36.6 60 16 129/81 (97) 94 Room Air 07/09/17 02:26 36.6 67 16 125/71 92 Room Air 07/09/17 01:48 Room Air 07/09/17 01:41 36.7 67 16 112/74 95 07/09/17 01:40 67 16 112/74 95 Room Air 07/09/17 00:43 67 16 07/09/17 00:38 82 17 07/09/17 00:33 66 15 07/09/17 00:28 67 12 07/09/17 00:23 71 12 07/09/17 00:18 67 14 07/09/17 00:13 77 14 07/09/17 00:08 64 17 07/09/17 00:03 62 18 07/08/17 23:58 63 14 07/08/17 23:53 61 10 07/08/17 23:48 63 11 07/08/17 23:43 64 10 07/08/17 23:38 82 18 07/08/17 23:33 88 16 07/08/17 23:28 74 10 07/08/17 23:23 64 18 07/08/17 23:18 74 17 07/08/17 23:13 63 17 07/08/17 23:08 63 18 07/08/17 23:03 62 17 07/08/17 22:58 69 15 07/08/17 22:53 70 13 07/08/17 22:48 69 07/08/17 22:34 67 07/08/17 22:33 65 16 07/08/17 21:25 36.7 76 18 107/73 94 Room Air Physical Exam General Appearance: WD/WN, no apparent distress (Flat affect) Eyes: normal inspection, sclerae normal ENT: hearing grossly normal Neck: trachea midline Respiratory/Chest: no respiratory distress, no accessory muscle use, + crackles (Coarse at the right lower lung field, otherwise clear) Cardiovascular: regular rate, rhythm, no edema, no gallop, no murmur Abdomen: normal bowel sounds, non tender, soft Extremities: normal range of motion, non-tender, normal inspection, no pedal edema, no calf tenderness Neurologic/Psychiatric: no motor/sensory deficits, alert, + pertinent finding ( 5/5 strength in lower extremities bilaterally, 2+ DTRs in patellar and Achilles bilaterally and symmetric, negative straight leg raise bilaterally) Skin: normal color, warm/dry, no rash Laboratory Results Last 24 Hours Test 07/08/17 22:15 07/08/17 22:23 07/09/17 08:08 White Blood Count 5.66 K/uL Red Blood Count 4.66 M/uL Hemoglobin 15.2 g/dL Hematocrit 44.2 % Mean Corpuscular Volume 94.8 fL Mean Corpuscular Hemoglobin 32.6 pg Mean Corpuscular Hemoglobin Concent 34.4 g/dl Platelet Count 209 K/uL Mean Platelet Volume 10.1 fL Neutrophils (%) (Auto) 47.3 % Lymphocytes (%) (Auto) 39.2 % Monocytes (%) (Auto) 9.5 % Eosinophils (%) (Auto) 3.4 % Basophils (%) (Auto) 0.4 % Neutrophils # (Auto) 2.68 K/uL Lymphocytes # (Auto) 2.22 K/uL Monocytes # (Auto) 0.54 K/uL Eosinophils # (Auto) 0.19 K/uL Basophils # (Auto) 0.02 K/uL RDW Standard Deviation 44.5 fL RDW Coefficient of Variation 12.8 % Immature Granulocyte % (Auto) 0.2 % Immature Granulocyte # (Auto) 0.01 K/uL Prothrombin Time 10.5 SECONDS Prothromb Time International Ratio 1.0 Activated Partial Thromboplast Time 26.6 SECONDS Partial Thromboplastin Ratio 1.0 Sodium Level 139 mmol/L Potassium Level 4.4 mmol/L Chloride Level 105 mmol/L Carbon Dioxide Level 28 mmol/L Anion Gap 6.0 mmol/L Blood Urea Nitrogen 18 mg/dl Creatinine 0.90 mg/dl Est Creatinine Clear Calc Drug Dose 78.5 ml/min Estimated GFR () 99.9 Estimated GFR (Non- 86.2 BUN/Creatinine Ratio 19.5 Random Glucose 121 mg/dl Calcium Level 8.6 mg/dl Chemistry Specimen Hemolysis Bedside Troponin I < 0.030 ng/ml Bedside Glucose 99 mg/dl Diagnostic Results Chest x-ray images personally reviewed by me and a little bit of platelike atelectasis in the right lower lobe, otherwise normal Assessment and Plan This patient is a 72yo male with history of lumbar spinal stenosis s/p laminectomy and fusion, chronic lower back pain with ambulatory dysfunction and multiple falls, major depressive disorder with history of suicidal attempt, intermittent explosive disorder, PTSD, DM 2, and mild cognitive impairment presenting with worsening back pain and lower extremity weakness after mechanical fall at home. 1. Right sided sacroiliitis-acute on chronic, after mechanical fall. X-ray without evidence of osseous injury. No neurologic deficits appreciated on exam. No radicular symptoms. Seen by orthopedics and recommended right sacroiliac fusion. Had a diagnostic injection 2 weeks ago that did help temporarily at the right SI joint -Continue pain control with Morphine and increased dose to 3 mg IV every 4 hours as needed, add on p.o. oxycodone 5 mg p.o. every 4 hours as needed -Continue Lidoderm patch -Nausea control with Zofran as needed -Plan for sacroiliac fusion tomorrow -PT/OT and social work consultation -will need rehab placement-family and patient prefer [facility] -The patient can easily achieve 4 METS without chest pain or shortness of breath , no cardiac history at all, ECG reviewed here and is acceptable. Chest x-ray performed for right lower lung field crackles and is without significant findings, not hypoxic. Renal function is normal. The patient is at medically acceptable average perioperative risk for this intermediate risk procedure and should proceed with surgery. 2. DM 2, controlled, not on long-term insulin-patient reports adequate control with Metformin at home. Blood glucose levels have been controlled here. Hemoglobin A1c 7.1% in 04/2017 -Hold metformin while inpatient -ISS -Diabetic diet as tolerated -Continue statin -Holding aspirin for surgery -Check hemoglobin A1c 3. Major depressive disorder with history of suicide attempt/current suicidal ideation/PTSD/intermittent explosive disorder- patient has expressed suicidal ideation in the past, has had prior attempts. States that when his pain gets bad he thinks about ending his life. He presently is without a plan and has verbally contracted for safety while in the hospital. -1:1 sitter for overnight now discontinued Psychiatry saw him and corrected his Seroquel dose is actually 100 mg at bedtime ; no inpatient stay at this time. Suicidal ideation is passive and related to acute exacerbation of lower back pain. Patient currently hopeful that surgery will help his pain We will have psychiatry reassess for need for inpatient psychiatric stay prior to discharge if still ongoing at that time. -Continue Effexor 300mg daily -Continue Depakote 1000mg daily, Seroquel HS DVT prophylaxis-DUDLEY stockings, SCDs, no chemical prophylaxis for surgery tomorrow Code - DNR per discussion with patient Dispo -remain on surgical floor and will need rehab placement, PT/OT evaluations placed but will likely hold off until postoperative.
[2017-07-09] MEDS: OXYCODONE HCL IR 5 MG TAB (IMMEDIATE RELEASE) PO PRN ×2 (16:37→23:34)
--- NOTE | 2017-07-09 16:40 | DIAGNOSTIC IMAGING REPORT ---
CHEST ONE VIEW PORTABLE CLINICAL HISTORY: 72 years-old Male presenting with right lower lung field crackles-suspect bronchiectasis. TECHNIQUE: Portable upright AP view of the chest was obtained. COMPARISON: 09/04/2016. FINDINGS: Cardiomediastinal silhouette normal. No focal opacity. No large effusion or pneumothorax. Osseous structures normal. Upper abdomen normal. IMPRESSION: 1. No acute cardiopulmonary disease. Electronically signed by: Gilberto Almeida M.D. 07/09/2017 4:39 PM Dictated Date/Time: 07/09/2017 4:38 PM
[2017-07-09] MEDS: QUETIAPINE FUMARATE 100 MG TAB PO SCH (20:46)
[2017-07-09] MEDS: DIVALPROEX SODIUM 500 MG DELAY RELEASE TAB PO SCH (20:47)
[2017-07-09] MEDS: DOCUSATE SODIUM/SENNA 50/8.6MG TAB PO SCH (21:31)
[2017-07-10] VITALS (8 sets, daily range): BP systolic 100–134; BP diastolic 62–84; PULSE 74–98; TEMP 36.4–36.9; O2SAT 91–93
[2017-07-10] MEDS ORDERED: NURSING DECISION MEDICATION ORDER SCH ×2 (00:30→18:00)
[2017-07-10] MEDS: INSULIN ASPART 100 UNITS/ML 3 ML PEN SC SCH ×4 (05:33→20:43)
[2017-07-10 07:34] LABS: BASO % 0.6 %; BASO ABS # 0.04 K/uL (0-0.2); EOS % 3.9 %; EOS ABS # 0.25 K/uL (0-0.5); HEMATOCRIT 44.7 % (42-52); HEMOGLOBIN 15.4 g/dL (14.0-18.0); IG# 0.01 K/uL (0.00-0.02); LYMPH % 47.2 %; LYMPH ABS # 2.99 K/uL (1.2-3.4); MEAN CELL VOLUME 94.7 fL (80-100); MEAN CORPUSCULAR HEMOGLOBIN 32.6 pg (25-34); MEAN CORPUSCULAR HGB CONC 34.5 g/dl (32-36); MEAN PLATELET VOLUME 10.3 fL (7.4-10.4); MONO % 9.6 %; MONO ABS # 0.61 K/uL (0.11-0.59); NEUT % 38.5 %; NEUT ABS # 2.44 K/uL (1.4-6.5); PLATELET COUNT 214 K/uL (130-400); RED CELL DISTRIBUTION WIDTH CV 12.7 % (11.5-14.5); WHITE BLOOD COUNT 6.34 K/uL (4.8-10.8)
[2017-07-10 08:02] LABS: CALCIUM 9.2 mg/dl (8.5-10.1); CREATININE 0.93 mg/dl (0.60-1.40); POTASSIUM 4.1 mmol/L (3.5-5.1)
[2017-07-10 08:27] LABS: HEMOGLOBIN A1C 6.7 % (4.5-5.6)
[2017-07-10] MEDS ORDERED: MIDAZOLAM HCL 1 MG/ML 2ML VIAL ONE (08:28)
[2017-07-10] MEDS ORDERED: FENTANYL CITRATE INJ 50 MCG/1 ML 2 ML VIAL ONE (08:28)
[2017-07-10] MEDS ORDERED: DEXAMETHASONE SOD INJ 4 MG/ML VIAL ONE (08:30)
[2017-07-10] MEDS ORDERED: NEOSTIGMINE METHYLSULFATE 1 MG/ML 10ML VIAL ONE (08:30)
[2017-07-10] MEDS ORDERED: ONDANSETRON INJ 2 MG/ML 2 ML VIAL ONE (08:30)
[2017-07-10] MEDS ORDERED: LIDOCAINE HCL 2% 2 ML VIAL (20MG/ML) ONE (08:30)
[2017-07-10] MEDS ORDERED: PROPOFOL IV EMULSION 10 MG/ML 20 ML VIAL ONE (08:30)
[2017-07-10] MEDS ORDERED: ROCURONIUM BROMIDE 10 MG/ML 5 ML VIAL ONE (08:30)
[2017-07-10] MEDS ORDERED: GLYCOPYRROLATE INJ 0.2 MG/ML VIAL ONE (08:30)
[2017-07-10] MEDS ORDERED: FENTANYL CITRATE INJ 50 MCG/1 ML 2 ML VIAL IV PRN ×2 (08:45→12:30)
[2017-07-10] MEDS ORDERED: ONDANSETRON INJ 2 MG/ML 2 ML VIAL IV PRN ×2 (08:45→12:30)
[2017-07-10] MEDS ORDERED: ATROPINE SULFATE 0.1 MG/ML 5ML SYR IV PRN ×2 (08:45→12:30)
[2017-07-10] MEDS ORDERED: EpHEDrine SULFATE INJ 50 MG/ML AMP IV PRN ×2 (08:45→12:30)
[2017-07-10] MEDS ORDERED: BACITRACIN 50000 UNIT VIAL ONE (10:14)
[2017-07-10] MEDS ORDERED: BUPIVACAINE 0.5 % 5 MG/1 ML MPF 30ML VIAL ONE (10:14)
[2017-07-10] MEDS ORDERED: EpHEDrine SULFATE 50MG/5ML SYR ONE (10:58)
[2017-07-10] MEDS ORDERED: PHENYLEPHRINE 100MCG/ML 5ML SYR ONE (10:58)
[2017-07-10] MEDS ORDERED: EpINEphrine INJ 1MG/ML AMP 1 MG/ML AMP INJ ONE (11:12)
--- NOTE | 2017-07-10 11:25 | [facility] Operative Report ---
Operative Report Operative Date July 10, 2017. Pre-Operative Diagnosis Right sacroiliitis Post-Operative Diagnosis Same Procedure(s) Performed Right SI joint fusion with placement of 3 SI joint screws. Surgeon Dr. Christina Parts Counterman Surgeon(s) Johny Andrew PA-C Estimated Blood Loss 25 cc Specimens none per surgeon Description of Procedure Patient was met with preoperatively case discussed all questions addressed. After informed consent obtained patient was taken to the operative suite underwent intubation and placed in a prone position the Ashwin table the chest pad and hip bolsters. The right upper buttock was then prepped and draped in normal sterile fashion. With the assistance of fluoroscopy in AP and lateral outlet as well as lateral views were identified the right SI joint. A 3 cm incision was then placed in the right upper buttock and I placed a K wire with the assistance of fluoroscopy across the proximal portion of the right SI joint. After confirming my position cannulated up to 10 mm cannula and drilled across the SI joint. The shavings from the drill as well as DBM was impacted into a 15 mm HERNANDEZ-coated slotted 10 mm screw and this was passed across the SI joint. The screw had excellent bite. Then using a guide I placed a distal screw at this 0.45 mm in length again across the SI joint. An HERNANDEZ-coated slotted screw filled with DBM and shavings passed across the joint. Again excellent bite was noted. A third distal screw was then placed this screw 30 mm in length HERNANDEZ-coated slotted screw filled with DBM and local shavings. After placement of all 3 screws and verifying position with fluoroscopy. The incision was copiously irrigated and closed with subcutaneous Vicryl and 4-0 Monocryl for fashion closure. Steri-Strips sterile dressings placed. Patient weakened taken to PACU in stable condition. Please note Simone Andrew was present throughout the entire procedure involved in patient positioning complex portion of the surgery and final skin closure. I attest to the content of the Intraoperative Record and any orders documented therein. Any exceptions are noted below.
[2017-07-10] MEDS ORDERED: DO NOT ADMINISTER PNEUMOCOCCAL VACCINE PRN (11:30)
[2017-07-10] MEDS ORDERED: ACETAMINOPHEN 500 MG TAB PO PRN (11:30)
[2017-07-10] MEDS ORDERED: DO NOT ADMINISTER FLU VACCINE PRN (11:30)
[2017-07-10] MEDS ORDERED: HYDROmorphone INJ 2 MG/ML SYR/VIAL IV PRN ×2 (11:30→13:30)
[2017-07-10] MEDS ORDERED: OXYCODONE/ACETAMINOPHEN 5-325 TAB PO PRN (11:30)
[2017-07-10] MEDS ORDERED: MAGNESIUM HYDROXIDE SUSP 30 ML UDC PO PRN (11:30)
[2017-07-10] MEDS ORDERED: ACETAMINOPHEN 325 MG TAB PO PRN (11:30)
--- NOTE | 2017-07-10 12:35 | DIAGNOSTIC IMAGING REPORT ---
INTRAOPERATIVE SACRUM 3 VIEWS CLINICAL HISTORY: RT SACROILIAC JOINT FUSION COMPARISON STUDY: No previous studies for comparison. FINDINGS: 110 seconds of fluoroscopic time was utilized. 3 horizontally oriented sacroiliac bolts are visualized. Incidental note is made of spinal rodding with the lumbar spine. IMPRESSION: 3 sacroiliac bolts are visualized. Electronically signed by: Carlton Soto M.D. 07/10/2017 12:33 PM Dictated Date/Time: 07/10/2017 12:33 PM
--- NOTE | 2017-07-10 13:13 | Anesthesiology Progress Note ---
Anesthesia Post Op Note Date & Time July 10, 2017 at 13:13 Vital Signs Pain Intensity: 5.0 Vital Signs Past 12 Hours Date Time Temp Pulse Resp B/P (MAP) Pulse Ox O2 Delivery O2 Flow Rate FiO2 07/10/17 12:45 36.4 93 16 121/79 (93) 91 Nasal Cannula 2.0 07/10/17 12:45 91 Nasal Cannula 2.0 07/10/17 12:20 36.4 104 16 125/83 (91) 95 Oxymask 2 07/10/17 12:15 122/87 07/10/17 12:13 104 15 92 07/10/17 12:13 104 15 07/10/17 12:10 124/77 07/10/17 12:08 105 16 07/10/17 12:08 105 16 94 07/10/17 12:05 129/87 07/10/17 12:03 118 18 98 07/10/17 12:03 118 18 07/10/17 12:00 139/92 07/10/17 11:58 114 19 96 07/10/17 11:58 114 19 07/10/17 11:57 119 16 07/10/17 11:57 120 16 96 07/10/17 11:56 118 9 98 07/10/17 11:56 118 9 07/10/17 11:55 133/88 07/10/17 11:51 122 14 98 07/10/17 11:51 122 14 07/10/17 11:50 122/86 07/10/17 11:46 110 13 07/10/17 11:46 110 13 97 07/10/17 11:45 123/85 07/10/17 11:41 116 10 122/84 98 07/10/17 11:41 36.2 116 14 122/84 (93) 97 Oxymask 10 07/10/17 11:41 116 10 07/10/17 08:52 36.6 60 18 112/84 (93) 93 Room Air 07/10/17 07:07 36.8 78 18 101/66 (78) 93 Room Air Notes Mental Status: alert / awake / arousable, participated in evaluation Pt Amnestic to Procedure: Yes Nausea / Vomiting: adequately controlled Pain: adequately controlled Airway Patency, RR, SpO2: stable & adequate BP & HR: stable & adequate Hydration State: stable & adequate Anesthetic Complications: no major complications apparent
[2017-07-10] MEDS ORDERED: NURSING VERBAL MED ORDER ONE (13:15)
[2017-07-10] MEDS: OXYCODONE HCL IR 5 MG TAB (IMMEDIATE RELEASE) PO PRN (13:24)
[2017-07-10] MEDS ORDERED: RXC5 PO (13:32)
--- NOTE | 2017-07-10 13:33 | Discharge Instructions ---
Discharge Instructions Date of Service July 10, 2017. Admission Reason for Admission: Low Back Pain Discharge Discharge Diagnosis / Problem: sacralilitis Discharge Goals Goal(s): Decrease discomfort Activity Recommendations Activity Limitations: as noted below Lifting Limitations: no more than 5 pounds Exercise/Sports Limitations: until after follow-up appointment Shower/Bathe: may shower/bathe in 3 days Weightbearing Status: Right toe touch . Current Hospital Diet Patient's current hospital diet: Diabetes Type 2 Diet Discharge Diet Recommended Diet: Regular Diet Procedures Procedures Performed: Right SI joint fusion with placement of 3 SI joint screws. Pending Studies Studies pending at discharge: no Laboratory Results Hemoglobin A1c Test 07/10/17 07:00 Range/Units Estimated Average Glucose 146 mg/dl Hemoglobin A1c 6.7 H 4.5-5.6 % Medical Emergencies . Who to Call and When: Medical Emergencies: If at any time you feel your situation is an emergency, please call 911 immediately. . Non-Emergent Contact Non-Emergency issues call your: Primary Care Provider . "Provider Documentation" section prepared by Jamaal Christina. .
[2017-07-10] MEDS: VENLAFAXINE HCL XR 150 MG CAPXR PO SCH (13:36)
[2017-07-10] MEDS: DONEPEZIL HCL 10 MG TAB PO SCH ×2 (13:36→20:39)
[2017-07-10] MEDS: ATORVASTATIN 20 MG TAB PO SCH (13:37)
[2017-07-10] MEDS: DOCUSATE SODIUM/SENNA 50/8.6MG TAB PO SCH ×2 (13:37→20:40)
[2017-07-10] MEDS: LIDODERM (LIDOCAINE) PATCH 5% TD SCH (13:38)
[2017-07-10] MEDS: SODIUM CHLORIDE 0.9% 1000ML 1,000 ML IV SCH ×2 (13:39→23:41)
--- NOTE | 2017-07-10 16:06 | Hospitalist Progress Note ---
Hospitalist Progress Note Date of Service July 10, 2017. Subjective Pt evaluation today including: conversation w/ patient Patient having pain at the surgical site. I spoke with the orthopedist she said the surgery went well. He has not had a bowel movement in several days and is willing to take a laxative. Denies chest pain or shortness of breath, no abdominal pain. Reports his mood is improved. He denies suicidal ideations. Reports he has an upcoming appointment with psychiatry in about 3 weeks. All Other Systems: Reviewed and Negative Objective Vital Signs Date Time Temp Pulse Resp B/P (MAP) Pulse Ox O2 Delivery O2 Flow Rate FiO2 07/10/17 14:55 36.6 76 16 114/72 (86) 93 Room Air 07/10/17 13:54 97 18 114/73 (87) 93 07/10/17 13:25 98 18 127/80 (96) 92 07/10/17 13:00 Room Air 07/10/17 12:45 36.4 93 16 121/79 (93) 91 Nasal Cannula 2.0 07/10/17 12:45 91 Nasal Cannula 2.0 07/10/17 12:20 36.4 104 16 125/83 (91) 95 Oxymask 2 07/10/17 12:15 122/87 07/10/17 12:13 104 15 92 07/10/17 12:13 104 15 07/10/17 12:10 124/77 07/10/17 12:08 105 16 07/10/17 12:08 105 16 94 07/10/17 12:05 129/87 07/10/17 12:03 118 18 98 07/10/17 12:03 118 18 07/10/17 12:00 139/92 07/10/17 11:58 114 19 96 07/10/17 11:58 114 19 07/10/17 11:57 119 16 07/10/17 11:57 120 16 96 07/10/17 11:56 118 9 98 07/10/17 11:56 118 9 07/10/17 11:55 133/88 07/10/17 11:51 122 14 98 07/10/17 11:51 122 14 07/10/17 11:50 122/86 07/10/17 11:46 110 13 07/10/17 11:46 110 13 97 07/10/17 11:45 123/85 07/10/17 11:41 116 10 122/84 98 07/10/17 11:41 36.2 116 14 122/84 (93) 97 Oxymask 10 07/10/17 11:41 116 10 07/10/17 08:52 36.6 60 18 112/84 (93) 93 Room Air 07/10/17 07:07 36.8 78 18 101/66 (78) 93 Room Air 07/09/17 23:31 36.8 70 18 115/74 (88) 93 Room Air 07/09/17 23:29 Room Air 07/09/17 16:29 36.8 69 17 97/62 (74) 91 Room Air 07/09/17 16:08 94 Room Air Physical Exam General Appearance: WD/WN, no apparent distress Eyes: normal inspection, sclerae normal ENT: hearing grossly normal Neck: trachea midline Respiratory/Chest: lungs clear, normal breath sounds, no respiratory distress, no accessory muscle use Cardiovascular: regular rate, rhythm, no edema, no murmur Abdomen: normal bowel sounds, non tender, soft Extremities: non-tender, normal inspection, no calf tenderness Neurologic/Psychiatric: alert, normal mood/affect Skin: normal color, warm/dry, no rash Laboratory Results Last 24 Hours Test 07/09/17 16:59 07/09/17 20:39 07/10/17 05:31 07/10/17 07:00 Bedside Glucose 121 mg/dl 129 mg/dl 103 mg/dl White Blood Count 6.34 K/uL Red Blood Count 4.72 M/uL Hemoglobin 15.4 g/dL Hematocrit 44.7 % Mean Corpuscular Volume 94.7 fL Mean Corpuscular Hemoglobin 32.6 pg Mean Corpuscular Hemoglobin Concent 34.5 g/dl Platelet Count 214 K/uL Mean Platelet Volume 10.3 fL Neutrophils (%) (Auto) 38.5 % Lymphocytes (%) (Auto) 47.2 % Monocytes (%) (Auto) 9.6 % Eosinophils (%) (Auto) 3.9 % Basophils (%) (Auto) 0.6 % Neutrophils # (Auto) 2.44 K/uL Lymphocytes # (Auto) 2.99 K/uL Monocytes # (Auto) 0.61 K/uL Eosinophils # (Auto) 0.25 K/uL Basophils # (Auto) 0.04 K/uL RDW Standard Deviation 44.0 fL RDW Coefficient of Variation 12.7 % Immature Granulocyte % (Auto) 0.2 % Immature Granulocyte # (Auto) 0.01 K/uL Sodium Level 138 mmol/L Potassium Level 4.1 mmol/L Chloride Level 104 mmol/L Carbon Dioxide Level 27 mmol/L Anion Gap 8.0 mmol/L Blood Urea Nitrogen 15 mg/dl Creatinine 0.93 mg/dl Est Creatinine Clear Calc Drug Dose 76.3 ml/min Estimated GFR () 96.1 Estimated GFR (Non- 82.9 BUN/Creatinine Ratio 16.3 Random Glucose 88 mg/dl Estimated Average Glucose 146 mg/dl Hemoglobin A1c 6.7 % Calcium Level 9.2 mg/dl Test 07/10/17 08:55 07/10/17 11:51 Bedside Glucose 102 mg/dl 107 mg/dl Assessment and Plan This patient is a 72yo male with history of lumbar spinal stenosis s/p laminectomy and fusion, chronic lower back pain with ambulatory dysfunction and multiple falls, major depressive disorder with history of suicidal attempt, intermittent explosive disorder, PTSD, DM 2, and mild cognitive impairment presenting with worsening back pain and lower extremity weakness after mechanical fall at home. 1. Right sided sacroiliitis-acute on chronic, after mechanical fall. X-ray without evidence of osseous injury. No neurologic deficits appreciated on exam. No radicular symptoms.Had a diagnostic injection 2 weeks ago that did help temporarily at the right SI joint Seen by orthopedics and recommended right sacroiliac fusion which was performed on 07/10. -Continue pain control with Dilaudid IV, oxycodone 5 mg p.o. every 4 hours as needed, and Toradol as needed -Nausea control with Zofran as needed -Postoperative care as per orthopedic surgery -PT/OT and social work consultation -will need rehab placement-family and patient prefer [facility] 2. DM 2, controlled, not on long-term insulin-patient reports adequate control with Metformin at home. Blood glucose levels have been controlled here. Hemoglobin A1c 6.7% -Hold metformin while inpatient -ISS -Diabetic diet as tolerated -Continue statin -Holding aspirin for recent surgery and can restart tomorrow 3. Major depressive disorder with history of suicide attempt/current suicidal ideation/PTSD/intermittent explosive disorder- patient has expressed suicidal ideation in the past, has had prior attempts. States that when his pain gets bad he thinks about ending his life. He presently is without a plan and has verbally contracted for safety while in the hospital. -1:1 sitter for overnight now discontinued Psychiatry saw him and corrected his Seroquel dose is actually 100 mg at bedtime ; no inpatient stay indicated at this time. Suicidal ideation is passive and related to acute exacerbation of lower back pain. Patient currently hopeful that surgery will help his pain and now denying any suicidal ideations. We will have psychiatry reassess for need for inpatient psychiatric stay prior to discharge if suicidal ideations return -Continue Effexor 300mg daily -Continue Depakote 1000mg daily, Seroquel HS -He will need close follow-up with his outpatient psychiatrist, Dr. Kwan, after discharge 4. Constipation-could be related to opioids -Give MiraLAX 1 dose now and then daily starting tomorrow -Bisacodyl 5 mg p.o. daily and 10 mg suppository daily as needed -Continue docusate and senna twice daily DVT prophylaxis-DUDLEY stockings, SCDs, no chemical prophylaxis for surgery tomorrow Code - DNR per discussion with patient Dispo -remain on surgical floor and will need rehab placement, PT/OT evaluations -patient and family hoping for [facility]
[2017-07-10] MEDS ORDERED: HYDROmorphone INJ 0.5 MG/0.5 ML SYR IV PRN (16:15)
--- NOTE | 2017-07-10 16:27 | Medical Student: [facility] ---
Med Student Progress Note Date of Service July 10, 2017. Subjective Pt evaluation today including: conversation w/ patient, physical exam, lab review, review of studies, review of inpatient medication list Pain: 8/10 PO Intake: NPO for surgery Voiding: no voiding problems This is a 72-year-old man with a history of chronic low back pain secondary to lumbar spinal stenosis and disc herniation s/p microdiscectomy of L3-4 in May of 2016, revision decompression and spinal fusion in October of 2016, and steroid injections who presented after a fall with severe low back pain causing suicidal ideation. He was found to have sacroiliitis and underwent right SI joint fusion. Prior to surgery, nursing reports no events overnight. Pt states he is doing well. He continues to have pain, and the medication will work for 2 hours before returning. He denies fevers, chills, SOB, nausea, vomiting, diarrhea, numbness, tingling, urinary difficulty or discomfort. He has not had a BM since 07/08. His mood is "good" and no irritability. He has no SI. Nursing had no updates. After the surgery, Mr. Gibbs reports increased pain. He has not utilized the pain medications made available to him by Dr. Christina. He still has not had a BM. Review of Systems Notes: see HPI Objective Vital Signs Date Time Temp Pulse Resp B/P (MAP) Pulse Ox O2 Delivery O2 Flow Rate FiO2 07/10/17 14:55 36.6 76 16 114/72 (86) 93 Room Air 07/10/17 13:54 97 18 114/73 (87) 93 07/10/17 13:25 98 18 127/80 (96) 92 07/10/17 13:00 Room Air 07/10/17 12:45 36.4 93 16 121/79 (93) 91 Nasal Cannula 2.0 07/10/17 12:45 91 Nasal Cannula 2.0 07/10/17 12:20 36.4 104 16 125/83 (91) 95 Oxymask 2 07/10/17 12:15 122/87 07/10/17 12:13 104 15 92 07/10/17 12:13 104 15 07/10/17 12:10 124/77 07/10/17 12:08 105 16 07/10/17 12:08 105 16 94 07/10/17 12:05 129/87 07/10/17 12:03 118 18 98 07/10/17 12:03 118 18 07/10/17 12:00 139/92 07/10/17 11:58 114 19 96 07/10/17 11:58 114 19 07/10/17 11:57 119 16 07/10/17 11:57 120 16 96 07/10/17 11:56 118 9 98 07/10/17 11:56 118 9 07/10/17 11:55 133/88 07/10/17 11:51 122 14 98 07/10/17 11:51 122 14 07/10/17 11:50 122/86 07/10/17 11:46 110 13 07/10/17 11:46 110 13 97 07/10/17 11:45 123/85 07/10/17 11:41 116 10 122/84 98 07/10/17 11:41 36.2 116 14 122/84 (93) 97 Oxymask 10 07/10/17 11:41 116 10 07/10/17 08:52 36.6 60 18 112/84 (93) 93 Room Air 07/10/17 07:07 36.8 78 18 101/66 (78) 93 Room Air 07/09/17 23:31 36.8 70 18 115/74 (88) 93 Room Air 07/09/17 23:29 Room Air 07/09/17 16:29 36.8 69 17 97/62 (74) 91 Room Air Physical Exam General Appearance: WD/WN, no apparent distress ENT: TMs normal Respiratory/Chest: chest non-tender, + crackles (at lung bases) Cardiovascular: regular rate, rhythm, no edema, no murmur Abdomen: normal bowel sounds, non tender, soft Extremities: non-tender, normal inspection, no pedal edema, no calf tenderness Neurologic/Psychiatric: alert, + pertinent finding (Flat affect. Strength is 4+ /5 in the lower extremities bilaterall. He has R-SI joint tenderness. Straight leg raise is negative. Sensation is preserved in the lower extremity. DTRs are 1 + bilaterally. Babinski elicits downgoing toes bilaterally.) Laboratory Results Last 24 Hours Test 07/09/17 16:59 07/09/17 20:39 07/10/17 05:31 07/10/17 07:00 Bedside Glucose 121 mg/dl 129 mg/dl 103 mg/dl White Blood Count 6.34 K/uL Red Blood Count 4.72 M/uL Hemoglobin 15.4 g/dL Hematocrit 44.7 % Mean Corpuscular Volume 94.7 fL Mean Corpuscular Hemoglobin 32.6 pg Mean Corpuscular Hemoglobin Concent 34.5 g/dl Platelet Count 214 K/uL Mean Platelet Volume 10.3 fL Neutrophils (%) (Auto) 38.5 % Lymphocytes (%) (Auto) 47.2 % Monocytes (%) (Auto) 9.6 % Eosinophils (%) (Auto) 3.9 % Basophils (%) (Auto) 0.6 % Neutrophils # (Auto) 2.44 K/uL Lymphocytes # (Auto) 2.99 K/uL Monocytes # (Auto) 0.61 K/uL Eosinophils # (Auto) 0.25 K/uL Basophils # (Auto) 0.04 K/uL RDW Standard Deviation 44.0 fL RDW Coefficient of Variation 12.7 % Immature Granulocyte % (Auto) 0.2 % Immature Granulocyte # (Auto) 0.01 K/uL Sodium Level 138 mmol/L Potassium Level 4.1 mmol/L Chloride Level 104 mmol/L Carbon Dioxide Level 27 mmol/L Anion Gap 8.0 mmol/L Blood Urea Nitrogen 15 mg/dl Creatinine 0.93 mg/dl Est Creatinine Clear Calc Drug Dose 76.3 ml/min Estimated GFR () 96.1 Estimated GFR (Non- 82.9 BUN/Creatinine Ratio 16.3 Random Glucose 88 mg/dl Estimated Average Glucose 146 mg/dl Hemoglobin A1c 6.7 % Calcium Level 9.2 mg/dl Test 07/10/17 08:55 07/10/17 11:51 Bedside Glucose 102 mg/dl 107 mg/dl Assessment and Plan Assessment and Plan: This is a 72-year-old man with a history of chronic low back pain secondary to lumbar spinal stenosis and disc herniation s/p microdiscectomy of L3-4 in May of 2016, revision decompression and spinal fusion in October of 2016, and steroid injections who presented after a fall with severe low back pain causing suicidal ideation. He was found to have sacroiliitis and underwent right SI joint fusion. ACUTE ON CHRONIC LOW BACK PAIN: SACROILIITIS, LUMBAR SPINAL STENOSIS He has a history of lumbar spinal stenosis and disc herniation requiring lumbar spinal surgeries and steroid injections. Dr. Christina assessed the patient and completed a right SI joint fusion today for sacroiliitis. He had previously been on morphine and oxycodone PRN, but pain management after surgery is as follows: 5mg oxycodone q4 PRN, 1 tab Percocet q4 PRN, and if the prior to are insufficient or pt cannot take PO - give IV 0.5-1mg hydromorphone q3 PRN Continue lidocaine patch. Offer ondansetron PRN. He is currently on docusate/senna and has not had a bowel movement in since 07/08. We will administer one dose of miralax and continue to offer PRN. MAJOR DEPRESSIVE DISORDER WITH SUICIDAL IDEATION / INTERMITTENT EXPLOSIVE DISORDER / PTSD - stable He reports his mood is "good" and has had no suicidal thoughts over the past 24 hours. Psychiatry has made no changes to his outpatient medications with the exception of correcting his quetiapine dose to 100mg QHS. We will continue depakote 1000mg and venlafaxine 300mg. He is to follow-up with Dr. Kwan within the next few weeks. DIABETES MELLITUS - stable We have held metformin in preparation for surgery and will continue sliding scale insulin while admitted. Continue diabetic diet and accu-checks. A1C is 6.7 % HYPERLIPIDEMIA Continue statin. Restart aspirin tomorrow AM. UNSPECIFIED DEMENTIA - was originally diagnosed with Parkinson's Disease related dementia, but after being seen at the [facility], he called Dr. Hoffman in April 2017 stated [facility] told him he does not have PD. Continue donepezil RIGHT LUNG NODULES Crackles were heard in the right lung base on exam during his stay. Chest x-ray shows mild RLL atelectasis but no other acute changes. Review of the medical record reveals a prior CT of the chest in 2010 which showed several right lung nodules and shotty nodes. DVT PROPHYLAXIS Continue to wear DUDLEY stockings. DISPOSITION Admitted to med/surg and recovering from surgery. Anticipate discharge to a rehabilitation facility as he has been bedridden the past few months due to weakness, potentially on 07/11.
[2017-07-10] MEDS: KETOROLAC TROMETHAMINE 15 MG/ML VIAL IV. PRN (16:57)
[2017-07-10] MEDS: CLINDAMYCIN IV 600 MG in DEXTROSE 5% 50ML 50 ML IV SCH ×2 (16:58→23:41)
[2017-07-10] MEDS: DOCUSATE SODIUM 100 MG CAP PO SCH (20:39)
[2017-07-10] MEDS: DIVALPROEX SODIUM 500 MG DELAY RELEASE TAB PO SCH (20:39)
[2017-07-10] MEDS: QUETIAPINE FUMARATE 100 MG TAB PO SCH (20:40)
[2017-07-11 03:20] VITALS: BP 118/67; PULSE 73; TEMP 36.9; O2SAT 91
[2017-07-11 06:57] VITALS: BP 122/74; PULSE 71; TEMP 37; O2SAT 91
[2017-07-11] MEDS: CLINDAMYCIN IV 600 MG in DEXTROSE 5% 50ML 50 ML IV SCH (09:09)
[2017-07-11] MEDS: DONEPEZIL HCL 10 MG TAB PO SCH ×2 (09:09→20:41)
[2017-07-11] MEDS: ATORVASTATIN 20 MG TAB PO SCH (09:09)
[2017-07-11] MEDS: LIDODERM (LIDOCAINE) PATCH 5% TD SCH (09:09)
[2017-07-11] MEDS: DOCUSATE SODIUM 100 MG CAP PO SCH ×2 (09:10→20:41)
[2017-07-11] MEDS: DOCUSATE SODIUM/SENNA 50/8.6MG TAB PO SCH ×2 (09:10→20:41)
[2017-07-11] MEDS: VENLAFAXINE HCL XR 150 MG CAPXR PO SCH (09:10)
[2017-07-11] MEDS: INSULIN ASPART 100 UNITS/ML 3 ML PEN SC SCH ×4 (09:19→21:13)
[2017-07-11] MEDS: KETOROLAC TROMETHAMINE 15 MG/ML VIAL IV. PRN (09:27)
--- NOTE | 2017-07-11 09:59 | Progress Note ---
Progress Note Date of Service July 11, 2017. Progress Note Patient complaining mostly of hip pain. This seems to be in and around the surgical site. He does feel that the previous SI joint pain is improved. On exam he is in a chair at the bedside is neurologically intact. Assessment status post right SI joint fusion per plan at this time in light of his multiple medical issues and history as well as his current pain patterns and need for therapy he would be an ideal candidate for rehab. We will try to have him placed on this weekend.
[2017-07-11 12:10] VITALS: BP 105/68; PULSE 75; TEMP 37; O2SAT 95
[2017-07-11] MEDS ORDERED: BISACODYL 10 MG SUPP PR STA (12:10)
[2017-07-11 13:16] VITALS: BP 105/68; PULSE 70; O2SAT 98
[2017-07-11 15:50] VITALS: BP 116/73; PULSE 69; TEMP 36.7; O2SAT 92
--- NOTE | 2017-07-11 16:32 | Medical Student: [facility] ---
Med Student Progress Note Date of Service July 11, 2017. Subjective Pt evaluation today including: conversation w/ patient, physical exam, lab review Pain: See HPI PO Intake: Adequate Voiding: no voiding problems This is a 72-year-old man with a history of chronic low back pain secondary to lumbar spinal stenosis and disc herniation s/p microdiscectomy of L3-4 in May of 2016, revision decompression and spinal fusion in October of 2016, and steroid injections who presented after a fall with severe low back pain causing suicidal ideation. He was found to have sacroiliitis and underwent right SI joint fusion. This is POD #1. He complains of pain in his right buttock and low back that does not radiate. The pain is worsened with movement. He says it is currently a 11/09 but has not requested pain medications yet. He states his mood is "good" with no suicidal ideation. He has not had a bowel movement since before his admission, i.e. before the 07/08. He has received miralax and senakot. Nursing has no other updates. Objective Vital Signs Date Time Temp Pulse Resp B/P (MAP) Pulse Ox O2 Delivery O2 Flow Rate FiO2 07/11/17 13:16 70 98 07/11/17 12:10 37.0 75 16 105/68 (80) 95 Room Air 07/11/17 07:45 Room Air 07/11/17 06:57 37.0 71 16 122/74 (90) 91 Room Air 07/11/17 03:20 36.9 73 14 118/67 (84) 91 Room Air 07/10/17 23:37 Room Air 07/10/17 22:50 36.9 74 18 113/67 (82) 91 Room Air 07/10/17 20:51 Room Air 07/10/17 19:22 36.9 88 16 100/62 (75) 91 Room Air Physical Exam General Appearance: WD/WN, no apparent distress Eyes: bilateral eyes normal inspection ENT: TMs normal Respiratory/Chest: no respiratory distress, + crackles (at bases) Cardiovascular: regular rate, rhythm, no gallop, no murmur Abdomen: normal bowel sounds, non tender, soft Extremities: non-tender, no pedal edema, no calf tenderness Neurologic/Psychiatric: no motor/sensory deficits (in lower extremities, negative sitting straight leg raise) Laboratory Results Last 24 Hours Test 07/10/17 17:00 5/11/18 20:24 07/11/17 08:08 07/11/17 12:28 Bedside Glucose 174 mg/dl 168 mg/dl 123 mg/dl 178 mg/dl Assessment and Plan Assessment and Plan: This is a 72-year-old man with a history of chronic low back pain secondary to lumbar spinal stenosis and disc herniation s/p microdiscectomy of L3-4 in May of 2016, revision decompression and spinal fusion in October of 2016, and steroid injections who presented after a fall with severe low back pain causing suicidal ideation. He was found to have sacroiliitis and underwent right SI joint fusion. This is POD #1. ACUTE ON CHRONIC LOW BACK PAIN: SACROILIITIS, LUMBAR SPINAL STENOSIS He has a history of lumbar spinal stenosis and disc herniation requiring lumbar spinal surgeries and steroid injections. Dr. Christina assessed the patient and completed a right SI joint fusion today for sacroiliitis. He had previously been on morphine and oxycodone PRN, but pain management after surgery is as follows: 5mg oxycodone q4 PRN, 1 tab Percocet q4 PRN, and if the prior to are insufficient or pt cannot take PO - give IV 0.5-1mg hydromorphone q3 PRN Continue lidocaine patch. Offer ondansetron PRN. He is currently on docusate/senna and has not had a bowel movement in since 07/08. We administered one dose of miralax on 07/10 and continued to offer PRN. We have ordered a suppository. MAJOR DEPRESSIVE DISORDER WITH SUICIDAL IDEATION / INTERMITTENT EXPLOSIVE DISORDER / PTSD - stable He reports his mood is "good" and has had no suicidal thoughts over the past 24 hours. Psychiatry has made no changes to his outpatient medications with the exception of correcting his quetiapine dose to 100mg QHS. We will continue depakote 1000mg and venlafaxine 300mg. He is to follow-up with Dr. Kwan within the next few weeks. DIABETES MELLITUS - stable We have held metformin in preparation for surgery and will continue sliding scale insulin while admitted. Continue diabetic diet and accu-checks. A1C is 6.7 % HYPERLIPIDEMIA Continue statin. Restart aspirin tomorrow AM. UNSPECIFIED DEMENTIA - was originally diagnosed with Parkinson's Disease related dementia, but after being seen at the [facility], he called Dr. Hoffman in April 2017 stated [facility] told him he does not have PD. Continue donepezil RIGHT LUNG NODULES Crackles were heard in the right lung base on exam during his stay. Chest x-ray shows mild RLL atelectasis but no other acute changes. Review of the medical record reveals a prior CT of the chest in 2010 which showed several right lung nodules and shotty nodes. DVT PROPHYLAXIS Continue to wear DUDLEY stockings. DISPOSITION Admitted to med/surg and recovering from surgery. Anticipate discharge to a rehabilitation facility as he has been bedridden the past few months due to weakness. PT agrees with inpatient rehabilitation.
[2017-07-11] MEDS: DIVALPROEX SODIUM 500 MG DELAY RELEASE TAB PO SCH (20:41)
[2017-07-11] MEDS: QUETIAPINE FUMARATE 100 MG TAB PO SCH (20:41)
[2017-07-11] MEDS: POLYETHYLENE (MIRALAX) 17 GM PACK PO SCH (20:41)
[2017-07-11] MEDS: OXYCODONE HCL IR 5 MG TAB (IMMEDIATE RELEASE) PO PRN (21:16)
[2017-07-11 22:56] VITALS: BP 122/70; PULSE 75; TEMP 36.9; O2SAT 94
--- NOTE | 2017-07-11 23:20 | Progress Note ---
Subjective Date of Service: July 11, 2017. Subjective Pt evaluation today including: conversation w/ patient, physical exam, chart review, lab review Pain: buttocks, but this is different pain than pain he had preop PO Intake: normal Voiding: no voiding problems other than pain is only other complaint is that of constipation denies suicidal ideation or depressive symptoms during the visit Problem List Medical Problems: (1) Acute exacerbation of chronic low back pain Status: Acute (2) Ambulatory dysfunction Status: Acute (3) Back pain Status: Acute (4) Blurry vision, bilateral Status: Acute (5) Fall Status: Acute (6) Fall Status: Acute (7) Fever Status: Acute (8) Hyperglycemia Status: Acute (9) Hypoxia Status: Acute (10) Low back pain Status: Acute (11) Pneumonia Status: Acute (12) Weakness Status: Acute (13) Weakness Status: Acute Review of Systems Constitutional: No fever Respiratory: No cough, No shortness of breath, No dyspnea on exertion Cardiac: No chest pain Abdomen: No pain, No nausea, No vomiting Objective Vital Signs Date Time Temp Pulse Resp B/P (MAP) Pulse Ox O2 Delivery O2 Flow Rate FiO2 07/11/17 15:50 36.7 69 16 116/73 (87) 92 Room Air 07/11/17 15:50 Room Air 07/11/17 13:16 70 98 07/11/17 12:10 37.0 75 16 105/68 (80) 95 Room Air 07/11/17 07:45 Room Air 07/11/17 06:57 37.0 71 16 122/74 (90) 91 Room Air 07/11/17 03:20 36.9 73 14 118/67 (84) 91 Room Air 07/10/17 23:37 Room Air 07/10/17 22:50 36.9 74 18 113/67 (82) 91 Room Air 07/10/17 20:51 Room Air Physical Exam General Appearance: no apparent distress ENT: pharynx normal Neck: no JVD Respiratory/Chest: lungs clear, no respiratory distress, no accessory muscle use Cardiovascular: regular rate, rhythm, no gallop, no murmur Abdomen: normal bowel sounds, non tender, soft, no organomegaly Extremities: no pedal edema Neurologic/Psychiatric: alert, oriented x 3, + depressed affect Laboratory Results Last 24 Hours Test 07/10/17 20:24 07/11/17 08:08 07/11/17 12:28 07/11/17 17:08 Bedside Glucose 168 mg/dl 123 mg/dl 178 mg/dl 143 mg/dl Assessment and Plan 72yo male with: 1. Right sided sacroiliitis - s/p right SI joint fusion by Dr. Christina, POD # 1. Pain control seems adequate; taking very little in the way of narcotics. PT, OT. 2. DM 2 - control acceptable at this time. 3. Major depressive disorder with history of suicide attempt/current suicidal ideation - latter resolved. The suicidal ideation was in the context of his severe SI joint pain and he adamantly denies any suicidal ideation at this time. Appreciate psych consult. -Continue Effexor 300mg daily -Continue Depakote 1000mg daily -Continue Seroquel HS -He will need close follow-up with his outpatient psychiatrist, Dr. Kwan, after discharge 4. Constipation - dulcolax suppos x 1 now. Cont aggressive PO bowel regimen. 5. PT, OT evals 6. ?dementia - cont aricept dispo - [facility]? Continued [facility] stay due to: inadequate oral pain control, ambulation difficulties Discharge planning: uncertain
[2017-07-12] MEDS ORDERED: BISACODYL 10 MG SUPP PR PRN (06:00)
[2017-07-12] MEDS ORDERED: BISACODYL 5 MG TABEC PO PRN (06:00)
[2017-07-12 07:22] VITALS: BP 121/77; PULSE 73; TEMP 36.8; O2SAT 94
[2017-07-12] MEDS: POLYETHYLENE (MIRALAX) 17 GM PACK PO SCH ×2 (08:48→21:00)
[2017-07-12] MEDS: DONEPEZIL HCL 10 MG TAB PO SCH ×2 (08:54→21:08)
[2017-07-12] MEDS: VENLAFAXINE HCL XR 150 MG CAPXR PO SCH (08:55)
[2017-07-12] MEDS: DOCUSATE SODIUM 100 MG CAP PO SCH ×2 (08:55→21:09)
[2017-07-12] MEDS: ATORVASTATIN 20 MG TAB PO SCH (08:55)
[2017-07-12] MEDS: DOCUSATE SODIUM/SENNA 50/8.6MG TAB PO SCH ×2 (08:56→21:09)
[2017-07-12] MEDS: LIDODERM (LIDOCAINE) PATCH 5% TD SCH (08:56)
[2017-07-12] MEDS: INSULIN ASPART 100 UNITS/ML 3 ML PEN SC SCH ×4 (08:57→21:13)
[2017-07-12 09:00] LABS: HEMOGLOBIN 14.9 g/dL (14.0-18.0); MEAN CELL VOLUME 94.5 fL (80-100); MEAN CORPUSCULAR HEMOGLOBIN 32.7 pg (25-34); MEAN CORPUSCULAR HGB CONC 34.7 g/dl (32-36); MEAN PLATELET VOLUME 9.8 fL (7.4-10.4); PLATELET COUNT 178 K/uL (130-400); RED CELL DISTRIBUTION WIDTH CV 13.1 % (11.5-14.5); WHITE BLOOD COUNT 8.05 K/uL (4.8-10.8)
[2017-07-12 09:18] LABS: CALCIUM 9.2 mg/dl (8.5-10.1); CREATININE 0.96 mg/dl (0.60-1.40); POTASSIUM 3.9 mmol/L (3.5-5.1)
[2017-07-12] MEDS: OXYCODONE HCL IR 5 MG TAB (IMMEDIATE RELEASE) PO PRN (10:46)
--- NOTE | 2017-07-12 10:47 | Progress Note ---
Progress Note Date of Service July 12, 2017. Progress Note Patient states his pain is controlled. Vital signs are stable. On exam his good strength testing appears comfortable. Assessment status post SI joint fusion per plan at this time we are awaiting approval for [facility] placement. He will be discharged to [facility] when accepted.
--- NOTE | 2017-07-12 15:44 | Progress Note ---
Subjective Date of Service: July 12, 2017. Subjective Pt evaluation today including: conversation w/ patient, physical exam, chart review, lab review Pain: right hip/buttock but tolerable & in fact improved from yesterday PO Intake: eating well Voiding: no voiding problems overall doing much better today had large bowel movement yesterday denies any new complaints still wanting to go to [facility] denies depressive symptoms or suicidal ideation smiled during he encounter actually Problem List Medical Problems: (1) Acute exacerbation of chronic low back pain Status: Acute (2) Ambulatory dysfunction Status: Acute (3) Back pain Status: Acute (4) Blurry vision, bilateral Status: Acute (5) Fall Status: Acute (6) Fall Status: Acute (7) Fever Status: Acute (8) Hyperglycemia Status: Acute (9) Hypoxia Status: Acute (10) Low back pain Status: Acute (11) Pneumonia Status: Acute (12) Weakness Status: Acute (13) Weakness Status: Acute Review of Systems Constitutional: No fever Respiratory: No shortness of breath Cardiac: No chest pain Abdomen: No pain Objective Vital Signs Date Time Temp Pulse Resp B/P (MAP) Pulse Ox O2 Delivery O2 Flow Rate FiO2 07/12/17 07:40 Room Air 07/12/17 07:22 36.8 73 16 121/77 (92) 94 Room Air 07/11/17 23:40 Room Air 07/11/17 22:56 36.9 75 14 122/70 (87) 94 Room Air 07/11/17 15:50 36.7 69 16 116/73 (87) 92 Room Air 07/11/17 15:50 Room Air Physical Exam General Appearance: no apparent distress, + pertinent finding (affect improved today) ENT: pharynx normal Neck: no JVD Respiratory/Chest: lungs clear, no respiratory distress, no accessory muscle use Cardiovascular: regular rate, rhythm, no gallop, no murmur Abdomen: normal bowel sounds, non tender, soft, no organomegaly Extremities: no pedal edema Neurologic/Psychiatric: alert, oriented x 3 Skin: + pertinent finding (dressings intact right hip/buttock region ) Laboratory Results Last 24 Hours Test 07/11/17 17:08 07/11/17 20:32 07/12/17 08:14 07/12/17 08:48 Bedside Glucose 143 mg/dl 159 mg/dl 101 mg/dl White Blood Count 8.05 K/uL Red Blood Count 4.55 M/uL Hemoglobin 14.9 g/dL Hematocrit 43.0 % Mean Corpuscular Volume 94.5 fL Mean Corpuscular Hemoglobin 32.7 pg Mean Corpuscular Hemoglobin Concent 34.7 g/dl RDW Standard Deviation 45.0 fL RDW Coefficient of Variation 13.1 % Platelet Count 178 K/uL Mean Platelet Volume 9.8 fL Sodium Level 141 mmol/L Potassium Level 3.9 mmol/L Chloride Level 106 mmol/L Carbon Dioxide Level 26 mmol/L Anion Gap 9.0 mmol/L Blood Urea Nitrogen 15 mg/dl Creatinine 0.96 mg/dl Est Creatinine Clear Calc Drug Dose 73.9 ml/min Estimated GFR () 92.4 Estimated GFR (Non- 79.8 BUN/Creatinine Ratio 15.2 Random Glucose 122 mg/dl Calcium Level 9.2 mg/dl Magnesium Level 2.2 mg/dl Test 07/12/17 12:10 Bedside Glucose 116 mg/dl Assessment and Plan 72yo male with: 1. Right sided sacroiliitis - s/p right SI joint fusion by Dr. Christina, POD # 2. Pain control seems adequate. PT, OT. From ortho standpoint is stable. 2. DM 2 - control acceptable at this time. 3. Major depressive disorder with history of suicide attempt and recent suicidal ideation in the context of severe back pain - no further thoughts of dying or suicidal ideation. His mood was improved today. Denies any suicidal ideation at this time. Appreciate psych consult. -Continue Effexor 300mg daily -Continue Depakote 1000mg daily -Continue Seroquel HS -He will need close follow-up with his outpatient psychiatrist, Dr. Kwan, after discharge 4. Constipation - improved. Cont with aggressive bowel regimen. 5. ?dementia - cont aricept 6. DVT proph - will inquire with Dr. Christina if ok to start chemical DVT proph. dispo - [facility] vs SNF for rehab, hopefully former Continued [facility] stay due to: inadequate oral pain control, ambulation difficulties Discharge planning: rehab hospital (vs SNF)
[2017-07-12 16:15] VITALS: BP 123/85; PULSE 88; TEMP 36.8; O2SAT 91
[2017-07-12] MEDS: QUETIAPINE FUMARATE 100 MG TAB PO SCH (21:08)
[2017-07-12] MEDS: DIVALPROEX SODIUM 500 MG DELAY RELEASE TAB PO SCH (21:09)
[2017-07-12] MEDS: HEPARIN SOD 5000 UNIT/0.5 ML CARP SQ SCH (21:14)
[2017-07-12 23:10] VITALS: BP 103/70; PULSE 77; TEMP 36.8; O2SAT 92
[2017-07-13 06:58] VITALS: BP 119/77; PULSE 81; TEMP 36.8; O2SAT 93
[2017-07-13] MEDS: POLYETHYLENE (MIRALAX) 17 GM PACK PO SCH (07:35)
[2017-07-13] MEDS: ATORVASTATIN 20 MG TAB PO SCH (07:36)
[2017-07-13] MEDS: DOCUSATE SODIUM 100 MG CAP PO SCH (07:36)
[2017-07-13] MEDS: DONEPEZIL HCL 10 MG TAB PO SCH (07:36)
[2017-07-13] MEDS: VENLAFAXINE HCL XR 150 MG CAPXR PO SCH (07:36)
[2017-07-13] MEDS: DOCUSATE SODIUM/SENNA 50/8.6MG TAB PO SCH (07:37)
[2017-07-13] MEDS: LIDODERM (LIDOCAINE) PATCH 5% TD SCH (07:38)
[2017-07-13] MEDS: INSULIN ASPART 100 UNITS/ML 3 ML PEN SC SCH ×2 (07:41→12:38)
[2017-07-13] MEDS: HEPARIN SOD 5000 UNIT/0.5 ML CARP SQ SCH (07:42)
[2017-07-13] MEDS ORDERED: POLYETHYLENE (MIRALAX) 17 GM PACK PO SCH (09:00)
--- NOTE | 2017-07-13 09:47 | Psychiatric Progress Notes ---
Progress Note Date of Service July 13, 2017. Interval History 72-year-old male who presented with back pain to the emergency department yesterday. He has a history of lumbar stenosis, disc herniation at L3-L4 and prior laminectomy with Dr. Shepard in May 2016 and further revisions in October 2016. He was admitted medically for further management. We are consulted to evaluate depression and statements of suicidal ideation. Information is gathered from the patient and the electronic medical record and considered to be reliable. Chief Complaint "So far so good, it's a pretty big improvement". Subjective Patient was seen & assessed interval progress reviewed with psychiatric nurse liaison. It is our understanding patient is to be transferred to inpatient rehabilitation facility prior to returning home. Pt seen to assess progress since admission and ensure that inpatient mental health treatment is not warranted for previously reported SI and depression. Pt was assess while laying in bed. Pt states he is to be leaving for [facility] today, and then will return home with his . Pt states his pain has improved significantly, though it has not resolved. Pt remains future oriented when discussing his disposition and plans for ongoing treatment. Pt reports his SI has "pretty much gone away completely". He denies SI, plan, or intent to act as "I've tried that before, I'm done with that". Pt states, "I think about my family, I couldn't do that". Reviewed safety plan with patient who reports upcoming appointment with his outpatient psychiatrist. Pt states he feels he would be able to disclose any future SI with either his or his daughter. Pt was encouraged that if SI should return or become overwhelming he can always discuss with his outpatient psychiatrist or present to the ED for evaluation. Pt reports feeling ready for discharge and denies other needs or requests from our department at this time. Review of Systems Psych: denies symptoms other than stated above Constitutional: reports improvement in back pain Cardiovascular: denied GI: denied Neurologic: denied Remainder of 10 body systems also reviewed and denied other than noted above. Mental Status Exam During interview pt is: alert and oriented, cooperative Appearance: appropriately groomed Eye contact is: good Motor behavior is: no abnormal motor movements (observed while laying in bed; does not appear to be in acute pain, no obvious agitation) Speech: normal in rate, rhythm & volume Affect: euthymic Mood is: other ("I'm fine") Thought process: goal directed, linear, logical, clear, coherent Thought content: reality based without delusions Suicidal thought are: denied, Plan: denied, Intent: denied Homicidal thoughts are: denied Hallucinations: denies auditory, denies visual Cognition: memory grossly intact, attention grossly intact, language grossly intact Intelligence estimated to be: average Insight: good Judgement: good Impression 72-year-old man s/p RIGHT SI joint fusion on 07/10/2017 to address sacroiliitis aggravated by recent falls. Medications adjusted at time of initial consult to reflect records from outpatient psychiatrist. Reevaluated to review potential for inpatient mental health treatment prior to discharge to [facility]. Pt denies active SI as well as active plan or intent. Pt remains future oriented in conversation for duration of encounter and is relieved by opportunity to continue recovery at [facility]. Safety plan reviewed and patient able to identify and daughter as supports. Pt reports feeling comfortable to reach out to them if SI should return or become overwhelming. Reviewed ability to discuss concerns with outpatient psychiatrist, or present to ED if thoughts become overwhelming. At this time, patient does not meet criteria for inpatient mental health treatment and appear psychiatrically appropriate for transfer to [facility] or other inpatient rehabilitation facility at discharge. Pt should continue to meet with outpatient psychiatrist as this is the least restrictive setting to monitor and manage psychiatric concerns at this time. Plan (1) Major depressive disorder, recurrent, moderate 07/09 - Continue OP psychiatric meds. I will correct Seroquel dosing - Have patient sign a release for information to be sent to Dr. Kawn -Patient hopeful for surgery, but if at the time he is medically cleared for discharge, he continues with SI, P/I, will re-evaluate for inpatient treatment 07/13 - Continue current psychiatric medications - Pt reports upcoming scheduled appointment with outpatient psychiatrist - At re-evaluation prior to d/c - does not meet criteria for inpatient mental health treatment - denies SI, plan, or intent. Remains future oriented. - Safety plan reviewed, pt able to contract for safety, and appropriate for transfer to physical rehabilitation facility prior to returning home. - Pt denies any concerns or other requests from our department at this time. (2) Intermittent explosive disorder in adult 07/09 - Continue OP meds - It is reasonable to expect that he will be more irritable with increase in pain. Visit Code E&M Code: 03648 Inventory Assets Strengths: , hopeful for surgery Risk Factors Assessment Male: Yes : Yes /single/: No Higher / Fall in social status: No Health problems: Yes Mental Health Diagnoses: Yes Substance use disorders: No Previous attempt: Yes Previous psychiatric stay: Yes Hopelessness: No Smoker: No Data Vital Signs Last 24 Hrs: Date Time Temp Pulse Resp B/P (MAP) Pulse Ox O2 Delivery O2 Flow Rate FiO2 07/13/17 07:30 Room Air 07/13/17 06:58 36.8 81 17 119/77 (91) 93 Room Air 07/12/17 23:10 36.8 77 16 103/70 (81) 92 Room Air 07/12/17 23:05 Room Air 07/12/17 16:15 Room Air 07/12/17 16:15 36.8 88 18 123/85 (98) 91 Room Air Meds Administered Last 24 Hrs: Meds Administered (Past 24Hrs) Medications (Trade) Dose Ordered Sig/Maria De Jesus Route Start Time Stop Time Status Last Admin Dose Admin Bisacodyl (Dulcolax Supp) 10 mg NOW STAT IA 07/11/17 12:10 07/11/17 12:12 DC 07/11/17 12:46 10 MG Heparin Sodium (Porcine) (Heparin Sq 5000 Unit/0.5ml) 5,000 unit Q12 SQ 07/12/17 21:00 08/11/17 20:59 07/13/17 07:42 5,000 UNIT Lab Results Last 24 Hrs: Last 24 Hours Test 07/12/17 12:10 07/12/17 17:19 07/12/17 20:31 07/13/17 07:19 Bedside Glucose 116 mg/dl 147 mg/dl 141 mg/dl 99 mg/dl
[2017-07-13] MEDS ORDERED: SENN8.6T7 PO (12:38)
[2017-07-13] MEDS ORDERED: MRLP17 PO (12:38)
[2017-07-13] MEDS ORDERED: LDDP5 TD (12:38)
--- NOTE | 2017-07-13 12:45 | Discharge Instructions ---
Discharge Instructions Date of Service July 13, 2017. Admission Reason for Admission: Low Back Pain Discharge Discharge Diagnosis / Problem: right SI joint sacroileitis, s/p SI joint fusion Discharge Goals Goal(s): Learn about illness, Diagnostic testing, Therapeutic intervention Activity Recommendations Activity Level: Assistance Required Therapies: Physical Therapy, Occupational Therapy please see the separate discharge instructions from Dr. Christina regarding any restrictions in activity, bathing, dressing changes, etc. . Additional Information Patient informed of condition: Yes Advance Directives: No DNR: Yes Level of Care: Acute Rehab Communicable Disease: No Prognosis: Improving Oxygen at (LPM): none Boogie Catheter: No Instructions / Follow-Up Instructions / Follow-Up 1. see Dr. Christina, orthopedics, within 2 weeks 2. see PCP on Thursday, July 15 as [address] Kwan, psychiatry, as scheduled later in June Current Hospital Diet Patient's current hospital diet: Diabetes Type 2 Diet Discharge Diet Recommended Diet: Diabetes Type 2 Diet Procedures Procedures Performed: Right SI joint fusion with placement of 3 SI joint screws. Pending Studies Studies pending at discharge: no Physician Orders On Transfer Dressing Changes: per Dr. Christina's recommendations Vital Signs: per routine Additional Orders: fingerstick blood sugars before meals and at bedtime POLST Discussion: Not Applicable Laboratory Results Hemoglobin A1c Test 07/10/17 07:00 Range/Units Estimated Average Glucose 146 mg/dl Hemoglobin A1c 6.7 H 4.5-5.6 % Medical Emergencies . Who to Call and When: Medical Emergencies: If at any time you feel your situation is an emergency, please call 911 immediately. . Non-Emergent Contact Non-Emergency issues call your: Surgeon (orthopedics) Call Non-Emergent contact if: temperature is above 100.5, your pain is not controlled, your pain is worsening, your pain is unusual for you, your pain is concerning you, wound has increased drainage, wound has increased redness, wound has increased pain, you have any medication questions . . "Provider Documentation" section prepared by Caden Lynch. . Core Measure Problem Core Measures: None
[2017-07-13 13:04] VITALS: BP 119/77; PULSE 81; TEMP 36.8; O2SAT 93
--- NOTE | 2017-07-13 15:55 | Progress Note ---
Progress Note Date of Service July 13, 2017. Progress Note Patient's SI joint pain is markedly improved. He is ambulating the halls without difficulty and seems to be tolerating this well. On exam is good strength testing appears comfortable. Assessment status post SI joint fusion per plan at this time will have him continue with ambulation toe-touch weightbearing as tolerated see him in the office in 2 weeks update x-rays.
--- NOTE | 2017-07-16 23:24 | Discharge Summary ---
Discharge Summary Date of Service July 13, 2017. Discharge Summary Admission Date: July 09, 2017 at 11:30 Discharge Date: July 13, 2017 Discharge Disposition: Rehab ([facility]) Principal Diagnosis: severe back pain 2nd to right-sided sacroilitis, s/p SI joint fusion Problems/Secondary Diagnoses: 1. T2DM 2. Major Depression 3. h/o past suicidal attempt 4. intermittent explosive disorder 5. PTSD 6. constipation 7. lumbar spinal stenosis 8. hyperlipidemia Immunizations: Have You Had Influenza Vaccine: Yes History of Tetanus Vaccine?: Unknown History of Pneumococcal: Yes History of Hepatitis B Vaccine: Unknown Procedures: 1. Right SI joint fusion with placement of 3 SI joint screws - Dr. Dontae Christina 2. Pelvis x-rays 3. Sacrum x-rays 4. Lumbar spine x-rays 5. Chest x-rays Consultations: orthopedics - Dontae Christina, psychiatry PT, OT Medication Reconciliation New Medications: Lidocaine (Lidocaine) 1 Patch Tdsy 2 PATCH TD QAM, #60 PATCH 1 Refill apply patches at site(s) of pain for 12 hours, remove for 12 hours Oxycodone HCl (Oxycodone HCl) 5 Mg Tab 5 MG PO Q4H PRN for Pain for 30 Days, #30 TAB Polyethylene (Miralax) 17 Gm Pow 17 GM PO DAILY, #1 BTL 1 Refill Sennosides-Docusate Sodium (Senokot S) 1 Tab Tab 1 TAB PO BID, #60 TAB 1 Refill Continued Medications: Aspirin (Aspirin Ec) 81 Mg Tab 81 MG PO DAILY Atorvastatin (Lipitor) 20 Mg Tab 20 MG PO DAILY Divalproex Sodium (Divalproex Sodium Dr) 500 Mg Tabec 1000 MG PO HS Donepezil HCl (Donepezil HCl) 10 Mg Tab 10 MG PO BID Lamotrigine (Lamictal) 100 Mg Tab 100 MG PO DAILY, TAB Metformin Hcl (Metformin Hcl Er) 500 Mg Tab 500 MG PO QAM Metformin Hcl (Glucophage) 500 Mg Tab 1000 MG PO QPM, TAB Quetiapine Fumarate (Seroquel) 25 Mg Tab 100 MG PO HS for 30 Days, TAB Venlafaxine Hcl (Effexor Extended Rel) 150 Mg Capcr 300 MG PO DAILY Referrals At Discharge Follow up Referrals: Orthopedics Referral - Within 2 Weeks with Carri, Jamaal M.,D.O. Discharge Exam Physical Exam: General Appearance: no apparent distress ENT: pharynx normal Neck: no JVD Respiratory/Chest: lungs clear, no respiratory distress, no accessory muscle use Cardiovascular: regular rate, rhythm, no gallop, no murmur, normal peripheral pulses Abdomen / GI: normal bowel sounds, non tender, soft, no organomegaly Extremities: no pedal edema Neurologic/Psychiatric: no motor/sensory deficits (strength b/l legs 5/5 ), alert, oriented x 3 Skin: no rash, + pertinent finding (dressings intact over right buttocks/ lateral thigh region ) Hospital Course HISTORY OF PRESENT ILLNESS: Mr. Ratliff is a 72yo male with history of T2DM and depression who presented with back pain. Patient has a known diagnosis of lumbar stenosis and recurrent disc herniation at L3-L4. He had a prior laminectomy by Dr. Adame in May 2016. He had L3-L4 revision, decompression and spinal fusion in October 2016. He has received spinal injections for pain control. He also has had known right-sided sacroilitis. Patient presented after a mechanical fall at home. He reported that when he was trying to rise from the couch his legs felt weak. He slowly lowered himself to the floor after which he was unable to stand up again. His and daughter helped him to his feet and he reported feeling unsteady and weak with worsening low back pain 10/10. He denied CP/palpitations/loss of consciousness. He denied saddle anesthesia/numbness/weakness/radicular symptoms. He denied seizure activity or loss of bowel or bladder control. He denied hearing a crack/pop or tear and denied trauma to the back. Patient stated that he had been falling more frequently lately, 2 falls today and multiple falls over the last 3-4 months. Patient stated that he was in chronic daily pain, 8/10, and 10/10 after the fall. The patient had undergone a diagnostic therapeutic injection of the right SI joint approximately 2 weeks ago and had significant improvement in pain after the injection. In addition to the above, the patient apparently had expressed a wish to end his life and had had increasing depressive symptoms due to the severity of his back pain. HOSPITAL COURSE: The patient was seen in consultation by Dr. Dontae Christina from orthopedics and on 07/10/17 he underwent right-sided SI joint fusion without complication. The patient did well post-operatively and his pain gradually improved. He was seen by PT/OT both of which recommended inpatient rehab. He expressed a desire to do his rehab at [facility] and will transfer there for that purpose. In addition to the above the patient was seen by psychiatry for his recent suicidal thoughts. Fortunately, despite the suicidal ideation, he had no plan or intent to carry out suicide. The patient consistently throughout his stay denied any further suicidal ideation or homicidal ideation. He reported multiple times that he simply felt more depressed because of the severity of the back pain. The patient was hopeful that the surgery would improve his pain thereby improving his depression. Psychiatry did not feel he needed inpatient psychiatric treatment and recommended ongoing use of his multiple psychotropic medications. NO changes were made to his medication regimen. They advised close follow-up with his primary psychiatrist, Dr. Hadley Kwan. All other medical problems remained stable while hospitalized including his T2DM. He will follow-up with Dr. Christina within 2 weeks of discharge. Total Time Spent: Greater than 30 minutes This includes examination of the patient, discharge planning, medication reconciliation, and communication with other providers. Discharge Instructions Please refer to the electronic Patient Visit Report (Discharge Instructions) for additional information. Follow-Up 1. see Dr. Christina, orthopedics, within 2 weeks 2. see PCP on Thursday, July 15 as scheduled [address] Kwan, psychiatry, as scheduled later in June Additional Copies To Jamaal Christina D.O.; Hadley Kwan MD; Gilberto Pollard M.D.; [facility]
== END 2017-07-13 13:51 | DRG 460 ==
LOC: C.EDB 21:19 → C.MSW 07-09 00:51 → ENRESERV 07-09 01:29 → OBSVTOIN 07-09 11:30
PROVIDERS: ADMIT Internal Medicine; ATTEND Internal Medicine
PROC: 0SG704Z Fusion of Right Sacroiliac Joint with Internal Fixation Device, Open Approach (ICD-10-PCS; principal; 2017-07-10 09:50)
DX: M46.1 Sacroiliitis, not elsewhere classified (principal); R45.851 Suicidal ideations; F33.9 Major depressive disorder, recurrent, unspecified; F60.3 Borderline personality disorder; E11.9 Type 2 diabetes mellitus without complications; M51.26 Other intervertebral disc displacement, lumbar region; M48.061 Spinal stenosis, lumbar region without neurogenic claudication; G89.29 Other chronic pain; F43.10 Post-traumatic stress disorder, unspecified; F63.81 Intermittent explosive disorder; K59.00 Constipation, unspecified; T40.2X5A Adverse effect of other opioids, initial encounter; Z66 Do not resuscitate; Z79.82 Long term (current) use of aspirin; Z79.84 Long term (current) use of oral hypoglycemic drugs; Z91.81 History of falling; Z79.899 Other long term (current) drug therapy; Z98.1 Arthrodesis status; Z88.0 Allergy status to penicillin; Z88.2 Allergy status to sulfonamides

== ENCOUNTER 2018-03-30 11:47 | Observation (INO) ==
[2018-03-30] MEDS ORDERED: SODIUM CHLORIDE 0.9% 1000ML 1,000 ML IV SCH (12:45)
[2018-03-30] MEDS ORDERED: SODIUM CHLORIDE 0.9% 500 ML IV SCH (12:45)
[2018-03-30 13:09] LABS: Basophils # (auto) 0.03 K/uL (0-0.2); Basophils % (auto) 0.4 %; Eosinophils # (auto) 0.25 K/uL (0-0.5); Eosinophils % (auto) 3.6 %; Hematocrit (blood only) 45.8 % (42-52); Hemoglobin 15.4 g/dL (14.0-18.0); Immature Granulocytes # (auto) 0.01 K/uL (0.00-0.02); Immature Granulocytes % (auto) 0.1 %; Lymphocytes # (auto) 2.65 K/uL (1.2-3.4); Lymphocytes % (auto) 37.8 %; Mean Corpuscular Hgb Conc 33.6 g/dL (32-36); Mean Platelet Volume 10.4 fL (7.4-10.4); Monocytes # (auto) 0.57 K/uL (0.11-0.59); Monocytes % (auto) 8.1 %; Platelet Count 230 K/uL (130-400); RDW Standard Deviation 46.6 fL (36.4-46.3); Red Blood Count 4.72 M/uL (4.7-6.1); White Blood Count 7.01 K/uL (4.8-10.8)
[2018-03-30 13:26] LABS: Alanine Aminotransferase 32 U/L (12-78); Albumin Level 3.5 gm/dl (3.4-5.0); Aspartate Aminotransferase 16 U/L (15-37); BUN Creatinine Ratio 17.4 (10-20); Blood Urea Nitrogen 17 mg/dl (7-18); Calcium 9.1 mg/dl (8.5-10.1); Carbon Dioxide 26 mmol/L (21-32); Chloride 104 mmol/L (98-107); Est GFR (Non-African American) 75.9; Glucose 145 mg/dl (70-99); Magnesium 2.3 mg/dl (1.8-2.4); Potassium 4.6 mmol/L (3.5-5.1); Sodium 139 mmol/L (136-145)
--- NOTE | 2018-03-30 13:30 | XRay Report ---
XR chest 1V portable HISTORY: weakness COMPARISON: Chest 07/09/2017. FINDINGS: Stable volume loss within the right hemithorax. No new focal lung consolidations to suggest pneumonia. No evidence for pulmonary edema. The heart is normal in size. No pleural effusions. No pn eumothorax. IMPRESSION: No significant change compared to the prior study. No acute process. Electronically signed by: John Chvais M.D. 03/30/2018 1:29 PM
[2018-03-30 13:40] LABS: Albumin Globulin Ratio 0.8 (0.9-2); Alkaline Phosphatase 73 U/L (45-117); Bilirubin,Total 0.6 mg/dl (0.2-1); Globulin 4.4 gm/dl (2.5-4.0); Total Protein 7.9 gm/dl (6.4-8.2); Troponin I < 0.015 ng/ml (0-0.045)
--- NOTE | 2018-03-30 13:52 | CT Scan Report ---
CT head/brain wo con CLINICAL HISTORY: Trauma. Weakness. Parkinson's. COMPARISON STUDY: 05/29/2016 TECHNIQUE: Axial CT of the brain is performed from the vertex to the skull base. IV contrast was not administered for this examination. A dose lowering technique was utilized adhering to the principles of ALARA. CT DOSE: 690.05 mGycm FINDINGS: No intra or extra-axial mass lesions are visualized. There is no CT evidence of acute cortical infarc tion. There is no evidence of midline shift. There is no acute hemorrhage. No calvarial fractures ar e visualized. There are moderate white matter hypodensities likely on a small vessel basis. There is mild particular dilatation, finding which is felt to be secondary to volume loss. There is no evidence of acute sinusitis IMPRESSION: No acute intracranial findings Electronically signed by: Carlton Soto M.D. 03/30/2018 1:51 PM
--- NOTE | 2018-03-30 13:57 | CT Scan Report ---
CT cervical spine wo con CLINICAL HISTORY: 72 years-old Male presenting with falls, weakness, history of Parkinson's disease, CHI. TECHNIQUE: Multidetector CT of the cervical spine was performed without the use of intravenous contra st. IV contrast: None. One or more dose lowering techniques were used consistent with the principles of ALARA (as low as reasonably achievable), including automatic exposure control, mA or kV adjustment to individual patient size, and/or use of iterative reconstruction. COMPARISON: 05/17/2014. CT DOSE (mGy.cm): The estimated cumulative dose is 459.97 mGycm. FINDINGS: Towel Sorter topogram: The patient is edentulous. Slight straightening of normal cervical lordosis, likely positional and related to multilevel degener ative changes. Vertebral bodies maintain normal height and alignment. Mild intervertebral disc height loss noted at C4-5 and C6-7. Small disc osteophyte complexes from C4-5 through C6-7. Mild posterior bony spurring most significant eccentrically on the left at C6-7. Disc osteophyte complexes/uncoverte bral hypertrophy result in osseous neural foraminal narrowing bilaterally at C4-5 and bilaterally at C6-7. No acute fracture or subluxation. Visualized portion of the skull base intact. Atherosclerosis noted. Paraspinal musculature within normal limits. Lung apices clear. IMPRESSION: 1. No acute osseous injury of the cervical spine. 2. Degenerative changes primarily at C4-5 and C6-7. Electronically signed by: Gilberto Almeida M.D. 03/30/2018 1:56 PM
--- NOTE | 2018-03-30 15:17 | Emergency Department Note ---
Entered by Claudine Galvan acting as a scribe for Paola Browning MD History of Present Illness General Chief complaint: Weakness Stated complaint: weakness Time Seen by Provider: 03/30/18 16:04 Source: patient and family Mode of arrival: ambulatory History of Present Illness Provider complaint: weakness Onset (ago): month(s) (few) Location: left and right Pain Consistency: + other (persistent) Quality: + other (worsening) Associated symptoms: + other (Associated symptoms: frequent falls, reduced appetite, lack of urination, slight confusion. Denies: cloudy or foul-smelling urine, chest pain, shortness of breath, abdominal pain, head pain. ) The patient is a 72 year old male who presents to the Emergency Room with complaints of persistent, worsening weakness beginning a few months ago. He notes he has been falling frequently, and has a reduced appetite recently. His reports the patient's PCP recommended he see his neurologist for his falls , and the patient was prescribed a medication which has not improved his symptoms. She notes the patient is in physical therapy, which also does not seem to help. The states it seems as though the patient's legs give out from under him. She notes he has hit his head a few times due to these falls. The reports the patient fell at least 5 times last evening trying to eat dinner at a restaurant, and again that evening at home. She notes the patient has not urinated since yesterday. The states he had 2 glasses of iced tea and some water last night, as well as a glass of orange juice this morning. The patient denies cloudy or foul-smelling urine, chest pain, shortness of breath, abdominal pain, or head pain. His notes he seems slightly confused lately. Home Medications Home Medications Medication Instructions Recorded Confirmed Type Medical Marijuana 1 dose INHALATION DIRECTED 03/30/18 History aspirin [Aspirin Childrens] 81 mg PO DAILY 03/30/18 03/30/18 History atorvastatin 20 mg PO DAILY 03/30/18 03/30/18 History benztropine 0.5 mg PO HS 03/30/18 03/30/18 History divalproex [Depakote] 500 mg PO HS 03/30/18 03/30/18 History donepezil [Aricept] 10 mg PO DIRECTED 03/30/18 03/30/18 History lamotrigine [Lamictal] 75 mg PO QAM 03/30/18 03/30/18 History lamotrigine [Lamictal] 100 mg PO HS 03/30/18 03/30/18 History metformin 500 mg PO DAILY 03/30/18 03/30/18 History quetiapine [Seroquel] 100 mg PO HS 03/30/18 03/30/18 History venlafaxine [Effexor XR] 300 mg PO QAM 03/30/18 03/30/18 History Allergies Allergy/AdvReac Type Severity Reaction Status Date / Time Penicillins Allergy Severe SWELL Verified 03/30/18 12:22 UP,HIVES Sulfa (Sulfonamide Allergy Unknown unknown Verified 03/30/18 12:22 Antibiotics) Past Med/Surg History Medical History Diabetes (Chronic) Depression (Chronic) Suicidal behavior (Resolved) Depressive disorder Explosive personality disorder HNP (herniated nucleus pulposus) Headaches due to old head trauma Hx of suicide attempt Intermittent explosive disorder in adult Intractable low back pain Lumbar stenosis with neurogenic claudication Major depressive disorder, recurrent, moderate PTSD (post-traumatic stress disorder) Sacroiliitis Uncontrolled diabetes mellitus Social History marital status: Current Living Situation: Family Feels Safe at Home: Yes Smoking Status: Never smoker Preferred Language: Greenlandic Review of Systems See HPI for pertinent positives & negatives. and A total of 10 systems reviewed and were otherwise negative Physical Exam Vital Signs Vital Signs - 24 hr 03/30/18 11:58 03/30/18 12:39 03/30/18 12:40 Temperature 36.6 C Temperature Source Oral Sepsis Recent Fever Within 48 Hours No Sepsis New/Unexplained Change in Mental Status No Sepsis Action Taken by Nursing No Action Required Pulse Rate - Lying 79 Pulse Rate - Sitting 80 Pulse Rate 76 76 Pulse Rate [Apical] Pulse Rhythm Regular Regular Pulse Strength Normal Respiratory Rate 20 Respiratory Effort / Characteristics Non-Labored Spontaneous Respiratory Depth Normal Respiratory Pattern Regular Blood Pressure - Lying 113/75 Blood Pressure - Sitting 104/75 Blood Pressure 188/78 H Blood Pressure [Left Arm] Blood Pressure Mean 114 Blood Pressure Mean [Left Arm] Blood Pressure Position Sitting Pulse Oximetry 93 94 Pulse Oximetry [At Rest] Oxygen Delivery Method Room Air Room Air Oxygen Flow Rate [At Rest] 03/30/18 14:13 03/30/18 15:15 Temperature Temperature Source Sepsis Recent Fever Within 48 Hours Sepsis New/Unexplained Change in Mental Status Sepsis Action Taken by Nursing Pulse Rate - Lying Pulse Rate - Sitting Pulse Rate Pulse Rate [Apical] 72 Pulse Rhythm Pulse Strength Respiratory Rate 20 Respiratory Effort / Characteristics Respiratory Depth Respiratory Pattern Blood Pressure - Lying 114/77 Blood Pressure - Sitting Blood Pressure Blood Pressure [Left Arm] 116/76 Blood Pressure Mean Blood Pressure Mean [Left Arm] 89 Blood Pressure Position Pulse Oximetry 95 Pulse Oximetry [At Rest] 93 Oxygen Delivery Method Room Air Oxygen Flow Rate [At Rest] 0 Vital signs reviewed. General: Chronically ill-appearing elderly man, in no significant distress. HEENT: No scleral icterus, PERRLA, neck supple. Atraumatic. Dry mucous membranes. Cardiovascular: Regular rate and rhythm, no extra sounds. Pulmonary: Clear to auscultation bilaterally, normal work of breathing. Abdomen: Soft, nontender, nondistended, positive bowel sounds. Musculoskeletal: Atraumatic, no peripheral edema. Neurologic: Patient awake alert and oriented x 3, 4/5 equal strength in all 4 extremities but decreased ROM/stiff. Cranial nerves 2 through 12 grossly intact. Skin: Warm, dry, no rash. Course 1237: Past medical records reviewed. The patient was evaluated in room B11A, and a complete history and physical examination were performed. 1439: Upon reevaluation, the patient appeared to have improvement of his symptoms. I discussed findings with him. He verbalized agreement of the treatment plan. The patient was discharged home. Administered Medications Sodium Chloride (Nss 1000ml) 1,000 mls @ 150 mls/hr IV .Q6H40M [facility] Stop: 04/29/18 12:44 Last Admin: 03/30/18 14:15 Dose: 150 mls/hr Discontinued Medications Sodium Chloride (Nss) 500 mls @ 999 mls/hr IV .Q31M [facility] Stop: 03/30/18 13:15 Last Infusion: 03/30/18 14:13 Dose: 0 mls/hr Admin: 03/30/18 12:55 Dose: 999 mls/hr Medical Decision Making Differential Diagnosis Differential includes acute coronary syndrome, myocardial infarction, CVA, TIA , anemia, infection, pneumonia, UTI, pyelonephritis, poor nutrition, dehydration , electrolyte disturbance, hypoglycemia, intracranial hemorrhage. Medical Records Attestation: I reviewed the patient's medical records. Home Medications Current Medication List: was personally reviewed by me Laboratory Data Attestation: I reviewed the patient's lab results. Result diagrams: 03/30/18 12:55 03/30/18 12:55 Lab Results 03/30/18 03/30/18 Range/Units 12:55 12:55 WBC 7.01 (4.8-10.8) K/uL RBC 4.72 (4.7-6.1) M/uL Hgb 15.4 (14.0-18.0) g/dL Hct 45.8 (42-52) % MCV 97.0 (80-100) fL MCH 32.6 (25-34) pg MCHC 33.6 (32-36) g/dL RDW Std Deviation 46.6 H (36.4-46.3) fL RDW Coeff of Franc 13.0 (11.5-14.5) % Plt Count 230 (130-400) K/uL MPV 10.4 (7.4-10.4) fL Immature Gran % (Auto) 0.1 % Neut % (Auto) 50.0 % Lymph % (Auto) 37.8 % [place] % (Auto) 8.1 % Eos % (Auto) 3.6 % Baso % (Auto) 0.4 % Immature Gran # (Auto) 0.01 (0.00-0.02) K/uL Neut # (Auto) 3.50 (1.4-6.5) K/uL Lymph # (Auto) 2.65 (1.2-3.4) K/uL [place] # (Auto) 0.57 (0.11-0.59) K/uL Eos # (Auto) 0.25 (0-0.5) K/uL Baso # (Auto) 0.03 (0-0.2) K/uL Sodium 139 (136-145) mmol/L Potassium 4.6 (3.5-5.1) mmol/L Chloride 104 (98-107) mmol/L Carbon Dioxide 26 (21-32) mmol/L Anion Gap 9.0 (3-11) BUN 17 (7-18) mg/dl Creatinine 1.00 (0.6-1.4) mg/dl Est Cr Clr Drug Dosing Not Reportable Est GFR ( Amer) 88.0 Est GFR (Non-Af Amer) 75.9 BUN/Creatinine Ratio 17.4 (10-20) Glucose 145 H (70-99) mg/dl Calcium 9.1 (8.5-10.1) mg/dl Magnesium 2.3 (1.8-2.4) mg/dl Total Bilirubin 0.6 (0.2-1) mg/dl AST 16 (15-37) U/L ALT 32 (12-78) U/L Alkaline Phosphatase 73 (45-117) U/L Troponin I < 0.015 (0-0.045) ng/ml Total Protein 7.9 (6.4-8.2) gm/dl Albumin 3.5 (3.4-5.0) gm/dl Globulin 4.4 H (2.5-4.0) gm/dl Albumin/Globulin Ratio 0.8 L (0.9-2) TSH 0.906 (0.300-4.500) uIu/ml Imaging Data Radiologist's Impression: Radiology results as stated below per my review and the radiologist's interpretation: CT cervical spine wo con CLINICAL HISTORY: 72 years-old Male presenting with falls, weakness, history of Parkinson's disease, CHI. TECHNIQUE: Multidetector CT of the cervical spine was performed without the use of intravenous contrast. IV contrast: None. One or more dose lowering techniques were used consistent with the principles of ALARA (as low as reasonably achievable), including automatic exposure control, mA or kV adjustment to individual patient size, and/or use of iterative reconstruction. COMPARISON: 05/17/2014. CT DOSE (mGy.cm): The estimated cumulative dose is 459.97 mGycm. FINDINGS: [employer] topogram: The patient is edentulous. Slight straightening of normal cervical lordosis, likely positional and related to multilevel degenerative changes. Vertebral bodies maintain normal height and alignment. Mild intervertebral disc height loss noted at C4-5 and C6-7. Small disc osteophyte complexes from C4-5 through C6-7. Mild posterior bony spurring most significant eccentrically on the left at C6-7. Disc osteophyte complexes/ uncovertebral hypertrophy result in osseous neural foraminal narrowing bilaterally at C4-5 and bilaterally at C6-7. No acute fracture or subluxation. Visualized portion of the skull base intact. Atherosclerosis noted. Paraspinal musculature within normal limits. Lung apices clear. IMPRESSION: 1. No acute osseous injury of the cervical spine. 2. Degenerative changes primarily at C4-5 and C6-7. Electronically signed by: Gilberto Almeida M.D. 03/30/2018 1:[address] head/brain wo con CLINICAL HISTORY: Trauma. Weakness. Parkinson's. COMPARISON STUDY: 05/29/2016 TECHNIQUE: Axial CT of the brain is performed from the vertex to the skull base. IV contrast was not administered for this examination. A dose lowering technique was utilized adhering to the principles of ALARA. CT DOSE: 690.05 mGycm FINDINGS: No intra or extra-axial mass lesions are visualized. There is no CT evidence of acute cortical infarction. There is no evidence of midline shift. There is no acute hemorrhage. No calvarial fractures are visualized. There are moderate white matter hypodensities likely on a small vessel basis. There is mild particular dilatation, finding which is felt to be secondary to volume loss. There is no evidence of acute sinusitis IMPRESSION: No acute intracranial findings Electronically signed by: Carlton Soto M.D. 03/30/2018 1:51 PM XR chest 1V portable HISTORY: weakness COMPARISON: Chest 07/09/2017. FINDINGS: Stable volume loss within the right hemithorax. No new focal lung consolidations to suggest pneumonia. No evidence for pulmonary edema. The heart is normal in size. No pleural effusions. No pneumothorax. IMPRESSION: No significant change compared to the prior study. No acute process. Electronically signed by: John Chavis M.D. 03/30/2018 1:29 PM ECG Data Attestation: I personally reviewed and interpreted this ECG as follows: Indication: weakness Rate (beats per minute): 77 Rhythm: normal sinus Findings: + other (QTC 479) and + RBBB; no PAC, no PVC, no ST depression and no ST elevation Blood Pressure Blood Pressure Findings: Normal blood pressure Blood Pressure Disposition: did not require urgent referral MDM Narrative This patient was evaluated and appeared to be in no significant distress. Physical examination reveals an elderly and somewhat chronically appearing male. IV fluids were initiated. CT scan of the head and neck reveals no acute traumatic findings. Laboratory work is unrevealing. There is no evidence of infection on chest x-ray. EKG reveals no evidence of acute abnormality. He is found to have a right bundle branch block. On reevaluation the patient, he is in no distress. I did speak with patient and regarding inpatient rehabilitation stay. They are agreeable with this plan. PT OT consults were placed and [facility] was consulted. Case is signed out to Dr. Saunders at the change of shift. Impression & Plan Parkinson's disease, Recurrent falls, Generalized muscle weakness Discharge Plan Visit Data Chief Complaint: Weakness Stated Complaint: weakness ED Provider: Adrian Saunders Discharge Problem: Parkinson's disease, Recurrent falls, Generalized muscle weakness Forms Stand Alone Forms: My [facility] Prescriptions Prescriptions: No Action atorvastatin 20 mg Tablet 20 mg PO DAILY RF: 0 benztropine 0.5 mg Tablet 0.5 mg PO HS RF: 0 donepezil [Aricept] 10 mg Tablet 10 mg PO DIRECTED RF: 0 venlafaxine [Effexor XR] 150 mg Capsule,Extended Release 24hr 300 mg PO QAM RF: 0 divalproex [Depakote] 500 mg Tablet,Delayed Release (Dr/Ec) 500 mg PO HS RF: 0 quetiapine [Seroquel] 100 mg Tablet 100 mg PO HS RF: 0 lamotrigine [Lamictal] 25 mg Tablet 75 mg PO QAM RF: 0 aspirin [Aspirin Childrens] 81 mg Tablet,Chewable 81 mg PO DAILY RF: 0 metformin 500 mg Tablet Extended Release 24 Hr 500 mg PO DAILY RF: 0 lamotrigine [Lamictal] 100 mg Tablet 100 mg PO HS RF: 0 Medical Marijuana 1 dose Inhalation DIRECTED RF: 0 Referrals Referrals: Gilberto Pollard MD [Primary Care Provider] - The scribe's documentation has been prepared under my direction and personally reviewed by me in its entirety. I confirm that the note above accurately reflects all work, treatment, procedures, and medical decision making performed by me.
[2018-03-30 17:30] LABS: Appearance Urine Clear (Clear); Bilirubin Urine Negative (Negative); Color Urine Dark Yellow; Glucose Urine UA 3+ (Negative); Ketones Urine Trace (Negative); Leukocyte Esterase Urine Negative (Negative); Nitrite Urine Negative (Negative); Protein Urine Negative (Negative); Specific Gravity Urine 1.031 (1.000-1.030); Urobilinogen Urine Negative (Negative)
--- NOTE | 2018-03-30 19:06 | History & Physical Report ---
Date of Service March 30, 2018 Assessment & Plan (1) Recurrent falls: As many as 5 falls in one day per . No loss of consciousness before or after. CT head and C-spine on 03/30 were negative for any fracture or other acute injury. 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 Has extensive mental health history, so per notes, psychiatrist is slowly weaning down the Depakote and Seroquel. - Neurology consult - Continue home meds (3) Depression: As above, extensive mental health history with PTSD, depression, intermittent explosive disorder. - Continue home meds (confirmed with ) (4) Hypoxemia: O2 sat was 91% on room air while sleeping. No hx of smoking per , though does have second hand exposure. Possibly undiagnosed JAVON. - No acute concerns as long as O2 remains >90% (5) Diabetes: Only on metformin at home. A1c was 7.1% in 11/2017. - Sliding scale insulin (6) DVT prophylaxis: SCDs - Hopefully short stay History of Present Illness Primary Care Provider: Gilberto Pollard MD 72yo M w/ hx of secondary Parkinsonism who presents after many recent falls. Per patient and , he has had upwards of 5 falls per day in the last few days. He denies any lightheadedness, dizziness, or other other presyncopal episodes prior to falling, just that his feet cannot keep up with him. His reports that he mostly falls down onto the right hip, but has struck his head a few times. He has not had any loss of consciousness though. Allergies Allergy/AdvReac Type Severity Reaction Status Date / Time Penicillins Allergy Severe SWELL Verified 03/30/18 12:22 UP,HIVES Sulfa (Sulfonamide Allergy Unknown unknown Verified 03/30/18 12:22 Antibiotics) Home Medications Home Medications Medication Instructions Recorded Confirmed Type Medical Marijuana 1 dose INHALATION DIRECTED 03/30/18 History aspirin [Aspirin Childrens] 81 mg PO DAILY 03/30/18 03/30/18 History atorvastatin 20 mg PO DAILY 03/30/18 03/30/18 History benztropine 0.5 mg PO HS 03/30/18 03/30/18 History divalproex [Depakote] 500 mg PO HS 03/30/18 03/30/18 History donepezil [Aricept] 10 mg PO DIRECTED 03/30/18 03/30/18 History lamotrigine [Lamictal] 75 mg PO QAM 03/30/18 03/30/18 History lamotrigine [Lamictal] 100 mg PO HS 03/30/18 03/30/18 History metformin 500 mg PO DAILY 03/30/18 03/30/18 History quetiapine [Seroquel] 100 mg PO HS 03/30/18 03/30/18 History venlafaxine [Effexor XR] 300 mg PO QAM 03/30/18 03/30/18 History Past Med/Surg History Medical History Diabetes (Chronic) Depression (Chronic) Suicidal behavior (Resolved) Depressive disorder Explosive personality disorder HNP (herniated nucleus pulposus) Headaches due to old head trauma Hx of suicide attempt Intermittent explosive disorder in adult Intractable low back pain Lumbar stenosis with neurogenic claudication Major depressive disorder, recurrent, moderate PTSD (post-traumatic stress disorder) Sacroiliitis Uncontrolled diabetes mellitus Family History Sister Diabetes 1.5, managed as type 1 Social History marital status: Current Living Situation: Family Feels Safe at Home: Yes Smoking Status: Never smoker Preferred Language: French Review of Systems Constitutional: no fever, no chills and no sweats Eyes: no diplopia Ear, Nose, Mouth, Throat: no ear trauma, no nasal discharge and no dental pain Respiratory: no cough, no chest congestion and no dyspnea Cardiovascular: no chest pain, no dyspnea on exertion, no palpitations and no syncope Gastrointestinal: no abdominal pain, no belching, no constipation, no diarrhea/ loose stools, no blood in stools and no melena Musculoskeletal: no back pain, no joint pain and no muscle weakness Integumentary: no rash, no skin ulcer and no erythema Neurologic: no generalized weakness, no loss of sensation, no numbness and no paresthesia Psychiatric: no depression and no anxiety Endocrine: no fatigue, no polydipsia and no polyphagia Physical Exam 2 Vital Signs (Past 24 Hours): Last Vital Signs Temp 36.6 C 03/30/18 11:58 Pulse 78 03/30/18 18:42 Resp 18 03/30/18 18:42 BP 118/72 03/30/18 18:42 Pulse Ox 94 03/30/18 18:42 Constitutional: WD/WN, vitals as above Eyes: EOM intact bilaterally; no conjunctival abnormality ENMT: external ear and nose normal, oropharynx normal Neck: trachea midline, no thyromegaly normal visual inspection Respiratory: normal respiratory effort, lungs clear to auscultation no respiratory distress Cardiovascular: RRR, no murmur, no edema Gastrointestinal (Abdomen): Inspection/Auscultation: abdomen normal to inspection; abdomen not distended Musculoskeletal: no cyanosis or clubbing, extremities motor strength 5/5 Skin: no rashes, warm and dry Neurologic: moves all extremities and awake Psychiatric: Orientation: alert, oriented to person and cooperative
[2018-03-30] MEDS ORDERED: CARBOHYDRATES FOR HYPOGLYCEMIA PO PRN (20:26)
[2018-03-30] MEDS ORDERED: GLUCOSE 10 TABS/TUBE PO PRN (20:26)
[2018-03-30] MEDS ORDERED: GLUCOSE 40% GEL 15 GM TUBE PO PRN (20:26)
[2018-03-30] MEDS ORDERED: ACETAMINOPHEN 325 MG TAB PO PRN (20:26)
[2018-03-30] MEDS ORDERED: GLUCAGON FOR INJ 1 MG VIAL SQ PRN (20:26)
[2018-03-30] MEDS ORDERED: DEXTROSE 50% 50 ML SYRINGE IV PRN (20:26)
--- NOTE | 2018-03-30 20:32 | Emergency Department Note ---
Entered by Holley Castañeda acting as a scribe for Adrian Saunders M.D. ED Visit Note Signed out to me. Urinalysis was completed without acute findings. PT and OT evaluation and insurance authorization for possible placement was completed with case management assistance. [facility] was inquiring for possible rehab placement however not able to obtain insurance approval for this at this time. Given this and the patient's weakness and ability to care for himself at home discussed with hospitalist for admission here overnight and the family was in agreement with the plan. ATC . The scribe's documentation has been prepared under my direction and personally reviewed by me in its entirety. I confirm that the note above accurately reflects all work, treatment, procedures, and medical decision making performed by me.
[2018-03-30] MEDS ORDERED: BENZTROPINE MESYLATE 0.5 MG TAB PO SCH (21:00)
[2018-03-30] MEDS: DIVALPROEX EXTENDED RELEASE 500 MG TAB PO SCH (21:28)
[2018-03-30] MEDS: lamoTRIgine 100 MG TAB PO SCH (21:28)
[2018-03-30] MEDS: QUETIAPINE FUMARATE 100 MG TABLET PO SCH (21:28)
[2018-03-30] MEDS: INSULIN ASPART 100 UNITS/ML 3 ML PEN SC SCH (21:29)
[2018-03-31] MEDS: DONEPEZIL HCL 10 MG TAB PO SCH (08:45)
[2018-03-31] MEDS: lamoTRIgine 25 MG TAB PO SCH (08:45)
[2018-03-31] MEDS: ATORVASTATIN 20 MG TAB PO SCH (08:45)
[2018-03-31] MEDS: ASPIRIN 81 MG ECTAB PO SCH (08:45)
[2018-03-31] MEDS: VENLAFAXINE HCL XR 150 MG CAPXR PO SCH (08:45)
[2018-03-31] MEDS: INSULIN ASPART 100 UNITS/ML 3 ML PEN SC SCH ×4 (08:47→21:06)
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
--- NOTE | 2018-03-31 14:54 | Hospitalist Progress Note ---
Date of Service March 31, 2018 Assessment & Plan (1) Recurrent falls: - H/o recurrent falls at home; likely related to balance issue and Parkinson's gait. - Head CT and Cervical Spine CT negative. - PT/OT ordered - plan for rehab placement. (2) Parkinson's disease: - Parkinsonism related to medications (Seroquel?). - Evaluated by psychiatrist -- attempting to taper down medications as tolerated. - Neurology consulted, appreciate input. - Consider brain MRI to evaluate extent and severity of vascular changes. - Will need EMG as outpatient. (3) Depression: - Extensive mental health history with PTSD, depression, intermittent explosive disorder. - Continue home Lamictal 100 mg qhs, Seroquel 100 mg qhs, Effexor 300 mg qAM, Depakote ER 500 mg qhs, Aricept 10 mg qAM. - Follows with psychiatrist, will taper meds per outpatient physician. (4) Hypoxemia: - Now weaned to room air, will continue to monitor. (5) Diabetes: - On metformin at home. A1C was 7.1% in November 2017. - SSI ordered as inpatient. (6) DVT prophylaxis: - SCDs. Dispo: Discharge pending rehab placement. Supervising Physician Co-Signing Physician Notes Attending Attestation - Chart reviewed in detail, and care plan d/w LINDA Harrison. I agree w/ the martell components of her documentation. Pt with parkinsonism due to multiple psychotropic medications. This, in turn, has likely contributed to his falls. Appreciate neurology consultation. Discharge planning in process. PT, OT. Caden Lynch MD Subjective Pt. is sitting up in bed, states he is doing well. He was falling frequently at home, plan for rehab placement pending acceptance. Denies pain, chest pain, SOB , LE edema, constipation or diarrhea, urinary retention. Review of Systems All systems reviewed & are unremarkable except as noted in HPI & below Constitutional: + weakness; no fever and no chills Respiratory: no cough and no dyspnea Cardiovascular: no chest pain, no palpitations and no edema Gastrointestinal: no abdominal pain, no nausea and no constipation Genitourinary (Male): no difficulty urinating Musculoskeletal: no joint pain Allergy / Immunological: no rash Physical Exam 2 Vital Signs (Past 24 Hours): Last Vital Signs Temp 36.9 C 03/31/18 06:59 Pulse 71 03/31/18 06:59 Resp 20 03/31/18 06:59 BP 126/79 03/31/18 06:59 Pulse Ox 94 03/31/18 06:59 Physical Exam: General: Resting comfortably in no apparent distress HEENT: NC/AT; PERRLA with EOMI; [place] conjunctiva, MMM. Neck: Supple and nontender Cardiac: RRR w/o murmurs, gallops or rubs Lungs: CTA bilaterally; No rhonchi, wheezing, or rales Abdomen: Bowel normoactive X 4; Nontender to palpation Extremities: Warm. No edema present Neuro: No focal weakness Skin: No rash Results & Data Laboratory Results 03/31/18 03/31/18 03/30/18 Range/Units 11:42 07:40 21:21 POC Glucose 204 H 128 H 110 H (70-99) Urine Color Urine Appearance (Clear) Urine pH (4.5-7.5) Ur Specific [place] (1.000-1.030) Urine Protein (Negative) Urine Glucose (UA) (Negative) Urine Ketones (Negative) Urine Blood (Negative) Urine Nitrite (Negative) Urine Bilirubin (Negative) Urine Urobilinogen (Negative) Ur Leukocyte Esterase (Negative) 03/30/18 Range/Units 16:50 POC Glucose (70-99) Urine Color Dark Yellow Urine Appearance Clear (Clear) Urine pH 5.0 (4.5-7.5) Ur Specific [place] 1.031 H (1.000-1.030) Urine Protein Negative (Negative) Urine Glucose (UA) 3+ H (Negative) Urine Ketones Trace H (Negative) Urine Blood Negative (Negative) Urine Nitrite Negative (Negative) Urine Bilirubin Negative (Negative) Urine Urobilinogen Negative (Negative) Ur Leukocyte Esterase Negative (Negative)
[2018-03-31] MEDS: DIVALPROEX EXTENDED RELEASE 500 MG TAB PO SCH (21:03)
[2018-03-31] MEDS: lamoTRIgine 100 MG TAB PO SCH (21:03)
[2018-03-31] MEDS: QUETIAPINE FUMARATE 100 MG TABLET PO SCH (21:04)
[2018-04-01 06:33] LABS: BUN Creatinine Ratio 15.4 (10-20); Calcium 9.2 mg/dl (8.5-10.1); Creatinine Clr Calc Pharmacy 83.5 ml/min; Est GFR (African American) 102.3; Est GFR (Non-African American) 88.3; Potassium 3.8 mmol/L (3.5-5.1)
[2018-04-01] MEDS: DONEPEZIL HCL 10 MG TAB PO SCH (08:19)
[2018-04-01] MEDS: ASPIRIN 81 MG ECTAB PO SCH (08:19)
[2018-04-01] MEDS: ATORVASTATIN 20 MG TAB PO SCH (08:19)
[2018-04-01] MEDS: VENLAFAXINE HCL XR 150 MG CAPXR PO SCH (08:19)
[2018-04-01] MEDS: lamoTRIgine 25 MG TAB PO SCH (08:19)
[2018-04-01] MEDS: INSULIN ASPART 100 UNITS/ML 3 ML PEN SC SCH ×2 (08:21→12:46)
--- NOTE | 2018-04-01 08:56 | Neurology Progress Note ---
Date of Service April 01, 2018 Assessment & Plan (1) Recurrent falls: Patient has recurrent and somewhat progressive increased frequency of falling. After careful history regarding these falls I have come to the conclusion that this is more of a balance problem and a perhaps buckling of the legs, and is not referable to a central nervous system problem. He is not having vertigo, orthostasis, or syncope. He does have low back pain which could be contributing to his balance issues especially if he is having radiculopathy. He does not describe any considerable radicular pain however. He has a Parkinson's gait which I believe is the main issue with his balance. He can fall even despite a walker. On neurologic examination he has no actual focal muscle weakness in any major groups of the legs or arms. He has no significant sensory abnormalities (no sensory ataxia), cerebellar dysfunction, or severe cognitive problems. Today, he seems improved compared to yesterday with his physical ability to walk. He seems a little brighter and more alert today as well. This could be due to the discontinuation of benztropine. (2) Parkinson's disease: Patient has had parkinsonism for several years now. He has been to the [facility] seeing a movement disorder specialist who did an extensive evaluation and feels that this is not Parkinson's disease. This is likely parkinsonism from Seroquel at perhaps from diffuse vascular STOCK BROKER changes. He is seen by his psychiatrist who is aware of this issue but apparently the patient needs Seroquel at the current dose. (3) Depression: Patient has had significant psychiatric issues since his work incident of 2000 including major depression, anxiety, explosive personality disorder, and PTSD. He is on many psychiatrically active medications as noted above. I believe the psychiatric problems are fairly stable in general currently. (4) Mild cognitive impairment with memory loss: The patient has memory loss which is mild. He is on donepezil which probably does not help very much. He has been diagnosed as mild cognitive impairment. I believe he has a vascular component to this and has chronic small vessel ischemic disease seen on previous MRIs. This has been stable more recently. Patient has a history of significant headaches in the past but these have been improved and stable over time. (5) Lumbar stenosis with neurogenic claudication: Patient has a history of lumbar spinal stenosis with radiculopathy, helped with spine surgery in the summer of 2017. He does not have any radicular symptoms anymore although he still has some mild intermittent low back pain. Recommendations: 1. Consider MRI of the brain to evaluate extent and severity of vascular ischemic changes. I do not believe this patient had a stroke otherwise. 2. I would like to do EMG and nerve conduction studies of both legs, but this will be done as an outpatient. 3. Physical therapy should be considered used for strengthening and gait training. He needs to be encouraged to use a walker at all times and needs counseling on fall prevention. 4. I believe this patient would be an excellent candidate for rehabilitation hospital as he will get much better therapy there. 5. Taper off Seroquel if possible, but I will defer this to his psychiatrist. 6. Keep off benztropine Overall, I have spent a total of 25 minutes with this case including review of records, direct evaluation the patient at bedside, and discussion of the case with the patient and clinical staff, and Dr. Lynch, including differential diagnosis and treatment options. Greater than 50% of this total time was spent at bedside [id number] with the patient. Subjective Overall, the patient feels better. He feels that he is walking better. Nursing reports no new problems or issues overnight. Blood pressure is 116/66 and he is afebrile. I reconciled medication with his yesterday and we decided to discontinue benztropine as it likely was not helping and probably giving him some side effects. Chem profile today was unremarkable although glucose was 146. Hemoglobin A1c is 7.1. Physical Exam 2 Vital Signs (Past 24 Hours): Last Vital Signs Temp 36.9 C 04/01/18 06:54 Pulse 63 04/01/18 06:54 Resp 20 04/01/18 06:54 BP 116/66 04/01/18 06:54 Pulse Ox 96 04/01/18 06:54 Physical Exam: The patient is awake and alert. His speech is without aphasia or dysarthria. He tends to be quiet and not spontaneously speak much unless spoken to. He has a mild masklike face. He has no facial droop and tongue is midline. Patient's gait is a little quicker with his walker today compared to yesterday. His balance seems a little better in general compared to yesterday. Stands with feet together create some retropulsion. Coordination is normal in the arms without tremor or ataxia. He has no resting tremor. He has mild rigidity only in the limbs. Strength is symmetrical in all 4 limbs.
--- NOTE | 2018-04-01 13:38 | Discharge Summary ---
Date of Service April 01, 2018 Admission HPI Per Admitting Provider 72yo M w/ hx of secondary Parkinsonism who presents after many recent falls. Per patient and , he has had upwards of 5 falls per day in the last few days. He denies any lightheadedness, dizziness, or other other presyncopal episodes prior to falling, just that his feet cannot keep up with him. His reports that he mostly falls down onto the right hip, but has struck his head a few times. He has not had any loss of consciousness though. Admission Exam Per Admitting Provider Constitutional: WD/WN, vitals as above Eyes: EOM intact bilaterally; no conjunctival abnormality ENMT: external ear and nose normal, oropharynx normal Neck: trachea midline, no thyromegaly normal visual inspection Respiratory: normal respiratory effort, lungs clear to auscultation no respiratory distress Cardiovascular: RRR, no murmur, no edema Gastrointestinal (Abdomen): Inspection/Auscultation: abdomen normal to inspection; abdomen not distended Musculoskeletal: no cyanosis or clubbing, extremities motor strength 5/5 Skin: no rashes, warm and dry Neurologic: moves all extremities and awake Psychiatric: Orientation: alert, oriented to person and cooperative Principal Diagnosis Recurrent Falls Discharge Exam General: Resting comfortably in no apparent distress HEENT: NC/AT; PERRLA with EOMI; [place] conjunctiva, MMM. Neck: Supple and nontender Cardiac: RRR w/o murmurs, gallops or rubs Lungs: CTA bilaterally; No rhonchi, wheezing, or rales Abdomen: Bowel normoactive X 4; Nontender to palpation Extremities: Warm. No edema present Neuro: No focal weakness Skin: No rash Discharge Data Allergies Allergy/AdvReac Type Severity Reaction Status Date / Time Penicillins Allergy Severe SWELL Verified 03/30/18 12:22 UP,HIVES Sulfa (Sulfonamide Allergy Unknown unknown Verified 03/30/18 12:22 Antibiotics) Consultations 03/30/18 18:23 ED Decision to Admit Stat 03/30/18 20:26 Consult Case Management - Discharge Planning Routine Consult Neurology Routine Ordered Studies 03/30/18 12:40 CT head/brain wo con Stat 03/30/18 12:49 CT cervical spine wo con Stat 03/30/18 Chest Xray Hospital Course (1) Recurrent falls: Pt. presented with recurrent falls at home likely related to balance issues and Parkinson's gait. Head CT and cervical spine CT was negative. PT/OT recommended inpatient rehab. (2) Parkinson's disease: Parkinsonism related to medications (Seroquel?). Neurology was consulted; pt. will need EMG and nerve conduction studies as an outpatient. He will need to follow up with his psychiatrist at discharge to taper psych meds. (3) Depression: Extensive mental health history with PTSD, depression, intermittent explosive disorder. Home meds were continued as prescribed. (4) Hypoxemia: He was weaned to room air. (5) Diabetes: On metformin at home. A1C was 7.1% in November 2017. Sliding scale was ordered. (6) DVT prophylaxis: SCDs. Pt. was stable for discharge to [facility] on 04/01/2018. Total Time Total Time Spent Total Time Spent (In Minutes): >30 minutes Total Time Includes: Examination of the Patient, Discharge Planning, Medication Reconciliation, Communication With Other Providers and Other Discharge Plan Discharge Items Patient Disposition: Transfer Inpatient Rehab Fac Reason For Visit: FALLS,FAILURE TO THRIVE Discharge Diagnosis: Recurrent Falls Condition: Fair Discharge Goals: Improve disease control, Improve function, Increase independence and Learn about illness Activity: As commented below Activity Comment: Per PT/OT recs. Non-emergency contact: Primary Care Provider Call non-emergency contact if: you have any medication questions, your symptoms worsen, your pain is worsening and you have a fever Diet: Carb Consistent or DM2 Addtl Provider Instructions: 1. Recurrent Falls * You will be discharged to acute rehab for ongoing PT/OT. 2. Parkinson's Disease * Secondary to psych medications. * Please continue Lamictal, Seroquel, Effexor 300 mg, Depakote and Aricept as prescribed. * Pt. will need to follow up with psychiatrist at discharge to discuss tapering off medications. 3. Type II Diabetes Mellitus * Please continue Metformin as prescribed. Prescriptions: Continue atorvastatin 20 mg Tablet 20 mg PO DAILY RF: 0 donepezil [Aricept] 10 mg Tablet 10 mg PO DIRECTED RF: 0 venlafaxine [Effexor XR] 150 mg Capsule,Extended Release 24hr 300 mg PO QAM RF: 0 divalproex [Depakote] 500 mg Tablet,Delayed Release (Dr/Ec) 500 mg PO HS RF: 0 quetiapine [Seroquel] 100 mg Tablet 100 mg PO HS RF: 0 lamotrigine [Lamictal] 25 mg Tablet 75 mg PO QAM RF: 0 aspirin [Aspirin Childrens] 81 mg Tablet,Chewable 81 mg PO DAILY RF: 0 metformin 500 mg Tablet Extended Release 24 Hr 500 mg PO DAILY RF: 0 lamotrigine [Lamictal] 100 mg Tablet 100 mg PO HS RF: 0 Discontinued benztropine 0.5 mg Tablet 0.5 mg PO HS RF: 0 Stand-Alone Forms: My [facility] Discharge Orders: Discharge Order (Routine); Ordered 04/01/18 Ordered By: Ivonne Harrison Skilled Items Patient informed of condition?: Yes DNR: No Discharge Level of Care: Acute rehab Communicable Disease: No Discharge Prognosis: Improving Admission Data Admit Date/Time: 03/30/18 19:03 Attending Provider: Caden Lynch Admit Provider: Del Bob Primary Care Provider: Gilberto Pollard Other Providers: Del Bob ; Calos Hoffman III Service: Medical Other Interventions: Discharge Summary Assessment (RN) Last Done: 04/01/18 14:48 Pending Studies at Discharge: No DC Date/Time DO NOT enter until pt leaves facility: 04/01/18 16:09 Supervising Physician Co-Signing Physician Notes Attending Attestation - Chart reviewed in detail, and care plan d/w PA Ivonne Harrison. I agree w/ the martell components of her discharge documentation. Unfortunately I did not get to personally examine the patient prior to his transfer to rehab. However, his vitals and labs were acceptable for discharge. He will follow-up with neurology after discharge for additional testing. Caden Lynch MD
== END 2018-04-01 16:09 ==
LOC: 4E 11:47 → ED 11:47 → SUATTDRO 19:03 → 4E 19:44

== ENCOUNTER 2023-02-23 14:40 | Inpatient (IN) ==
--- NOTE | 2023-02-23 15:49 | XRay Report ---
PORTABLE SUPINE AP CHEST RADIOGRAPH CLINICAL HISTORY: Hypoxia. COMPARISON STUDY: Chest radiograph October 15, 2020. Chest CT March 22, 2010. FINDINGS: Intracanalicular electrodes are incidentally noted. Low lung volumes are present. No pneumo thorax or pleural effusion is identified on supine exam.] Technique, cardiomediastinal silhouette is unremarkable. Mild reticulonodular interstitial thickening is present. IMPRESSION: Reticulonodular interstitial thickening. This may be technical however mild pulmonary aidee ma or an infectious process could appear similar. ACT 112: Negative or not required by law. Electronically signed by: Vladimir Sharp M.D. 02/23/2023 3:47 PM
--- NOTE | 2023-02-23 15:50 | XRay Report ---
XR hip LT 2V w pelvis CLINICAL HISTORY: Hip trauma, fracture suspected. COMPARISON: Pelvis radiograph July 08, 2017. Left hip radiographs June 05, 2016. FINDINGS: A right sacroiliac joint fusion and postoperative findings within the lumbar spine are inc identally noted. There is no acute fracture within the pelvis or right hip. Transverse lucency within the left femoral neck is present. This is new since prior radiographs. IMPRESSION: Acute nondisplaced left femoral neck fracture. ACT 112: Negative or not required by law. Electronically signed by: Vladimir Sharp M.D. 02/23/2023 3:48 PM
[2023-02-23 16:06] LABS: Basophils # (auto) 0.04 K/uL (0.00-0.20); Basophils % (auto) 0.6 %; Eosinophils # (auto) 0.13 K/uL (0.00-0.50); Eosinophils % (auto) 1.9 %; Hematocrit (blood only) 45.8 % (42.0-52.0); Hemoglobin 15.7 g/dl (14.0-18.0); Immature Granulocytes # (auto) 0.02 K/uL (0.01-0.20); Immature Granulocytes % (auto) 0.3 %; Lymphocytes # (auto) 1.84 K/uL (1.20-3.40); Lymphocytes % (auto) 27.2 %; Mean Corpuscular Hemoglobin 33.1 pg (25.0-34.0); Mean Corpuscular Hgb Conc 34.3 g/dL (32.0-36.0); Mean Corpuscular Volume 96.4 fL (80.0-100.0); Mean Platelet Volume 9.5 fL (9.4-12.4); Monocytes # (auto) 0.53 K/uL (0.11-0.59); Monocytes % (auto) 7.8 %; Neutrophils % (auto) 62.2 %; Platelet Count 241 K/uL (130-400); RDW Coefficient of Variation 11.9 % (11.5-14.5); RDW Standard Deviation 42.2 fL (36.4-46.3); Red Blood Count 4.75 M/uL (4.70-6.10); White Blood Count 6.76 K/ul (4.8-10.8)
[2023-02-23] MEDS ORDERED: KETOROLAC TROMETHAMINE 15 MG/ML VIAL IV ONE (16:14)
--- NOTE | 2023-02-23 16:24 | CT Scan Report ---
CT OF THE HEAD WITHOUT CONTRAST CLINICAL HISTORY: Fall. COMPARISON STUDY: Head CT March 30, 2018. MRI of the brain March 22, 2014. CT DOSE: 1218.77 mGy.cm TECHNIQUE: Helical axial images of the head were obtained without IV contrast. Automated exposure con trol was utilized for the study. A dose lowering technique was utilized adhering to the principles o f ALARA. FINDINGS: No acute intracranial hemorrhage, midline shift or mass effect is present. The ventricular system is stable. White matter hypodensities are similar to prior exam and favor small vessel disease . The basal cisterns are patent. No extra-axial collections are present. There are no findings to sug gest acute dural sinus thrombosis or acute territorial infarct. No significant calvarial abnormalitie s are present. Visualized portions of the sinuses and mastoid air cells are clear. IMPRESSION: 1. No acute intracranial findings. 2. No calvarial fracture. ACT 112: Negative or not required by law. Electronically signed by: Vladimir Sharp M.D. 02/23/2023 4:22 PM
[2023-02-23 16:25] LABS: BUN Creatinine Ratio 32.1 (10-20); Calcium 9.6 mg/dl (8.6-10.3); Creatinine Clr Calc Pharmacy 70.8 ml/min; Est GFR (African American) 99.3 ml/min; Est GFR (Non-African American) 85.7 ml/min; Potassium 4.3 mmol/L (3.5-5.1)
--- NOTE | 2023-02-23 16:28 | CT Scan Report ---
CT OF THE CERVICAL SPINE WITHOUT CONTRAST CLINICAL HISTORY: Fall. COMPARISON STUDY: Cervical spine CT March 30, 2018. TECHNIQUE: Helical axial images of the cervical spine were obtained without IV contrast. Sagittal a nd coronal reconstructions were viewed. Automated exposure control was utilized for the study. A do se lowering technique was utilized adhering to the principles of ALARA. FINDINGS: Straightening of the cervical lordosis is similar to prior exam. Vertebral body heights are maintained. No acute cervical spine fracture or subluxation is present. There is no prevertebral aidee ma. Facet joints are intact. Moderate multilevel facet arthrosis, disc space narrowing and osteophyt osis within the cervical spine is present. Subtle loss of height of the superior endplate of T2 with sclerosis is new since CT of March 30, 2018. However, this is likely subacute to chronic. IMPRESSION: 1. No acute cervical spine fracture or subluxation. 2. Subacute to chronic mild compression fracture of the superior endplate of T2. ACT 112: Negative or not required by law. Electronically signed by: Vladimir Sharp M.D. 02/23/2023 4:25 PM
[2023-02-23 16:30] LABS: Troponin I High Sensitivity 5.2 pg/ml (0-20)
[2023-02-23 16:51] LABS: Adenovirus PCR Not Detected (NotDetected); Bordetella parapertussis PCR Not Detected (NotDetected); Bordetella pertussis PCR Not Detected (NotDetected); Chlamydia pneumoniae PCR Not Detected (NotDetected); Coronavirus 229E PCR Not Detected (NotDetected); Coronavirus CoV-2 (COVID19)PCR Not Detected (NotDetected); Coronavirus HKU1 PCR Not Detected (NotDetected); Coronavirus NL63 PCR Not Detected (NotDetected); Coronavirus OC43PCR Not Detected (NotDetected); Human Metapneumovirus PCR Not Detected (NotDetected); Influenza A PCR Not Detected (NotDetected); Influenza B PCR Not Detected (NotDetected); Mycoplasma pneumoniae PCR Not Detected (NotDetected); Parainfluenza Virus 1 PCR Not Detected (NotDetected); Parainfluenza Virus 2 PCR Not Detected (NotDetected); Parainfluenza Virus 3 PCR Not Detected (NotDetected); Parainfluenza Virus 4 PCR Not Detected (NotDetected); Respiratory Syncytial VirusPCR Not Detected (NotDetected); Rhinovirus/Enterovirus PCR Not Detected (NotDetected)
--- NOTE | 2023-02-23 16:57 | Emergency Department Note ---
Impression & Plan Closed left hip fracture, Hypoxia ED Provider Note NAME: JESSICA MATHEWS AGE: 77 SEX: M : 1945 ARRIVES VIA: Ambulance INFORMANT: Patient, ED PROVIDER(S): Imelda Lee MD CHIEF COMPLAINT: Fall HPI: This is a 77-year-old male presenting after a fall. Patient is known to have Parkinson's and falls quite frequently. He fell out of his car onto his left side struck his head against the ground. Takes only aspirin daily. He notes that he had left hip pain. He had no LOC. No pain to the rest of his body. ROS: See above HPI for pertinent positives & negatives. A total of 10 systems reviewed and were otherwise negative. PAST MEDICAL HISTORY: See Below PAST SURGICAL HISTORY: See Below FAMILY HISTORY: See Below SOCIAL HISTORY: See Below HOME MEDICATIONS: See Below ALLERGIES: See Below VITALS: See Below PHYSICAL EXAMINATION: General: resting comfortably in no acute distress Head: Normocephalic and atraumatic Eyes: Normal inspection, extraocular muscles intact Ear, nose, throat: Normal external exam Neck: Normal range of motion Respiratory: lungs clear to auscultation bilaterally Cardiovascular: Regular rate/rhythm, no murmur GI: soft, nontender, no guarding or rebound Extremities: Limited range of motion of left lower extremity, tenderness to palpation of left hip Neuro: The patient awake and alert, appropriately conversive, no focal deficits, symmetric faces Skin: Warm, dry, and intact MEDICAL DECISION MAKING: This is a 77-year-old male presenting after a fall. Will do CT of the head/C- spine. Will get x-rays of the chest and hip. Patient is surprisingly hypoxic today without chest pain, short of breath, fever, chills or sore throat. -Hip x-ray as independent interpreted by me shows a left femoral neck fracture, nondisplaced -Chest Xray independently interpreted by me showing no pneumothorax, focal opacity, or pleural effusions. -No acute traumatic head or C-spine injuries, subacute to chronic T2 superior endplate fracture -Lab review showed no leukocytosis, no anemia, no electrolyte disturbances, negative troponin, negative BNP, negative viral panel -Patient overall appears well however is hypoxic, with official radiology CXR read showing interstitial thickening, could be infectious -Will admit for hip fracture and hypoxia of unclear etiology Differential diagnosis: Hip fracture, intracranial hemorrhage, cervical spine fracture, pneumonia, pneumothorax ER treatment provided: See below Diagnostics interpreted by me: ECG: None Cardiac Monitoring: An order was placed for continuous cardiac monitoring. The monitor shows a rate of 73 with sinus rhythm. Laboratory studies: As stated above and show below. Imaging studies: See below. Past Med/Surg History Medical History (Updated 02/23/23 @ 20:08 by Imelda Lee MD) Chronic back pain Pulmonary nodule Under surveillance by PCP Parkinson disease Neuropathy History of rheumatic fever as a child Osteoarthritis Urine incontinence Diabetes mellitus, type 2 NIDDM [place] (hard of hearing) Bipolar disorder PTSD (post-traumatic stress disorder) Sleep apnea Non-compliant w/ cpap History of asbestos exposure Migraine headache Lumbosacral radiculopathy Insomnia Hypothyroidism Hyperlipidemia Esophageal reflux Dementia Chronic cerebral ischemia Major depressive disorder, recurrent, moderate Lumbar stenosis with neurogenic claudication Surgical History 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 History of tooth extraction History of back surgery Lumbar x3 Right SI joint fusion (07/10/17): Grade 2 view, MAC#3, ETT 7.5 at [facility] History of lumbar fusion History of colonoscopy Colonoscopy (02/15/19): MAC at [facility] History of throat surgery Salivary glands and ducts; Removal of left salivary gland following industrial accident (benign) Status post lumbar spine surgery for decompression of spinal cord Family History Sister Diabetes 1.5, managed as type 1 Mother Diabetes 1.5, managed as type 1 Anxiety Father Hypertension Hypertensive heart disease Brother Diabetes Other No family history of adverse response to anesthesia Denies family history of Ovarian cancer Prostate cancer Myocardial infarction Breast cancer Colorectal cancer Social History Smoking Status: Never smoker Second Hand Exposure: Yes; Do You Dip or Chew Tobacco: No; Hx Alcohol Use: No Hx Substance Use: No Preferred Language: Turkmen Communication Ability: Effective Visual Impairment: No Limitations Hearing Ability: Hard of Hearing Welfare Case Worker Required: No Beliefs That Will Affect Care: None marital status: Current Living Situation: Spouse current occupational status: disabled other: On social security disability since 2000 Feels Safe at Home: Yes Childhood Exposure to Second-Hand Smoke: Yes Diet: regular Diet Comment: regular caffeine: No during the past year weight has: remained stable Dental Care, Regularly: Yes Physical Activity Frequency: Does not Exercise Physical Activity Frequency Comment: due to physical condition Seatbelt Use: always Sunscreen Use: No Assistive Devices: Cane, CPAP, Denture - Upper, Denture - Lower, Glasses and Walker Allergies Allergies Allergy/AdvReac Type Severity Reaction Status Date / Time Penicillins Allergy Severe Swelling, Verified 11/12/22 13:39 hives Sulfa (Sulfonamide Allergy Intermediate Hives Verified 11/12/22 13:39 Antibiotics) Home Meds Home Medications Medication Instructions Recorded Confirmed aspirin 81 mg chewable tablet 81 mg PO QAM 03/30/18 02/23/23 (Aspirin Childrens) acetaminophen 500 mg tablet 1,000 mg PO Q6H PRN Pain 02/02/19 02/23/23 quetiapine 50 mg tablet 25 mg PO HS 06/09/20 02/23/23 ibuprofen 200 mg tablet 200 mg PO Q6H PRN Pain 10/10/20 02/23/23 hydrocodone 7.5 mg-acetaminophen 1 tab PO QID PRN Pain 02/23/23 02/23/23 325 mg tablet lamotrigine 100 mg tablet 100 mg PO BID 02/23/23 02/23/23 (Lamictal) Previous Rx's Medication Instructions Recorded blood-glucose meter (Musicnotesuch #1 ea 09/27/18 Ultra2 Meter kit) lancets 30 gauge (OneTouch Delica #100 ea 09/27/18 Lancets) venlafaxine 150 mg 300 mg (2 x 150 mg) PO QAM #60 caps 09/27/18 capsule,extended release 24 hr (Effexor XR) vitamin B complex (B 1 tab PO DAILY #30 tabs 10/22/21 Complex-Vitamin B12 tablet) glimepiride 2 mg tablet See Rx Instructions .Route 01/13/22 .COMPLEX #90 tabs metformin 500 mg tablet,extended See Rx Instructions .Route 03/04/22 release 24 hr .COMPLEX #360 tabs atorvastatin 20 mg tablet 20 mg PO QAM #90 tabs 04/07/22 carbidopa ER 50 mg-levodopa 200 mg 1 tab PO QID #360 tabs 09/09/22 tablet,extended release cholecalciferol (vitamin D3) 1,250 50,000 unit PO WEEKLY 8 weeks #8 11/13/22 mcg (50,000 unit) capsule caps empagliflozin 10 mg tablet See Rx Instructions .Route 11/14/22 (Jardiance) .COMPLEX #90 tabs entacapone 200 mg tablet (Comtan) 200 mg PO QID #120 tabs 11/27/22 donepezil 10 mg tablet (Aricept) 10 mg PO BID 90 days #180 tabs 01/13/23 Results & Data (ED) Vital Signs Vital Signs - 24 hr 02/23/23 14:44 02/23/23 14:46 02/23/23 14:46 Temperature 37.0 C Temperature Source Oral Pulse Rate 70 74 73 Pulse Rate from SpO2 Sensor 71 Respiratory Rate 16 16 Respiratory Effort / Characteristics Non-Labored Spontaneous Respiratory Depth Normal Respiratory Pattern Regular Blood Pressure 107/68 Blood Pressure Mean 81 Pulse Oximetry 93 90 Oxygen Delivery Method Room Air Oxygen Flow Rate Sepsis Recent Fever Within 48 Hours No Sepsis New/Unexplained Change in Mental Status N/A Sepsis Action Taken by Nursing No Action Required 02/23/23 14:50 02/23/23 15:00 02/23/23 15:00 Temperature Temperature Source Pulse Rate 66 68 Pulse Rate from SpO2 Sensor 68 68 Respiratory Rate 13 15 Respiratory Effort / Characteristics Respiratory Depth Respiratory Pattern Blood Pressure 96/66 L Blood Pressure Mean 73 Pulse Oximetry 92 95 Oxygen Delivery Method Nasal Cannula Oxygen Flow Rate 2 Sepsis Recent Fever Within 48 Hours Sepsis New/Unexplained Change in Mental Status Sepsis Action Taken by Nursing 02/23/23 15:10 02/23/23 15:20 02/23/23 15:30 Temperature Temperature Source Pulse Rate 69 79 Pulse Rate from SpO2 Sensor 69 79 Respiratory Rate 16 17 Respiratory Effort / Characteristics Respiratory Depth Respiratory Pattern Blood Pressure 105/69 Blood Pressure Mean 80 Pulse Oximetry 94 91 Oxygen Delivery Method Oxygen Flow Rate Sepsis Recent Fever Within 48 Hours Sepsis New/Unexplained Change in Mental Status Sepsis Action Taken by Nursing 02/23/23 15:30 02/23/23 15:40 02/23/23 15:50 Temperature Temperature Source Pulse Rate 75 75 80 Pulse Rate from SpO2 Sensor 75 76 80 Respiratory Rate 12 14 14 Respiratory Effort / Characteristics Respiratory Depth Respiratory Pattern Blood Pressure Blood Pressure Mean Pulse Oximetry 93 92 92 Oxygen Delivery Method Oxygen Flow Rate Sepsis Recent Fever Within 48 Hours Sepsis New/Unexplained Change in Mental Status Sepsis Action Taken by Nursing 02/23/23 16:12 02/23/23 16:20 02/23/23 16:30 Temperature Temperature Source Pulse Rate 68 67 Pulse Rate from SpO2 Sensor 69 69 Respiratory Rate 20 18 Respiratory Effort / Characteristics Respiratory Depth Respiratory Pattern Blood Pressure 114/73 Blood Pressure Mean 90 Pulse Oximetry 94 92 Oxygen Delivery Method Oxygen Flow Rate Sepsis Recent Fever Within 48 Hours Sepsis New/Unexplained Change in Mental Status Sepsis Action Taken by Nursing 02/23/23 16:30 02/23/23 16:40 02/23/23 16:50 Temperature Temperature Source Pulse Rate 69 78 72 Pulse Rate from SpO2 Sensor 69 74 73 Respiratory Rate 16 23 16 Respiratory Effort / Characteristics Respiratory Depth Respiratory Pattern Blood Pressure Blood Pressure Mean Pulse Oximetry 93 92 93 Oxygen Delivery Method Oxygen Flow Rate Sepsis Recent Fever Within 48 Hours Sepsis New/Unexplained Change in Mental Status Sepsis Action Taken by Nursing 02/23/23 17:00 02/23/23 17:00 02/23/23 17:10 Temperature Temperature Source Pulse Rate 68 71 Pulse Rate from SpO2 Sensor 69 72 Respiratory Rate 16 23 Respiratory Effort / Characteristics Respiratory Depth Respiratory Pattern Blood Pressure 114/72 Blood Pressure Mean 90 Pulse Oximetry 92 94 Oxygen Delivery Method Oxygen Flow Rate Sepsis Recent Fever Within 48 Hours Sepsis New/Unexplained Change in Mental Status Sepsis Action Taken by Nursing 02/23/23 17:20 02/23/23 17:30 02/23/23 17:30 Temperature Temperature Source Pulse Rate 79 73 Pulse Rate from SpO2 Sensor 82 72 Respiratory Rate 23 14 Respiratory Effort / Characteristics Respiratory Depth Respiratory Pattern Blood Pressure 110/69 Blood Pressure Mean 79 Pulse Oximetry 93 93 Oxygen Delivery Method Oxygen Flow Rate Sepsis Recent Fever Within 48 Hours Sepsis New/Unexplained Change in Mental Status Sepsis Action Taken by Nursing 02/23/23 17:40 02/23/23 17:50 02/23/23 18:00 Temperature Temperature Source Pulse Rate 79 71 Pulse Rate from SpO2 Sensor 79 70 Respiratory Rate 14 17 Respiratory Effort / Characteristics Respiratory Depth Respiratory Pattern Blood Pressure 122/74 Blood Pressure Mean 89 Pulse Oximetry 94 93 Oxygen Delivery Method Oxygen Flow Rate Sepsis Recent Fever Within 48 Hours Sepsis New/Unexplained Change in Mental Status Sepsis Action Taken by Nursing 02/23/23 18:00 Temperature Temperature Source Pulse Rate 79 Pulse Rate from SpO2 Sensor 75 Respiratory Rate 17 Respiratory Effort / Characteristics Respiratory Depth Respiratory Pattern Blood Pressure Blood Pressure Mean Pulse Oximetry 92 Oxygen Delivery Method Oxygen Flow Rate Sepsis Recent Fever Within 48 Hours Sepsis New/Unexplained Change in Mental Status Sepsis Action Taken by Nursing Laboratory Data 02/23/23 15:55 02/23/23 15:55 Lab Results 02/23/23 Range/Units 15:55 WBC 6.76 (4.8-10.8) K/ul RBC 4.75 (4.70-6.10) M/uL Hgb 15.7 (14.0-18.0) g/dl Hct 45.8 (42.0-52.0) % MCV 96.4 (80.0-100.0) fL MCH 33.1 (25.0-34.0) pg MCHC 34.3 (32.0-36.0) g/dL RDW Std Deviation 42.2 (36.4-46.3) fL RDW Coeff of Franc 11.9 (11.5-14.5) % Plt Count 241 (130-400) K/uL MPV 9.5 (9.4-12.4) fL Immature Gran % (Auto) 0.3 % Neut % (Auto) 62.2 % Lymph % (Auto) 27.2 % [place] % (Auto) 7.8 % Eos % (Auto) 1.9 % Baso % (Auto) 0.6 % Neut # (Auto) 4.20 (1.40-6.50) K/uL Lymph # (Auto) 1.84 (1.20-3.40) K/uL [place] # (Auto) 0.53 (0.11-0.59) K/uL Eos # (Auto) 0.13 (0.00-0.50) K/uL Baso # (Auto) 0.04 (0.00-0.20) K/uL Immature Gran # (Auto) 0.02 (0.01-0.20) K/uL Sodium 137 (136-145) mmol/L Potassium 4.3 (3.5-5.1) mmol/L Chloride 102 (98-107) mmol/L Carbon Dioxide 25 (21-32) mmol/L Anion Gap 10 (3-11) BUN 27 H (6-23) mg/dl Creatinine 0.84 (0.6-1.4) mg/dl Est Cr Clr Drug Dosing 70.8 ml/min Est GFR ( Amer) 99.3 ml/min Est GFR (Non-Af Amer) 85.7 ml/min BUN/Creatinine Ratio 32.1 H (10-20) Glucose 136 H (70-99(Fasting)) mg/dl Calcium 9.6 (8.6-10.3) mg/dl Magnesium 2.0 (1.7-2.4) mg/dl Troponin I High Sens 5.2 (0-20) pg/ml Adenovirus (PCR) Not Detected (NotDetected) B. pertussis DNA (PCR) Not Detected (NotDetected) B.parapertussis DNA PCR Not Detected (NotDetected) C. pneumoniae DNA (PCR) Not Detected (NotDetected) Coronavirus OC43 (PCR) Not Detected (NotDetected) Coronavirus HKU1 (PCR) Not Detected (NotDetected) Coronavirus 229E (PCR) Not Detected (NotDetected) SARS-CoV-2 (PCR) Not Detected (NotDetected) Coronavirus NL63 (PCR) Not Detected (NotDetected) Human Metapneumovir PCR Not Detected (NotDetected) Influenza Type A (PCR) Not Detected (NotDetected) Influenza Type B (PCR) Not Detected (NotDetected) M. pneumoniae (PCR) Not Detected (NotDetected) Parainfluenza 1 (PCR) Not Detected (NotDetected) Parainfluenza 2 (PCR) Not Detected (NotDetected) Parainfluenza 3 (PCR) Not Detected (NotDetected) Parainfluenza 4 (PCR) Not Detected (NotDetected) RSV (PCR) Not Detected (NotDetected) Entero/Rhino (PCR) Not Detected (NotDetected) Administered Medications Discontinued Medications Hydrocodone Bitart/Acetaminophen (Hydrocodone/Acetaminophen 7.5/325mg Tab) 1 tab PO NOW STA Stop: 02/23/23 18:06 Last Admin: 02/23/23 18:20 Dose: 1 tab Documented By: DISHA Carbidopa/Levodopa (Carbidopa/Levodopa 50/200mg Ext Rel Tab) 1 tab PO ONE STA Stop: 02/23/23 17:53 Last Admin: 02/23/23 18:20 Dose: 1 tab Documented By: DISHA Entacapone (Entacapone 200 Mg Tab) 200 mg PO ONE STA Stop: 02/23/23 17:52 Last Admin: 02/23/23 18:20 Dose: 200 mg Documented By: DISHA Ketorolac Tromethamine (Ketorolac Tromethamine 15 Mg/Ml Vial) 15 mg IV NOW ONE Stop: 02/23/23 16:15 Last Admin: 02/23/23 16:21 Dose: 15 mg Documented By: DISHA Imaging Data Radiologist's Impression: Hip/Pelvis X-Ray 02/23/23 15:00 XR hip LT 2V w pelvis CLINICAL HISTORY: Hip trauma, fracture suspected. COMPARISON: Pelvis radiograph July 08, 2017. Left hip radiographs June 05, 2016. FINDINGS: A right sacroiliac joint fusion and postoperative findings within the lumbar spine are incidentally noted. There is no acute fracture within the pelvis or right hip. Transverse lucency within the left femoral neck is present. This is new since prior radiographs. IMPRESSION: Acute nondisplaced left femoral neck fracture. ACT 112: Negative or not required by law. Electronically signed by: Vladimir Sharp M.D. 02/23/2023 3:48 PM Chest X-Ray 02/23/23 15:01 PORTABLE SUPINE AP CHEST RADIOGRAPH CLINICAL HISTORY: Hypoxia. COMPARISON STUDY: Chest radiograph October 15, 2020. Chest CT March 22, 2010. FINDINGS: Intracanalicular electrodes are incidentally noted. Low lung volumes are present. No pneumothorax or pleural effusion is identified on supine exam.] Technique, cardiomediastinal silhouette is unremarkable. Mild reticulonodular interstitial thickening is present. IMPRESSION: Reticulonodular interstitial thickening. This may be technical however mild pulmonary edema or an infectious process could appear similar. ACT 112: Negative or not required by law. Electronically signed by: Vladimir Sharp M.D. 02/23/2023 3:[address] 02/23/23 15:19 CT OF THE HEAD WITHOUT CONTRAST CLINICAL HISTORY: Fall. COMPARISON STUDY: Head CT March 30, 2018. MRI of the brain March 22, 2014. CT DOSE: 1218.77 mGy.cm TECHNIQUE: Helical axial images of the head were obtained without IV contrast. Automated exposure control was utilized for the study. A dose lowering technique was utilized adhering to the principles of ALARA. FINDINGS: No acute intracranial hemorrhage, midline shift or mass effect is present. The ventricular system is stable. White matter hypodensities are similar to prior exam and favor small vessel disease. The basal cisterns are patent. No extra-axial collections are present. There are no findings to suggest acute dural sinus thrombosis or acute territorial infarct. No significant calvarial abnormalities are present. Visualized portions of the sinuses and mastoid air cells are clear. IMPRESSION: 1. No acute intracranial findings. 2. No calvarial fracture. ACT 112: Negative or not required by law. Electronically signed by: Vladimir Sharp M.D. 02/23/2023 4:[address] 02/23/23 15:20 CT OF THE CERVICAL SPINE WITHOUT CONTRAST CLINICAL HISTORY: Fall. COMPARISON STUDY: Cervical spine CT March 30, 2018. TECHNIQUE: Helical axial images of the cervical spine were obtained without IV contrast. Sagittal and coronal reconstructions were viewed. Automated exposure control was utilized for the study. A dose lowering technique was utilized adhering to the principles of ALARA. FINDINGS: Straightening of the cervical lordosis is similar to prior exam. Vertebral body heights are maintained. No acute cervical spine fracture or subluxation is present. There is no prevertebral edema. Facet joints are intact. Moderate multilevel facet arthrosis, disc space narrowing and osteophytosis within the cervical spine is present. Subtle loss of height of the superior endplate of T2 with sclerosis is new since CT of March 30, 2018. However, this is likely subacute to chronic. IMPRESSION: 1. No acute cervical spine fracture or subluxation. 2. Subacute to chronic mild compression fracture of the superior endplate of T2. ACT 112: Negative or not required by law. Electronically signed by: Vladimir Sharp M.D. 02/23/2023 4:25 PM Discharge Plan Visit Data Chief Complaint: Fall Stated Complaint: fall, hit head, hip pain ED Provider: Imelda Lee Discharge Problem: Closed left hip fracture, Hypoxia Discharge Instructions Interventions: ED Discharge Assessment Last Done: 02/23/23 19:54
--- NOTE | 2023-02-23 17:16 | History & Physical Report ---
Date of Service February 23, 2023 Assessment & Plan (1) Closed left hip fracture: Plan: Patient sustained a ground-level fall in his garage on 02/23 Hx of recurrent falls due to Parkinson's BioFire negative Head CT revealed NAF Cervical spine CT revealed subacute to chronic mild compression fracture of T2 Hip and pelvis x-ray revealed acute nondisplaced left femoral neck fracture Reached out to Ortho; they will see him first thing in the morning, and have an OR booked for Saturday 02/24 at 1330 Hold chemical DVT PPx for now Diet n.p.o. at midnight Acetaminophen as needed for pain control 1-3 Dilaudid 0.25-0.50 IV q2h as needed for breakthrough pain Recommend adding PT/OT following procedure Orthopedic surgery consult placed A.m. CBC, BMP (2) Atypical Parkinsonism: Plan: Continue Sinemet, entacapone (give together QID) (3) Diabetes mellitus, type 2: Plan: Last A1c 6.7% on 11/12/2022 Glucose 136 on arrival Hold empagliflozin, glimepiride, metformin Lantus 6u BID while inpatient SSI; target BSG range 110-140mg/dL, CF 65, carb ratio 20 T2DM diet; n.p.o. at midnight BSG ACHS, and convert to q6h if n.p.o. Adjust regimen as needed AM A1c (4) Obstructive sleep apnea: Plan: Patient reports that he is not using CPAP at night (5) Chronic back pain greater than 3 months duration: Plan: Patient has been taking hydrocodoneacetaminophen 7.5-325mg QID as needed for back pain Hold while inpatient (6) Dementia: Plan: Continue donezepil (7) Depression: Plan: Continue venlafaxine (8) Recurrent falls: Plan: Secondary to parkinsonism's (9) Hypoxia: Plan Disposition: Admit to [facility] telemetry DNR/DNI T2DM diet (n.p.o. at midnight) VTE PPx: Hold chemical DVT PPx as patient may be going to the OR the afternoon of 02/24 History of Present Illness Chief Complaint: Fall, left hip pain Primary Care Provider: BARAK Strickland is a 77-year-old male with PMH of ambulatory dysfunction, T2DM, JAVON, lumbosacral radiculopathy, hypothyroidism, HLD, GERD, dementia, atypical parkinsonisms, PTSD, depression, and mood disorder. He presented via EMS after falling and hitting his head in his garage on 02/23. No LOC. No tripping. Hx of recurrent falls due to his Parkinsonism. He was on the ground for approximately half an hour, but his was present. He now endorses left hip pain that is dull, achy, constant; rated 8/10. Radiation to the left knee. No radiation of the back. He did not take any pain medication at home. The pain is better when he is lying still, not moving his leg. No prior injuries to the left hip or leg, per patient. He does not use supplemental oxygen at home. Patient reports he took his morning medications as regular today; however he is not taking his lunch, or even medications. Only recent change in medication was switching to Lamictal 100 mg BID. Patient lives with his . SpO2 94% on 2L NC at time of admission; vitals otherwise stable. ED course: Toradol 50 mg IV ROS: Patient endorses left hip pain, left knee pain, and numbness/tingling in the left thigh. Patient denies fever, chills, sweating, HERNANDEZ, dizziness, lightheadedness, cough, congestion, chest pain, pleuritic CP, SOB, abdominal pain, N/V/D, urinary s/s, or numbness/tingling in the UEs/RLE. Patient's daughter (Denice) would like to be the point of contact regarding any updates ([phone]) Allergies Allergy/AdvReac Type Severity Reaction Status Date / Time Penicillins Allergy Severe Swelling, Verified 11/12/22 13:39 hives Sulfa (Sulfonamide Allergy Intermediate Hives Verified 11/12/22 13:39 Antibiotics) Home Medications Medication Instructions Recorded Confirmed Type aspirin 81 mg chewable tablet 81 mg PO QAM 03/30/18 02/23/23 History (Aspirin Childrens) blood-glucose meter (Viron TherapeuticsTouch #1 ea 09/27/18 11/12/22 Rx Ultra2 Meter kit) lancets 30 gauge (OneTouch Delica #100 ea 09/27/18 11/12/22 Rx Lancets) venlafaxine 150 mg 300 mg (2 x 150 mg) PO QAM #60 caps 09/27/18 02/23/23 Rx capsule,extended release 24 hr (Effexor XR) acetaminophen 500 mg tablet 1,000 mg PO Q6H PRN Pain 02/02/19 02/23/23 History quetiapine 50 mg tablet 25 mg PO HS 06/09/20 02/23/23 History ibuprofen 200 mg tablet 200 mg PO Q6H PRN Pain 10/10/20 02/23/23 History vitamin B complex (B 1 tab PO DAILY #30 tabs 10/22/21 02/23/23 Rx Complex-Vitamin B12 tablet) glimepiride 2 mg tablet See Rx Instructions .Route 01/13/22 02/23/23 Rx .COMPLEX #90 tabs metformin 500 mg tablet,extended See Rx Instructions .Route 03/04/22 02/23/23 Rx release 24 hr .COMPLEX #360 tabs atorvastatin 20 mg tablet 20 mg PO QAM #90 tabs 04/07/22 02/23/23 Rx carbidopa ER 50 mg-levodopa 200 mg 1 tab PO QID #360 tabs 09/09/22 02/23/23 Rx tablet,extended release cholecalciferol (vitamin D3) 1,250 50,000 unit PO WEEKLY 8 weeks #8 11/13/22 02/23/23 Rx mcg (50,000 unit) capsule caps empagliflozin 10 mg tablet See Rx Instructions .Route 11/14/22 02/23/23 Rx (Jardiance) .COMPLEX #90 tabs entacapone 200 mg tablet (Comtan) 200 mg PO QID #120 tabs 11/27/22 02/23/23 Rx donepezil 10 mg tablet (Aricept) 10 mg PO BID 90 days #180 tabs 01/13/23 02/23/23 Rx hydrocodone 7.5 mg-acetaminophen 1 tab PO QID PRN Pain 02/23/23 02/23/23 History 325 mg tablet lamotrigine 100 mg tablet 100 mg PO BID 02/23/23 02/23/23 History (Lamictal) Past Med/Surg History Medical History (Updated 02/24/23 @ 07:18 by Gilberto Garcia MD) Chronic back pain Pulmonary nodule Under surveillance by PCP Parkinson disease Neuropathy History of rheumatic fever as a child Osteoarthritis Urine incontinence Diabetes mellitus, type 2 NIDDM [place] (hard of hearing) Bipolar disorder PTSD (post-traumatic stress disorder) Sleep apnea Non-compliant w/ cpap History of asbestos exposure Migraine headache Lumbosacral radiculopathy Insomnia Hypothyroidism Hyperlipidemia Esophageal reflux Dementia Chronic cerebral ischemia Major depressive disorder, recurrent, moderate Lumbar stenosis with neurogenic claudication Surgical History 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 History of tooth extraction History of back surgery Lumbar x3 Right SI joint fusion (07/10/17): Grade 2 view, MAC#3, ETT 7.5 at [facility] History of lumbar fusion History of colonoscopy Colonoscopy (02/15/19): MAC at [facility] History of throat surgery Salivary glands and ducts; Removal of left salivary gland following industrial accident (benign) Status post lumbar spine surgery for decompression of spinal cord Family History Sister Diabetes 1.5, managed as type 1 Mother Diabetes 1.5, managed as type 1 Anxiety Father Hypertension Hypertensive heart disease Brother Diabetes Other No family history of adverse response to anesthesia Denies family history of Ovarian cancer Prostate cancer Myocardial infarction Breast cancer Colorectal cancer Social History Smoking Status: Never smoker Second Hand Exposure: No; Do You Dip or Chew Tobacco: No; Tobacco Cessation Education Requested by Patient: No Hx Alcohol Use: No Hx Substance Use: No Preferred Language: Bruneian Communication Ability: Effective Visual Impairment: No Limitations Hearing Ability: Hard of Hearing Floor Framer Required: No Beliefs That Will Affect Care: None marital status: Current Living Situation: Spouse current occupational status: disabled Other Information That Helps Us Care for You: No other: On social security disability since 2000 Feels Safe at Home: Yes Safety Concerns: Feels Safe At This Time Childhood Exposure to Second-Hand Smoke: Yes Diet: regular Diet Comment: regular caffeine: No during the past year weight has: remained stable Dental Care, Regularly: Yes Physical Activity Frequency: Does not Exercise Physical Activity Frequency Comment: due to physical condition Seatbelt Use: always Sunscreen Use: No Assistive Devices: Denture - Upper, Denture - Lower and Glasses Review of Systems Review of Systems: See HPI above Physical Exam Physical Exam: General: no acute distress; frail; non-toxic appearing; well-nourished; cooperative HEENT: Abrasion on the posterior left scalp; no scleral icterus; PERRLA w/ EOMs intact; dry mucus membrane; vision and hearing intact Neck: supple; no lymphadenopathy; trachea midline Skin: warm, dry without signs of tenting; no cyanosis; no rashes, bruising, lesions, or erythema noted CV: chest wall NTP; RRR; S1/S2 normal; no murmurs/rubs/gallops; pulses intact and symmetric at radial, DP, and PT Lungs: no acute respiratory distress; symmetrical chest wall expansion; clear breath sounds across all lung desai w/o adventitious sounds; no wheezing ABD: Soft, NTP; BS present; no rebound/guarding; no ascites; no distention; negative CVA tenderness MSK: no tics or fasciculations; no edema noted in the LEs b/l, not erythematous; left hip and left knee TTP; no signs of bruising on the left hip; patient demonstrates ability to wiggle toes, and lift at the left hip off the bed (although this elicits pain) Neuro: A&Ox3; normal mood and affect; fluent speech; no focal deficits; sensation grossly intact in the LEs B/L Results & Data Results & Data Vital Signs (Past 12 Hours) Vital Signs Temp Pulse Resp BP Pulse Ox O2 Del Method O2 Flow Rate 02/23/23 17:00 68 16 92 02/23/23 17:00 114/72 02/23/23 16:50 72 16 93 02/23/23 16:40 78 23 92 02/23/23 16:30 69 16 93 02/23/23 16:30 114/73 02/23/23 16:20 67 18 92 02/23/23 16:12 68 20 94 02/23/23 15:50 80 14 92 02/23/23 15:40 75 14 92 02/23/23 15:30 75 12 93 02/23/23 15:30 105/69 02/23/23 15:20 79 17 91 02/23/23 15:10 69 16 94 02/23/23 15:00 68 15 95 Nasal Cannula 2 02/23/23 15:00 96/66 L 02/23/23 14:50 66 13 92 02/23/23 14:46 73 16 90 12/25/23 14:46 74 02/23/23 14:44 37.0 C 70 16 107/68 93 Room Air Laboratory Results Abnormal lab results 02/23/23 Range/Units 15:55 BUN 27 H (6-23) mg/dl BUN/Creatinine Ratio 32.1 H (10-20) Glucose 136 H (70-99(Fasting)) mg/dl Diagnostic Findings Hip/Pelvis X-Ray 02/23/23 15:00 XR hip LT 2V w pelvis CLINICAL HISTORY: Hip trauma, fracture suspected. COMPARISON: Pelvis radiograph July 08, 2017. Left hip radiographs June 05, 2016. FINDINGS: A right sacroiliac joint fusion and postoperative findings within the lumbar spine are incidentally noted. There is no acute fracture within the pelvis or right hip. Transverse lucency within the left femoral neck is present. This is new since prior radiographs. IMPRESSION: Acute nondisplaced left femoral neck fracture. ACT 112: Negative or not required by law. Electronically signed by: Vladimir Sharp M.D. 02/23/2023 3:48 PM Chest X-Ray 02/23/23 15:01 PORTABLE SUPINE AP CHEST RADIOGRAPH CLINICAL HISTORY: Hypoxia. COMPARISON STUDY: Chest radiograph October 15, 2020. Chest CT March 22, 2010. FINDINGS: Intracanalicular electrodes are incidentally noted. Low lung volumes are present. No pneumothorax or pleural effusion is identified on supine exam.] Technique, cardiomediastinal silhouette is unremarkable. Mild reticulonodular interstitial thickening is present. IMPRESSION: Reticulonodular interstitial thickening. This may be technical however mild pulmonary edema or an infectious process could appear similar. ACT 112: Negative or not required by law. Electronically signed by: Vladimir Sharp M.D. 02/23/2023 3:[address] 02/23/23 15:19 CT OF THE HEAD WITHOUT CONTRAST CLINICAL HISTORY: Fall. COMPARISON STUDY: Head CT March 30, 2018. MRI of the brain March 22, 2014. CT DOSE: 1218.77 mGy.cm TECHNIQUE: Helical axial images of the head were obtained without IV contrast. Automated exposure control was utilized for the study. A dose lowering technique was utilized adhering to the principles of ALARA. FINDINGS: No acute intracranial hemorrhage, midline shift or mass effect is present. The ventricular system is stable. White matter hypodensities are similar to prior exam and favor small vessel disease. The basal cisterns are patent. No extra-axial collections are present. There are no findings to suggest acute dural sinus thrombosis or acute territorial infarct. No significant calvarial abnormalities are present. Visualized portions of the sinuses and mastoid air cells are clear. IMPRESSION: 1. No acute intracranial findings. 2. No calvarial fracture. ACT 112: Negative or not required by law. Electronically signed by: Vladimir Sharp M.D. 02/23/2023 4:[address] 02/23/23 15:20 CT OF THE CERVICAL SPINE WITHOUT CONTRAST CLINICAL HISTORY: Fall. COMPARISON STUDY: Cervical spine CT March 30, 2018. TECHNIQUE: Helical axial images of the cervical spine were obtained without IV contrast. Sagittal and coronal reconstructions were viewed. Automated exposure control was utilized for the study. A dose lowering technique was utilized adhering to the principles of ALARA. FINDINGS: Straightening of the cervical lordosis is similar to prior exam. Vertebral body heights are maintained. No acute cervical spine fracture or subluxation is present. There is no prevertebral edema. Facet joints are intact. Moderate multilevel facet arthrosis, disc space narrowing and osteophytosis within the cervical spine is present. Subtle loss of height of the superior endplate of T2 with sclerosis is new since CT of March 30, 2018. However, this is likely subacute to chronic. IMPRESSION: 1. No acute cervical spine fracture or subluxation. 2. Subacute to chronic mild compression fracture of the superior endplate of T2. ACT 112: Negative or not required by law. Electronically signed by: Vladimir Sharp M.D. 02/23/2023 4:25 PM Code Status & VTE Plan Code Status DNR/DNI VTE Prophylaxis Plan VTE Prophylaxis will be ordered: No Supervising Physician Co-Signing Physician Notes I personally saw and examined the patient. I independently reviewed the labs, EKG, imaging, problem list, medication list, past medical history and family history. I verified all martell points and agree with John Fonseca PA-C with the following exceptions and/or additions: 77 year old male with Parkinson's and ambulatory dysfunction causing multiple falls presents with left hip pain following a fall. O/E A&O x3, HS RRR, no murmurs, Chest CTAB, Abdo SNT, left leg PT/DP intact, sensation intact, left ankle dorsi/plantar flexion 5/5. A/P Left femoral neck fracture - Boogie catheter, NPO after midnight, consult orthopedics., Revised cardiac risk score 1 - 6.0% 30 day risk of , [place] or cardiac arrest. He is an acceptable risk for surgery and medically optimized for surgery at this time. Overall prognosis remains guarded however as he will always be a continued fall risk and Hypoxia - suspect this is on the basis of chronic scarring (prior eloise exposure), untreated JAVON (although this diagnosis was many years ago), and decreased inspiratory effort s/p fall. No further workup required unless getting progressively worse. T2DM - patient took his usual diabetes medications today and will be NPO after midnight therefore will hold basal Lantus at this time. Likely to need this post operatively. LBBB - this is not new, no chest pain. Do not suspect ACS. No further workup required pre-operatively No need for telemetry - patient transferred to med/surg Otherwise as above PG Care Time/CCT Total # of Minutes Spent Total Time Spent with Patient: Total time spent is greater than 50% in coordination of care (as documented) at patient's floor/unit and/or counseling patient: [place] [address] INT INP/OBS CARE 2/55MIN Patient Type Established Medical Decision Making Moderate Complexity Diagnoses Closed left hip fracture S72.002A Atypical Parkinsonism G20 Type 2 diabetes mellitus with hyperglycemia, without long-term current use of insulin E11.65 Diabetes mellitus complication status: with hyperglycemia Diabetes mellitus longterm insulin use: without press tender long goods use Obstructive sleep apnea G47.33 Chronic back pain greater than 3 months duration M54.9; G89.29 Dementia F03.90 Depression F32.9 Recurrent falls R29.6 Hypoxia R09.02 (3) Diabetes mellitus, type 2 Diabetes mellitus complication status: with hyperglycemia Diabetes mellitus longterm insulin use: without press tender long goods use Qualified Code(s): E11.65 - Type 2 diabetes mellitus with hyperglycemia
[2023-02-23] MEDS ORDERED: ENTACAPONE 200 MG TAB PO STA (17:51)
[2023-02-23] MEDS ORDERED: CARBIDOPA/LEVODOPA 50/200MG EXT REL TAB PO STA (17:52)
[2023-02-23] MEDS ORDERED: HYDROCODONE/ACETAMINOPHEN 7.5/325MG TAB PO STA (18:05)
[2023-02-23] MEDS ORDERED: HYDROmorphone INJ 0.5 MG/0.5 ML SYR IV PRN (19:55)
[2023-02-23] MEDS ORDERED: DEXTROSE 50% 50 ML SYRINGE IV PRN (19:55)
[2023-02-23] MEDS ORDERED: CARBOHYDRATES FOR HYPOGLYCEMIA PO PRN (19:55)
[2023-02-23] MEDS ORDERED: GLUCOSE 10 TAB/TUBE PO PRN (19:55)
[2023-02-23] MEDS ORDERED: GLUCOSE 40% GEL 15 GM TUBE PO PRN (19:55)
[2023-02-23] MEDS ORDERED: ONDANSETRON INJ 2 MG/ML 2 ML VIAL IV PRN (19:55)
[2023-02-23] MEDS ORDERED: GLUCAGON FOR INJ 1 MG VIAL SQ PRN (19:55)
[2023-02-23] MEDS ORDERED: INSULIN ASPART PER UNIT CHARGE SC SCH (21:00)
[2023-02-24] MEDS: ERGOCALCIFEROL 50,000 UNITS 1250 MCG CAP PO SCH (00:10)
[2023-02-24] MEDS: QUEtiapine FUMARATE 25 MG TABLET PO SCH ×2 (00:11→21:34)
[2023-02-24] MEDS: DONEPEZIL HCL 10 MG TAB PO SCH ×3 (00:11→21:33)
[2023-02-24] MEDS: lamoTRIgine 100 MG TAB PO SCH ×3 (00:11→21:34)
[2023-02-24] MEDS: HYDROmorphone INJ 1 MG/ML SYRINGE IV PRN ×5 (00:58→19:21)
[2023-02-24] MEDS ORDERED: Nursing to Pharmacy Communication SCH (01:00)
[2023-02-24] MEDS ORDERED: CLINDAMYCIN/D5W 900 MG/50 ML BAG IV SCH (06:00)
[2023-02-24] MEDS: INSULIN ASPART PER UNIT CHARGE SC SCH ×4 (06:09→21:32)
--- NOTE | 2023-02-24 07:15 | Orthopedic Consultation ---
Date of Consultation February 24, 2023 Assessment & Plan (1) Recurrent falls: (2) Atypical Parkinsonism: (3) Fracture, intertrochanteric, left femur: Discussed the diagnosis with the patient. Surgical and nonsurgical options were discussed. Nonsurgical option would be bedrest for 6 [address] would [address] him at elevated risk for fracture displacement, bedsores, pneumonia, and blood clots. I reviewed the risks and benefits of surgery which I think is the best treatment for him. Plan would be to do a long intramedullary tulio to protect the entire femur. This would allow him to weight-bear as tolerated. However I am concerned about his postoperative rehab given his history of falls. He will certainly need placement in a rehab facility where he can have extra assistance in order to minimize the risk of falls. After reviewing the risks and benefits of surgery he elected to proceed. All questions were answered. Informed consent was signed. Surgical site was marked. He has been n.p.o. since midnight last night. Plan on proceeding to the operating room this afternoon. History of Present Illness Reason for Consultation: Left hip fracture Attending Physician: Gilberto Pino MD History of Present Illness Sai is a 77-year-old male with PMH of ambulatory dysfunction, T2DM, JAVON, lumbosacral radiculopathy, hypothyroidism, HLD, GERD, dementia, atypical parkinsonisms, PTSD, depression, and mood disorder. He presented via EMS after falling and hitting his head in his garage on 02/23. No LOC. No tripping. Hx of recurrent falls due to his Parkinsonism. He was on the ground for approximately half an hour, but his was present. He now endorses left hip pain that is dull, achy, constant; rated 8/10. Radiation to the left knee. No radiation of the back. He did not take any pain medication at home. The pain is better when he is lying still, not moving his leg. No prior injuries to the left hip or leg, per patient. He does not use supplemental oxygen at home. Patient reports he took his morning medications as regular today; however he is not taking his lunch, or even medications. Only recent change in medication was switching to Lamictal 100 mg BID. Patient lives with his . SpO2 94% on 2L NC at time of admission; vitals otherwise stable. ED course: Toradol 50 mg IV ROS: Patient endorses left hip pain, left knee pain, and numbness/tingling in the left thigh. Patient denies fever, chills, sweating, HERNANDEZ, dizziness, lightheadedness, cough, congestion, chest pain, pleuritic CP, SOB, abdominal pain, N/V/D, urinary s/s, or numbness/tingling in the UEs/RLE. Patient's daughter (Denice) would like to be the point of contact regarding any updates ([phone]) Patient was seen and examined on the floor this morning. He states that he falls about 3-4 times a week despite using a walker. He says even if the wind is blowing that is enough to knock him off balance and cause a fall. Denies numbness or tingling down the leg. Lives with his is in good health per his report. Allergies Allergy/AdvReac Type Severity Reaction Status Date / Time Penicillins Allergy Severe Swelling, Verified 11/12/22 13:39 hives Sulfa (Sulfonamide Allergy Intermediate Hives Verified 11/12/22 13:39 Antibiotics) Home Medications Medication Instructions Recorded Confirmed Type aspirin 81 mg chewable tablet 81 mg PO QAM 03/30/18 02/23/23 History (Aspirin Childrens) blood-glucose meter (ZokemTouch #1 ea 09/27/18 11/12/22 Rx Ultra2 Meter kit) lancets 30 gauge (OneTouch Delica #100 ea 09/27/18 11/12/22 Rx Lancets) venlafaxine 150 mg 300 mg (2 x 150 mg) PO QAM #60 caps 09/27/18 02/23/23 Rx capsule,extended release 24 hr (Effexor XR) acetaminophen 500 mg tablet 1,000 mg PO Q6H PRN Pain 02/02/19 02/23/23 History quetiapine 50 mg tablet 25 mg PO HS 06/09/20 02/23/23 History ibuprofen 200 mg tablet 200 mg PO Q6H PRN Pain 10/10/20 02/23/23 History vitamin B complex (B 1 tab PO DAILY #30 tabs 10/22/21 02/23/23 Rx Complex-Vitamin B12 tablet) glimepiride 2 mg tablet See Rx Instructions .Route 01/13/22 02/23/23 Rx .COMPLEX #90 tabs metformin 500 mg tablet,extended See Rx Instructions .Route 03/04/22 02/23/23 Rx release 24 hr .COMPLEX #360 tabs atorvastatin 20 mg tablet 20 mg PO QAM #90 tabs 04/07/22 02/23/23 Rx carbidopa ER 50 mg-levodopa 200 mg 1 tab PO QID #360 tabs 09/09/22 02/23/23 Rx tablet,extended release cholecalciferol (vitamin D3) 1,250 50,000 unit PO WEEKLY 8 weeks #8 11/13/22 02/23/23 Rx mcg (50,000 unit) capsule caps empagliflozin 10 mg tablet See Rx Instructions .Route 11/14/22 02/23/23 Rx (Jardiance) .COMPLEX #90 tabs entacapone 200 mg tablet (Comtan) 200 mg PO QID #120 tabs 11/27/22 02/23/23 Rx donepezil 10 mg tablet (Aricept) 10 mg PO BID 90 days #180 tabs 01/13/23 02/23/23 Rx hydrocodone 7.5 mg-acetaminophen 1 tab PO QID PRN Pain 02/23/23 02/23/23 History 325 mg tablet lamotrigine 100 mg tablet 100 mg PO BID 02/23/23 02/23/23 History (Lamictal) Patient History Medical History (Updated 02/24/23 @ 07:18 by Gilberto Garcia MD) Chronic back pain Pulmonary nodule Under surveillance by PCP Parkinson disease Neuropathy History of rheumatic fever as a child Osteoarthritis Urine incontinence Diabetes mellitus, type 2 NIDDM PLATINUM (hard of hearing) Bipolar disorder PTSD (post-traumatic stress disorder) Sleep apnea Non-compliant w/ cpap History of asbestos exposure Migraine headache Lumbosacral radiculopathy Insomnia Hypothyroidism Hyperlipidemia Esophageal reflux Dementia Chronic cerebral ischemia Major depressive disorder, recurrent, moderate Lumbar stenosis with neurogenic claudication Surgical History 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 History of tooth extraction History of back surgery Lumbar x3 Right SI joint fusion (07/10/17): Grade 2 view, MAC#3, ETT 7.5 at [facility] History of lumbar fusion History of colonoscopy Colonoscopy (02/15/19): MAC at [facility] History of throat surgery Salivary glands and ducts; Removal of left salivary gland following industrial accident (benign) Status post lumbar spine surgery for decompression of spinal cord Family History Sister Diabetes 1.5, managed as type 1 Mother Diabetes 1.5, managed as type 1 Anxiety Father Hypertension Hypertensive heart disease Brother Diabetes Other No family history of adverse response to anesthesia Denies family history of Ovarian cancer Prostate cancer Myocardial infarction Breast cancer Colorectal cancer Social History Smoking Status: Never smoker Second Hand Exposure: No; Do You Dip or Chew Tobacco: No; Tobacco Cessation Education Requested by Patient: No Hx Alcohol Use: No Hx Substance Use: No Preferred Language: Argentine Communication Ability: Effective Visual Impairment: No Limitations Hearing Ability: Hard of Hearing Records Management Clerk Required: No Beliefs That Will Affect Care: None marital status: Current Living Situation: Spouse current occupational status: disabled Other Information That Helps Us Care for You: No other: On social security disability since 2000 Feels Safe at Home: Yes Safety Concerns: Feels Safe At This Time Childhood Exposure to Second-Hand Smoke: Yes Diet: regular Diet Comment: regular caffeine: No during the past year weight has: remained stable Dental Care, Regularly: Yes Physical Activity Frequency: Does not Exercise Physical Activity Frequency Comment: due to physical condition Seatbelt Use: always Sunscreen Use: No Assistive Devices: Denture - Upper, Denture - Lower and Glasses Physical Exam Physical Exam: Pleasant male in no acute distress. Alert and oriented x 3. Left lower extremity exam reveals the patient have no skin lesions around the left hip. He does have tenderness palpation over the lateral hip. Fires EHL FHL tib ant gastrocsoleus. Reports sensation intact to moving light touch in the dorsal and plantar aspects of the foot. Results & Data Vital Signs (Past 12 Hours) Vital Signs Temp Pulse Pulse Resp BP BP Pulse Ox 02/24/23 06:28 37.3 C 77 16 117/67 92 02/23/23 22:54 36.7 C 74 18 134/76 93 02/23/23 21:50 76 15 92 02/23/23 21:40 77 14 93 02/23/23 21:30 122/80 12/25/23 21:30 73 18 93 02/23/23 21:20 70 15 96 02/23/23 21:10 68 17 93 02/23/23 21:00 70 19 92 02/23/23 21:00 118/72 02/23/23 20:50 86 18 92 02/23/23 20:40 76 22 93 02/23/23 20:31 15 02/23/23 20:30 70 16 93 02/23/23 20:30 121/71 02/23/23 20:20 69 19 93 02/23/23 20:10 74 21 91 02/23/23 20:00 74 21 92 02/23/23 20:00 111/69 02/23/23 19:50 74 15 94 02/23/23 19:40 75 14 93 02/23/23 19:30 79 14 93 02/23/23 19:30 118/72 02/23/23 19:20 73 19 93 O2 Del Method O2 Flow Rate 02/24/23 06:28 Nasal Cannula 2 02/23/23 22:54 Nasal Cannula 2 02/23/23 21:50 02/23/23 21:40 02/23/23 21:30 02/23/23 21:30 02/23/23 21:20 02/23/23 21:10 02/23/23 21:00 02/23/23 21:00 02/23/23 20:50 02/23/23 20:40 02/23/23 20:31 02/23/23 20:30 02/23/23 20:30 02/23/23 20:20 02/23/23 20:10 02/23/23 20:00 02/23/23 20:00 02/23/23 19:50 02/23/23 19:40 02/23/23 19:30 02/23/23 19:30 02/23/23 19:20 Diagnostic Findings X-rays done yesterday are reviewed. These show a nondisplaced intertrochanteric femur fracture of the left hip.
--- NOTE | 2023-02-24 07:21 | XRay Report ---
XR femur LT 2V routine HISTORY: 77 years-old Male L hip pain Acute pain of the left thigh COMPARISON: Pelvis and hip radiographs 02/23/2023 TECHNIQUE: 2 views of the left femur FINDINGS: Unchanged alignment of the acute nondisplaced left femoral neck fracture. Lumbar spinal fusion hardwa re. [id number] left hip osteoarthritis with additional osteoarthritis of the knee. No additiona l acute fracture or dislocation. Arterial calcifications. 4 mm linear metallic density foreign body w ithin the anteromedial tissues of the distal thigh. IMPRESSION: 1. Unchanged alignment of the acute nondisplaced left femoral neck fracture. 2. 4 mm metallic foreign body of the distal thigh. ACT 112: Negative or not required by law. The above report was generated using voice recognition software. It may contain grammatical, syntax o r spelling errors. Electronically signed by: Johny Corea M.D. 02/24/2023 7:20 AM
[2023-02-24] MEDS: CARBIDOPA/LEVODOPA 50/200MG EXT REL TAB PO SCH ×4 (07:35→21:33)
[2023-02-24] MEDS: ENTACAPONE 200 MG TAB PO SCH ×4 (07:35→21:34)
[2023-02-24] MEDS: VENLAFAXINE HCL XR 150 MG CAPXR PO SCH (07:36)
[2023-02-24] MEDS: ATORVASTATIN 20 MG TAB PO SCH (07:36)
[2023-02-24 07:52] LABS: Basophils # (auto) 0.05 K/uL (0.00-0.20); Basophils % (auto) 0.5 %; Eosinophils # (auto) 0.24 K/uL (0.00-0.50); Eosinophils % (auto) 2.6 %; Hematocrit (blood only) 43.2 % (42.0-52.0); Immature Granulocytes # (auto) 0.03 K/uL (0.01-0.20); Immature Granulocytes % (auto) 0.3 %; Lymphocytes # (auto) 1.83 K/uL (1.20-3.40); Lymphocytes % (auto) 19.5 %; Mean Corpuscular Hemoglobin 32.7 pg (25.0-34.0); Mean Corpuscular Hgb Conc 34.7 g/dL (32.0-36.0); Mean Corpuscular Volume 94.1 fL (80.0-100.0); Monocytes # (auto) 0.69 K/uL (0.11-0.59); Monocytes % (auto) 7.3 %; Neutrophils # (auto) 6.55 K/uL (1.40-6.50); Neutrophils % (auto) 69.8 %; Platelet Count 239 K/uL (130-400); RDW Standard Deviation 41.4 fL (36.4-46.3); Red Blood Count 4.59 M/uL (4.70-6.10); White Blood Count 9.39 K/ul (4.8-10.8)
[2023-02-24 08:06] LABS: BUN Creatinine Ratio 40.3 (10-20); Calcium 9.6 mg/dl (8.6-10.3); Creatinine Clr Calc Pharmacy 92.2 ml/min; Est GFR (African American) 108.9 ml/min; Potassium 3.9 mmol/L (3.5-5.1)
[2023-02-24 08:49] LABS: Estimated Average Glucose 140 mg/dl; Hemoglobin A1C 6.5 % (4.5-5.6)
[2023-02-24] MEDS ORDERED: ASPIRIN 81 MG CHEW PO SCH (09:00)
--- NOTE | 2023-02-24 10:27 | Electrocardiogram Report ---
Test Reason : Blood Pressure : / mmHG Vent. Rate : 072 BPM Atrial Rate : 072 BPM P-R Int : 202 ms QRS Dur : 134 ms QT Int : 390 ms P-R-T Axes : 062 053 120 degrees QTc Int : 427 ms Normal sinus rhythm Left bundle branch block Abnormal ECG When compared with ECG of 15-OCT-2020 15:47, Left bundle branch block has replaced Non-specific intra-ventricular conduction block Confirmed by Mann Novoa ([id number]) on 02/24/2023 10:26:35 AM Referred By: REFERRED SELF Confirmed By:Kojo Novoa
[2023-02-24] MEDS ORDERED: LACTATED RINGER'S 500 ML IV ONE (12:26)
--- NOTE | 2023-02-24 12:30 | Hospitalist Progress Note ---
Date of Service February 24, 2023 Assessment & Plan (1) Closed left hip fracture: Plan: Patient sustained a ground-level fall in his garage on 02/23 Hx of recurrent falls due to Parkinson's BioFire negative Head CT naf Cervical spine CT revealed subacute to chronic mild compression fracture of T2 Hip and pelvis x-ray revealed acute nondisplaced left femoral neck fracture s/p operative repair 02/24. No complications. Weight bearing for transfers only x2 weeks. Vitamin D 29.3. 50,000iu given am 02/24. ADAT postop Mild preop hypoxia on 2L and wheezing which improved with albuterol. No home o2. biofire negative. continue incentive spirometer. If persistent -> AM CXR. Previously volume contracted. (2) Atypical Parkinsonism: Plan: Continue Sinemet, entacapone (give together QID) (3) Diabetes mellitus, type 2: Plan: SSI; target BSG range 110-140mg/dL, CF 65, carb ratio 20. Lantus 60 units twice daily. Home antiglycemic's held T2DM diet; n.p.o. at midnight BSG ACHS, and convert to q6h if n.p.o. Adjust regimen as needed AM A1c (4) Obstructive sleep apnea: Plan: Patient reports that he is not using CPAP at night, may use at bedtime as needed here (5) Chronic back pain greater than 3 months duration: Plan: Patient has been taking hydrocodoneacetaminophen 7.5-325mg QID as needed for back pain Hold while inpatient. Scaled IV analgesia postop, wean as tolerated. minimize narcotics especally with high risk of delirium (6) Dementia: Plan: Continue donezepil (7) Depression: Plan: Continue venlafaxine (8) Recurrent falls: Plan: Secondary to parkinsonism's (9) Hypoxia: Plan Disposition: Admit to [facility] telemetry DNR/DNI T2DM diet VTE PPx: start pharmacoppx 02/25 Admission and Anticipated Discharge Date Admission Date: February 23, 2023 Subjective Seen in PACU. OP repair went well per sign out. No bleeding concerns. WB for transfers at this time. Pt is with transient hypoxia and some wheezing. Recieved 500cc IV bolus preop for low UOP while NPO. Some wheezing and post-op hypoxia but recovering well otherwise. Physical Exam Physical Exam: General:Somnolent postop. NAD. HEENT: Atraumatic, normocephalic. Pulm: Diminished but grossly CTAB A&P. -wheezes, -rales, -rhonchi. Symmetrical chest rise. No increased work of breathing. No respiratory distress. Cardiac: RRR, -mrg. Radial pulses intact and symmetrical. Abdominal: Nontender, nondistended, soft. BS present. Ext: L femur in post-op dressing. Unable to assess sensation at time of exam, recovering from anesthesia. Results & Data Results & Data Vital Signs (Past 12 Hours) Vital Signs Temp Pulse Resp BP Pulse Ox O2 Del Method O2 Flow Rate 02/24/23 06:28 37.3 C 77 16 117/67 92 Nasal Cannula 2 PG Care Time/CCT Total # of Minutes Spent Total Time Spent with Patient: Total time spent is greater than 50% in coordination of care (as documented) at patient's floor/unit and/or counseling patient: Coding Level of Care Code 29129 SUB INP/OBS CARE 2/35MIN Diagnoses Closed left hip fracture S72.002A Atypical Parkinsonism G20 Type 2 diabetes mellitus with hyperglycemia, without long-term current use of insulin E11.65 Diabetes mellitus complication status: with hyperglycemia Diabetes mellitus manager long term care insulin use: without manager long term care use Obstructive sleep apnea G47.33 Chronic back pain greater than 3 months duration M54.9; G89.29 Dementia F03.90 Depression F32.9 Recurrent falls R29.6 Hypoxia R09.02 (3) Diabetes mellitus, type 2 Diabetes mellitus complication status: with hyperglycemia Diabetes mellitus manager long term care insulin use: without alf use Qualified Code(s): E11.65 - Type 2 diabetes mellitus with hyperglycemia
[2023-02-24] MEDS: LACTATED RINGER'S 1,000 ML IV SCH (12:35)
[2023-02-24] MEDS ORDERED: ROCURONIUM BROMIDE 10 MG/ML 5 ML VIAL IV ONE (12:45)
[2023-02-24] MEDS ORDERED: ONDANSETRON INJ 2 MG/ML 2 ML VIAL ONE (12:45)
[2023-02-24] MEDS ORDERED: PROPOFOL IV EMULSION 10 MG/ML 20 ML VIAL IV ONE (12:45)
[2023-02-24] MEDS ORDERED: DEXAMETHASONE SOD INJ 4 MG/ML VIAL ONE (12:45)
[2023-02-24] MEDS ORDERED: fentaNYL citrate PF 100 MCG/2 ML VIAL ONE (12:45)
[2023-02-24] MEDS ORDERED: LIDOCAINE 2% 2 ML VIAL/AMP(20MG/ML) INFIL ONE (12:45)
[2023-02-24] MEDS ORDERED: ATROPINE SULFATE 0.1 MG/ML 10ML SYR IV PRN (13:45)
[2023-02-24] MEDS ORDERED: ONDANSETRON INJ 2 MG/ML 2 ML VIAL IV PRN (13:45)
[2023-02-24] MEDS ORDERED: ePHEDrine sulfate 50 MG/ML AMP IV PRN (13:45)
[2023-02-24] MEDS ORDERED: LACTATED RINGER'S 1,000 ML IV SCH (13:45)
[2023-02-24] MEDS ORDERED: HYDROmorphone INJ 1 MG/ML SYRINGE IV PRN (13:45)
[2023-02-24] MEDS ORDERED: fentaNYL citrate PF 100 MCG/2 ML VIAL IV PRN (13:45)
--- NOTE | 2023-02-24 13:45 | Anesthesiology Consultation ---
Date of Service February 24, 2023 Assessment & Plan ASA ASA3 Proposed Anesthesia Anesthesia Type: General Risk / Benefits Reviewed With: PT / POA / Parent / Guardian, Accepts Plan and Informed Consent Obtained History Surgery Operation Date: 02/24/23 08:40 Proposed Procedures p Left Troch Nail - Gilberto Garcia MD Height/Weight Height: 5 ft 8 in Weight: 71.7 kg Allergies Allergy/AdvReac Type Severity Reaction Status Date / Time Penicillins Allergy Severe Swelling, Verified 11/12/22 13:39 hives Sulfa (Sulfonamide Allergy Intermediate Hives Verified 11/12/22 13:39 Antibiotics) Medications Home Medications Medication Instructions Recorded Confirmed Last Taken aspirin 81 mg chewable tablet 81 mg PO QAM 03/30/18 02/23/23 02/23/23 (Aspirin Childrens) blood-glucose meter (SnapShot GmbHTouch #1 ea 09/27/18 11/12/22 Unknown Ultra2 Meter kit) lancets 30 gauge (OneTouch Delica #100 ea 09/27/18 11/12/22 Unknown Lancets) venlafaxine 150 mg 300 mg (2 x 150 mg) PO QAM #60 caps 09/27/18 02/23/23 02/23/23 capsule,extended release 24 hr (Effexor XR) acetaminophen 500 mg tablet 1,000 mg PO Q6H PRN Pain 02/02/19 02/23/23 02/14/19 08:00 quetiapine 50 mg tablet 25 mg PO HS 06/09/20 02/23/23 11/01/20 22:00 ibuprofen 200 mg tablet 200 mg PO Q6H PRN Pain 10/10/20 02/23/23 Unknown vitamin B complex (B 1 tab PO DAILY #30 tabs 10/22/21 02/23/23 02/23/23 Complex-Vitamin B12 tablet) glimepiride 2 mg tablet See Rx Instructions .Route 01/13/22 02/23/23 02/23/23 .COMPLEX #90 tabs metformin 500 mg tablet,extended See Rx Instructions .Route 03/04/22 02/23/23 02/23/23 release 24 hr .COMPLEX #360 tabs atorvastatin 20 mg tablet 20 mg PO QAM #90 tabs 04/07/22 02/23/23 02/23/23 carbidopa ER 50 mg-levodopa 200 mg 1 tab PO QID #360 tabs 09/09/22 02/23/23 02/23/23 tablet,extended release cholecalciferol (vitamin D3) 1,250 50,000 unit PO WEEKLY 8 weeks #8 11/13/22 02/23/23 Unknown mcg (50,000 unit) capsule caps empagliflozin 10 mg tablet See Rx Instructions .Route 11/14/22 02/23/23 02/23/23 (Jardiance) .COMPLEX #90 tabs entacapone 200 mg tablet (Comtan) 200 mg PO QID #120 tabs 11/27/22 02/23/23 02/23/23 donepezil 10 mg tablet (Aricept) 10 mg PO BID 90 days #180 tabs 01/13/23 02/23/23 02/23/23 hydrocodone 7.5 mg-acetaminophen 1 tab PO QID PRN Pain 02/23/23 02/23/23 Unknown 325 mg tablet lamotrigine 100 mg tablet 100 mg PO BID 02/23/23 02/23/23 Unknown (Lamictal) Active Medications Generic Name Dose Route Start Last Admin Trade Name Freq PRN Reason Stop Dose Admin Aspirin 81 mg 02/24/23 09:00 02/24/23 07:36 Aspirin 81 Mg Chew PO 03/26/23 08:59 81 mg TODAY@0900 HEATHER Administration Atorvastatin Calcium 20 mg 02/24/23 09:00 02/24/23 07:36 Atorvastatin 20 Mg Tab PO 03/26/23 08:59 20 mg TODAY@0900 HEATHER Administration Carbidopa/Levodopa 1 tab 02/24/23 09:00 02/24/23 12:38 Carbidopa/Levodopa 50/200mg Ext Rel Tab PO 03/26/23 08:59 1 tab QID HEATHER Administration Donepezil HCl 10 mg 02/23/23 21:00 02/24/23 07:35 Donepezil Hcl 10 Mg Tab PO 03/25/23 20:59 10 mg BID HEATHER Administration Entacapone 200 mg 02/24/23 09:00 02/24/23 12:38 Entacapone 200 Mg Tab PO 03/26/23 08:59 200 mg QID HEATHER Administration Ergocalciferol 50,000 units 02/23/23 21:30 02/24/23 00:10 Ergocalciferol 50,000 Units 1250 Mcg Cap PO 03/25/23 21:29 50,000 units Mo@2100 HEATHER Administration Hydromorphone HCl 0.25 mg 02/23/23 19:55 02/23/23 22:17 Hydromorphone Inj 0.5 Mg/0.5 Ml Syr IV 03/09/23 19:54 0.25 mg Q2H PRN Administration Moderate Pain (4,5,6) on NRS Hydromorphone HCl 0.5 mg 02/23/23 19:55 02/24/23 11:04 Hydromorphone Inj 1 Mg/Ml Syringe IV 03/09/23 19:54 0.5 mg Q2H PRN Administration Severe Pain (7,8,9,10) on NRS Lactated Ringer's 1,000 mls @ 80 mls/hr 02/24/23 12:30 02/24/23 13:25 Lr IV 03/26/23 12:29 0 mls/hr .[id number] HEATHER Infusion Insulin Aspart 0 units 02/24/23 06:00 02/24/23 11:49 Insulin Aspart Per Unit Charge SC 03/26/23 05:59 Not Given Q6 HEATHER Lamotrigine 100 mg 02/23/23 21:00 02/24/23 07:35 Lamotrigine 100 Mg Tab PO 03/25/23 20:59 100 mg BID HEATHER Administration Protocol Quetiapine Fumarate 25 mg 02/23/23 21:00 02/24/23 00:11 Quetiapine Fumarate 25 Mg Tablet PO 03/25/23 20:59 25 mg HS HEATHER Administration Venlafaxine HCl 300 mg 02/24/23 09:00 02/24/23 07:36 Venlafaxine Hcl Xr 150 Mg Capxr PO 03/26/23 08:59 300 mg QAM HEATHER Administration NPO Date Last Intake of Fluids: 02/23/23 Time Last Intake of Fluids: 23:59 Last Intake of Fluids Comment: Sips with meds Date Last Intake of Solids: 02/23/23 Time Last Intake of Solids: 23:59 Past Medical History Medical History Chronic back pain Pulmonary nodule Under surveillance by PCP Parkinson disease Neuropathy History of rheumatic fever as a child Osteoarthritis Urine incontinence Diabetes mellitus, type 2 NIDDM CHITIMACHA (hard of hearing) Bipolar disorder PTSD (post-traumatic stress disorder) Sleep apnea Non-compliant w/ cpap History of asbestos exposure Migraine headache Lumbosacral radiculopathy Insomnia Hypothyroidism Hyperlipidemia Esophageal reflux Dementia Chronic cerebral ischemia Major depressive disorder, recurrent, moderate Lumbar stenosis with neurogenic claudication Exercise / Class Metabolic Activity II 4-5 Yardwork/Stairs/Walk up hill Past Family History Family History Sister Diabetes 1.5, managed as type 1 Mother , age 78 of diabetes Diabetes 1.5, managed as type 1 Anxiety (Symptom) Father , age 87 of renal failure Hypertension Hypertensive heart disease Brother Diabetes Other No family history of adverse response to anesthesia Denies family history of Ovarian cancer Prostate cancer Myocardial infarction Breast cancer Colorectal cancer Past Surgical History Surgical History 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 History of tooth extraction History of back surgery Lumbar x3 Right SI joint fusion (07/10/17): Grade 2 view, MAC#3, ETT 7.5 at [facility] History of lumbar fusion History of colonoscopy Colonoscopy (02/15/19): MAC at [facility] History of throat surgery Salivary glands and ducts; Removal of left salivary gland following industrial accident (benign) Status post lumbar spine surgery for decompression of spinal cord Past Anesthesia History No Hx of Anesthesia Complications and No Family Hx of Anesthesia Complications History of PONV No Hx of PONV and No Hx of Motion Sickness Social History Smoking Status: Never smoker Do You Dip or Chew Tobacco: No Hx Alcohol Use: No Hx Substance Use: No substance use type: does not use Review of Systems denies fever/cough/ colds/ chest pain/ SOB/ JAVON denies JAVON Physical Exam Vital Signs Last Vital Signs Temp 36.8 C 02/24/23 13:33 Pulse 74 02/24/23 13:33 Resp 20 02/24/23 13:33 BP 109/72 02/24/23 13:33 Pulse Ox 95 02/24/23 13:33 O2 Del Method Oxymask 02/24/23 13:33 O2 Flow Rate 3 02/24/23 13:33 ENMT Mouth: + edentulous; no TMJ abnormality and no dentition abnormality Thyromental Distance: > or= 3.5 Finger Breadths Mallampati Class: II Neck neck extension not limited Respiratory normal respiratory effort; no respiratory distress Auscultation: lungs clear to auscultation bilaterally Cardiovascular Rate/Rhythm: regular rate and regular rhythm Neurologic moves all extremities Psychiatric Orientation: alert and oriented x 3 Testing Laboratory Results 02/24/23 07:04 02/24/23 07:04 Hemoglobin A1c 6.5 % (4.5-5.6) H 02/24/23 07:04 02/24/23 02/24/23 11:40 06:07 POC Glucose 122 H 97
[2023-02-24] MEDS ORDERED: BUPIVACAINE/EPINEPHRINE 0.25% 1:200,000 30 ML VIAL ONE (14:03)
[2023-02-24] MEDS ORDERED: ALBUTEROL HFA 8 GM INHALER INH ONE (14:32)
[2023-02-24] MEDS ORDERED: PHENYLEPHRINE HCL 10 MG/ML VIAL ONE (14:37)
[2023-02-24] MEDS ORDERED: ePHEDrine sulfate 50 MG/5 ML SYR ONE (14:37)
[2023-02-24] MEDS ORDERED: BUPIVACAINE 0.5 % 5 MG/1 ML MPF 30ML VIAL ONE (14:39)
[2023-02-24] MEDS ORDERED: SUGAMMADEX SODIUM 200 MG/2 ML VIAL IV ONE (15:57)
--- NOTE | 2023-02-24 16:47 | Fluoroscopy Report ---
INTRAOPERATIVE RADIOGRAPHS CLINICAL HISTORY: Open reduction and internal fixation of the left proximal femur. Fluoro time: 144 seconds Ka,r: 19.50 mGy FINDINGS: 9 spot fluoroscopic views of the left femur are correlated with radiographs dated 3. Intertrochanteric and intramedullary nails have been placed transfixing a left femoral neck fractu re. Near anatomic alignment is maintained. A single cortical lag screw transfixes the distal end of t he intramedullary nail. A small metallic foreign body is noted in the distal thigh. IMPRESSION: Intraoperative images from open reduction and internal fixation of the left proximal femu r. Electronically signed by: Vivek Hemphill M.D. 02/24/2023 4:45 PM
--- NOTE | 2023-02-24 16:48 | Operative Report ---
Post Operative Report Pre & Post Diagnosis Operation Date: 02/24/23 08:40 Pre-Op Diagnosis: Left intertrochanteric femur fracture Post-Op Diagnosis: Left intertrochanteric femur fracture I identified the patient and participated in the time-out.: Yes Procedure Operation Date: 02/24/23 08:40 Actual Procedures Intramedullary nailing left intertrochanteric femur fracture with a long nail (Left) - Gilberto Garcia MD Surgeon Gilberto Garcia MD Sanitary Landfill Operator Gasper Zamora PA-C. No resident or fellow was available to assist. Estimated Blood Loss 50 Findings Consistent with Post-Op Diagnosis Specimens None Anesthesia Type General Complications none Disposition Disposition: Recovery Room Indications 77-year-old male with medical history significant for Parkinson's disease which causes him to fall 3-4 times per week. Yesterday, he fell on at home and complained of left hip pain and inability to ambulate. He was brought to the emergency room where x-rays were obtained demonstrating a nondisplaced left intertrochanteric femur fracture. I had a long discussion with the patient about the diagnosis, risks and benefits of surgery, alternatives to surgery, and expected outcomes. He understands that he is at elevated risk for complications secondary to his Parkinson's disease and history of falls as well as his age and other medical comorbidities. After reviewing all the risks and benefits of surgery he elected to proceed. All questions were answered. Informed consent was signed. Description of Procedure Patient was identified on the floor where surgical site was marked. He was brought back to the operating room where general anesthesia was administered on the hospital bed. He was then carefully moved onto the fracture table. The nonoperative hip was flexed and AB ducted to facilitate fluoroscopic visualization. The operative foot was well-padded and secured in the traction boot. Fluoroscopic imaging was brought in. We confirmed that there had been no displacement of the intertrochanteric femur fracture. The surgical site was then prepped and draped in the usual sterile fashion. Prior to incision a multidisciplinary timeout was called. All in the room were in agreement. I began by making a 5 cm long incision starting approximately 3 cm above the tip of the greater trochanter. I dissected down through subcutaneous tissues to the level of the fascia. K wire was then pierced through the fascia and the starting point for intramedullary tulio on the tip of the trochanter was optimized using fluoroscopic visualization in the AP and lateral planes. Once this was complete the guidewire was drilled down to the level of the lesser trochanter. The opening reamer was reamed over the top of this wire. Patient had good bone quality. Opening reamer was then removed and a ball-tipped guidewire was passed down the intramedullary canal all the way to the superior pole of the patella. We took our measurement which was approximately 395 mm. I therefore elected to use a 380 mm nail. Next, we started with an 8.5 mm reamer and sequentially reamed up to a 12 mm diameter. At this point we had excellent cortical chatter. I elected to use a 10 mm nail. The nail was opened up on the back table. This was passed down over the guidewire. The nail was then malleted down to the appropriate height and checked on the fluoroscopy of the hip and the knee. The targeting arm was then attached and a small stab incision was made over the lateral aspect of the femur. The guide sleeve was then inserted through the skin incision and advanced down onto the lateral cortex of the femur. A guidewire was then drilled up into the center center position of the femoral head. This measured approximately 102 mm. I therefore elected to use a 95 mm length helical blade. The opening drill was used followed by the step drill which was set at 100 mm. I then malleted the 95 mm length helical blade up into the femoral head. Once this was in appropriate position I tried to compress it but since the fracture was nondisplaced there was really minimal compression that could be obtained. The setscrew was then advanced from the top of the nail and the helical blade was locked into position. I then placed a single cross lock screw through the oblong hole in the distal femur. This was 5 x 36 mm. Final fluoroscopic images were then obtained. I was very happy with the position of her hardware as well as the reduction of the fracture. Wounds were then irrigated out with copious amounts normal saline. The fascial incision in the proximal wound was closed with 0 Vicryl suture. 0 Vicryl suture was used for the subcutaneous layer. 2-0 Vicryl suture was used in the deep dermal layers of each of the incisions. Jeremiah were used for the skin. 30 cc of half percent Marcaine was injected into the incision sites for postoperative pain control. Patient was then awoke from anesthesia and transferred recovery room in stable condition. Postoperative course: Patient be readmitted to the internal medicine service. Because of his history of falls I am going to make him weightbearing for transfers only for the first 2 weeks. He will need to be discharged to a rehab facility with maximal assist given his history of falls. We will get x-rays at his 2-week follow-up appointment. May be able to advance him to weightbearing as tolerated at that time. He can do unrestricted range of motion of his hip while in a bed or chair. Aspirin for DVT prophylaxis. I attest to the content of the Intraoperative Record and any orders documented therein. Any exceptions are noted below.
--- NOTE | 2023-02-24 17:01 | Operative Report ---
Post Operative Report Pre & Post Diagnosis Operation Date: 02/24/23 08:40 Pre-Op Diagnosis: Left Hip Fracture Post-Op Diagnosis: Left Hip Fracture I identified the patient and participated in the time-out.: Yes Procedure Operation Date: 02/24/23 08:40 Actual Procedures p Left Troch Nail(Left) - Gilberto Garcia MD Surgeon CASSI Garcia MD Spring Production Supervisor Gasper Zamora PA-C. No resident or fellow was available to assist. Estimated Blood Loss 50 Findings Consistent with Post-Op Diagnosis see operative report Specimens none Drains none Complications none Disposition Accompanied Patient To Recovery: Yes Indications This 77 year old male presented with left hip fracture after falling. He has a history of Parkinson's. He elected to proceed with surgical intervention after being educated about potential risks and outcomes. Preoperative imaging was obtained. Description of Procedure The patient was taken to the operating room where he was given general anesthesia. He was prepped and draped in the usual sterile fashion. Please see Dr. Garcia's operative report for specifics of the procedure. I was present for the entire case from initial patient positioning through final wound closure. Assistance was provided in tissue retraction, hemostasis, hardware placement, and final wound closure. The patient was taken to the recovery room in satisfactory condition. I attest to the content of the Intraoperative Record and any orders documented therein. Any exceptions are noted below.
--- NOTE | 2023-02-24 17:08 | Anesthesiology Progress Note ---
Date of Service February 24, 2023 Anesthesia Post Procedure Vital Signs Vital Signs: Temp Pulse Pulse Pulse Resp BP BP 02/24/23 17:00 73 20 02/24/23 16:50 74 18 02/24/23 16:40 85 18 02/24/23 16:35 77 20 02/24/23 16:28 36.2 C L 76 16 02/24/23 13:33 36.8 C 74 20 02/24/23 06:28 37.3 C 77 16 117/67 02/23/23 22:54 36.7 C 74 18 134/76 02/23/23 21:50 76 15 02/23/23 21:40 77 14 02/23/23 21:30 122/80 02/23/23 21:30 73 18 02/23/23 21:20 70 15 02/23/23 21:10 68 17 02/23/23 21:00 70 19 02/23/23 21:00 118/72 02/23/23 20:50 86 18 02/23/23 20:40 76 22 02/23/23 20:31 15 02/23/23 20:30 70 16 02/23/23 20:30 121/71 02/23/23 20:20 69 19 02/23/23 20:10 74 21 02/23/23 20:00 74 21 02/23/23 20:00 111/69 02/23/23 19:50 74 15 02/23/23 19:40 75 14 02/23/23 19:30 79 14 02/23/23 19:30 118/72 02/23/23 19:20 73 19 02/23/23 19:10 76 15 02/23/23 19:00 67 14 02/23/23 19:00 109/71 02/23/23 18:50 72 15 02/23/23 18:40 69 15 02/23/23 18:38 67 02/23/23 18:30 70 15 02/23/23 18:30 115/70 02/23/23 18:20 69 16 02/23/23 18:10 70 17 02/23/23 18:00 79 17 02/23/23 18:00 122/74 02/23/23 17:50 71 17 02/23/23 17:40 79 14 02/23/23 17:30 73 14 02/23/23 17:30 110/69 02/23/23 17:20 79 23 02/23/23 17:10 71 23 BP Pulse Ox O2 Del Method O2 Flow Rate 02/24/23 17:00 117/64 93 Nasal Cannula 2 02/24/23 16:50 108/62 98 Nasal Cannula 2 02/24/23 16:40 111/63 98 Oxymask 3 02/24/23 16:35 103/60 96 Oxymask 3 02/24/23 16:28 100/62 95 Oxymask 6 02/24/23 13:33 109/72 95 Oxymask 3 02/24/23 06:28 92 Nasal Cannula 2 02/23/23 22:54 93 Nasal Cannula 2 02/23/23 21:50 92 02/23/23 21:40 93 02/23/23 21:30 02/23/23 21:30 93 02/23/23 21:20 96 02/23/23 21:10 93 02/23/23 21:00 92 02/23/23 21:00 02/23/23 20:50 92 02/23/23 20:40 93 02/23/23 20:31 02/23/23 20:30 93 02/23/23 20:30 02/23/23 20:20 93 02/23/23 20:10 91 02/23/23 20:00 92 02/23/23 20:00 02/23/23 19:50 94 02/23/23 19:40 93 02/23/23 19:30 93 02/23/23 19:30 02/23/23 19:20 93 02/23/23 19:10 92 02/23/23 19:00 94 02/23/23 19:00 02/23/23 18:50 94 02/23/23 18:40 88 L 02/23/23 18:38 02/23/23 18:30 94 02/23/23 18:30 02/23/23 18:20 92 02/23/23 18:10 94 02/23/23 18:00 92 02/23/23 18:00 02/23/23 17:50 93 02/23/23 17:40 94 02/23/23 17:30 93 02/23/23 17:30 02/23/23 17:20 93 02/23/23 17:10 94 Pain Intensity Left Hip: Pain Intensity: 9 Transfer of Care Handoff Completed per policy Notes Mental Status: alert / awake / arousable Patient Amnestic to Procedure: Yes Nausea / Vomiting: adequately controlled Pain: adequately controlled Airway Patency, RR, SpO2: stable & adequate BP & HR: stable & adequate Hydration State: stable & adequate Anesthetic Complications: no major complications apparent
[2023-02-24] MEDS: LANTUS PER UNIT CHARGE SQ SCH (21:32)
[2023-02-24] MEDS: CLINDAMYCIN/D5W 600 MG/50 ML BAG IV SCH (22:04)
[2023-02-25] MEDS: HYDROmorphone INJ 1 MG/ML SYRINGE IV PRN ×4 (01:37→11:30)
[2023-02-25] MEDS: LACTATED RINGER'S 1,000 ML IV SCH ×2 (05:30→13:29)
[2023-02-25] MEDS: CLINDAMYCIN/D5W 600 MG/50 ML BAG IV SCH ×2 (05:40→13:27)
[2023-02-25] MEDS: ACETAMINOPHEN 325 MG TAB PO PRN ×2 (07:36→19:29)
[2023-02-25] MEDS: ENTACAPONE 200 MG TAB PO SCH ×4 (07:40→20:50)
[2023-02-25] MEDS: ASPIRIN 81 MG ECTAB PO SCH ×2 (07:40→20:51)
[2023-02-25] MEDS: DONEPEZIL HCL 10 MG TAB PO SCH ×2 (07:40→20:52)
[2023-02-25] MEDS: VENLAFAXINE HCL XR 150 MG CAPXR PO SCH (07:40)
[2023-02-25] MEDS: ATORVASTATIN 20 MG TAB PO SCH (07:40)
[2023-02-25] MEDS: CARBIDOPA/LEVODOPA 50/200MG EXT REL TAB PO SCH ×4 (07:40→20:51)
[2023-02-25 08:34] LABS: Basophils # (auto) 0.02 K/uL (0.00-0.20); Basophils % (auto) 0.2 %; Eosinophils # (auto) 0.07 K/uL (0.00-0.50); Eosinophils % (auto) 0.8 %; Hematocrit (blood only) 37.8 % (42.0-52.0); Hemoglobin 12.8 g/dl (14.0-18.0); Immature Granulocytes # (auto) 0.02 K/uL (0.01-0.20); Immature Granulocytes % (auto) 0.2 %; Lymphocytes # (auto) 1.34 K/uL (1.20-3.40); Mean Corpuscular Hemoglobin 32.7 pg (25.0-34.0); Mean Corpuscular Hgb Conc 33.9 g/dL (32.0-36.0); Mean Corpuscular Volume 96.4 fL (80.0-100.0); Mean Platelet Volume 10.3 fL (9.4-12.4); Monocytes # (auto) 0.62 K/uL (0.11-0.59); Monocytes % (auto) 7.4 %; Neutrophils # (auto) 6.29 K/uL (1.40-6.50); Neutrophils % (auto) 75.4 %; Platelet Count 205 K/uL (130-400); RDW Coefficient of Variation 12.1 % (11.5-14.5); RDW Standard Deviation 42.7 fL (36.4-46.3); Red Blood Count 3.92 M/uL (4.70-6.10); White Blood Count 8.36 K/ul (4.8-10.8)
[2023-02-25 08:53] LABS: BUN Creatinine Ratio 27.7 (10-20); Creatinine Clr Calc Pharmacy 74.4 ml/min; Est GFR (African American) 99.8 ml/min; Est GFR (Non-African American) 86.1 ml/min; Potassium 4.2 mmol/L (3.5-5.1)
[2023-02-25] MEDS ORDERED: bisacodyL 5 MG TABEC PO PRN (09:13)
[2023-02-25] MEDS: INSULIN ASPART PER UNIT CHARGE SC SCH ×4 (09:20→20:58)
[2023-02-25] MEDS: LANTUS PER UNIT CHARGE SQ SCH ×2 (09:20→20:59)
--- NOTE | 2023-02-25 09:35 | Orthopedic Progress Note ---
Date of Service February 25, 2023 Assessment & Plan (1) Recurrent falls: Plan: Patient is status post Intramedullary nailing left intertrochanteric femur fracture with a long nail POD #1. He is doing well. Patient will be Weight bearing on the left lower extremity for the next 2 weeks ONLY with transfers, otherwise No Weightbearing on the left lower extremity until seen in our office in 2 weeks with imaging at that time He may do range of motion of the left lower leg unrestricted while in chair and in bed He will be on 81 mg Aspirin twice a day x 30 days Continue with PT/OT with above restriction Recommend placement with max assist for rehabilitation Continue with ice to the left hip with towel layer as needed daily Continue with pain medication per primary Follow up in our office in 2 weeks for imaging (2) Atypical Parkinsonism: (3) Fracture, intertrochanteric, left femur: Admission and Anticipated Discharge Date Admission Date: February 23, 2023 Subjective Patient is a 77-year-old male who is status post Intramedullary nailing left intertrochanteric femur fracture with a long nail POD #1. He was seen bedside t his a.m. Dr. Garcia was present during his assessment. He just returned from getting a chest x-ray due to hypoxia. Patient does not appear to be in any distress and denies any shortness of breath, chest pain or dizziness. He states he is having hip pain that is 7/10. Spoke with nursing who reports he is getting IV pain meds. Patient states the meds do help. He is also using ice. He denies any concerns at this time. He denies any fever, chills, calf pain redness or drainage of the left lower extremity. Review of Systems Review of Systems: Please refer to HPI Physical Exam Physical Exam: General: Patient is alert and oriented x 3 no acute distress conversive and pleasant. Integumentary/musculoskeletal: Left lower extremity is normal in color and temperature. Dressings x 3 are intact negative for any soiling. Negative for any tenderness or fluctuance surrounding these areas. Patient is able to actively flex knee, do a straight leg raise without assistance, actively dorsiflex and plantarflex ankle. His calf is soft and nontender. Dorsal pedis pulses 1+. Results & Data Vital Signs (Past 12 Hours) Vital Signs Temp Pulse Resp BP Pulse Ox O2 Del Method O2 Flow Rate 02/25/23 06:48 37 C 81 16 100/56 L 92 Nasal Cannula 3 02/25/23 04:00 36.8 C 86 16 100/58 L 92 Nasal Cannula 2 02/25/23 00:02 36.9 C 84 16 98/61 L 95 Nasal Cannula 3 Laboratory Results 02/25/23 02/25/23 02/24/23 Range/Units 07:49 07:04 21:07 WBC 8.36 (4.8-10.8) K/ul RBC 3.92 L (4.70-6.10) M/uL Hgb 12.8 L (14.0-18.0) g/dl Hct 37.8 L (42.0-52.0) % MCV 96.4 (80.0-100.0) fL MCH 32.7 (25.0-34.0) pg MCHC 33.9 (32.0-36.0) g/dL RDW Std Deviation 42.7 (36.4-46.3) fL RDW Coeff of Franc 12.1 (11.5-14.5) % Plt Count 205 (130-400) K/uL MPV 10.3 (9.4-12.4) fL Immature Gran % (Auto) 0.2 % Neut % (Auto) 75.4 % Lymph % (Auto) 16.0 % [place] % (Auto) 7.4 % Eos % (Auto) 0.8 % Baso % (Auto) 0.2 % Neut # (Auto) 6.29 (1.40-6.50) K/uL Lymph # (Auto) 1.34 (1.20-3.40) K/uL [place] # (Auto) 0.62 H (0.11-0.59) K/uL Eos # (Auto) 0.07 (0.00-0.50) K/uL Baso # (Auto) 0.02 (0.00-0.20) K/uL Immature Gran # (Auto) 0.02 (0.01-0.20) K/uL Sodium 137 (136-145) mmol/L Potassium 4.2 (3.5-5.1) mmol/L Chloride 101 (98-107) mmol/L Carbon Dioxide 27 (21-32) mmol/L Anion Gap 9 (3-11) BUN 23 (6-23) mg/dl Creatinine 0.83 (0.6-1.4) mg/dl Est Cr Clr Drug Dosing 74.4 ml/min Est GFR ( Amer) 99.8 ml/min Est GFR (Non-Af Amer) 86.1 ml/min BUN/Creatinine Ratio 27.7 H (10-20) Glucose 181 H (70-99(Fasting)) mg/dl POC Glucose 163 H 245 H (70-99) mg/dl Calcium 9.0 (8.6-10.3) mg/dl 02/24/23 02/24/23 Range/Units 16:28 11:40 WBC (4.8-10.8) K/ul RBC (4.70-6.10) M/uL Hgb (14.0-18.0) g/dl Hct (42.0-52.0) % MCV (80.0-100.0) fL MCH (25.0-34.0) pg MCHC (32.0-36.0) g/dL RDW Std Deviation (36.4-46.3) fL RDW Coeff of Franc (11.5-14.5) % Plt Count (130-400) K/uL MPV (9.4-12.4) fL Immature Gran % (Auto) % Neut % (Auto) % Lymph % (Auto) % [place] % (Auto) % Eos % (Auto) % Baso % (Auto) % Neut # (Auto) (1.40-6.50) K/uL Lymph # (Auto) (1.20-3.40) K/uL [place] # (Auto) (0.11-0.59) K/uL Eos # (Auto) (0.00-0.50) K/uL Baso # (Auto) (0.00-0.20) K/uL Immature Gran # (Auto) (0.01-0.20) K/uL Sodium (136-145) mmol/L Potassium (3.5-5.1) mmol/L Chloride (98-107) mmol/L Carbon Dioxide (21-32) mmol/L Anion Gap (3-11) BUN (6-23) mg/dl Creatinine (0.6-1.4) mg/dl Est Cr Clr Drug Dosing ml/min Est GFR ( Amer) ml/min Est GFR (Non-Af Amer) ml/min BUN/Creatinine Ratio (10-20) Glucose (70-99(Fasting)) mg/dl POC Glucose 145 H 122 H (70-99) mg/dl Calcium (8.6-10.3) mg/dl Diagnostic Findings Hip X-Ray 02/24/23 00:00 INTRAOPERATIVE RADIOGRAPHS CLINICAL HISTORY: Open reduction and internal fixation of the left proximal femur. Fluoro time: 144 seconds Ka,r: 19.50 mGy FINDINGS: 9 spot fluoroscopic views of the left femur are correlated with radiographs dated 02/23/2023. Intertrochanteric and intramedullary nails have been placed transfixing a left femoral neck fracture. Near anatomic alignment is maintained. A single cortical lag screw transfixes the distal end of the intramedullary nail. A small metallic foreign body is noted in the distal thigh. IMPRESSION: Intraoperative images from open reduction and internal fixation of the left proximal femur. Electronically signed by: Vivek Hemphill M.D. 02/24/2023 4:45 PM
[2023-02-25] MEDS: lamoTRIgine 100 MG TAB PO SCH ×2 (10:34→20:50)
--- NOTE | 2023-02-25 11:08 | XRay Report ---
XR chest 2V PA/lateral HISTORY: 77 years-old Male hypoxia acute hypoxia COMPARISON: 02/23/2023 TECHNIQUE: PA and lateral views of the chest FINDINGS: Cardiac silhouette is enlarged. Bilateral reticulonodular opacities are again noted and have mildly p rogressed. No pneumothorax or large pleural effusion. Partially imaged spinal stimulator leads appear intact. Degenerative changes of the shoulders and spine. IMPRESSION: Mild progression of the reticulonodular opacities, likely infectious or inflammatory. ACT 112: Negative or not required by law. The above report was generated using voice recognition software. It may contain grammatical, syntax o r spelling errors. Electronically signed by: Johny Corea M.D. 02/25/2023 11:07 AM
[2023-02-25 15:00] LABS: Adenovirus PCR Not Detected (NotDetected); Bordetella parapertussis PCR Not Detected (NotDetected); Bordetella pertussis PCR Not Detected (NotDetected); Chlamydia pneumoniae PCR Not Detected (NotDetected); Coronavirus 229E PCR Not Detected (NotDetected); Coronavirus CoV-2 (COVID19)PCR Not Detected (NotDetected); Coronavirus HKU1 PCR Not Detected (NotDetected); Coronavirus NL63 PCR Not Detected (NotDetected); Coronavirus OC43PCR Not Detected (NotDetected); Human Metapneumovirus PCR Not Detected (NotDetected); Influenza A PCR Not Detected (NotDetected); Influenza B PCR Not Detected (NotDetected); Mycoplasma pneumoniae PCR Not Detected (NotDetected); Parainfluenza Virus 1 PCR Not Detected (NotDetected); Parainfluenza Virus 2 PCR Not Detected (NotDetected); Parainfluenza Virus 3 PCR Not Detected (NotDetected); Parainfluenza Virus 4 PCR Not Detected (NotDetected); Respiratory Syncytial VirusPCR Not Detected (NotDetected); Rhinovirus/Enterovirus PCR Not Detected (NotDetected)
[2023-02-25] MEDS: CELECOXIB 100 MG CAP PO PRN (16:22)
--- NOTE | 2023-02-25 16:54 | Hospitalist Progress Note ---
Date of Service February 25, 2023 Assessment & Plan (1) Closed left hip fracture: Plan: Patient sustained a ground-level fall in his garage on 02/23 Hx of recurrent falls due to Parkinson's BioFire negative Head CT naf Cervical spine CT revealed subacute to chronic mild compression fracture of T2 Hip and pelvis x-ray revealed acute nondisplaced left femoral neck fracture s/p operative repair 02/24. No complications. Weight bearing for transfers only x2 weeks. Vitamin D 29.3. 50,000iu given am 02/24. Hip pain was increased, Celebrex added for adjunct pain control. Discussed with Ortho. IV hydromorphone converted to orals. Patient is on 7.5 4 times daily of hydrocodone, Tylenol and continued with oxycodone 10 mg 4 times daily as needed as needed for breakthrough. No signs of narcosis at bedside assessed (2) Atypical Parkinsonism: Plan: Continue Sinemet, entacapone (give together QID) (3) Diabetes mellitus, type 2: Plan: SSI; target BSG range 110-140mg/dL, basal bolus sliding scale continued Within goal range on reassessment (4) Obstructive sleep apnea: Plan: Patient reports that he is not using CPAP at night, may use at bedtime as needed here (5) Chronic back pain greater than 3 months duration: Plan: Patient has been taking hydrocodoneacetaminophen 7.5-325mg QID as needed for back pain Pain control as noted above (6) Dementia: Plan: Continue donezepil (7) Depression: Plan: Continue venlafaxine (8) Recurrent falls: Plan: Secondary to parkinsonism's (9) Hypoxia: Plan: -Mild diane-op hypoxia on 2L. +preop wheezing which improved with albuterol. No home o2. biofire negative. continue incentive spirometer. Morning chest x-ray with PA and lateral with inflammatory versus infectious reticulonodular changes. On clinical reassessment he is afebrile, improved, is not short of breath and has no cough or wheezing. Given clinical improvement and no infectious symptoms defer antibiotic treatment however if he develops hypoxia, fever/chills or cough start azithromycin 5-day course, 500 mg load x1 and then 4 days of 250 mg daily. Plan Disposition: [facility] telemetry DNR/DNI T2DM diet VTE PPx: start pharmacoppx 02/25 Admission and Anticipated Discharge Date Admission Date: February 23, 2023 Azucena Gibbs is seen at the bedside. He reports he feels well and is breathing normally. He has been weaned to room air and is not short of breath at time of assessment. He denies cough, wheezing, shortness of breath, and sputum production. He does endorse pain at his hip currently 7/10 and would like additional medications for pain control. Otherwise no acute questions or concerns. Denies fever, chills, sweats. No nausea/vomiting Physical Exam Physical Exam: General: A&Ox3. NAD. Cooperative. HEENT: Atraumatic, normocephalic. Vision and hearing grossly intact Pulm: CTAB A&P. -wheezes, -rales, -rhonchi. Symmetrical chest rise. No increased work of breathing. No respiratory distress. Cardiac: RRR, -mrg. Radial pulses intact and symmetrical. Abdominal: Nontender, nondistended, soft. BS present. Extremities: Sitting in chair, ankle dorsiflexion/plantarflexion 5/5 and intact sensation to soft touch in the feet bilaterally. Cap refill brisk bilat. Left surgical dressings C/D/I Results & Data Results & Data Vital Signs (Past 12 Hours) Vital Signs Temp Pulse Resp BP Pulse Ox O2 Del Method O2 Flow Rate 02/25/23 15:14 36.4 C L 74 18 103/63 92 Room Air 02/25/23 09:00 Nasal Cannula 2 02/25/23 06:48 37 C 81 16 100/56 L 92 Nasal Cannula 3 PG Care Time/CCT Total # of Minutes Spent Total Time Spent with Patient: Total time spent is greater than 50% in coordination of care (as documented) at patient's floor/unit and/or counseling patient: Coding Level of Care Code 05089 SUB INP/OBS CARE 3/50MIN Diagnoses Closed left hip fracture S72.002A Atypical Parkinsonism G20 Type 2 diabetes mellitus with hyperglycemia, without long-term current use of insulin E11.65 Diabetes mellitus terminal clerk insulin use: without terminal clerk use Diabetes mellitus complication status: with hyperglycemia Obstructive sleep apnea G47.33 Chronic back pain greater than 3 months duration M54.9; G89.29 Dementia F03.90 Depression F32.9 Recurrent falls R29.6 Hypoxia R09.02 (3) Diabetes mellitus, type 2 Diabetes mellitus chcf insulin use: without terminal clerk use Diabetes mellitus complication status: with hyperglycemia Qualified Code(s): E11.65 - Type 2 diabetes mellitus with hyperglycemia
[2023-02-25] MEDS: oxyCODONE HCL IR 5 MG TAB (IMMEDIATE RELEASE) PO PRN (17:26)
[2023-02-25] MEDS: QUEtiapine FUMARATE 25 MG TABLET PO SCH (20:51)
[2023-02-26] MEDS: oxyCODONE HCL IR 5 MG TAB (IMMEDIATE RELEASE) PO PRN ×3 (01:23→17:38)
[2023-02-26 07:04] LABS: Basophils # (auto) 0.04 K/uL (0.00-0.20); Basophils % (auto) 0.5 %; Eosinophils # (auto) 0.35 K/uL (0.00-0.50); Eosinophils % (auto) 4.7 %; Hematocrit (blood only) 35.5 % (42.0-52.0); Hemoglobin 12.3 g/dl (14.0-18.0); Immature Granulocytes # (auto) 0.02 K/uL (0.01-0.20); Immature Granulocytes % (auto) 0.3 %; Lymphocytes # (auto) 2.18 K/uL (1.20-3.40); Mean Corpuscular Hemoglobin 32.7 pg (25.0-34.0); Mean Corpuscular Hgb Conc 34.6 g/dL (32.0-36.0); Mean Corpuscular Volume 94.4 fL (80.0-100.0); Mean Platelet Volume 10.1 fL (9.4-12.4); Monocytes # (auto) 0.57 K/uL (0.11-0.59); Monocytes % (auto) 7.6 %; Neutrophils # (auto) 4.36 K/uL (1.40-6.50); Neutrophils % (auto) 57.9 %; Platelet Count 184 K/uL (130-400); RDW Coefficient of Variation 11.9 % (11.5-14.5); RDW Standard Deviation 41.7 fL (36.4-46.3); Red Blood Count 3.76 M/uL (4.70-6.10); White Blood Count 7.52 K/ul (4.8-10.8)
[2023-02-26 07:29] LABS: BUN Creatinine Ratio 33.3 (10-20); Calcium 8.9 mg/dl (8.6-10.3); Est GFR (African American) 111.7 ml/min; Est GFR (Non-African American) 96.4 ml/min; Potassium 3.5 mmol/L (3.5-5.1)
[2023-02-26] MEDS: DONEPEZIL HCL 10 MG TAB PO SCH ×2 (08:04→20:57)
[2023-02-26] MEDS: VENLAFAXINE HCL XR 150 MG CAPXR PO SCH (08:04)
[2023-02-26] MEDS: CARBIDOPA/LEVODOPA 50/200MG EXT REL TAB PO SCH ×4 (08:04→20:58)
[2023-02-26] MEDS: ATORVASTATIN 20 MG TAB PO SCH (08:04)
[2023-02-26] MEDS: ASPIRIN 81 MG ECTAB PO SCH ×2 (08:04→20:58)
[2023-02-26] MEDS: lamoTRIgine 100 MG TAB PO SCH ×2 (08:05→20:57)
[2023-02-26] MEDS: ENTACAPONE 200 MG TAB PO SCH ×4 (08:05→20:58)
--- NOTE | 2023-02-26 08:50 | Orthopedic Progress Note ---
Date of Service February 26, 2023 Assessment & Plan (1) Closed left hip fracture: Plan: The patient was educated regarding today's findings. Conservative care measures were discussed. His dressings are dry. They were not changed today. He was encouraged to participate in PT and OT. He will likely need placement at a alf facility or [facility]. Continue with ice application as needed for discomfort. Transition to oral pain medication. Continue with his weightbearing limitation for the next 2 weeks. Continue with aspirin 81 mg for DVT prophylaxis. Admission and Anticipated Discharge Date Admission Date: February 23, 2023 Subjective This 77-year-old male is seen today in his room. He is 2 days status post left hip ORIF using a long trochanteric nail. He states his hip continues to be painful. Overnight. Overall he thinks it is slowly improving. He denies any chest pain or shortness of breath. No nausea or vomiting. No numbness or tingling. No additional complaints at this time. He has finished his breakfast. Physical Exam Physical Exam: General: Well-nourished, thin elderly male, in no acute distress. Laying in bed. Alert and oriented. Skin: Warm and dry with good turgor. No rashes. He has postsurgical dressings in place on the lateral aspect of his left thigh. Dressings are dry. There is no surrounding ecchymosis or edema yet. Musculoskeletal: The patient has intact active motor function for his ankle. Strength is 5/5 for resisted ankle flexion and dorsiflexion as well as inversion and eversion. He has no discomfort with passive logrolling of the hip or gentle flexion and extension. He is tender to touch over the postsurgical dressings. Neurologic: Gross sensation is intact across the left leg by soft touch. Peripheral pulses are 2+. Results & Data Vital Signs (Past 12 Hours) Vital Signs Temp Pulse Resp BP Pulse Ox O2 Del Method O2 Flow Rate 02/26/23 08:00 37.0 C 80 18 102/52 L 92 Room Air 02/25/23 22:44 Nasal Cannula 2 Laboratory Results CBC obtained this morning shows a white count of 7.5. H&H of 12.3 and 35.5. Platelets are 184,000. PRP is unremarkable. Glucose this morning was 87.
[2023-02-26] MEDS: INSULIN ASPART PER UNIT CHARGE SC SCH ×4 (09:23→20:56)
[2023-02-26] MEDS: LANTUS PER UNIT CHARGE SQ SCH ×2 (09:23→20:57)
[2023-02-26] MEDS: ACETAMINOPHEN 325 MG TAB PO PRN (12:30)
[2023-02-26] MEDS: CELECOXIB 100 MG CAP PO PRN (13:03)
[2023-02-26] MEDS: POLYETHYLENE (MIRALAX) 17 GM PACK PO SCH (17:32)
[2023-02-26] MEDS: QUEtiapine FUMARATE 25 MG TABLET PO SCH (20:58)
--- NOTE | 2023-02-26 21:16 | Hospitalist Progress Note ---
Date of Service February 26, 2023 Assessment & Plan (1) Closed left hip fracture: Plan: Patient sustained a ground-level fall in his garage on 02/23 Hx of recurrent falls due to Parkinson's BioFire negative Head CT naf Cervical spine CT revealed subacute to chronic mild compression fracture of T2 Hip and pelvis x-ray revealed acute nondisplaced left femoral neck fracture s/p operative repair 02/24. No complications. Weight bearing for transfers only x2 weeks. Vitamin D 29.3. 50,000iu given am 02/24. Hip pain was increased, Celebrex added for adjunct pain control. Discussed with Ortho. IV hydromorphone converted to orals. Patient is on 7.5 4 times daily of hydrocodone, Tylenol and continued with oxycodone 10 mg 4 times daily as needed as needed for breakthrough. No signs of narcosis at bedside assessed (2) Atypical Parkinsonism: Plan: Continue Sinemet, entacapone (give together QID) (3) Diabetes mellitus, type 2: Plan: SSI; target BSG range 110-140mg/dL, basal bolus sliding scale continued Within goal range on reassessment (4) Obstructive sleep apnea: Plan: Patient reports that he is not using CPAP at night, may use at bedtime as needed here (5) Chronic back pain greater than 3 months duration: Plan: Patient has been taking hydrocodoneacetaminophen 7.5-325mg QID as needed for back pain Pain control as noted above (6) Dementia: Plan: Continue donezepil (7) Depression: Plan: Continue venlafaxine (8) Recurrent falls: Plan: Secondary to parkinsonism's (9) Hypoxia: Plan: -Now on room air No home o2. biofire negative. continue incentive spirometer. Morning chest x- ray with PA and lateral with inflammatory versus infectious reticulonodular changes. On clinical reassessment he is afebrile, improved, is not short of breath and has no cough or wheezing. Given clinical improvement and no infectious symptoms defer antibiotic treatment however if he develops hypoxia, fever/chills or cough start azithromycin 5-day course, 500 mg load x1 and then 4 days of 250 mg daily. Plan Disposition: Admit to [facility] telemetry DNR/DNI T2DM diet VTE PPx: start pharmacoppx 02/25 Admission and Anticipated Discharge Date Admission Date: February 23, 2023 Subjective Patient reports no new symptoms. Review of Systems Review of Systems: All systems reviewed & are unremarkable except as noted in HPI & below Physical Exam Physical Exam: General: Well-nourished, thin elderly male, in no acute distress. Laying in bed. Alert and oriented. Skin: Warm and dry with good turgor. No rashes. He has postsurgical dressings in place on the lateral aspect of his left thigh. Dressings are dry. There is no surrounding ecchymosis or edema yet. Musculoskeletal: The patient has intact active motor function for his ankle. Strength is 5/5 for resisted ankle flexion and dorsiflexion as well as inversion and eversion. He has no discomfort with passive logrolling of the hip or gentle flexion and extension. He is tender to touch over the postsurgical dressings. Neurologic: Gross sensation is intact across the left leg by soft touch. Peripheral pulses are 2+. Results & Data Results & Data Vital Signs (Past 12 Hours) Vital Signs Temp Pulse Resp BP Pulse Ox O2 Del Method O2 Flow Rate 02/26/23 21:02 36.7 C 76 16 112/67 98 Nasal Cannula 2 02/26/23 15:08 36.9 C 84 16 100/57 L 95 Room Air 02/26/23 10:44 Room Air PG Care Time/CCT Total # of Minutes Spent Total Time Spent with Patient: Total time spent is greater than 50% in coordination of care (as documented) at patient's floor/unit and/or counseling patient: Coding Level of Care Code 90485 SUB INP/OBS CARE 2/35MIN Diagnoses Closed left hip fracture S72.002A Atypical Parkinsonism G20 Type 2 diabetes mellitus with hyperglycemia, without long-term current use of insulin E11.65 Diabetes mellitus complication status: with hyperglycemia Diabetes mellitus assisted insulin use: without ad terminal makeup operator use Obstructive sleep apnea G47.33 Chronic back pain greater than 3 months duration M54.9; G89.29 Dementia F03.90 Depression F32.9 Recurrent falls R29.6 Hypoxia R09.02 (3) Diabetes mellitus, type 2 Diabetes mellitus complication status: with hyperglycemia Diabetes mellitus ad terminal makeup operator insulin use: without ad terminal makeup operator use Qualified Code(s): E11.65 - Type 2 diabetes mellitus with hyperglycemia
[2023-02-27] MEDS: POLYETHYLENE (MIRALAX) 17 GM PACK PO SCH ×5 (00:45→23:09)
[2023-02-27] MEDS: oxyCODONE HCL IR 5 MG TAB (IMMEDIATE RELEASE) PO PRN ×3 (05:43→19:50)
[2023-02-27] MEDS: ASPIRIN 81 MG ECTAB PO SCH ×2 (07:38→19:53)
[2023-02-27] MEDS: lamoTRIgine 100 MG TAB PO SCH ×2 (07:38→19:52)
[2023-02-27] MEDS: ENTACAPONE 200 MG TAB PO SCH ×4 (07:38→19:53)
[2023-02-27] MEDS: CARBIDOPA/LEVODOPA 50/200MG EXT REL TAB PO SCH ×4 (07:38→19:53)
[2023-02-27] MEDS: DONEPEZIL HCL 10 MG TAB PO SCH ×2 (07:39→19:52)
[2023-02-27] MEDS: VENLAFAXINE HCL XR 150 MG CAPXR PO SCH (07:39)
[2023-02-27] MEDS: ATORVASTATIN 20 MG TAB PO SCH (07:39)
[2023-02-27] MEDS: LANTUS PER UNIT CHARGE SQ SCH ×2 (08:16→21:48)
[2023-02-27] MEDS: INSULIN ASPART PER UNIT CHARGE SC SCH ×4 (08:16→21:49)
[2023-02-27 08:43] LABS: Hematocrit (blood only) 36.3 % (42.0-52.0); Hemoglobin 12.7 g/dl (14.0-18.0); Mean Corpuscular Volume 94.3 fL (80.0-100.0); Mean Platelet Volume 10.1 fL (9.4-12.4); Platelet Count 225 K/uL (130-400); RDW Standard Deviation 42.2 fL (36.4-46.3); Red Blood Count 3.85 M/uL (4.70-6.10); White Blood Count 8.75 K/ul (4.8-10.8)
[2023-02-27 09:01] LABS: BUN Creatinine Ratio 36.1 (10-20); Calcium 9.1 mg/dl (8.6-10.3); Creatinine Clr Calc Pharmacy 85.8 ml/min; Est GFR (African American) 105.8 ml/min; Est GFR (Non-African American) 91.3 ml/min
--- NOTE | 2023-02-27 10:08 | Orthopedic Progress Note ---
Date of Service February 27, 2023 Assessment & Plan (1) Closed left hip fracture: Plan: PT and OT. Walker use Case management following for intermediate facility or encompass placement. Continue with ice application as needed for discomfort. Continue with his weightbearing limitation with maximal assistance for the next 2 weeks. Continue with aspirin 81 mg for DVT prophylaxis. Follow-up at [facility] orthopedics as scheduled With questions contact our clinic at [phone] Admission and Anticipated Discharge Date Admission Date: February 23, 2023 Subjective This 77-year-old male seen day 3 status post Intramedullary nailing left intertrochanteric femur fracture with a long nail performed by Dr. Garcia after the patient fell while getting out of his vehicle. He states that he is doing very well today. He states that his pain is well-controlled with the p.o. pain medication he has been given. States that he is unable to lift his leg off the bed. Patient states that he lives at home with his and his daughter lives a few houses down and they can help him at home, however due to being nonweightbearing on the left lower extremity for the next few weeks he states that he is most likely going to a rehab facility because he is at high risk for falls. Currently the patient denies chest pain, shortness of breath, fever, chills, sweats, numbness or tingling in his left lower extremity. He also denies nausea, vomiting, diarrhea or difficulty voiding. Review of Systems Review of Systems: All systems reviewed & are unremarkable except as noted in Subjective Physical Exam Physical Exam: Left lower extremity: All dressings are clean dry and intact and kept in place. Patient is able to perform an active straight leg raise test. He is able to actively dorsi and plantarflex foot without issue. He has no pain with logroll testing. Passive hip flexion near 90 degrees causes no pain. He also experiences no pain with light passive internal and external hip rotation. His quad strength is 3+ out of 5. He is neurovascularly intact in the left lower extremity. Results & Data Vital Signs (Past 12 Hours) Vital Signs Temp Pulse Resp BP Pulse Ox O2 Del Method 02/27/23 06:50 36.9 C 84 16 111/65 95 Room Air Diagnostic Findings Laboratory Results WBC 8.75 K/ul (4.8-10.8) 02/27/23 07:46 RBC 3.85 M/uL (4.70-6.10) L 02/27/23 07:46 Hgb 12.7 g/dl (14.0-18.0) L 02/27/23 07:46 Hct 36.3 % (42.0-52.0) L 02/27/23 07:46 MCV 94.3 fL (80.0-100.0) 02/27/23 07:46 MCH 33.0 pg (25.0-34.0) 02/27/23 07:46 MCHC 35.0 g/dL (32.0-36.0) 02/27/23 07:46 RDW Std Deviation 42.2 fL (36.4-46.3) 02/27/23 07:46 RDW Coeff of Franc 12.0 % (11.5-14.5) 02/27/23 07:46 Plt Count 225 K/uL (130-400) 02/27/23 07:46 MPV 10.1 fL (9.4-12.4) 02/27/23 07:46 Immature Gran % (Auto) 0.3 % 02/26/23 06:09 Neut % (Auto) 57.9 % 02/26/23 06:09 Lymph % (Auto) 29.0 % 02/26/23 06:09 [place] % (Auto) 7.6 % 02/26/23 06:09 Eos % (Auto) 4.7 % 02/26/23 06:09 Baso % (Auto) 0.5 % 02/26/23 06:09 Neut # (Auto) 4.36 K/uL (1.40-6.50) 02/26/23 06:09 Lymph # (Auto) 2.18 K/uL (1.20-3.40) 02/26/23 06:09 [place] # (Auto) 0.57 K/uL (0.11-0.59) 02/26/23 06:09 Eos # (Auto) 0.35 K/uL (0.00-0.50) 02/26/23 06:09 Baso # (Auto) 0.04 K/uL (0.00-0.20) 02/26/23 06:09 Immature Gran # (Auto) 0.02 K/uL (0.01-0.20) 02/26/23 06:09 Sodium 136 mmol/L (136-145) 02/27/23 07:46 Potassium 4.0 mmol/L (3.5-5.1) 02/27/23 07:46 Chloride 103 mmol/L (98-107) 02/27/23 07:46 Carbon Dioxide 26 mmol/L (21-32) 02/27/23 07:46 Anion Gap 7 (3-11) 02/27/23 07:46 BUN 26 mg/dl (6-23) H 02/27/23 07:46 Creatinine 0.72 mg/dl (0.6-1.4) 02/27/23 07:46 Est Cr Clr Drug Dosing 85.8 ml/min 02/27/23 07:46 Est GFR ( Amer) 105.8 ml/min 02/27/23 07:46 Est GFR (Non-Af Amer) 91.3 ml/min 02/27/23 07:46 BUN/Creatinine Ratio 36.1 (10-20) H 02/27/23 07:46 Glucose 125 mg/dl (70-99(Fasting)) H 02/27/23 07:46 POC Glucose 128 mg/dl (70-99) H 02/27/23 07:52 Estimat Average Glucose 140 mg/dl 02/24/23 07:04 Hemoglobin A1c 6.5 % (4.5-5.6) H 02/24/23 07:04 Calcium 9.1 mg/dl (8.6-10.3) 02/27/23 07:46 Magnesium 2.0 mg/dl (1.7-2.4) 02/23/23 15:55 Troponin I High Sens 5.2 pg/ml (0-20) 02/23/23 15:55 B-Natriuretic Peptide 12 pg/ml (0-100) 02/23/23 18:29 25-OH Vitamin D Total 29.3 ng/ml (30-100) L 02/24/23 07:04 Nasal Screen MRSA (PCR) Negative (Negative) 02/25/23 13:20 Adenovirus (PCR) Not Detected (NotDetected) 02/25/23 13:20 B. pertussis DNA (PCR) Not Detected (NotDetected) 02/25/23 13:20 B.parapertussis DNA PCR Not Detected (NotDetected) 02/25/23 13:20 C. pneumoniae DNA (PCR) Not Detected (NotDetected) 02/25/23 13:20 Coronavirus OC43 (PCR) Not Detected (NotDetected) 02/25/23 13:20 Coronavirus HKU1 (PCR) Not Detected (NotDetected) 02/25/23 13:20 Coronavirus 229E (PCR) Not Detected (NotDetected) 02/25/23 13:20 SARS-CoV-2 (PCR) Not Detected (NotDetected) 02/25/23 13:20 Coronavirus NL63 (PCR) Not Detected (NotDetected) 02/25/23 13:20 Human Metapneumovir PCR Not Detected (NotDetected) 02/25/23 13:20 Influenza Type A (PCR) Not Detected (NotDetected) 02/25/23 13:20 Influenza Type B (PCR) Not Detected (NotDetected) 02/25/23 13:20 M. pneumoniae (PCR) Not Detected (NotDetected) 02/25/23 13:20 Parainfluenza 1 (PCR) Not Detected (NotDetected) 02/25/23 13:20 Parainfluenza 2 (PCR) Not Detected (NotDetected) 02/25/23 13:20 Parainfluenza 3 (PCR) Not Detected (NotDetected) 02/25/23 13:20 Parainfluenza 4 (PCR) Not Detected (NotDetected) 02/25/23 13:20 RSV (PCR) Not Detected (NotDetected) 02/25/23 13:20 Entero/Rhino (PCR) Not Detected (NotDetected) 02/25/23 13:20 Impressions Hip/Pelvis X-Ray 02/23/23 15:00 XR hip LT 2V w pelvis CLINICAL HISTORY: Hip trauma, fracture suspected. COMPARISON: Pelvis radiograph July 08, 2017. Left hip radiographs June 05, 2016. FINDINGS: A right sacroiliac joint fusion and postoperative findings within the lumbar spine are incidentally noted. There is no acute fracture within the pelvis or right hip. Transverse lucency within the left femoral neck is present. This is new since prior radiographs. IMPRESSION: Acute nondisplaced left femoral neck fracture. ACT 112: Negative or not required by law. Electronically signed by: Vladimir Sharp M.D. 02/23/2023 3:[address] 02/23/23 15:19 CT OF THE HEAD WITHOUT CONTRAST CLINICAL HISTORY: Fall. COMPARISON STUDY: Head CT March 30, 2018. MRI of the brain March 22, 2014. CT DOSE: 1218.77 mGy.cm TECHNIQUE: Helical axial images of the head were obtained without IV contrast. Automated exposure control was utilized for the study. A dose lowering technique was utilized adhering to the principles of ALARA. FINDINGS: No acute intracranial hemorrhage, midline shift or mass effect is present. The ventricular system is stable. White matter hypodensities are similar to prior exam and favor small vessel disease. The basal cisterns are patent. No extra-axial collections are present. There are no findings to suggest acute dural sinus thrombosis or acute territorial infarct. No significant calvarial abnormalities are present. Visualized portions of the sinuses and mastoid air cells are clear. IMPRESSION: 1. No acute intracranial findings. 2. No calvarial fracture. ACT 112: Negative or not required by law. Electronically signed by: Vladimir Sharp M.D. 02/23/2023 4:[address] 02/23/23 15:20 CT OF THE CERVICAL SPINE WITHOUT CONTRAST CLINICAL HISTORY: Fall. COMPARISON STUDY: Cervical spine CT March 30, 2018. TECHNIQUE: Helical axial images of the cervical spine were obtained without IV contrast. Sagittal and coronal reconstructions were viewed. Automated exposure control was utilized for the study. A dose lowering technique was utilized adhering to the principles of ALARA. FINDINGS: Straightening of the cervical lordosis is similar to prior exam. Vertebral body heights are maintained. No acute cervical spine fracture or subluxation is present. There is no prevertebral edema. Facet joints are intact. Moderate multilevel facet arthrosis, disc space narrowing and osteophytosis within the cervical spine is present. Subtle loss of height of the superior endplate of T2 with sclerosis is new since CT of March 30, 2018. However, this is likely subacute to chronic. IMPRESSION: 1. No acute cervical spine fracture or subluxation. 2. Subacute to chronic mild compression fracture of the superior endplate of T2. ACT 112: Negative or not required by law. Electronically signed by: Vladimir Sharp M.D. 02/23/2023 4:25 PM Femur X-Ray 02/23/23 19:42 XR femur LT 2V routine HISTORY: 77 years-old Male L hip pain Acute pain of the left thigh COMPARISON: Pelvis and hip radiographs 02/23/2023 TECHNIQUE: 2 views of the left femur FINDINGS: Unchanged alignment of the acute nondisplaced left femoral neck fracture. Lumbar spinal fusion hardware. [id number] left hip osteoarthritis with additional osteoarthritis of the knee. No additional acute fracture or dislocation. Arterial calcifications. 4 mm linear metallic density foreign body within the anteromedial tissues of the distal thigh. IMPRESSION: 1. Unchanged alignment of the acute nondisplaced left femoral neck fracture. 2. 4 mm metallic foreign body of the distal thigh. ACT 112: Negative or not required by law. The above report was generated using voice recognition software. It may contain grammatical, syntax or spelling errors. Electronically signed by: Johny Corea M.D. 02/24/2023 7:20 AM Hip X-Ray 02/24/23 00:00 INTRAOPERATIVE RADIOGRAPHS CLINICAL HISTORY: Open reduction and internal fixation of the left proximal femur. Fluoro time: 144 seconds Ka,r: 19.50 mGy FINDINGS: 9 spot fluoroscopic views of the left femur are correlated with radiographs dated 02/23/2023. Intertrochanteric and intramedullary nails have been placed transfixing a left femoral neck fracture. Near anatomic alignment is maintained. A single cortical lag screw transfixes the distal end of the intramedullary nail. A small metallic foreign body is noted in the distal thigh. IMPRESSION: Intraoperative images from open reduction and internal fixation of the left proximal femur. Electronically signed by: Vivek Hemphill M.D. 02/24/2023 4:45 PM Chest X-Ray 02/25/23 07:10 XR chest 2V PA/lateral HISTORY: 77 years-old Male hypoxia acute hypoxia COMPARISON: 02/23/2023 TECHNIQUE: PA and lateral views of the chest FINDINGS: Cardiac silhouette is enlarged. Bilateral reticulonodular opacities are again noted and have mildly progressed. No pneumothorax or large pleural effusion. Partially imaged spinal stimulator leads appear intact. Degenerative changes of the shoulders and spine. IMPRESSION: Mild progression of the reticulonodular opacities, likely infectious or inflammatory. ACT 112: Negative or not required by law. The above report was generated using voice recognition software. It may contain grammatical, syntax or spelling errors. Electronically signed by: Johny Corea M.D. 02/25/2023 11:07 AM
[2023-02-27] MEDS: QUEtiapine FUMARATE 25 MG TABLET PO SCH (19:52)
--- NOTE | 2023-02-27 21:42 | Hospitalist Progress Note ---
Date of Service February 27, 2023 Assessment & Plan (1) Closed left hip fracture: Plan: Patient sustained a ground-level fall in his garage on 02/23 Hx of recurrent falls due to Parkinson's BioFire negative Head CT naf Cervical spine CT revealed subacute to chronic mild compression fracture of T2 Hip and pelvis x-ray revealed acute nondisplaced left femoral neck fracture s/p operative repair 02/24. No complications. Weight bearing for transfers only x2 weeks. Vitamin D 29.3. 50,000iu given am 02/24. Hip pain was increased, Celebrex added for adjunct pain control. Discussed with Ortho. IV hydromorphone converted to orals. Patient is on 7.5 4 times daily of hydrocodone, Tylenol and continued with oxycodone 10 mg 4 times daily as needed as needed for breakthrough. No signs of narcosis at bedside assessed Awaiting placement. (2) Atypical Parkinsonism: Plan: Continue Sinemet, entacapone (give together QID) (3) Diabetes mellitus, type 2: Plan: SSI; target BSG range 110-140mg/dL, basal bolus sliding scale continued Within goal range on reassessment (4) Obstructive sleep apnea: Plan: Patient reports that he is not using CPAP at night, may use at bedtime as needed here (5) Chronic back pain greater than 3 months duration: Plan: Patient has been taking hydrocodoneacetaminophen 7.5-325mg QID as needed for back pain Pain control as noted above (6) Dementia: Plan: Continue donezepil (7) Depression: Plan: Continue venlafaxine (8) Recurrent falls: Plan: Secondary to parkinsonism's (9) Hypoxia: Plan: -Now on room air No home o2. biofire negative. continue incentive spirometer. Morning chest x- ray with PA and lateral with inflammatory versus infectious reticulonodular changes. On clinical reassessment he is afebrile, improved, is not short of breath and has no cough or wheezing. Given clinical improvement and no infectious symptoms defer antibiotic treatment however if he develops hypoxia, fever/chills or cough start azithromycin 5-day course, 500 mg load x1 and then 4 days of 250 mg daily. Plan Disposition: Admit to [facility] telemetry DNR/DNI T2DM diet VTE PPx: start pharmacoppx 02/25 Admission and Anticipated Discharge Date Admission Date: February 23, 2023 Subjective Patient reports no new symptoms Review of Systems Review of Systems: All systems reviewed & are unremarkable except as noted in HPI & below Physical Exam Physical Exam: General: Well-nourished, thin elderly male, in no acute distress. Laying in bed. Alert and oriented. Skin: Warm and dry with good turgor. No rashes. He has postsurgical dressings in place on the lateral aspect of his left thigh. Dressings are dry. There is no surrounding ecchymosis or edema yet. Musculoskeletal: The patient has intact active motor function for his ankle. Strength is 5/5 for resisted ankle flexion and dorsiflexion as well as inversion and eversion. He has no discomfort with passive logrolling of the hip or gentle flexion and extension. He is tender to touch over the postsurgical dressings. Neurologic: Gross sensation is intact across the left leg by soft touch. Peripheral pulses are 2+. Results & Data Results & Data Vital Signs (Past 12 Hours) Vital Signs Temp Pulse Resp BP BP Pulse Ox O2 Del Method 02/27/23 20:56 36.7 C 72 16 114/65 91 Room Air 02/27/23 16:20 36.7 C 83 16 111/61 94 Room Air PG Care Time/CCT Total # of Minutes Spent Total Time Spent with Patient: Total time spent is greater than 50% in coordination of care (as documented) at patient's floor/unit and/or counseling patient: Coding Level of Care Code 48044 SUB INP/OBS CARE 2/35MIN Diagnoses Closed left hip fracture S72.002A Atypical Parkinsonism G20 Type 2 diabetes mellitus with hyperglycemia, without long-term current use of insulin E11.65 Diabetes mellitus complication status: with hyperglycemia Diabetes mellitus terminal carman insulin use: without terminal carman use Obstructive sleep apnea G47.33 Chronic back pain greater than 3 months duration M54.9; G89.29 Dementia F03.90 Depression F32.9 Recurrent falls R29.6 Hypoxia R09.02 (3) Diabetes mellitus, type 2 Diabetes mellitus complication status: with hyperglycemia Diabetes mellitus alf insulin use: without terminal carman use Qualified Code(s): E11.65 - Type 2 diabetes mellitus with hyperglycemia
[2023-02-28] MEDS: oxyCODONE HCL IR 5 MG TAB (IMMEDIATE RELEASE) PO PRN ×3 (03:42→18:08)
[2023-02-28] MEDS: POLYETHYLENE (MIRALAX) 17 GM PACK PO SCH ×2 (05:10→12:13)
[2023-02-28] MEDS: ASPIRIN 81 MG ECTAB PO SCH ×2 (08:23→21:30)
[2023-02-28] MEDS: CARBIDOPA/LEVODOPA 50/200MG EXT REL TAB PO SCH ×4 (08:23→21:30)
[2023-02-28] MEDS: VENLAFAXINE HCL XR 150 MG CAPXR PO SCH (08:23)
[2023-02-28] MEDS: ENTACAPONE 200 MG TAB PO SCH ×4 (08:23→21:29)
[2023-02-28] MEDS: lamoTRIgine 100 MG TAB PO SCH ×2 (08:24→21:29)
[2023-02-28] MEDS: DONEPEZIL HCL 10 MG TAB PO SCH ×2 (08:24→21:30)
[2023-02-28] MEDS: ATORVASTATIN 20 MG TAB PO SCH (08:24)
[2023-02-28] MEDS: INSULIN ASPART PER UNIT CHARGE SC SCH ×4 (08:26→21:46)
[2023-02-28] MEDS: LANTUS PER UNIT CHARGE SQ SCH ×2 (08:30→21:46)
--- NOTE | 2023-02-28 18:25 | Hospitalist Progress Note ---
Date of Service February 28, 2023 Assessment & Plan (1) Closed left hip fracture: Plan: Patient sustained a ground-level fall in his garage on 02/23 Hx of recurrent falls due to Parkinson's BioFire negative Head CT naf Cervical spine CT revealed subacute to chronic mild compression fracture of T2 Hip and pelvis x-ray revealed acute nondisplaced left femoral neck fracture s/p operative repair 02/24. No complications. Weight bearing for transfers only x2 weeks. Vitamin D 29.3. 50,000iu given am 02/24. Hip pain was increased, Celebrex added for adjunct pain control. Discussed with Ortho. IV hydromorphone converted to orals. Patient is on 7.5 4 times daily of hydrocodone, Tylenol and continued with oxycodone 10 mg 4 times daily as needed as needed for breakthrough. No signs of narcosis at bedside assessed Awaiting placement. (2) Atypical Parkinsonism: Plan: Continue Sinemet, entacapone (give together QID) (3) Diabetes mellitus, type 2: Plan: SSI; target BSG range 110-140mg/dL, basal bolus sliding scale continued Within goal range on reassessment (4) Obstructive sleep apnea: Plan: Patient reports that he is not using CPAP at night, may use at bedtime as needed here (5) Chronic back pain greater than 3 months duration: Plan: Patient has been taking hydrocodoneacetaminophen 7.5-325mg QID as needed for back pain Pain control as noted above (6) Dementia: Plan: Continue donezepil (7) Depression: Plan: Continue venlafaxine (8) Recurrent falls: Plan: Secondary to parkinsonism's (9) Hypoxia: Plan: -Now on room air No home o2. biofire negative. continue incentive spirometer. Morning chest x- ray with PA and lateral with inflammatory versus infectious reticulonodular changes. On clinical reassessment he is afebrile, improved, is not short of breath and has no cough or wheezing. Given clinical improvement and no infectious symptoms defer antibiotic treatment however if he develops hypoxia, fever/chills or cough start azithromycin 5-day course, 500 mg load x1 and then 4 days of 250 mg daily. Plan Disposition: Admit to [facility] telemetry DNR/DNI T2DM diet VTE PPx: start pharmacoppx 02/25 Admission and Anticipated Discharge Date Admission Date: February 23, 2023 Subjective Patient reports no new symptoms. Review of Systems Review of Systems: All systems reviewed & are unremarkable except as noted in HPI & below Physical Exam Physical Exam: General: Well-nourished, thin elderly male, in no acute distress. Laying in bed. Alert and oriented. Skin: Warm and dry with good turgor. No rashes. He has postsurgical dressings in place on the lateral aspect of his left thigh. Dressings are dry. There is no surrounding ecchymosis or edema yet. Musculoskeletal: The patient has intact active motor function for his ankle. Strength is 5/5 for resisted ankle flexion and dorsiflexion as well as inversion and eversion. He has no discomfort with passive logrolling of the hip or gentle flexion and extension. He is tender to touch over the postsurgical dressings. Neurologic: Gross sensation is intact across the left leg by soft touch. Peripheral pulses are 2+. Results & Data Results & Data Vital Signs (Past 12 Hours) Vital Signs Temp Pulse Resp BP Pulse Ox O2 Del Method O2 Flow Rate 02/28/23 17:16 36.8 C 83 16 102/53 L 94 Nasal Cannula 2 02/28/23 09:58 Room Air 02/28/23 07:26 36.8 C 83 18 118/69 91 Room Air PG Care Time/CCT Total # of Minutes Spent Total Time Spent with Patient: Total time spent is greater than 50% in coordination of care (as documented) at patient's floor/unit and/or counseling patient: Coding Level of Care Code 09608 SUB INP/OBS CARE 03/26MIN Diagnoses Closed left hip fracture S72.002A Atypical Parkinsonism G20 Type 2 diabetes mellitus with hyperglycemia, without long-term current use of insulin E11.65 Diabetes mellitus complication status: with hyperglycemia Diabetes mellitus local intermodal truck driver insulin use: without skilled nursing use Obstructive sleep apnea G47.33 Chronic back pain greater than 3 months duration M54.9; G89.29 Dementia F03.90 Depression F32.9 Recurrent falls R29.6 Hypoxia R09.02 (3) Diabetes mellitus, type 2 Diabetes mellitus complication status: with hyperglycemia Diabetes mellitus local intermodal truck driver insulin use: without local intermodal truck driver use Qualified Code(s): E11.65 - Type 2 diabetes mellitus with hyperglycemia
[2023-02-28] MEDS: ACETAMINOPHEN 325 MG TAB PO PRN (21:08)
[2023-02-28] MEDS: QUEtiapine FUMARATE 25 MG TABLET PO SCH (21:29)
[2023-03-01] MEDS: INSULIN ASPART PER UNIT CHARGE SC SCH ×4 (09:11→21:36)
[2023-03-01] MEDS: LANTUS PER UNIT CHARGE SQ SCH ×2 (09:11→21:36)
[2023-03-01] MEDS: oxyCODONE HCL IR 5 MG TAB (IMMEDIATE RELEASE) PO PRN ×2 (09:12→23:19)
[2023-03-01] MEDS: VENLAFAXINE HCL XR 150 MG CAPXR PO SCH (09:12)
[2023-03-01] MEDS: ATORVASTATIN 20 MG TAB PO SCH (09:12)
[2023-03-01] MEDS: ENTACAPONE 200 MG TAB PO SCH ×4 (09:12→21:38)
[2023-03-01] MEDS: lamoTRIgine 100 MG TAB PO SCH ×2 (09:12→21:37)
[2023-03-01] MEDS: ASPIRIN 81 MG ECTAB PO SCH ×2 (09:12→21:37)
[2023-03-01] MEDS: DONEPEZIL HCL 10 MG TAB PO SCH ×2 (09:13→21:37)
[2023-03-01] MEDS: CARBIDOPA/LEVODOPA 50/200MG EXT REL TAB PO SCH ×4 (09:13→21:38)
--- NOTE | 2023-03-01 10:29 | Hospitalist Progress Note ---
Date of Service March 01, 2023 Assessment & Plan (1) Closed left hip fracture: Plan: Patient sustained a ground-level fall in his garage on 02/23 Hx of recurrent falls due to Parkinson's BioFire negative Head CT naf Cervical spine CT revealed subacute to chronic mild compression fracture of T2 Hip and pelvis x-ray revealed acute nondisplaced left femoral neck fracture s/p operative repair 02/24. No complications. Weight bearing for transfers only x2 weeks. Vitamin D 29.3. 50,000iu given am 02/24. Hip pain was increased, Celebrex added for adjunct pain control. Discussed with Ortho. IV hydromorphone converted to orals. Patient is on 7.5 4 times daily of hydrocodone, Tylenol and continued with oxycodone 10 mg 4 times daily as needed as needed for breakthrough. No signs of narcosis at bedside assessed Awaiting placement. (2) Atypical Parkinsonism: Plan: Continue Sinemet, entacapone (give together QID) (3) Diabetes mellitus, type 2: Plan: SSI; target BSG range 110-140mg/dL, basal bolus sliding scale continued Within goal range on reassessment (4) Obstructive sleep apnea: Plan: Patient reports that he is not using CPAP at night, may use at bedtime as needed here (5) Chronic back pain greater than 3 months duration: Plan: Patient has been taking hydrocodoneacetaminophen 7.5-325mg QID as needed for back pain Pain control as noted above (6) Dementia: Plan: Continue donezepil (7) Depression: Plan: Continue venlafaxine (8) Recurrent falls: Plan: Secondary to parkinsonism's (9) Hypoxia: Plan: -Now on room air No home o2. biofire negative. continue incentive spirometer. Morning chest x- ray with PA and lateral with inflammatory versus infectious reticulonodular changes. On clinical reassessment he is afebrile, improved, is not short of breath and has no cough or wheezing. Given clinical improvement and no infectious symptoms defer antibiotic treatment however if he develops hypoxia, fever/chills or cough start azithromycin 5-day course, 500 mg load x1 and then 4 days of 250 mg daily. Plan Disposition: Admit to [facility] telemetry DNR/DNI T2DM diet VTE PPx: ASA 1 mg PO BID Will need Peer to Peer completed on 03/03/23 Admission and Anticipated Discharge Date Admission Date: February 23, 2023 Subjective 77 yo male reports no new symptoms. Review of Systems Review of Systems: All systems reviewed & are unremarkable except as noted in HPI & below Physical Exam Physical Exam: General: Well-nourished, thin elderly male, in no acute distress. Laying in bed. Alert and oriented. Skin: Warm and dry with good turgor. No rashes. He has postsurgical dressings in place on the lateral aspect of his left thigh. Dressings are dry. There is no surrounding ecchymosis or edema yet. Neurologic: Gross sensation is intact across the left leg by soft touch. Peripheral pulses are 2+. Results & Data Results & Data Vital Signs (Past 12 Hours) Vital Signs Temp Pulse Resp BP Pulse Ox O2 Del Method O2 Flow Rate 03/01/23 06:18 37 C 80 18 113/67 93 Nasal Cannula 2 PG Care Time/CCT Total # of Minutes Spent Total Time Spent with Patient: Total time spent is greater than 50% in coordination of care (as documented) at patient's floor/unit and/or counseling patient: Coding Level of Care Code 34201 SUB INP/OBS CARE 03/26MIN Diagnoses Closed left hip fracture S72.002A Atypical Parkinsonism G20 Type 2 diabetes mellitus with hyperglycemia, without long-term current use of insulin E11.65 Diabetes mellitus skilled nursing insulin use: without local intermodal truck driver use Diabetes mellitus complication status: with hyperglycemia Obstructive sleep apnea G47.33 Chronic back pain greater than 3 months duration M54.9; G89.29 Dementia F03.90 Depression F32.9 Recurrent falls R29.6 Hypoxia R09.02 (3) Diabetes mellitus, type 2 Diabetes mellitus local intermodal truck driver insulin use: without local intermodal truck driver use Diabetes mellitus complication status: with hyperglycemia Qualified Code(s): E11.65 - Type 2 diabetes mellitus with hyperglycemia
--- NOTE | 2023-03-01 10:31 | Hospitalist Progress Note ---
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 No complications. Weight bearing for transfers only x2 weeks. Vitamin D 29.3. 50,000iu given am 02/24. Hip pain was increased, Celebrex added for adjunct pain control. Discussed with Ortho. IV hydromorphone converted to orals. Patient is on 7.5 4 times daily of hydrocodone, Tylenol and continued with oxycodone 10 mg 4 times daily as needed as needed for breakthrough. No signs of narcosis at bedside assessed Awaiting placement. (2) Atypical Parkinsonism: Plan: Continue Sinemet, entacapone (give together QID) (3) Diabetes mellitus, type 2: Plan: SSI; target BSG range 110-140mg/dL, basal bolus sliding scale continued Within goal range on reassessment (4) Obstructive sleep apnea: Plan: Patient reports that he is not using CPAP at night, may use at bedtime as needed here (5) Chronic back pain greater than 3 months duration: Plan: Patient has been taking hydrocodoneacetaminophen 7.5-325mg QID as needed for back pain Pain control as noted above (6) Dementia: Plan: Continue donezepil (7) Depression: Plan: Continue venlafaxine (8) Recurrent falls: Plan: Secondary to parkinsonism's (9) Hypoxia: Plan: -Now on room air No home o2. biofire negative. continue incentive spirometer. Morning chest x-r ay with PA and lateral with inflammatory versus infectious reticulonodular changes. On clinical reassessment he is afebrile, improved, is not short of breath and has no cough or wheezing. Given clinical improvement and no infectious symptoms defer antibiotic treatment however if he develops hypoxia, fever/chills or cough start azithromycin 5-day course, 500 mg load x1 and then 4 days of 250 mg daily. Plan Disposition: Admit to [facility] telemetry DNR/DNI T2DM diet VTE PPx: ASA 1 mg PO BID Will need Peer to Peer completed on 03/03/23 Admission and Anticipated Discharge Date Admission Date: February 23, 2023 Subjective 77 yo male reports no new symptoms. Review of Systems Review of Systems: All systems reviewed & are unremarkable except as noted in HPI & below Physical Exam Physical Exam: General: Well-nourished, thin elderly male, in no acute distress. Laying in bed. Alert and oriented. Skin: Warm and dry with good turgor. No rashes. He has postsurgical dressings in place on the lateral aspect of his left thigh. Dressings are dry. There is no surrounding ecchymosis or edema yet. Neurologic: Gross sensation is intact across the left leg by soft touch. Peripheral pulses are 2+. Results & Data Results & Data Vital Signs (Past 12 Hours) Vital Signs Temp Pulse Resp BP Pulse Ox O2 Del Method O2 Flow Rate 03/01/23 06:18 37 C 80 18 113/67 93 Nasal Cannula 2 PG Care Time/CCT Total # of Minutes Spent Total Time Spent with Patient: Total time spent is greater than 50% in coordination of care (as documented) at patient's floor/unit and/or counseling patient: Coding Level of Care Code None Diagnoses Closed left hip fracture S72.002A Atypical Parkinsonism G20 Type 2 diabetes mellitus with hyperglycemia, without long-term current use of insulin E11.65 Diabetes mellitus chcf insulin use: without bed bug exterminator use Diabetes mellitus complication status: with hyperglycemia Obstructive sleep apnea G47.33 Chronic back pain greater than 3 months duration M54.9; G89.29 Dementia F03.90 Depression F32.9 Recurrent falls R29.6 Hypoxia R09.02 (3) Diabetes mellitus, type 2 Diabetes mellitus bed bug exterminator insulin use: without bed bug exterminator use Diabetes mellitus complication status: with hyperglycemia Qualified Code(s): E11.65 - Type 2 diabetes mellitus with hyperglycemia
[2023-03-01] MEDS: ACETAMINOPHEN 325 MG TAB PO PRN ×2 (10:58→21:36)
[2023-03-01] MEDS: CELECOXIB 100 MG CAP PO SCH ×2 (11:54→21:37)
[2023-03-01] MEDS: QUEtiapine FUMARATE 25 MG TABLET PO SCH (21:36)
[2023-03-02] MEDS ORDERED: HYDROmorphone INJ 0.5 MG/0.5 ML SYR IV STA (01:43)
[2023-03-02 05:47] LABS: Hematocrit (blood only) 36.6 % (42.0-52.0); Hemoglobin 12.5 g/dl (14.0-18.0); Mean Corpuscular Hemoglobin 32.3 pg (25.0-34.0); Mean Corpuscular Hgb Conc 34.2 g/dL (32.0-36.0); Mean Corpuscular Volume 94.6 fL (80.0-100.0); Mean Platelet Volume 9.4 fL (9.4-12.4); Platelet Count 270 K/uL (130-400); RDW Standard Deviation 41.4 fL (36.4-46.3); Red Blood Count 3.87 M/uL (4.70-6.10); White Blood Count 6.97 K/ul (4.8-10.8)
[2023-03-02 06:01] LABS: BUN Creatinine Ratio 41.3 (10-20); Creatinine Clr Calc Pharmacy 82.3 ml/min; Est GFR (Non-African American) 89.7 ml/min
[2023-03-02] MEDS: CARBIDOPA/LEVODOPA 50/200MG EXT REL TAB PO SCH ×4 (08:34→21:01)
[2023-03-02] MEDS: ENTACAPONE 200 MG TAB PO SCH ×4 (08:34→21:01)
[2023-03-02] MEDS: ATORVASTATIN 20 MG TAB PO SCH (08:34)
[2023-03-02] MEDS: ASPIRIN 81 MG ECTAB PO SCH ×2 (08:34→21:02)
[2023-03-02] MEDS: lamoTRIgine 100 MG TAB PO SCH ×2 (08:35→21:02)
[2023-03-02] MEDS: CELECOXIB 100 MG CAP PO SCH ×2 (08:35→21:03)
[2023-03-02] MEDS: DONEPEZIL HCL 10 MG TAB PO SCH ×2 (08:35→21:02)
[2023-03-02] MEDS: VENLAFAXINE HCL XR 150 MG CAPXR PO SCH (08:35)
[2023-03-02] MEDS: ACETAMINOPHEN 325 MG TAB PO PRN ×2 (08:40→17:10)
[2023-03-02] MEDS: INSULIN ASPART PER UNIT CHARGE SC SCH ×4 (08:40→21:00)
[2023-03-02] MEDS: LANTUS PER UNIT CHARGE SQ SCH ×2 (08:40→21:00)
[2023-03-02] MEDS: oxyCODONE HCL IR 5 MG TAB (IMMEDIATE RELEASE) PO PRN (17:10)
[2023-03-02] MEDS: QUEtiapine FUMARATE 25 MG TABLET PO SCH (21:01)
[2023-03-02] MEDS: ERGOCALCIFEROL 50,000 UNITS 1250 MCG CAP PO SCH (21:03)
[2023-03-03] MEDS: ACETAMINOPHEN 325 MG TAB PO PRN (00:12)
[2023-03-03] MEDS: oxyCODONE HCL IR 5 MG TAB (IMMEDIATE RELEASE) PO PRN ×3 (04:43→17:21)
--- NOTE | 2023-03-03 06:08 | Hospitalist Progress Note ---
Date of Service March 02, 2023 Assessment & Plan (1) Pathological fracture of left hip due to age-related osteoporosis: Plan: fall at his home in his garage on 02/23 s/p ORIF with troch nail 02/24 - thus, POD #6 weight-bearing for transfers only x 2 weeks 25-OH vit D level - 29.3 cont vit D replacement pain meds prn celebrex BID schedule tylenol 1gm TID DVT proph - asa 81mg BID (2) Closed left hip fracture: Plan: see #1 above (3) Atypical Parkinsonism: Plan: Continue Sinemet, entacapone (give together QID) (4) Diabetes mellitus, type 2: Plan: a1c 6.5% cont basal-bolus insulin (5) Obstructive sleep apnea: Plan: has not been using CPAP at home (6) Chronic back pain greater than 3 months duration: Plan: Patient has been taking hydrocodoneacetaminophen 7.5-325mg QID as needed for back pain at home PDMP shows prescriptions for narcotics going back to 2021 May need to adjust the oxy for #1 given narcotic tolerance (7) Dementia: Plan: Continue donezepil (8) Depression: Plan: Continue venlafaxine (9) Recurrent falls: Plan: Secondary to parkinsonism (10) Hypoxia: Plan: resolved previous cxr with reticulonodular appearance he should have f/u CXR in a few weeks to ensure normalization (11) DVT prophylaxis: Plan: aspirin 81mg BID (12) Bipolar disorder: Plan: multiple psych diagnoses seen on his PMH list cont lamictal cont seroquel cont effexor xr Plan PT/OT both advising SNF for rehab social work aware Admission and Anticipated Discharge Date Admission Date: February 23, 2023 Subjective patient lying in bed comfortably only mild L hip pain otherwise feels well no new complaints eating well - 100% of meals Review of Systems Review of Systems: cv - no chest pain, no orthopnea pulm - no cough, no dyspnea GI - no abd pain, no N/V Physical Exam Physical Exam: gen - NAD, pleasant mouth - MMM neck - no JVD heart - RRR, s1 s2 lungs - CTA b/l abd - soft NT ND BS+ ext - mild L thigh edema only; pulses 2+ b/l skin - left hip susu C/D/I; distal left thigh dressings intact Results & Data Results & Data Vital Signs (Past 12 Hours) Vital Signs Temp Pulse Resp BP BP Pulse Ox O2 Del Method 03/02/23 15:10 36.9 C 70 16 103/64 94 Room Air 03/02/23 06:34 36.6 C 66 16 128/68 93 Nasal Cannula Laboratory Results Laboratory Results - last 24 hr 03/02/23 03/02/23 03/02/23 07:47 11:38 16:35 POC Glucose 138 H 178 H 194 H 03/02/23 20:43 POC Glucose 176 H PG Care Time/CCT Total # of Minutes Spent Total Time Spent with Patient: Total time spent is greater than 50% in coordination of care (as documented) at patient's floor/unit and/or counseling patient: Coding Level of Care Code 04816 SUB INP/OBS CARE 2MIN Diagnoses Pathological fracture of left hip due to age-related osteoporosis M80.052A Closed left hip fracture S72.002A Atypical Parkinsonism G20 Type 2 diabetes mellitus with hyperglycemia, without long-term current use of insulin E11.65 Diabetes mellitus terminal superintendent insulin use: without terminal superintendent use Diabetes mellitus complication status: with hyperglycemia Obstructive sleep apnea G47.33 Chronic back pain greater than 3 months duration M54.9; G89.29 Dementia F03.90 Depression F32.9 Recurrent falls R29.6 Hypoxia R09.02 DVT prophylaxis Z29.9 Bipolar disorder F31.9 (4) Diabetes mellitus, type 2 Diabetes mellitus skilled nursing insulin use: without terminal superintendent use Diabetes mellitus complication status: with hyperglycemia Qualified Code(s): E11.65 - Type 2 diabetes mellitus with hyperglycemia
[2023-03-03] MEDS: ENTACAPONE 200 MG TAB PO SCH ×4 (08:48→21:07)
[2023-03-03] MEDS: VENLAFAXINE HCL XR 150 MG CAPXR PO SCH (08:48)
[2023-03-03] MEDS: CARBIDOPA/LEVODOPA 50/200MG EXT REL TAB PO SCH ×4 (08:48→21:06)
[2023-03-03] MEDS: DONEPEZIL HCL 10 MG TAB PO SCH ×2 (08:48→21:08)
[2023-03-03] MEDS: ATORVASTATIN 20 MG TAB PO SCH (08:48)
[2023-03-03] MEDS: CELECOXIB 100 MG CAP PO SCH ×2 (08:48→21:09)
[2023-03-03] MEDS: ASPIRIN 81 MG ECTAB PO SCH ×2 (08:49→21:08)
[2023-03-03] MEDS: lamoTRIgine 100 MG TAB PO SCH ×2 (08:49→21:09)
[2023-03-03] MEDS: ACETAMINOPHEN 500 MG TAB PO SCH ×3 (08:54→21:07)
[2023-03-03] MEDS: INSULIN ASPART PER UNIT CHARGE SC SCH ×4 (08:54→21:06)
[2023-03-03] MEDS: LANTUS PER UNIT CHARGE SQ SCH ×2 (08:55→21:06)
[2023-03-03 08:58] LABS: BUN Creatinine Ratio 38.6 (10-20); Calcium 8.8 mg/dl (8.6-10.3); Creatinine Clr Calc Pharmacy 88.2 ml/min; Est GFR (Non-African American) 92.3 ml/min; Potassium 3.8 mmol/L (3.5-5.1)
--- NOTE | 2023-03-03 10:00 | Orthopedic Progress Note ---
Date of Service March 03, 2023 Assessment & Plan (1) Closed left hip fracture: Plan: May leave incisions open to air. OK to shower and get them wet, but do not submerge for 2 weeks PT and OT. Walker use Case management following for [facility] facility or [facility]. Continue with ice application as needed for discomfort. Continue with his weightbearing limitation with maximal assistance for the next 2 weeks. Continue with aspirin 81 mg for DVT prophylaxis. Follow-up at [facility] orthopedics as scheduled With questions contact our clinic at [phone] Admission and Anticipated Discharge Date Admission Date: February 23, 2023 Subjective This 77-year-old male seen day 7 status post Intramedullary nailing left intertrochanteric femur fracture with a long nail performed by Dr. Garcia after the patient fell while getting out of his vehicle. He states that he is doing very well today. He states that his pain is well-controlled with the p.o. pain medication he has been given. States that he is unable to lift his leg off the bed. Patient states that he lives at home with his and his daughter lives a few houses down and they can help him at home, however due to being nonweightbearing on the left lower extremity for the next few weeks he states that he is most likely going to a rehab facility because he is at high risk for falls. Currently the patient denies chest pain, shortness of breath, fever, chills, sweats, numbness or tingling in his left lower extremity. He also denies nausea, vomiting, diarrhea or difficulty voiding. Review of Systems Review of Systems: Please refer to HPI Physical Exam Physical Exam: Left lower extremity: Dressings removed. Incisions are clean dry and intact. Patient is able to perform an active straight leg raise test. He is able to actively dorsi and plantarflex foot without issue. He has no pain with logroll testing. Passive hip flexion near 90 degrees causes no pain. He also experiences no pain with light passive internal and external hip rotation. His quad strength is 3+ out of 5. He is neurovascularly intact in the left lower extremity. Results & Data Vital Signs (Past 12 Hours) Vital Signs Temp Pulse Resp BP Pulse Ox O2 Del Method 03/03/23 06:00 36.6 C 77 16 112/67 95 Room Air
--- NOTE | 2023-03-03 19:32 | Hospitalist Progress Note ---
Date of Service March 03, 2023 Assessment & Plan (1) Pathological fracture of left hip due to age-related osteoporosis: Plan: fall at his home in his garage on 02/23 s/p ORIF with troch nail 02/24 - thus, POD #7 weight-bearing for transfers only x 2 weeks; otherwise nonweightbearing status to LLE 25-OH vit D level - 29.3 cont vit D replacement pain meds prn celebrex BID cont scheduled tylenol 1gm TID DVT proph - asa 81mg BID (2) Closed left hip fracture: Plan: see #1 above (3) Atypical Parkinsonism: Plan: Continue Sinemet, entacapone (give together QID) (4) Diabetes mellitus, type 2: Plan: a1c 6.5% cont basal-bolus insulin control is adequate (5) Obstructive sleep apnea: Plan: has not been using CPAP at home (6) Chronic back pain greater than 3 months duration: Plan: Patient has been taking hydrocodoneacetaminophen 7.5-325mg QID as needed for back pain at home PDMP shows prescriptions for narcotics going back to 2021 May need to adjust the oxy for #1 given narcotic tolerance (7) Dementia: Plan: Continue donezepil (8) Depression: Plan: Continue venlafaxine (9) Recurrent falls: Plan: Secondary to parkinsonism (10) Hypoxia: Plan: resolved cxr with reticulonodular appearance old imaging of lungs showed interstitial infiltrates lung exam reveals dry, fine, bilateral basilar rales he could have developing PF/ILD sent to pulmonary post-discharge for w/u (11) DVT prophylaxis: Plan: aspirin 81mg BID (12) Bipolar disorder: Plan: multiple psych diagnoses seen on his PMH list cont lamictal cont seroquel cont effexor xr Plan inpatient rehab at [facility] denied by insurance I did the [id number] process w/ [employer] today and denial upheld thus - rehab at [facility] ; case repairer to make additional referrals attempted to call pt's today to no avail Admission and Anticipated Discharge Date Admission Date: February 23, 2023 Subjective no new issues did require a dose of IV dilaudid overnight for severe L hip pain he states the night-time is often the worst time for his pain during the day today he has been comfortable I informed Mr Ratliff that I had done a [id number] call with the med director of his insurance ([id number]) unfortunately the denial for request for inpatient rehab at [facility] was upheld med director did say they would approve SNF for rehab Review of Systems Review of Systems: cv - no chest pain pulm - no dyspnea or [place] GI - no abd pain, nausea, emesis psych - denies any issues with his moods at present time Physical Exam Physical Exam: gen - NAD, pleasant, sitting in chair by the window comfortably mouth - MMM neck - no JVD heart - RRR, s1 s2 lungs - mild, fine, dry bibasilar rales, no wheeze abd - soft NT ND BS+ ext - no ankle edema b/l; pulses 2+ b/l skin - did not examine the wounds on LLE today psych - full affect Results & Data Results & Data Vital Signs (Past 12 Hours) Vital Signs Temp Pulse Resp BP Pulse Ox O2 Del Method 03/03/23 14:37 36.4 C L 67 16 104/64 94 Room Air Laboratory Results Laboratory Results - last 24 hr 03/02/23 03/03/23 03/03/23 20:43 07:32 07:39 Sodium 139 Potassium 3.8 Chloride 106 Carbon Dioxide 26 Anion Gap 7 BUN 27 H Creatinine 0.70 Est Cr Clr Drug Dosing 88.2 Est GFR ( Amer) 107.0 Est GFR (Non-Af Amer) 92.3 BUN/Creatinine Ratio 38.6 H Glucose 115 H POC Glucose 176 H 122 H Calcium 8.8 03/03/23 03/03/23 11:29 16:37 Sodium Potassium Chloride Carbon Dioxide Anion Gap BUN Creatinine Est Cr Clr Drug Dosing Est GFR ( Amer) Est GFR (Non-Af Amer) BUN/Creatinine Ratio Glucose POC Glucose 132 H 179 H Calcium PG Care Time/CCT Total # of Minutes Spent Total Time Spent with Patient: Total time spent is greater than 50% in coordination of care (as documented) at patient's floor/unit and/or counseling patient: Coding Level of Care Code 49374 SUB INP/OBS CARE 2/35MIN Diagnoses Pathological fracture of left hip due to age-related osteoporosis M80.052A Closed left hip fracture S72.002A Atypical Parkinsonism G20 Type 2 diabetes mellitus with hyperglycemia, without long-term current use of insulin E11.65 Diabetes mellitus complication status: with hyperglycemia Diabetes mellitus intermediate manager insulin use: without intermediate manager use Obstructive sleep apnea G47.33 Chronic back pain greater than 3 months duration M54.9; G89.29 Dementia F03.90 Depression F32.9 Recurrent falls R29.6 Hypoxia R09.02 DVT prophylaxis Z29.9 Bipolar disorder F31.9 (4) Diabetes mellitus, type 2 Diabetes mellitus complication status: with hyperglycemia Diabetes mellitus usp insulin use: without usp use Qualified Code(s): E11.65 - Type 2 diabetes mellitus with hyperglycemia
[2023-03-03] MEDS: QUEtiapine FUMARATE 25 MG TABLET PO SCH (21:08)
[2023-03-04] MEDS: oxyCODONE HCL IR 5 MG TAB (IMMEDIATE RELEASE) PO PRN ×3 (01:18→16:48)
[2023-03-04] MEDS: ATORVASTATIN 20 MG TAB PO SCH (08:18)
[2023-03-04] MEDS: DONEPEZIL HCL 10 MG TAB PO SCH ×2 (08:19→19:49)
[2023-03-04] MEDS: CARBIDOPA/LEVODOPA 50/200MG EXT REL TAB PO SCH ×4 (08:19→19:49)
[2023-03-04] MEDS: CELECOXIB 100 MG CAP PO SCH ×2 (08:19→19:50)
[2023-03-04] MEDS: VENLAFAXINE HCL XR 150 MG CAPXR PO SCH (08:19)
[2023-03-04] MEDS: ASPIRIN 81 MG ECTAB PO SCH ×2 (08:19→19:49)
[2023-03-04] MEDS: ENTACAPONE 200 MG TAB PO SCH ×4 (08:19→19:49)
[2023-03-04] MEDS: ACETAMINOPHEN 500 MG TAB PO SCH ×3 (08:19→19:48)
[2023-03-04] MEDS: lamoTRIgine 100 MG TAB PO SCH ×2 (08:19→19:50)
[2023-03-04] MEDS: INSULIN ASPART PER UNIT CHARGE SC SCH ×4 (08:25→21:55)
[2023-03-04] MEDS: LANTUS PER UNIT CHARGE SQ SCH ×2 (08:25→21:55)
--- NOTE | 2023-03-04 09:19 | Orthopedic Progress Note ---
Date of Service March 04, 2023 Assessment & Plan (1) Status post hip surgery: Plan: The patient was educated regarding today's findings. Conservative care measures were discussed. He will need his susu out in a week. Continue with his modified weightbearing for 1 more week. Wounds are healing nicely. From an orthopedic standpoint, he is ready for discharge to a rehab or longterm facility. Continue Tylenol every 6 hours as needed for discomfort. Continue aspirin for DVT prophylaxis. Surgical sites may get wet in the shower but should avoid prolonged soaking. Admission and Anticipated Discharge Date Admission Date: February 23, 2023 Subjective This 77-year-old male is seen today in his room. He is 8 days status post left hip long troches nailing. He states he feels pretty good this morning. He denies any chest pain, shortness of breath, nausea, vomiting, or abdominal pain. No significant hip pain. He states he has been up already this morning. He is currently sitting in his bedside chair and has finished his breakfast. He is unsure of the discharge plans. Physical Exam Physical Exam: General: Well-developed, well-nourished, elderly male, in no acute distress. Sitting in his bedside chair. Alert and conversive. Skin: Warm and dry with good turgor. No rashes. Surgical incisions are closed. Susu are intact. No active drainage. No erythema or warmth. No ecchymosis distally. Minor discoloration proximally. Musculoskeletal: The patient has intact motor function for his hip, knee, and ankle. He is able to flex his hip and flex and extend the knee. He has no significant pain with passive hip flexion or rotation. Mild discomfort with palpation at the surgical sites. Neurologic: Gross sensation is intact across the left leg by soft touch. Peripheral pulses are 2+. Results & Data Vital Signs (Past 12 Hours) Vital Signs Temp Pulse Resp BP Pulse Ox O2 Del Method 03/04/23 07:57 36.8 C 70 16 97/62 L 95 Room Air Laboratory Results [id number] glucose this morning is 145.
[2023-03-04] MEDS: QUEtiapine FUMARATE 25 MG TABLET PO SCH (19:50)
--- NOTE | 2023-03-04 21:01 | Hospitalist Progress Note ---
Date of Service March 04, 2023 Assessment & Plan (1) Pathological fracture of left hip due to age-related osteoporosis: Plan: fall at his home in his garage on 02/23 s/p ORIF with troch nail 02/24 - thus, POD #8 weight-bearing for transfers only x 2 weeks; otherwise nonweightbearing status to LLE 25-OH vit D level - 29.3 cont vit D replacement pain meds prn celebrex BID but would stop at discharge since he will be on aspirin, too cont scheduled tylenol 1gm TID DVT proph - asa 81mg BID (2) Closed left hip fracture: Plan: see #1 above (3) Atypical Parkinsonism: Plan: Continue Sinemet, entacapone (give together QID) (4) Diabetes mellitus, type 2: Plan: a1c 6.5% cont basal-bolus insulin control is adequate at this time (5) Obstructive sleep apnea: Plan: has not been using CPAP at home (6) Chronic back pain greater than 3 months duration: Plan: Patient has been taking hydrocodoneacetaminophen 7.5-325mg QID as needed for back pain at home PDMP shows prescriptions for narcotics going back to 2021 He is having decent pain control of L hip with current pain med regimen stop celebrex at discharge due to concomitant aspirin use (7) Dementia: Plan: Continue donezepil (8) Depression: Plan: Continue venlafaxine (9) Recurrent falls: Plan: Secondary to parkinsonism (10) Hypoxia: Plan: resolved cxr with reticulonodular appearance old imaging of lungs showed interstitial infiltrates as well lung exam reveals dry, fine, bilateral basilar rales he could have developing PF/ILD send to pulmonary post-discharge for w/u (11) DVT prophylaxis: Plan: aspirin 81mg BID (12) Bipolar disorder: Plan: multiple psych diagnoses seen on his PMH list cont lamictal cont seroquel cont effexor xr Plan inpatient rehab at [facility] denied by insurance I did the [id number] process w/ [employer] - denial upheld thus - rehab at [facility] - they can take him tomorrow Admission and Anticipated Discharge Date Admission Date: February 23, 2023 Subjective no issues overnight states pain meds are working well for L hip pain moving bowels eating well he is aware a SNF rehab facility can take him tomorrow feeling good Review of Systems Review of Systems: gen - feels well cv - no chest pain pulm - no dyspnea GI - no abd pain/nausea/emesis Physical Exam Physical Exam: gen - NAD, pleasant, sitting in chair by the window eating his meal mouth - MMM neck - no JVD heart - RRR, s1 s2, no murmur lungs - mild, fine, dry bibasilar rales, no wheeze - no change abd - soft NT ND BS+ ext - no ankle edema b/l; pulses 2+ b/l skin - susu intact L distal leg psych - full affect , pleasant Results & Data Results & Data Vital Signs (Past 12 Hours) Vital Signs Temp Pulse Resp BP Pulse Ox O2 Del Method 03/04/23 19:08 36.6 C 67 18 122/66 96 Room Air 03/04/23 15:39 36.5 C 69 18 110/70 96 Room Air Laboratory Results Laboratory Results - last 24 hr 03/04/23 03/04/23 03/04/23 07:57 11:34 16:42 POC Glucose 145 H 183 H 190 H 03/04/23 20:41 POC Glucose 194 H PG Care Time/CCT Total # of Minutes Spent Total Time Spent with Patient: Total time spent is greater than 50% in coordination of care (as documented) at patient's floor/unit and/or counseling patient: Coding Level of Care Code 82887 SUB INP/OBS CARE 03/26MIN Diagnoses Pathological fracture of left hip due to age-related osteoporosis M80.052A Closed left hip fracture S72.002A Atypical Parkinsonism G20 Type 2 diabetes mellitus with hyperglycemia, without long-term current use of insulin E11.65 Diabetes mellitus complication status: with hyperglycemia Diabetes mellitus terminal clerk insulin use: without terminal clerk use Obstructive sleep apnea G47.33 Chronic back pain greater than 3 months duration M54.9; G89.29 Dementia F03.90 Depression F32.9 Recurrent falls R29.6 Hypoxia R09.02 DVT prophylaxis Z29.9 Bipolar disorder F31.9 (4) Diabetes mellitus, type 2 Diabetes mellitus complication status: with hyperglycemia Diabetes mellitus alf insulin use: without terminal clerk use Qualified Code(s): E11.65 - Type 2 diabetes mellitus with hyperglycemia
[2023-03-05] MEDS: oxyCODONE HCL IR 5 MG TAB (IMMEDIATE RELEASE) PO PRN (01:42)
--- NOTE | 2023-03-05 08:38 | Orthopedic Progress Note ---
Date of Service March 05, 2023 Assessment & Plan (1) Status post hip surgery: Plan: The patient was reminded on his restrictions for weightbearing status. Transfers only for another few days. This will likely be changed once he sees Dr. Garcia in the office next week and susu are removed. He may continue bedside exercises. Continue DVT prophylaxis using aspirin. Office appointment is March 10 at 8 AM. Admission and Anticipated Discharge Date Admission Date: February 23, 2023 Subjective This 77-year-old male is seen today in his room. He is 9 days status post left hip long troch nailing. He states he feels pretty good this morning. He denies any chest pain, shortness of breath, nausea, vomiting, or abdominal pain. No significant hip pain. He states he has been up already this morning. He is currently sitting in his bedside chair and has finished his breakfast. He believes he is being discharged to [facility] today. No additional complaints. Physical Exam Physical Exam: General: Well-developed, well-nourished, generally male, in no acute distress. Sitting in a chair. Alert and oriented. Skin: Warm and dry with good turgor. No rashes. Healing surgical incisions are present on the lateral aspect of his left thigh. Mohawk are intact. Wound edges are well-approximated. There is no current drainage. No ecchymosis or edema. Musculoskeletal: The patient has intact motor function of his left hip, knee, and ankle. He is able to perform straight leg raise. He is able to actively flex and extend his knee. He has no current discomfort with palpation over the lateral aspect of his hip. No pain with passive hip flexion or internal/external rotation. Neurologic: Gross sensation is intact across the left leg by soft touch. Peripheral pulses are 2+. Results & Data Vital Signs (Past 12 Hours) Vital Signs Temp Pulse Resp BP Pulse Ox O2 Del Method 03/05/23 07:58 37.0 C 78 16 118/58 L 95 Room Air 03/05/23 07:48 Room Air Laboratory Results BSG this morning was 179.
[2023-03-05] MEDS: LANTUS PER UNIT CHARGE SQ SCH (08:54)
[2023-03-05] MEDS: INSULIN ASPART PER UNIT CHARGE SC SCH ×2 (08:54→12:30)
[2023-03-05] MEDS: ENTACAPONE 200 MG TAB PO SCH ×2 (08:55→12:32)
[2023-03-05] MEDS: CELECOXIB 100 MG CAP PO SCH (08:55)
[2023-03-05] MEDS: lamoTRIgine 100 MG TAB PO SCH (08:55)
[2023-03-05] MEDS: ASPIRIN 81 MG ECTAB PO SCH (08:55)
[2023-03-05] MEDS: CARBIDOPA/LEVODOPA 50/200MG EXT REL TAB PO SCH ×2 (08:55→12:32)
[2023-03-05] MEDS: VENLAFAXINE HCL XR 150 MG CAPXR PO SCH (08:56)
[2023-03-05] MEDS: DONEPEZIL HCL 10 MG TAB PO SCH (08:56)
[2023-03-05] MEDS: ACETAMINOPHEN 500 MG TAB PO SCH ×2 (08:56→12:32)
[2023-03-05] MEDS: ATORVASTATIN 20 MG TAB PO SCH (08:56)
[2023-03-05] MEDS ORDERED: CHOLECALCIFEROL 1,000 UNITS 25 MCG TAB PO SCH (09:25)
--- NOTE | 2023-03-05 13:28 | Discharge Summary ---
Date of Service date of admission - February 23, 2023 date of discharge - March 05, 2023 Admission HPI Per Admitting Provider Sai is a 77-year-old male with PMH of ambulatory dysfunction, T2DM, JAVON, lumbosacral radiculopathy, hypothyroidism, HLD, GERD, dementia, atypical parkinsonisms, PTSD, depression, and mood disorder. He presented via EMS after falling and hitting his head in his garage on 02/23. No LOC. No tripping. Hx of recurrent falls due to his Parkinsonism. He was on the ground for approximately half an hour, but his was present. He now endorses left hip pain that is dull, achy, constant; rated 8/10. Radiation to the left knee. No radiation of the back. He did not take any pain medication at home. The pain is better when he is lying still, not moving his leg. No prior injuries to the left hip or leg, per patient. He does not use supplemental oxygen at home. Patient reports he took his morning medications as regular today; however he is not taking his lunch, or even medications. Only recent change in medication was switching to Lamictal 100 mg BID. Patient lives with his . SpO2 94% on 2L NC at time of admission; vitals otherwise stable. ED course: Toradol 50 mg IV ROS: Patient endorses left hip pain, left knee pain, and numbness/tingling in the left thigh. Patient denies fever, chills, sweating, HERNANDEZ, dizziness, lightheadedness, cough, congestion, chest pain, pleuritic CP, SOB, abdominal pain, N/V/D, urinary s/s, or numbness/tingling in the UEs/RLE. Patient's daughter (Denice) would like to be the point of contact regarding any updates ([phone]) Principal Diagnosis 1. Left hip fracture, status post ORIF - 02/24/23 by Gilberto Garcia MD 2. Concern for developing interstitial lung disease - stable, routine pulmonary follow-up recommended 3. Parkinsonism 4. Chronic back pain 5. History of bipolar disorder 6. Diabetes Discharge Exam gen - NAD, pleasant, sitting in chair by the window mouth - MMM neck - no JVD heart - RRR, s1 s2, no murmur lungs - mild, fine, dry bibasilar rales, no wheeze - no change abd - soft NT ND BS+ ext - no ankle edema b/l; pulses 2+ b/l skin - susu intact L prox & distal lateral leg psych - a/o x 3 Discharge Data Allergies Allergy/AdvReac Type Severity Reaction Status Date / Time Penicillins Allergy Severe Swelling, Verified 11/12/22 13:39 hives Sulfa (Sulfonamide Allergy Intermediate Hives Verified 11/12/22 13:39 Antibiotics) Consultations Orthopedic Surgery PT, OT Procedures Performed Operation Date: 02/24/23 08:40 Actual Procedures Left Troch Nail - Gilberto Garcia MD Ordered Studies Hip/Pelvis X-Ray 02/23/23 15:00 XR hip LT 2V w pelvis CLINICAL HISTORY: Hip trauma, fracture suspected. COMPARISON: Pelvis radiograph July 08, 2017. Left hip radiographs June 05, 2016. FINDINGS: A right sacroiliac joint fusion and postoperative findings within the lumbar spine are incidentally noted. There is no acute fracture within the pelvis or right hip. Transverse lucency within the left femoral neck is present. This is new since prior radiographs. IMPRESSION: Acute nondisplaced left femoral neck fracture. ACT 112: Negative or not required by law. Electronically signed by: Vladimir Sharp M.D. 02/23/2023 3:48 PM Chest X-Ray 02/23/23 15:01 PORTABLE SUPINE AP CHEST RADIOGRAPH CLINICAL HISTORY: Hypoxia. COMPARISON STUDY: Chest radiograph October 15, 2020. Chest CT March 22, 2010. FINDINGS: Intracanalicular electrodes are incidentally noted. Low lung volumes are present. No pneumothorax or pleural effusion is identified on supine exam.] Technique, cardiomediastinal silhouette is unremarkable. Mild reticulonodular interstitial thickening is present. IMPRESSION: Reticulonodular interstitial thickening. This may be technical however mild pulmonary edema or an infectious process could appear similar. ACT 112: Negative or not required by law. Electronically signed by: Vladimir Sharp M.D. 02/23/2023 3:[address] 02/23/23 15:19 CT OF THE HEAD WITHOUT CONTRAST CLINICAL HISTORY: Fall. COMPARISON STUDY: Head CT March 30, 2018. MRI of the brain March 22, 2014. CT DOSE: 1218.77 mGy.cm TECHNIQUE: Helical axial images of the head were obtained without IV contrast. Automated exposure control was utilized for the study. A dose lowering technique was utilized adhering to the principles of ALARA. FINDINGS: No acute intracranial hemorrhage, midline shift or mass effect is present. The ventricular system is stable. White matter hypodensities are similar to prior exam and favor small vessel disease. The basal cisterns are patent. No extra-axial collections are present. There are no findings to suggest acute dural sinus thrombosis or acute territorial infarct. No significant calvarial abnormalities are present. Visualized portions of the sinuses and mastoid air cells are clear. IMPRESSION: 1. No acute intracranial findings. 2. No calvarial fracture. ACT 112: Negative or not required by law. Electronically signed by: Vladimir Sharp M.D. 02/23/2023 4:[address] 02/23/23 15:20 CT OF THE CERVICAL SPINE WITHOUT CONTRAST CLINICAL HISTORY: Fall. COMPARISON STUDY: Cervical spine CT March 30, 2018. TECHNIQUE: Helical axial images of the cervical spine were obtained without IV contrast. Sagittal and coronal reconstructions were viewed. Automated exposure control was utilized for the study. A dose lowering technique was utilized adhering to the principles of ALARA. FINDINGS: Straightening of the cervical lordosis is similar to prior exam. Vertebral body heights are maintained. No acute cervical spine fracture or subluxation is present. There is no prevertebral edema. Facet joints are intact. Moderate multilevel facet arthrosis, disc space narrowing and osteophytosis within the cervical spine is present. Subtle loss of height of the superior endplate of T2 with sclerosis is new since CT of March 30, 2018. However, this is likely subacute to chronic. IMPRESSION: 1. No acute cervical spine fracture or subluxation. 2. Subacute to chronic mild compression fracture of the superior endplate of T2. ACT 112: Negative or not required by law. Electronically signed by: Vladimir Sharp M.D. 02/23/2023 4:25 PM Femur X-Ray 02/23/23 19:42 XR femur LT 2V routine HISTORY: 77 years-old Male L hip pain Acute pain of the left thigh COMPARISON: Pelvis and hip radiographs 02/23/2023 TECHNIQUE: 2 views of the left femur FINDINGS: Unchanged alignment of the acute nondisplaced left femoral neck fracture. Lumbar spinal fusion hardware. [id number] left hip osteoarthritis with additional osteoarthritis of the knee. No additional acute fracture or dislocation. Arterial calcifications. 4 mm linear metallic density foreign body within the anteromedial tissues of the distal thigh. IMPRESSION: 1. Unchanged alignment of the acute nondisplaced left femoral neck fracture. 2. 4 mm metallic foreign body of the distal thigh. ACT 112: Negative or not required by law. The above report was generated using voice recognition software. It may contain grammatical, syntax or spelling errors. Electronically signed by: Johny Coera M.D. 02/24/2023 7:20 AM Hip X-Ray 02/24/23 00:00 INTRAOPERATIVE RADIOGRAPHS CLINICAL HISTORY: Open reduction and internal fixation of the left proximal femur. Fluoro time: 144 seconds Ka,r: 19.50 mGy FINDINGS: 9 spot fluoroscopic views of the left femur are correlated with radiographs dated 02/23/2023. Intertrochanteric and intramedullary nails have been placed transfixing a left femoral neck fracture. Near anatomic alignment is maintained. A single cortical lag screw transfixes the distal end of the intramedullary nail. A small metallic foreign body is noted in the distal thigh. IMPRESSION: Intraoperative images from open reduction and internal fixation of the left proximal femur. Electronically signed by: Vivek Hemphill M.D. 02/24/2023 4:45 PM Chest X-Ray 02/25/23 07:10 XR chest 2V PA/lateral HISTORY: 77 years-old Male hypoxia acute hypoxia COMPARISON: 02/23/2023 TECHNIQUE: PA and lateral views of the chest FINDINGS: Cardiac silhouette is enlarged. Bilateral reticulonodular opacities are again noted and have mildly progressed. No pneumothorax or large pleural effusion. Partially imaged spinal stimulator leads appear intact. Degenerative changes of the shoulders and spine. IMPRESSION: Mild progression of the reticulonodular opacities, likely infectious or inflammatory. ACT 112: Negative or not required by law. The above report was generated using voice recognition software. It may contain grammatical, syntax or spelling errors. Electronically signed by: Johny Corea M.D. 02/25/2023 11:07 AM Hospital Course (1) Pathological fracture of left hip due to age-related osteoporosis: fall at his home in his garage on 02/23/23 this fall resulted in a left hip fracture s/p ORIF with troch nail on 02/24/[address] Gilberto Garcia - [facility] Post-op [facility] recommended weight-bearing on the LLE for transfers only x 2 weeks; otherwise nonweightbearing status to LLE 25-OH vit D level - 29.3 cont vit D replacement DVT proph - asa 81mg BID LLE incisions/susu were clean & intact time of discharge he will need f/u with [facility], Dr Garcia, in about 1 week post- discharge (2) Closed left hip fracture: see #1 above (3) Atypical Parkinsonism: Continue Sinemet, entacapone (give together QID) (4) Diabetes mellitus, type 2: Hba1c 6.5% received basal-bolus insulin during the stay he was transitioned back to his usual oral diabetic meds at discharge - metformin XR, glimepiride, empagliflozin glycemic control was very adequate while here (5) Obstructive sleep apnea: has not been using CPAP at home (6) Chronic back pain greater than 3 months duration: Patient had been taking hydrocodoneacetaminophen 7.5-325mg QID as needed for back pain at home PDMP shows prescriptions for narcotics going back to 2021 He had adequate pain control of his L hip pain with current regimen of meds At discharge recommended - * tylenol 1gm TID scheduled x 10 days * oxycodone 10mg q6h prn pain * hydrocodone-acetaminophen was placed on hold upon discharge to rehab (7) Dementia: Continue donezepil (8) Depression: Continue venlafaxine (9) Recurrent falls: Secondary to parkinsonism (10) Hypoxia: had such early in the stay cxr with reticulonodular appearance old imaging of lungs showed interstitial infiltrates as well lung exam reveals dry, fine, bilateral basilar rales he could have developing PF/ILD send to pulmonary post-discharge for w/u O2 was weaned off multiple days before discharge (11) DVT prophylaxis: aspirin 81mg BID x 6 weeks (12) Bipolar disorder: multiple psych diagnoses seen on his PMH list cont lamictal cont seroquel cont effexor xr Plan Patient requested inpatient rehab at [facility] However, request for such was denied by his insurance [id number] process w/ [employer] was completed but the denial was upheld Fortunately he was approved for rehab at [facility] - he will transfer to [facility] at discharge for this purpose Patient will take senna & miralax for bowel maintenance He will also take low-dose PPI for the duration of his aspirin course for DVT prevention Total Time Total Time Spent Total Time Spent (In Minutes): 40 Discharge Plan Discharge Items Patient Disposition: Transfer Assisted Fac Reason For Visit: FALL, LEFT HIP FX Discharge Diagnosis: 1. Left hip fracture, status post ORIF 2. Concern for developing interstitial lung disease - stable, routine pulmonary follow-up recommended 3. Parkinsonism 4. Chronic back pain 5. History of bipolar disorder 6. Diabetes Condition on Discharge: Good Activity: Per Instructions section Lifting: Wait until after follow-up appointment Bathing Comment: Patient may shower. Do not soak wounds. Exercise/Sports: Wait until after follow-up appointment Weightbearing: Left toe touch Weightbearing Comment: For transfers only until susu have been removed. No ambulation Non-emergency contact: Primary Care Provider and Surgeon Call non-emergency contact if: you have any medication questions, your temperature is above 101, your wound has increased redness, your wound has increased drainage and your wound pain has increased Follow-up/Referrals: Richy Mott CRNP [Primary Care Provider] - (within 1 week of disch arge from rehab ) [facility]aki [facility], [facility] [Physician] - 03/17/23 10:45 am (for ?new diagnosis of interstitial lung disease?) Gilberto Garcia MD [Physician] - 03/10/23 8:00 am Diet: Carb Consistent or DM2 Addtl Attending Provider Instructions: Orthopedic discharge instructions - Weightbearing on the left leg only for transfers for the next two weeks, until you are seen in our office on 03/10/2023. No weightbearing on the left leg otherwise. May do range of motion of the left leg/hip as tolerated in chair and bed, no restrictions with motion Aspirin 81 mg twice a day for blood clot prevention. May use ice to the left hip with a towel layer as needed. Keep dressing in place and dry. Follow up in our office as scheduled. If any problems or concerns contact our office at [phone] - [facility], Dr. Garcia. Additional instructions - 1. Fingerstick blood sugars at least twice daily (AM and PM) 2. CBC, BMP in 3-4 days for stability; results to medical device sales 3. Follow-up appointments - see separate section It was our pleasure to care for Mr Ratliff! Pending Studies at Discharge: No Stand-Alone Forms: My [facility] Skilled Items Patient informed of condition?: Yes DNR: Yes Discharge Level of Care: Skilled Communicable Disease: No Discharge Prognosis: Stable Lines: None Urinary Catheter: No Medications and DC Order Prescriptions: New oxycodone 5 mg Tablet 10 mg PO Q6H PRN (Reason: pain) Qty: 30 0RF cholecalciferol (vitamin D3) 25 mcg (1,000 unit) Capsule 2,000 unit PO QAM Qty: 60 2RF omeprazole 20 mg capsule,delayed release(DR/EC) 20 mg PO DAILY 42 Days Qty: 42 0RF sennosides [Senna Lax] 8.6 mg tablet 8.6 mg PO DAILY Qty: 30 0RF polyethylene glycol 3350 [Miralax] 17 gram powder in packet 17 g PO DAILY 30 Days Qty: 30 0RF Continued vitamin B complex [B Complex-Vitamin B12] Tablet 1 tab PO DAILY Qty: 30 0RF Rx Instructions: 1000 mcg glimepiride 2 mg tablet See Rx Instructions .ROUTE .COMPLEX Qty: 90 3RF Dose Instruction: TAKE 1 TABLET DAILY Rx Instructions: TAKE 1 TABLET DAILY metformin 500 mg tablet extended release 24 hr See Rx Instructions .ROUTE .COMPLEX Qty: 360 3RF Dose Instruction: TAKE 2 TABLETS TWO TIMES A DAY Rx Instructions: TAKE 2 TABLETS TWO TIMES A DAY atorvastatin 20 mg tablet 20 mg PO QAM Qty: 90 3RF carbidopa-levodopa 50-200 mg tablet extended release 1 tab PO QID Qty: 360 3RF Rx Instructions: (every 6 hours) Jardiance 10 mg tablet See Rx Instructions .ROUTE .COMPLEX Qty: 90 3RF Dose Instruction: TAKE 1 TABLET DAILY Rx Instructions: TAKE 1 TABLET DAILY donepezil [Aricept] 10 mg tablet 10 mg PO BID 90 Days Qty: 180 1RF entacapone [Comtan] 200 mg tablet 200 mg PO QID Qty: 120 5RF Rx Instructions: administer at the same time as l-dopa/carbidopa dose (DME) blood-glucose meter [[employer] Ultra2 Meter] kit See Dose Instructions .ROUTE .MEDSUPPLY Qty: 1 0RF Dose Instruction: As directed Rx Instructions: As directed (DME) lancets [OneTouch Delica Lancets] 30 gauge misc See Dose Instructions .ROUTE .MEDSUPPLY Qty: 100 0RF Dose Instruction: As directed Rx Instructions: TEST ONCE DAILY venlafaxine [Effexor XR] 150 mg capsule,extended release 24hr 300 mg PO QAM Qty: 60 0RF quetiapine 50 mg tablet 25 mg PO HS lamotrigine [Lamictal] 100 mg tablet 100 mg PO BID Changed acetaminophen 500 mg tablet 1,000 mg PO TID 10 Days Qty: 60 0RF aspirin [Aspirin Childrens] 81 mg Tablet,Chewable 81 mg PO BID 42 Days Qty: 84 0RF Held hydrocodone-acetaminophen 7.5-325 mg tablet 1 tab PO QID PRN (Reason: Pain) Hold Instructions: hold while in rehab Discontinued cholecalciferol (vitamin D3) 1,250 mcg (50,000 unit) capsule 50,000 unit PO WEEKLY 56 Days Qty: 8 0RF ibuprofen 200 mg Tablet 200 mg PO Q6H PRN (Reason: Pain) Discharge Orders: Discharge Order (Routine); Ordered 03/05/23 Ordered By: Caden Russ/Other Patient Handouts: A1C Admission Data Admit Date/Time: 02/23/23 18:05 Attending Provider: Caden Lynch Admit Provider: Caden Rincon Primary Care Provider: Richy Mott Other Providers: Gilberto Garcia; Lizzie Herring Other Interventions: Discharge Summary Assessment (RN) Last Done: 03/05/23 10:50 Coding Level of Care Code 51945 INP/OBS DISCH >30 MIN Diagnoses Pathological fracture of left hip due to age-related osteoporosis M80.052A Closed left hip fracture S72.002A Atypical Parkinsonism G20 Type 2 diabetes mellitus with hyperglycemia, without long-term current use of insulin E11.65 Diabetes mellitus complication status: with hyperglycemia Diabetes mellitus technician terminal and repeater insulin use: without penitentiary use Obstructive sleep apnea G47.33 Chronic back pain greater than 3 months duration M54.9; G89.29 Dementia F03.90 Depression F32.9 Recurrent falls R29.6 Hypoxia R09.02 DVT prophylaxis Z29.9 Bipolar disorder F31.9
== END 2023-03-05 14:30 | DRG 481 ==
LOC: ED 14:40 → EDINP 18:05 → SUATTDRO 18:05 → 3N 19:54

== ENCOUNTER 2025-01-12 13:34 | Inpatient (IN) ==
[2025-01-12 14:42] LABS: Hematocrit (blood only) 45.6 % (42.0-52.0); Hemoglobin 15.8 g/dL (14.0-18.0); Mean Corpuscular Hemoglobin 33.3 pg (25.0-34.0); Mean Corpuscular Volume 96.0 fL (80.0-100.0); Platelet Count 234 K/uL (130-400); RDW Standard Deviation 44.5 fL (36.4-46.3); Red Blood Count 4.75 M/uL (4.70-6.10); White Blood Count 7.33 K/ul (4.8-10.8)
--- NOTE | 2025-01-12 14:58 | Emergency Department Note ---
Impression & Plan Mobitz (type) II atrioventricular block, Atypical Parkinsonism, Generalized weakness ED Provider Note NAME: JESSICA MATHEWS AGE: 79 SEX: M : 1945 ARRIVES VIA: Walk-In INFORMANT: Patient ED PROVIDER(S): Shawn White MD CHIEF COMPLAINT: Generalized weakness PLAN: Disposition: Admit MEDICAL DECISION MAKING: The patient is a pleasant 79-year-old gentleman with a past medical history of Parkinson disease, hypertension, hyperlipidemia, polyneuropathy who presents emergency department via walk-in accompanied by his for evaluation of generalized weakness that has been progressive over several months but worsening over the past week where he was unable to stand due to generalized weakness when attempted to go to an outpatient appointment. Patient's was helping him stand and helped him lowered to the ground in a controlled manner and still had no abrupt fall or head strike. They deny any recent fevers, chills, cough congestion, GI or symptoms. He has had poor appetite however. They suspect he is dehydrated. Of note, the patient did present to the emergency department during [facility] outage. On my evaluation patient is fatigued appearing but no acute distress, afebrile with heart rate ranging from the 30s-60s with intermittent Mobitz type II second-degree heart block and vital signs otherwise stable. He appears clinically dry. He exhibits masked facies and generalized weakness without focal extremity weakness. EKG demonstrates left bundle branch block, similar to prior without Sgarbossa criteria. Chest x-ray negative for acute cardiopulmonary process per my preliminary independent interpretation. WBC, H/H and platelets within normal limits. Chemistry without metabolic acidosis. BUN/creatinine 23 consistent with patient's clinically dry appearance. LFTs without significant abnormality. High-sensitivity troponin 8.4, within normal limits. TSH 5.8 with free T4 within normal limits. CT of the head without contrast was obtained and was negative for acute abnormalities. Given the patient's generalized weakness with intermittent 2nd degree heart block patient was referred to the hospital service for further management. [place] was d/[place]in[place], [facility] [place] will evaluate the patient for admission. Further management per admitting team. Triage Nursing notes reviewed and agree them. Prior/external medical records reviewed Vital Signs: reviewed Differential diagnosis: Infection, dehydration, metabolic abnormality, hypo/hyperglycemia, electrolyte disturbance, anemia, hypoxia, cardiac sources, intracerebral event, toxicologic, neurologic, as well as other pathologies. ER treatment provided: See below. Diagnostics interpreted by me: ECG 1411: Normal sinus rhythm, sinus arrhythmia, 60 bpm, left bundle branch block, no Sgarbossa criteria, QTc 516, QRS 156., Similar to prior. ECG 1455: Mobitz type II second-degree heart block, 39 bpm, left bundle branch block, no Sgarbossa criteria, QTc 14, QRS 134. Cardiac Monitoring: An order for continuous cardiac monitoring was placed and demonstrated intermittent Mobitz type II second-degree heart block with heart rate ranging from 30s-60s. Laboratory studies: See below Imaging studies: See below Consultation(s): [place] Rincon, [facility] [place] HPI: Per MDM. ROS: See above HPI for pertinent positives & negatives. A total of 10 systems reviewed and were otherwise negative. VITALS:See Below PHYSICAL EXAMINATION: GENERAL: Awake, alert, fatigued-appearing, in no distress HENT: Normocephalic, atraumatic. Oropharynx with dry mucous membranes and otherwise unremarkable. . EYES: Normal conjunctiva. Sclera non-icteric. EOMI. No nystamgus. PEARRL. NECK: Supple. No nuchal rigidity. FROM. No JVD. RESPIRATORY: Clear to auscultation. CARDIAC: Regular rate, normal rhythm. Extremities warm and well perfused. Pulses equal. ABDOMEN: Soft, non-distended. No tenderness to palpation. No rebound or guarding. No masses. MUSCULOSKELETAL: Chest examination reveals no tenderness. The back is symmetrical on inspection without obvious abnormality. There is no CVA tenderness to palpation. No joint edema. LOWER EXTREMITIES: Calves are equal size bilaterally and non-tender. No edema. No discoloration. NEURO: Masked facies. Generalized weakness without focal extremity weakness. SKIN: No rash or jaundice noted. Shawn White MD Past Med/Surg History Problem List Generalized weakness (Acute) Mobitz (type) II atrioventricular block (Acute) Vitamin B12 deficiency Vitamin D deficiency Bipolar disorder Squamous cell carcinoma, face Non-healing skin lesion of nose ILD (interstitial lung disease) Ambulatory dysfunction Atypical Parkinsonism (Acute) Reticulonodular infiltrate present on imaging of chest Pathological fracture of left hip due to age-related osteoporosis Hypoxia (Acute) Hypercalcemia Explosive personality disorder (Chronic) Intermittent explosive disorder in adult (Chronic) Lumbar stenosis with neurogenic claudication (Chronic) PTSD (post-traumatic stress disorder) (Chronic) Sacroiliitis (Chronic) Lumbar postlaminectomy syndrome (Chronic) Chronic radicular lumbar pain (Chronic) Asthma (Acute) Chronic back pain greater than 3 months duration (Acute) Chronic cerebral ischemia (Acute) Dementia (Acute) Hyperlipidemia (Acute) Hypothyroidism (Acute) Idiopathic polyneuropathy (Acute) Insomnia (Acute) Lumbosacral radiculopathy (Acute) Migraine headache (Acute) Right bundle branch block (Acute) Solitary pulmonary nodule (Acute) Urinary hesitancy (Acute) Chronic diarrhea Medical History Abnormal chest CT Closed left hip fracture Greater trochanteric bursitis of both hips Obstructive sleep apnea Mild cognitive impairment with memory loss Recurrent falls Depression Chronic back pain Pulmonary nodule Under surveillance by PCP Parkinson disease Neuropathy History of rheumatic fever as a child Osteoarthritis Urine incontinence Diabetes mellitus, type 2 NIDDM [place] (hard of hearing) PTSD (post-traumatic stress disorder) Sleep apnea Non-compliant w/ cpap History of asbestos exposure Esophageal reflux Surgical History Status post hip surgery 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 History of tooth extraction History of back surgery Lumbar x3 Right SI joint fusion (07/10/17): Grade 2 view, MAC#3, ETT 7.5 at [facility] History of lumbar fusion History of colonoscopy Colonoscopy (02/15/19): MAC at [facility] History of throat surgery Salivary glands and ducts; Removal of left salivary gland following industrial accident (benign) Status post lumbar spine surgery for decompression of spinal cord Family History Sister Diabetes 1.5, managed as type 1 Mother , age 78 of diabetes Diabetes 1.5, managed as type 1 Anxiety (Symptom) Father , age 87 of renal failure Hypertension Hypertensive heart disease Skin cancer Brother Diabetes Other No family history of adverse response to anesthesia Denies family history of Ovarian cancer Prostate cancer Myocardial infarction Breast cancer Colorectal cancer Social History Smoking Status: Never smoker Second Hand Exposure: No; Do You Dip or Chew Tobacco: No; Hx Alcohol Use: No Hx Substance Use: No Preferred Language: Nigerian Communication Ability: Effective Visual Impairment: No Limitations Hearing Ability: Hard of Hearing 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: No Beliefs That Will Affect Care: None marital status: Current Living Situation: Spouse current occupational status: disabled Other Information That Helps Us Care for You: No other: On social security disability since 2000 Feels Safe at Home: Yes Safety Concerns: Feels Safe At This Time Childhood Exposure to Second-Hand Smoke: Yes Diet: regular Diet Comment: regular caffeine: No during the past year weight has: remained stable Dental Care, Regularly: Yes Physical Activity Frequency: Does not Exercise Physical Activity Frequency Comment: due to physical condition Seatbelt Use: always Sunscreen Use: No Assistive Devices: Denture - Upper, Denture - Lower, Glasses and Wheelchair Allergies Allergies Allergy/AdvReac Type Severity Reaction Status Date / Time Penicillins Allergy Severe Swelling, Verified 10/06/24 11:28 hives Sulfa (Sulfonamide Allergy Intermediate Hives Verified 10/06/24 11:28 Antibiotics) Home Meds Home Medications Medication Instructions Recorded Confirmed lamotrigine 100 mg tablet 100 mg PO BID 02/23/23 01/12/25 (Lamictal) quetiapine 25 mg tablet 25 - 50 mg PO HS 04/09/23 01/12/25 hydrocodone 10 mg-acetaminophen 1 tab PO 5XD PRN Pain 01/12/25 01/12/25 325 mg tablet Previous Rx's Medication Instructions Recorded blood-glucose meter ([employer] OncologyTouch #1 ea 09/27/18 Ultra2 Meter kit) lancets 30 gauge (OneTouch Delica #100 ea 09/27/18 Lancets) aspirin 81 mg chewable tablet 81 mg PO BID 6 weeks #84 tabs 03/05/23 (Aspirin Childrens) venlafaxine 150 mg 300 mg (2 x 150 mg) PO QAM #60 caps 06/01/23 capsule,extended release 24 hr (Effexor XR) empagliflozin 25 mg tablet 25 mg PO DAILY #90 tabs 06/28/24 donepezil 10 mg tablet (Aricept) 10 mg PO BID 90 days #180 tabs 08/10/24 atorvastatin 20 mg tablet 20 mg PO QAM #90 tabs 08/22/24 carbidopa ER 50 mg-levodopa 200 mg 1 tab PO QID #360 tabs 09/14/24 tablet,extended release entacapone 200 mg tablet 200 mg PO 5XD #450 tabs 10/21/24 metformin 500 mg tablet,extended 1,000 mg (2 x 500 mg) PO BID #180 12/19/24 release 24 hr tabs Results & Data (ED) Vital Signs Vital Signs - 24 hr 01/12/25 15:20 01/12/25 15:29 01/12/25 15:33 Pulse Rate Pulse Rate [Apical] 45 L 56 L Pulse Rate from SpO2 Sensor Respiratory Rate 16 16 Respiratory Effort / Characteristics Respiratory Depth Respiratory Pattern Blood Pressure Blood Pressure [Right Arm] 128/58 L 122/63 Blood Pressure Mean Blood Pressure Mean [Right Arm] 81 82 Pulse Oximetry 97 95 Oxygen Delivery Method Room Air Room Air Sepsis New/Unexplained Change in Mental Status No Sepsis Action Taken by Nursing No Action Required 01/12/25 15:45 01/12/25 15:45 01/12/25 15:45 Pulse Rate 58 L Pulse Rate [Apical] Pulse Rate from SpO2 Sensor 60 Respiratory Rate Respiratory Effort / Characteristics Respiratory Depth Respiratory Pattern Blood Pressure 165/72 H 165/72 H Blood Pressure [Right Arm] Blood Pressure Mean 133 133 Blood Pressure Mean [Right Arm] Pulse Oximetry 97 Oxygen Delivery Method Sepsis New/Unexplained Change in Mental Status Sepsis Action Taken by Nursing 01/12/25 15:46 01/12/25 15:51 01/12/25 16:00 Pulse Rate 37 L 38 L Pulse Rate [Apical] 68 Pulse Rate from SpO2 Sensor 34 L Respiratory Rate 16 Respiratory Effort / Characteristics Non-Labored Spontaneous Respiratory Depth Normal Respiratory Pattern Regular Blood Pressure Blood Pressure [Right Arm] 139/76 Blood Pressure Mean Blood Pressure Mean [Right Arm] 97 Pulse Oximetry 98 97 Oxygen Delivery Method Room Air Sepsis New/Unexplained Change in Mental Status Sepsis Action Taken by Nursing 01/12/25 16:00 01/12/25 16:00 01/12/25 16:00 Pulse Rate Pulse Rate [Apical] Pulse Rate from SpO2 Sensor Respiratory Rate Respiratory Effort / Characteristics Respiratory Depth Respiratory Pattern Blood Pressure 139/76 139/76 139/76 Blood Pressure [Right Arm] Blood Pressure Mean 90 90 90 Blood Pressure Mean [Right Arm] Pulse Oximetry Oxygen Delivery Method Sepsis New/Unexplained Change in Mental Status Sepsis Action Taken by Nursing 01/12/25 16:00 01/12/25 16:00 01/12/25 16:00 Pulse Rate 67 Pulse Rate [Apical] Pulse Rate from SpO2 Sensor 68 Respiratory Rate 15 Respiratory Effort / Characteristics Respiratory Depth Respiratory Pattern Blood Pressure 139/76 139/76 Blood Pressure [Right Arm] Blood Pressure Mean 90 90 Blood Pressure Mean [Right Arm] Pulse Oximetry 96 Oxygen Delivery Method Sepsis New/Unexplained Change in Mental Status Sepsis Action Taken by Nursing 01/12/25 16:12 01/12/25 16:21 01/12/25 16:30 Pulse Rate 60 49 L 69 Pulse Rate [Apical] Pulse Rate from SpO2 Sensor 59 L 37 L 54 L Respiratory Rate 13 Respiratory Effort / Characteristics Respiratory Depth Respiratory Pattern Blood Pressure Blood Pressure [Right Arm] Blood Pressure Mean Blood Pressure Mean [Right Arm] Pulse Oximetry 97 97 95 Oxygen Delivery Method Sepsis New/Unexplained Change in Mental Status Sepsis Action Taken by Nursing 01/12/25 16:30 01/12/25 16:30 01/12/25 16:30 Pulse Rate Pulse Rate [Apical] Pulse Rate from SpO2 Sensor Respiratory Rate Respiratory Effort / Characteristics Respiratory Depth Respiratory Pattern Blood Pressure 134/72 134/72 134/72 Blood Pressure [Right Arm] Blood Pressure Mean 99 99 99 Blood Pressure Mean [Right Arm] Pulse Oximetry Oxygen Delivery Method Sepsis New/Unexplained Change in Mental Status Sepsis Action Taken by Nursing 01/12/25 16:30 01/12/25 16:30 01/12/25 16:42 Pulse Rate 62 Pulse Rate [Apical] Pulse Rate from SpO2 Sensor 41 L Respiratory Rate 17 Respiratory Effort / Characteristics Respiratory Depth Respiratory Pattern Blood Pressure 134/72 134/72 Blood Pressure [Right Arm] Blood Pressure Mean 99 99 Blood Pressure Mean [Right Arm] Pulse Oximetry 94 Oxygen Delivery Method Sepsis New/Unexplained Change in Mental Status Sepsis Action Taken by Nursing 01/12/25 16:51 01/12/25 17:00 01/12/25 17:00 Pulse Rate 73 Pulse Rate [Apical] Pulse Rate from SpO2 Sensor 67 Respiratory Rate 15 Respiratory Effort / Characteristics Respiratory Depth Respiratory Pattern Blood Pressure 146/81 H 146/81 H Blood Pressure [Right Arm] Blood Pressure Mean 102 102 Blood Pressure Mean [Right Arm] Pulse Oximetry 96 Oxygen Delivery Method Sepsis New/Unexplained Change in Mental Status Sepsis Action Taken by Nursing 01/12/25 17:00 01/12/25 17:00 01/12/25 17:00 Pulse Rate Pulse Rate [Apical] Pulse Rate from SpO2 Sensor Respiratory Rate Respiratory Effort / Characteristics Respiratory Depth Respiratory Pattern Blood Pressure 146/81 H 146/81 H 146/81 H Blood Pressure [Right Arm] Blood Pressure Mean 102 102 102 Blood Pressure Mean [Right Arm] Pulse Oximetry Oxygen Delivery Method Sepsis New/Unexplained Change in Mental Status Sepsis Action Taken by Nursing 01/12/25 17:00 Pulse Rate 67 Pulse Rate [Apical] Pulse Rate from SpO2 Sensor 48 L Respiratory Rate 22 Respiratory Effort / Characteristics Respiratory Depth Respiratory Pattern Blood Pressure Blood Pressure [Right Arm] Blood Pressure Mean Blood Pressure Mean [Right Arm] Pulse Oximetry 95 Oxygen Delivery Method Sepsis New/Unexplained Change in Mental Status Sepsis Action Taken by Nursing Laboratory Data Attestation: I reviewed the patient's lab results. 01/12/25 14:20 01/12/25 14:20 Lab Results 01/12/25 01/12/25 01/12/25 Range/Units 14:20 14:20 14:20 WBC 7.33 (4.8-10.8) K/ul RBC 4.75 (4.70-6.10) M/uL Hgb 15.8 (14.0-18.0) g/dL Hct 45.6 (42.0-52.0) % MCV 96.0 (80.0-100.0) fL MCH 33.3 (25.0-34.0) pg MCHC 34.6 (32.0-36.0) g/dL RDW Std Deviation 44.5 (36.4-46.3) fL RDW Coeff of Franc 12.5 (11.5-14.5) % Plt Count 234 (130-400) K/uL MPV 10.0 (9.4-12.4) fL PT 10.6 (9.0-12.0) Seconds INR 1.0 (0.9-1.1) APTT 27 (21-31) Seconds PTT Ratio 1.0 Sodium 140 (136-145) mmol/L Potassium 4.2 (3.5-5.1) mmol/L Chloride 102 (98-107) mmol/L Carbon Dioxide 29 (21-32) mmol/L Anion Gap 9 (3-11) BUN 23 (6-23) mg/dl Creatinine 0.99 (0.6-1.4) mg/dl Est Cr Clr Drug Dosing Not Reportable eGFR 78.46 BUN/Creatinine Ratio 23.2 H (10-20) Glucose 159 H (70-99(Fasting)) mg/dl Calcium 10.1 (8.6-10.3) mg/dl Phosphorus 3.7 Cancelled (2.5-4.9) mg/dl Magnesium 2.1 (1.7-2.4) mg/dl Total Bilirubin 1.1 H (0.2-1.0) mg/dl AST 12 L (13-39) U/L ALT 7 (7-52) U/L Alkaline Phosphatase 66 (34-104) U/L Total Creatine Kinase 47 Cancelled (30-223) U/L Troponin I High Sens 8.4 (0-20) pg/ml Total Protein 8.3 (6.0-8.3) gm/dl Albumin 4.5 (3.4-5.0) gm/dl Globulin 3.8 (2.5-4.0) gm/dl Albumin/Globulin Ratio 1.2 (0.9-2) TSH 5.868 H (0.300-4.500) uIu/ml Free T4 (0.61-1.60) ng/dl 01/12/25 Range/Units 14:20 WBC (4.8-10.8) K/ul RBC (4.70-6.10) M/uL Hgb (14.0-18.0) g/dL Hct (42.0-52.0) % MCV (80.0-100.0) fL MCH (25.0-34.0) pg MCHC (32.0-36.0) g/dL RDW Std Deviation (36.4-46.3) fL RDW Coeff of Franc (11.5-14.5) % Plt Count (130-400) K/uL MPV (9.4-12.4) fL PT (9.0-12.0) Seconds INR (0.9-1.1) APTT (21-31) Seconds PTT Ratio Sodium (136-145) mmol/L Potassium (3.5-5.1) mmol/L Chloride (98-107) mmol/L Carbon Dioxide (21-32) mmol/L Anion Gap (3-11) BUN (6-23) mg/dl Creatinine (0.6-1.4) mg/dl Est Cr Clr Drug Dosing eGFR BUN/Creatinine Ratio (10-20) Glucose (70-99(Fasting)) mg/dl Calcium (8.6-10.3) mg/dl Phosphorus (2.5-4.9) mg/dl Magnesium (1.7-2.4) mg/dl Total Bilirubin (0.2-1.0) mg/dl AST (13-39) U/L ALT (7-52) U/L Alkaline Phosphatase (34-104) U/L Total Creatine Kinase (30-223) U/L Troponin I High Sens (0-20) pg/ml Total Protein (6.0-8.3) gm/dl Albumin (3.4-5.0) gm/dl Globulin (2.5-4.0) gm/dl Albumin/Globulin Ratio (0.9-2) TSH Cancelled (0.300-4.500) uIu/ml Free T4 0.78 (0.61-1.60) ng/dl Administered Medications Hydrocodone Bitart/Acetaminophen (Hydrocodone/Acetaminophen 10/325 Tab) 1 tab PO TID HEATHER Stop: 01/26/25 20:59 Last Admin: 01/12/25 20:25 Dose: 1 tab Documented By: KAVITA Aspirin (Aspirin 81 Mg Chew) 81 mg PO BID HEATHER Stop: 02/11/25 20:59 Last Admin: 01/12/25 20:24 Dose: 81 mg Documented By: KAVITA Donepezil HCl (Donepezil Hcl 10 Mg Tab) 10 mg PO BID HEATHER Stop: 02/11/25 20:59 Last Admin: 01/12/25 20:24 Dose: 10 mg Documented By: KAVITA Enoxaparin Sodium (Enoxaparin Inj 40 Mg/0.4 Ml Syr) 40 mg SQ QPM HEATHER Stop: 02/11/25 20:59 Last Admin: 01/12/25 20:24 Dose: 40 mg Documented By: KAVITA Insulin Aspart (Insulin Aspart Per Unit Charge) 0 units SC ACHS HEATHER Stop: 02/11/25 20:59 Last Admin: 01/12/25 20:08 Dose: Not Given Documented By: KAVITA Lamotrigine (Lamotrigine 100 Mg Tab) 100 mg PO BID [facility]; Protocol Stop: 02/11/25 20:59 Last Admin: 01/12/25 20:24 Dose: 100 mg Documented By: KAVITA Metformin HCl (Metformin Hcl Er 500 Mg Tabcr) 1,000 mg PO BID HEATHER Stop: 02/11/25 20:59 Last Admin: 01/12/25 20:24 Dose: 1,000 mg Documented By: KAVITA Quetiapine Fumarate (Quetiapine Fumarate 25 Mg Tablet) 25 mg PO HS HEATHER Stop: 02/11/25 20:59 Last Admin: 01/12/25 20:24 Dose: 25 mg Documented By: KAVITA Discontinued Medications Hydrocodone Bitart/Acetaminophen (Hydrocodone/Acetaminophen 10/325 Tab) 1 tab PO ONE STA Stop: 01/12/25 17:53 Last Admin: 01/12/25 18:09 Dose: 1 tab Documented By: delores Carbidopa/Levodopa (Carbidopa/Levodopa 50/200mg Ext Rel Tab) 1 tab PO ONE STA Stop: 01/12/25 17:44 Last Admin: 01/12/25 18:09 Dose: 1 tab Documented By: delores Entacapone (Entacapone 200 Mg Tab) 200 mg PO ONE STA Stop: 01/12/25 17:44 Last Admin: 01/12/25 18:09 Dose: 200 mg Documented By: delores Sodium Chloride (Nss) 1,000 mls @ 999 mls/hr IV .Q1H1M ONE Stop: 01/12/25 16:15 Last Infusion: 01/12/25 16:26 Dose: Infused Documented By: Admin: 01/12/25 15:25 Dose: 999 mls/hr Documented By: delores Imaging Data Radiologist's Impression: Chest X-Ray 01/12/25 00:00 XR chest 1V portable CLINICAL HISTORY: CHEST PAIN COMPARISON STUDY: 08/12/2024 FINDINGS: Stable lower thoracic spine neurostimulator lead. Heart size and pulmonary vasculature are normal. Stable mild interstitial opacities in the lung bases. No new consolidation or pleural effusion. No pneumothorax. IMPRESSION: No acute findings. ACT 112: Negative or not required by law. Electronically signed by: Alvarado Cohen M.D. 01/12/2025 3:[address] 01/12/25 15:15 CT head/brain wo con CLINICAL HISTORY: weakness, parkinsons. TECHNIQUE: Multiple axial CT images of the head were obtained without contrast. A dose lowering technique was utilized adhering to the principles of ALARA. CT DOSE: 625.8 mGy.cm COMPARISON: 02/23/2023 FINDINGS: There is stable mild prominence of the ventricles mildly out of proportion to the sulci, cerebral atrophy versus mild normal pressure hydrocephalus. Stable severe chronic small vessel ischemic changes. No intracranial hemorrhage seen. No mass effect, midline shift, or hydrocephalus. No skull fracture seen. Visualized paranasal sinuses and mastoid air cells are clear. IMPRESSION: No acute findings. ACT 112: Negative or not required by law. The above report was generated using voice recognition software. It may contain grammatical, syntax or spelling errors. Electronically signed by: Alvarado Cohen M.D. 01/12/2025 3:55 PM Discharge Plan Visit Data Chief Complaint: Weakness Stated Complaint: WEAKNESS ED Provider: Shawn White Discharge Problem: Mobitz (type) II atrioventricular block, Atypical Parkinsonism, Generalized weakness Patient Disposition: Admitted As Inpatient Condition: Serious Discharge Instructions Interventions: ED Discharge Assessment Last Done: 01/12/25 18:22
--- NOTE | 2025-01-12 15:09 | XRay Report ---
XR chest 1V portable CLINICAL HISTORY: CHEST PAIN COMPARISON STUDY: 08/12/2024 FINDINGS: Stable lower thoracic spine neurostimulator lead. Heart size and pulmonary vasculature are normal. Stable mild interstitial opacities in the lung bases. No new consolidation or pleural effusio n. No pneumothorax. IMPRESSION: No acute findings. ACT 112: Negative or not required by law. Electronically signed by: Alvarado Cohen M.D. 01/12/2025 3:07 PM
[2025-01-12 15:10] LABS: INR 1.0 (0.9-1.1); Partial Thromboplastin Time 27 Seconds (21-31); Prothrombin Time 10.6 Seconds (9.0-12.0)
[2025-01-12 15:18] LABS: Alanine Aminotransferase 7 U/L (7-52); Albumin Globulin Ratio 1.2 (0.9-2); Albumin Level 4.5 gm/dl (3.4-5.0); Alkaline Phosphatase 66 U/L (34-104); Anion Gap 9 (3-11); Bilirubin,Total 1.1 mg/dl (0.2-1.0); Blood Urea Nitrogen 23 mg/dl (6-23); Calcium 10.1 mg/dl (8.6-10.3); Carbon Dioxide 29 mmol/L (21-32); Chloride 102 mmol/L (98-107); Globulin 3.8 gm/dl (2.5-4.0); Glucose 159 mg/dl (70-99(Fasting)); Magnesium 2.1 mg/dl (1.7-2.4); Potassium 4.2 mmol/L (3.5-5.1); Sodium 140 mmol/L (136-145); Total Protein 8.3 gm/dl (6.0-8.3)
[2025-01-12] MEDS: SODIUM CHLORIDE 0.9% 1,000 ML IV ONE (15:25)
[2025-01-12 15:34] LABS: Thyroid Stimulating Hormone 5.868 uIu/ml (0.300-4.500)
--- NOTE | 2025-01-12 15:57 | CT Scan Report ---
CT head/brain wo con CLINICAL HISTORY: weakness, parkinsons. TECHNIQUE: Multiple axial CT images of the head were obtained without contrast. A dose lowering tech nique was utilized adhering to the principles of ALARA. CT DOSE: 625.8 mGy.cm COMPARISON: 02/23/2023 FINDINGS: There is stable mild prominence of the ventricles mildly out of proportion to the sulci, ce rebral atrophy versus mild normal pressure hydrocephalus. Stable severe chronic small vessel ischemic changes. No intracranial hemorrhage seen. No mass effect, midline shift, or hydrocephalus. No skull fracture seen. Visualized paranasal sinuses and mastoid air cells are clear. IMPRESSION: No acute findings. ACT 112: Negative or not required by law. The above report was generated using voice recognition software. It may contain grammatical, syntax o r spelling errors. Electronically signed by: Alvarado Cohen M.D. 01/12/2025 3:55 PM
[2025-01-12 16:28] LABS: Creatine Kinase 47 U/L (30-223)
[2025-01-12 16:46] LABS: T4 Free Thyroxine 0.78 ng/dl (0.61-1.60)
--- NOTE | 2025-01-12 17:49 | History & Physical Report ---
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 Not clearly having symptoms from this and may just be an early p wave that isn't conducting as never has more than a 2:1 block. Recommend monitor on telemetry for 3rd degree block, TTE and electrophysiology evaluation for possible need for pacemaker No need to treat unless symptomatic or HR < 30. #Generalized weakness Suspect he has some motor weakness from prior back surgeries although no acute complaints with his back. Consider nerve conduction studies with EMG testing as an outpatient. No objective weakness on lower extremity exam. Monitor for alternative diagnoses such as GBS but low likelihood based on history on admission. PT/OT #Chronic back pain Continue his usual pain regimen of hydrocodone /acetaminophen 10/325mg TID #Atypical Parkinson's Continue Sinemet and entacapone #Explosive personality disorder / PTSD Continue venlafaxine, quetiapine and Lamictal #Type 2 diabetes mellitus HbA1C 8.1 in May, repeat with AM labs Novolog for correction only Continue metformin and empagliflozin VTE Prophylaxis - Lovenox 40mg SQ daily Disposition - admit to PCU Admission and Anticipated Discharge Date Admission Date: January 12, 2025 History of Present Illness Chief Complaint: Generalized weakness Primary Care Provider: BARAK Strickland Sai Ratliff is a 79 year old male who presents to the ER with generalized weakness. Patient seen with at bedside who provides most of the story. He reports this has been going on for weeks but today he had an appointment in [place] and couldn't stand up and walk. He slid down to the floor and his was unable to get him up. He has longstanding back issues with multiple back surgeries but reports no acute change in his back or leg pain. No one sided weakness, change in sensation, speech, vision or hearing. No fever, chills, respiratory, gastrointestinal or urinary symptoms. In the ER he was noticed to have an intermittent 2nd degree Mobitz II heart block. He is mostly in bed at home and just gets up to eat and get dressed but has not noticed any dizziness, chest pain or shortness of breath doing those activities. Allergies Allergy/AdvReac Type Severity Reaction Status Date / Time Penicillins Allergy Severe Swelling, Verified 10/06/24 11:28 hives Sulfa (Sulfonamide Allergy Intermediate Hives Verified 10/06/24 11:28 Antibiotics) Home Medications Medication Instructions Recorded Confirmed Type blood-glucose meter (InnotrieveTouch #1 ea 09/27/18 01/12/25 Rx Ultra2 Meter kit) lancets 30 gauge (OneTouch Delica #100 ea 09/27/18 01/12/25 Rx Lancets) lamotrigine 100 mg tablet 100 mg PO BID 02/23/23 01/12/25 History (Lamictal) aspirin 81 mg chewable tablet 81 mg PO BID 6 weeks #84 tabs 03/05/23 01/12/25 Rx (Aspirin Childrens) quetiapine 25 mg tablet 25 - 50 mg PO HS 04/09/23 01/12/25 History venlafaxine 150 mg 300 mg (2 x 150 mg) PO QAM #60 caps 06/01/23 01/12/25 Rx capsule,extended release 24 hr (Effexor XR) empagliflozin 25 mg tablet 25 mg PO DAILY #90 tabs 06/28/24 01/12/25 Rx donepezil 10 mg tablet (Aricept) 10 mg PO BID 90 days #180 tabs 08/10/24 01/12/25 Rx atorvastatin 20 mg tablet 20 mg PO QAM #90 tabs 08/22/24 01/12/25 Rx carbidopa ER 50 mg-levodopa 200 mg 1 tab PO QID #360 tabs 09/14/24 01/12/25 Rx tablet,extended release entacapone 200 mg tablet 200 mg PO 5XD #450 tabs 10/21/24 01/12/25 Rx metformin 500 mg tablet,extended 1,000 mg (2 x 500 mg) PO BID #180 12/19/24 01/12/25 Rx release 24 hr tabs hydrocodone 10 mg-acetaminophen 1 tab PO 5XD PRN Pain 01/12/25 01/12/25 History 325 mg tablet Past Med/Surg History Problem List (Updated 08/27/24 @ 00:07 by Background Trevon) Vitamin B12 deficiency Vitamin D deficiency Bipolar disorder Squamous cell carcinoma, face Non-healing skin lesion of nose ILD (interstitial lung disease) Ambulatory dysfunction Atypical Parkinsonism Reticulonodular infiltrate present on imaging of chest Pathological fracture of left hip due to age-related osteoporosis Hypoxia (Acute) Hypercalcemia Explosive personality disorder (Chronic) Intermittent explosive disorder in adult (Chronic) Lumbar stenosis with neurogenic claudication (Chronic) PTSD (post-traumatic stress disorder) (Chronic) Sacroiliitis (Chronic) Lumbar postlaminectomy syndrome (Chronic) Chronic radicular lumbar pain (Chronic) Asthma (Acute) Chronic back pain greater than 3 months duration (Acute) Chronic cerebral ischemia (Acute) Dementia (Acute) Hyperlipidemia (Acute) Hypothyroidism (Acute) Idiopathic polyneuropathy (Acute) Insomnia (Acute) Lumbosacral radiculopathy (Acute) Migraine headache (Acute) Right bundle branch block (Acute) Solitary pulmonary nodule (Acute) Urinary hesitancy (Acute) Chronic diarrhea Medical History (Updated 08/27/24 @ 00:07 by Herminio Lester) Abnormal chest CT Closed left hip fracture Greater trochanteric bursitis of both hips Obstructive sleep apnea Mild cognitive impairment with memory loss Recurrent falls Depression Chronic back pain Pulmonary nodule Under surveillance by PCP Parkinson disease Neuropathy History of rheumatic fever as a child Osteoarthritis Urine incontinence Diabetes mellitus, type 2 NIDDM [place] (hard of hearing) PTSD (post-traumatic stress disorder) Sleep apnea Non-compliant w/ cpap History of asbestos exposure Esophageal reflux Surgical History Status post hip surgery History of amputation of finger History of tooth extraction History of back surgery History of lumbar fusion History of colonoscopy History of throat surgery Status post lumbar spine surgery for decompression of spinal cord Family History Sister Diabetes 1.5, managed as type 1 Mother Diabetes 1.5, managed as type 1 Anxiety Father Hypertension Hypertensive heart disease Skin cancer Brother Diabetes Other No family history of adverse response to anesthesia Denies family history of Ovarian cancer Prostate cancer Myocardial infarction Breast cancer Colorectal cancer Social History Smoking Status: Never smoker Second Hand Exposure: No; Do You Dip or Chew Tobacco: No; Hx Alcohol Use: No Hx Substance Use: No Preferred Language: Ecuadorean Communication Ability: Effective Visual Impairment: No Limitations Hearing Ability: Hard of Hearing Social Media Campaign Manager Required: No Beliefs That Will Affect Care: None marital status: Current Living Situation: Spouse current occupational status: disabled other: On social security disability since 2000 Feels Safe at Home: Yes Childhood Exposure to Second-Hand Smoke: Yes Diet: regular Diet Comment: regular caffeine: No during the past year weight has: remained stable Dental Care, Regularly: Yes Physical Activity Frequency: Does not Exercise Physical Activity Frequency Comment: due to physical condition Seatbelt Use: always Sunscreen Use: No Assistive Devices: Denture - Upper, Denture - Lower and Glasses Review of Systems Review of Systems: All systems reviewed & are unremarkable except as noted in HPI & below Physical Exam Constitutional: WD/WN, vitals as above ENMT: Mouth: + dry oral mucous membranes Respiratory: normal respiratory effort, lungs clear to auscultation Cardiovascular: RRR, no murmur, no edema Gastrointestinal (Abdomen): normal bowel sounds, soft, nontender, no hepatosplenomegaly Neurologic: moves all extremities and awake; no focal motor deficits and not confused Speech / Cognition: normal speech Motor/Sensory: no tremor and no pronator drift Cranial Nerves: PERRL, EOM intact bilaterally, normal facial strength, tongue midline, able to rotate head bilaterally, able to elevate shoulders bilaterally, no nystagmus and symmetric palate elevation Psychiatric: A+Ox3, euthymic affect Results & Data Results & Data Vital Signs (Past 12 Hours) Vital Signs Pulse Pulse Resp BP BP Pulse Ox O2 Del Method 01/12/25 17:21 49 L 16 95 01/12/25 17:12 61 12 96 01/12/25 17:00 67 22 95 01/12/25 17:00 146/81 H 01/12/25 17:00 146/81 H 01/12/25 17:00 146/81 H 01/12/25 17:00 146/81 H 01/12/25 17:00 146/81 H 01/12/25 16:51 73 15 96 01/12/25 16:42 62 17 94 01/12/25 16:30 134/72 01/12/25 16:30 134/72 01/12/25 16:30 134/72 01/12/25 16:30 134/72 01/12/25 16:30 134/72 01/12/25 16:30 69 13 95 01/12/25 16:21 49 L 97 01/12/25 16:12 60 97 01/12/25 16:00 67 15 96 01/12/25 16:00 139/76 01/12/25 16:00 139/76 01/12/25 16:00 139/76 01/12/25 16:00 139/76 01/12/25 16:00 139/76 01/12/25 16:00 68 16 139/76 97 Room Air 01/12/25 15:51 38 L 98 01/12/25 15:46 37 L 01/12/25 15:45 58 L 97 01/12/25 15:45 165/72 H 01/12/25 15:45 165/72 H 01/12/25 15:33 56 L 16 122/63 95 Room Air 01/12/25 15:20 45 L 16 128/58 L 97 Room Air Laboratory Results Abnormal lab results 01/12/25 Range/Units 14:20 BUN/Creatinine Ratio 23.2 H (10-20) Glucose 159 H (70-99(Fasting)) mg/dl Total Bilirubin 1.1 H (0.2-1.0) mg/dl AST 12 L (13-39) U/L TSH 5.868 H (0.300-4.500) uIu/ml Diagnostic Findings CT head/brain wo con CLINICAL HISTORY: weakness, parkinsons. TECHNIQUE: Multiple axial CT images of the head were obtained without contrast. A dose lowering technique was utilized adhering to the principles of ALARA. CT DOSE: 625.8 mGy.cm COMPARISON: 02/23/2023 FINDINGS: There is stable mild prominence of the ventricles mildly out of proportion to the sulci, cerebral atrophy versus mild normal pressure hydrocephalus. Stable severe chronic small vessel ischemic changes. No intracranial hemorrhage seen. No mass effect, midline shift, or hydrocephalus. No skull fracture seen. Visualized paranasal sinuses and mastoid air cells are clear. IMPRESSION: No acute findings. XR chest 1V portable CLINICAL HISTORY: CHEST PAIN COMPARISON STUDY: 08/12/2024 FINDINGS: Stable lower thoracic spine neurostimulator lead. Heart size and pulmonary vasculature are normal. Stable mild interstitial opacities in the lung bases. No new consolidation or pleural effusion. No pneumothorax. IMPRESSION: No acute findings. Medications Administered ER Medications Given: Normal saline 1000ml bolus ECG Rate (beats per minute): 39 Rhythm: other (2nd degree Mobitz II HB with 2:1 block) Findings: + LBBB; no acute ischemic change Comparison ECG Date: from (Jan 12, 2025) Change: the following changes noted (heart block is new, LBB is old) Code Status & VTE Plan Code Status Full - discussed with patient and his VTE Prophylaxis Plan VTE Prophylaxis will be ordered: Yes PG Care Time/CCT Total # of Minutes Spent Total Time Spent with Patient: Total time spent is greater than 50% in coordination of care (as documented) at patient's floor/unit and/or counseling patient: Coding Level of Care Code 39805 INT INP/OBS CARE 3/75MIN Diagnoses Atypical Parkinsonism G20 Explosive personality disorder F60.3 Chronic radicular lumbar pain M54.16; G89.29
[2025-01-12 17:51] LABS: Appearance Urine Clear (Clear); Bacteria Urine Automated None Seen (None Seen); Cast Urine Automated 0-2 /lpf (0-2); Glucose Urine UA 3+ (Negative); RBC Urine Automated >20 /hpf (0-2)
[2025-01-12] MEDS: CARBIDOPA/LEVODOPA 50/200MG EXT REL TAB PO STA (18:09)
[2025-01-12] MEDS: ENTACAPONE 200 MG TAB PO STA (18:09)
[2025-01-12] MEDS ORDERED: GLUCOSE 40% GEL 15 GM TUBE PO PRN (18:50)
[2025-01-12] MEDS ORDERED: DEXTROSE 50% 50 ML SYRINGE IV PRN (18:50)
[2025-01-12] MEDS ORDERED: CARBOHYDRATES FOR HYPOGLYCEMIA PO PRN (18:50)
[2025-01-12] MEDS ORDERED: GLUCAGON FOR INJ 1 MG VIAL SQ PRN (18:50)
[2025-01-12] MEDS ORDERED: GLUCOSE 10 TAB/TUBE PO PRN (18:50)
[2025-01-12] MEDS: INSULIN ASPART PER UNIT CHARGE SC SCH (20:08)
[2025-01-12] MEDS: ASPIRIN 81 MG CHEW PO SCH (20:24)
[2025-01-12] MEDS: ENOXAPARIN INJ 40 MG/0.4 ML SYR SQ SCH (20:24)
[2025-01-12] MEDS: lamoTRIgine 100 MG TAB PO SCH (20:24)
[2025-01-12] MEDS: DONEPEZIL HCL 10 MG TAB PO SCH (20:24)
[2025-01-13] MEDS ORDERED: CARBIDOPA/LEVODOPA 50/200MG EXT REL TAB PO SCH
[2025-01-13] MEDS: CARBIDOPA/LEVODOPA 50/200MG EXT REL TAB PO SCH (08:45)
[2025-01-13] MEDS: ATORVASTATIN 20 MG TAB PO SCH (08:45)
[2025-01-13] MEDS: ENTACAPONE 200 MG TAB PO SCH (08:46)
[2025-01-13] MEDS: VENLAFAXINE HCL XR 150 MG CAPXR PO SCH (08:48)
[2025-01-13] MEDS ORDERED: EMPAGLIFLOZIN 25 MG TAB PO SCH (09:00)
[2025-01-13 09:07] LABS: Alanine Aminotransferase 4.0 U/L (7-52); Albumin Globulin Ratio 1.4 (0.9-2); Albumin Level 4.1 gm/dl (3.4-5.0); Alkaline Phosphatase 56.0 U/L (34-104); Anion Gap 7.0 (3-11); Bilirubin,Total 1.0 mg/dl (0.2-1.0); Blood Urea Nitrogen 27.0 mg/dl (6-23); Calcium 9.3 mg/dl (8.6-10.3); Carbon Dioxide 28.0 mmol/L (21-32); Chloride 104.0 mmol/L (98-107); Creatinine Clr Calc Pharmacy 62.4 ml/min; Globulin 2.9 gm/dl (2.5-4.0); Glucose 110.0 mg/dl (70-99(Fasting)); Potassium 4.0 mmol/L (3.5-5.1); Sodium 139.0 mmol/L (136-145); Total Protein 7.0 gm/dl (6.0-8.3)
[2025-01-13 10:36] LABS: Hemoglobin A1C 6.8 % (4.5-5.6)
--- NOTE | 2025-01-13 13:25 | Cardiology Consultation ---
Date of Consultation January 13, 2025 Assessment & Plan (1) Generalized weakness: (2) Mobitz (type) II atrioventricular block: Plan 1. Weakness: It is hard to tell whether his weakness is related to his rhythm, it is certainly possible that that has an effect but it is hard to tell specifically. Most of his weakness is due to his other medical issues. 2. 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 Even without symptoms this might suggest that we should put in a pacemaker, I discussed this with the family pointing out that it may not make him feel a lot better but it certainly could be a contributor to his symptoms. We are not going to implant the pacemaker today, but we may want to consider that. That could be done during this admission or possibly as an outpatient if he would be discharged over the weekend. History of Present Illness Reason for Consultation: Second-degree AV block Attending Physician: Caden Rincon MD History of Present Illness This is a 79-year-old male who presents to the hospital with weakness. He has dementia, atypical parkinsonism, chronic cerebral ischemia and a bipolar disorder but appears to be relatively stable on his medical regimen based on neurology's notes. He also has chronic back pain and sees pain management. He came into the emergency room with his on January 12, 2025 complaining of generalized weakness which has been progressive for several months but worse over the last week. He has a great deal of difficulty with ambulation as well as standing, he has difficulty even with transfer from bed to chair in the hospital. In the emergency room electrocardiography indicated intermittent 2-1 AV block with periods of 1-1 AV block. He does have an underlying left bundle branch block which is unchanged whether he is in 2-1 or 1-1 AV block. A comparison electrocardiogram in April 2023 also showed left bundle branch block which had been present prior to that as well. There has been very little change in QRS duration. I saw the patient with his present, physical therapy had just helped him get up from the bed to the chair which took a fair amount of help. His symptoms are not clear-cut (he goes in and out of 2-1 AV block and does not seem to be able to easily tell the difference). It sounds as though he has not had presyncope or syncope. It sounds as though he wants to go home but I do not know that he can be managed at home. Allergies Allergy/AdvReac Type Severity Reaction Status Date / Time Penicillins Allergy Severe Swelling, Verified 10/06/24 11:28 hives Sulfa (Sulfonamide Allergy Intermediate Hives Verified 10/06/24 11:28 Antibiotics) Home Medications Medication Instructions Recorded Confirmed Type blood-glucose meter (FotechTouch #1 ea 09/27/18 01/12/25 Rx Ultra2 Meter kit) lancets 30 gauge (OneTouch Delica #100 ea 09/27/18 01/12/25 Rx Lancets) lamotrigine 100 mg tablet 100 mg PO BID 02/23/23 01/12/25 History (Lamictal) aspirin 81 mg chewable tablet 81 mg PO BID 6 weeks #84 tabs 03/05/23 01/12/25 Rx (Aspirin Childrens) quetiapine 25 mg tablet 25 - 50 mg PO HS 04/09/23 01/12/25 History venlafaxine 150 mg 300 mg (2 x 150 mg) PO QAM #60 caps 06/01/23 01/12/25 Rx capsule,extended release 24 hr (Effexor XR) empagliflozin 25 mg tablet 25 mg PO DAILY #90 tabs 06/28/24 01/12/25 Rx donepezil 10 mg tablet (Aricept) 10 mg PO BID 90 days #180 tabs 08/10/24 01/12/25 Rx atorvastatin 20 mg tablet 20 mg PO QAM #90 tabs 08/22/24 01/12/25 Rx carbidopa ER 50 mg-levodopa 200 mg 1 tab PO QID #360 tabs 09/14/24 01/12/25 Rx tablet,extended release entacapone 200 mg tablet 200 mg PO 5XD #450 tabs 10/21/24 01/12/25 Rx metformin 500 mg tablet,extended 1,000 mg (2 x 500 mg) PO BID #180 12/19/24 01/12/25 Rx release 24 hr tabs hydrocodone 10 mg-acetaminophen 1 tab PO 5XD PRN Pain 01/12/25 01/12/25 History 325 mg tablet Patient History Medical History Abnormal chest CT Closed left hip fracture Greater trochanteric bursitis of both hips Obstructive sleep apnea Mild cognitive impairment with memory loss Recurrent falls Depression Chronic back pain Pulmonary nodule Under surveillance by PCP Parkinson disease Neuropathy History of rheumatic fever as a child Osteoarthritis Urine incontinence Diabetes mellitus, type 2 NIDDM [place] (hard of hearing) PTSD (post-traumatic stress disorder) Sleep apnea Non-compliant w/ cpap History of asbestos exposure Esophageal reflux Surgical History Status post hip surgery 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 History of tooth extraction History of back surgery Lumbar x3 Right SI joint fusion (07/10/17): Grade 2 view, MAC#3, ETT 7.[address] [facility] History of lumbar fusion History of colonoscopy Colonoscopy (02/15/19): MAC at [facility] History of throat surgery Salivary glands and ducts; Removal of left salivary gland following industrial accident (benign) Status post lumbar spine surgery for decompression of spinal cord Family History Sister Diabetes 1.5, managed as type 1 Mother , age 78 of diabetes Diabetes 1.5, managed as type 1 Anxiety (Symptom) Father , age 87 of renal failure Hypertension Hypertensive heart disease Skin cancer Brother Diabetes Other No family history of adverse response to anesthesia Denies family history of Ovarian cancer Prostate cancer Myocardial infarction Breast cancer Colorectal cancer Social History Smoking Status: Never smoker Second Hand Exposure: No; Do You Dip or Chew Tobacco: No; Hx Alcohol Use: No Hx Substance Use: No Preferred Language: Maori Communication Ability: Effective Visual Impairment: No Limitations Hearing Ability: Hard of Hearing Hardness Inspector Required: No Beliefs That Will Affect Care: None marital status: Current Living Situation: Spouse current occupational status: disabled Other Information That Helps Us Care for You: No other: On social security disability since 2000 Feels Safe at Home: Yes Safety Concerns: Feels Safe At This Time Childhood Exposure to Second-Hand Smoke: Yes Diet: regular Diet Comment: regular caffeine: No during the past year weight has: remained stable Dental Care, Regularly: Yes Physical Activity Frequency: Does not Exercise Physical Activity Frequency Comment: due to physical condition Seatbelt Use: always Sunscreen Use: No Assistive Devices: Denture - Upper, Denture - Lower, Glasses and Wheelchair Review of Systems Review of Systems: All systems reviewed & are unremarkable except as noted in HPI & below I am not sure his review of systems is reliable Physical Exam Physical Exam: Constitutional: Alert, cooperative and in no distress but clearly weak. HEENT: Unremarkable Neck: No jugular venous distention, carotid pulses are normal and equal bilaterally without bruits. Pulmonary: Clear to auscultation bilaterally. Cardiac: Regular rhythm, sometimes slow however heart, with no murmur, gallop or rub. Abdomen: Soft, nontender with normal bowel sounds. Extremities: No edema. Neurologic: No focal findings. He moves with great difficulty. Skin: No rash, ecchymoses or petechiae. Results & Data Vital Signs (Past 12 Hours) Vital Signs Temp Pulse Resp BP Pulse Ox O2 Del Method 01/13/25 11:19 36.5 C 40 L 17 136/68 94 Room Air 01/13/25 07:21 36.7 C 40 L 17 113/55 L 92 Room Air 01/13/25 02:47 36.8 C 40 L 18 107/55 L 95 Room Air Laboratory Results Cardiac Enzymes 01/12/25 01/13/25 Range/Units 14:20 08:16 AST 12 L 11 L (13-39) U/L Troponin I High Sens 8.4 8.8 (0-20) pg/ml Coagulation 01/12/25 Range/Units 14:20 PT 10.6 (9.0-12.0) Seconds APTT 27 (21-31) Seconds CBC 01/12/25 Range/Units 14:20 WBC 7.33 (4.8-10.8) K/ul RBC 4.75 (4.70-6.10) M/uL Hgb 15.8 (14.0-18.0) g/dL Hct 45.6 (42.0-52.0) % Plt Count 234 (130-400) K/uL Comprehensive Metabolic Panel 01/12/25 01/13/25 Range/Units 14:20 08:16 Sodium 140 139 (136-145) mmol/L Potassium 4.2 4.0 (3.5-5.1) mmol/L Chloride 102 104 (98-107) mmol/L Carbon Dioxide 29 28 (21-32) mmol/L BUN 23 27 H (6-23) mg/dl Creatinine 0.99 0.89 (0.6-1.4) mg/dl Glucose 159 H 110 H (70-99(Fasting)) mg/dl Calcium 10.1 9.3 (8.6-10.3) mg/dl AST 12 L 11 L (13-39) U/L ALT 7 4 L (7-52) U/L Alkaline Phosphatase 66 56 (34-104) U/L Total Protein 8.3 7.0 (6.0-8.3) gm/dl Albumin 4.5 4.1 (3.4-5.0) gm/dl Intake and Output 01/12/25 01/13/25 01/13/25 22:59 06:59 14:59 Intake Total 1000 / 1000 Output Total 450 / 451 1 / 451 Balance 550 / 549 -1 / 549 Intake: IV 1000 / 1000 Sodium Chloride 0.9% 1,000 ml @ 1000 / 1000 999 mls/hr IV .Q1H1M ONE Rx#: [id number] Output: Urine 450 / 450 # Bowel Movements Other: # Unmeasured Voids 1 Weight 63.5 kg 63.5 kg Weight Measurement Method [facility] PG Care Time/CCT Total # of Minutes Spent Total Time Spent with Patient: Total time spent is greater than 50% in coordination of care (as documented) at patient's floor/unit and/or counseling patient: Coding Level of Care Code 97288 INT INP/OBS CARE 3/75MIN Diagnoses Generalized weakness R53.1 Mobitz (type) II atrioventricular block I44.1
--- NOTE | 2025-01-13 15:19 | XCELERA ---
[id number] \\[id number]
--- NOTE | 2025-01-13 17:35 | Hospitalist Progress Note ---
Date of Service January 13, 2025 Assessment & Plan (1) Atypical Parkinsonism: (2) Explosive personality disorder: (3) Chronic radicular lumbar pain: Plan 79 year old male with atypical parkinson's presents to the ER with generalized weakness #2nd degree heart block Mobitz II No need to treat unless symptomatic or HR < 30. Appreciate cardiology consult, possibly planning on pacemaker this admission #Generalized weakness Suspect he has some motor weakness from prior back surgeries although no acute complaints with his back. Consider nerve conduction studies with EMG testing as an outpatient. No objective weakness on lower extremity exam. PT/OT #Chronic back pain Continue his usual pain regimen of hydrocodone /acetaminophen 10/325mg TID #Atypical Parkinson's Continue Sinemet and entacapone #Explosive personality disorder / PTSD Continue venlafaxine, quetiapine and Lamictal #Type 2 diabetes mellitus HbA1C 8.1 in May, repeat with AM labs Novolog for correction only Continue metformin and empagliflozin VTE Prophylaxis - Lovenox 40mg SQ daily Disposition - admit to PCU Admission and Anticipated Discharge Date Admission Date: January 12, 2025 Subjective No acute concerns or questions. No change in generalized weakness. No chest pain, shortness of breath or dizziness. Physical Exam Constitutional: WD/WN, vitals as above Respiratory: normal respiratory effort, lungs clear to auscultation Cardiovascular: RRR, no murmur, no edema Gastrointestinal (Abdomen): normal bowel sounds, soft, nontender, no hepatosplenomegaly Neurologic: moves all extremities and awake; no focal motor deficits and not confused Psychiatric: A+Ox3, euthymic affect Results & Data Results & Data Vital Signs (Past 12 Hours) Vital Signs Temp Pulse Resp BP BP Pulse Ox O2 Del Method 01/13/25 14:36 36.7 C 43 L 18 112/55 L 96 Room Air 01/13/25 11:19 36.5 C 40 L 17 136/68 94 Room Air 01/13/25 07:21 36.7 C 40 L 17 113/55 L 92 Room Air PG Care Time/CCT Total # of Minutes Spent Total Time Spent with Patient: Total time spent is greater than 50% in coordination of care (as documented) at patient's floor/unit and/or counseling patient: Coding Level of Care Code 54781 SUB INP/OBS CARE 2/35MIN Diagnoses Atypical Parkinsonism G20 Explosive personality disorder F60.3 Chronic radicular lumbar pain M54.16; G89.29
--- NOTE | 2025-01-13 20:03 | Electrocardiogram Report ---
Test Reason : Blood Pressure : */* mmHG Vent. Rate : 68 BPM Atrial Rate : 68 BPM P-R Int : 208 ms QRS Dur : 156 ms QT Int : 486 ms P-R-T Axes : 55 3 126 degrees QTcB Int : 516 ms Normal sinus rhythm with sinus arrhythmia Left bundle branch block Abnormal ECG When compared with ECG of 12-Aug-2024 07:02, Left bundle branch block has replaced Non-specific intra-ventricular conduction block Confirmed by Camilo Cintron ([id number]) on 01/13/2025 8:03:09 PM Referred By: REFERRED SELF Confirmed By: Camilo Cintron
--- NOTE | 2025-01-13 20:05 | Electrocardiogram Report ---
Test Reason : Blood Pressure : */* mmHG Vent. Rate : 39 BPM Atrial Rate : 39 BPM P-R Int : 198 ms QRS Dur : 134 ms QT Int : 520 ms P-R-T Axes : 55 3 100 degrees QTcB Int : 418 ms Sinus rhythm with 2:1 A-V conduction 2nd degree AV block Left bundle branch block Abnormal ECG When compared with ECG of 12-Jan-2025 14:11, (unconfirmed) Vent. rate has decreased by 29 bpm QRS duration has decreased Nonspecific T wave abnormality now evident in Inferior leads T wave inversion more evident in Anterior leads T wave inversion less evident in Lateral leads Confirmed by Camilo Cintron ([id number]) on 01/13/2025 8:04:53 PM Referred By: REFERRED SELF Confirmed By: Camilo Cintron
--- NOTE | 2025-01-14 11:09 | Cardiology Progress Note ---
Date of Service January 14, 2025 Assessment & Plan (1) Generalized weakness: (2) Mobitz (type) II atrioventricular block: Plan 1. Weakness: It is hard to tell whether his weakness is related to his rhythm, it is certainly possible that that has an effect but it is hard to tell specifically. Most of his weakness is likely due to his other medical issues. 2. 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 Even without symptoms this might suggest that we should put in a pacemaker, I discussed this with the family pointing out that it may not make him feel a lot better but it certainly could be a contributor to his symptoms. We may want to consider that but I have not made arrangements. That could be done during this admission or possibly as an outpatient if he would be discharged over the weekend. Admission and Anticipated Discharge Date Admission Date: January 12, 2025 Subjective He is sitting at his bedside today, he is in good spirits and he is conversational. He tells me that he feels well and still has difficulty with activity. He denies lightheadedness or dizziness. Physical Exam Physical Exam: Constitutional: Alert, cooperative and in no distress but clearly weak. He is sitting at his bedside. HEENT: Unremarkable Neck: No jugular venous distention, carotid pulses are normal and equal bilaterally without bruits. Pulmonary: Clear to auscultation bilaterally. Cardiac: Regular rhythm, sometimes slow, with no murmur, gallop or rub. Abdomen: Soft, nontender with normal bowel sounds. Extremities: No edema. Neurologic: No focal findings. Skin: No rash, ecchymoses or petechiae. Results & Data Vital Signs (Past 12 Hours) Vital Signs Temp Pulse Pulse Resp BP Pulse Ox O2 Del Method 01/14/25 07:29 36.7 C 41 L 16 119/53 L 91 Room Air 01/14/25 07:13 52 L 01/14/25 04:15 36.6 C 38 L 17 114/58 L 93 Room Air 01/13/25 23:42 36.8 C 41 L 17 123/56 L 95 Room Air Laboratory Results Intake and Output 01/13/25 01/14/25 01/14/25 22:59 06:59 14:59 Output Total Balance - Output: # Bowel Movements Other: # Unmeasured Voids 1 1 Weight 63.5 kg Diagnostic Findings Telemetry: 1-1 and 2-1 AV block intermittently, no higher grade AV block. His echocardiogram done on January 13, 2025 shows normal left ventricular size and function with an ejection fraction of 55 to 60% and mild left ventricular hypertrophy. Mild aortic sclerosis without stenosis. Mild MR. Mild aortic root dilatation. PG Care Time/CCT Total # of Minutes Spent Total Time Spent with Patient: Total time spent is greater than 50% in coordination of care (as documented) at patient's floor/unit and/or counseling patient: Coding Level of Care Code 56238 SUB INP/OBS CARE 2/35MIN Diagnoses Generalized weakness R53.1 Mobitz (type) II atrioventricular block I44.1
--- NOTE | 2025-01-14 16:39 | Hospitalist Progress Note ---
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 Appreciate cardiology consult, possibly planning on pacemaker this admission #Generalized weakness Suspect he has some motor weakness from prior back surgeries although no acute complaints with his back. Consider nerve conduction studies with EMG testing as an outpatient. No objective weakness on lower extremity exam on admission. PT/OT - recommending inpatient rehabilitation #Chronic back pain Continue his usual pain regimen of hydrocodone /acetaminophen 10/325mg TID #Atypical Parkinson's Continue Sinemet and entacapone #Explosive personality disorder / PTSD Continue venlafaxine, quetiapine and Lamictal #Type 2 diabetes mellitus HbA1C 6.8 Novolog for correction only - not needing any significant amount, will stop BSG ACHS Continue metformin and empagliflozin VTE Prophylaxis - Lovenox 40mg SQ daily Disposition - admit to PCU Admission and Anticipated Discharge Date Admission Date: January 12, 2025 Subjective No chest pain, lightheadedness, diszziness, shortness of breath. Pt recommending continue rehab in hospital. OT recommending consideration for rehab stay. Physical Exam Respiratory: normal respiratory effort, lungs clear to auscultation Cardiovascular: RRR, no murmur, no edema Results & Data Results & Data Vital Signs (Past 12 Hours) Vital Signs Temp Pulse Pulse Resp BP Pulse Ox O2 Del Method 01/14/25 13:51 72 01/14/25 12:20 36.5 C 42 L 16 98/60 L 94 Room Air 01/14/25 07:29 36.7 C 41 L 16 119/53 L 91 Room Air 01/14/25 07:13 52 L PG Care Time/CCT Total # of Minutes Spent Total Time Spent with Patient: Total time spent is greater than 50% in coordination of care (as documented) at patient's floor/unit and/or counseling patient: Coding Level of Care Code 74014 SUB INP/OBS CARE 2/35MIN Diagnoses Atypical Parkinsonism G20 Explosive personality disorder F60.3 Chronic radicular lumbar pain M54.16; G89.29
[2025-01-15] MEDS ORDERED: DO NOT ADMINISTER PNEUMOCOCCAL VACCINE PRN (08:34)
[2025-01-15] MEDS ORDERED: DO NOT ADMINISTER FLU VACCINE PRN (08:34)
--- NOTE | 2025-01-15 16:40 | Hospitalist Progress Note ---
Date of Service January 15, 2025 Assessment & Plan (1) Atypical Parkinsonism: (2) Explosive personality disorder: (3) Chronic radicular lumbar pain: Plan 79 year old male with atypical parkinson's presents to the ER with generalized weakness #2nd degree heart block Mobitz II No need to treat unless symptomatic or HR < 30. Appreciate cardiology consult, possibly planning on pacemaker this admission, NPO after midnight, Hold lovenox today, hold aspirin #Generalized weakness Suspect he has some motor weakness from prior back surgeries although no acute complaints with his back. Consider nerve conduction studies with EMG testing as an outpatient. No objective weakness on lower extremity exam on admission. PT/OT - recommending inpatient rehabilitation #Chronic back pain Continue his usual pain regimen of hydrocodone /acetaminophen 10/325mg TID #Atypical Parkinson's Continue Sinemet and entacapone #Explosive personality disorder / PTSD Continue venlafaxine, quetiapine and Lamictal #Type 2 diabetes mellitus HbA1C 6.8 Novolog for correction only - not needing any significant amount, will stop BSG ACHS Continue metformin and empagliflozin VTE Prophylaxis - Lovenox 40mg SQ daily (hold for possible pacemaker insertion) Disposition - continue on PCU Admission and Anticipated Discharge Date Admission Date: January 12, 2025 Subjective No new symptoms, never more than 2:1 heart block. No dizziness. Physical Exam Respiratory: normal respiratory effort, lungs clear to auscultation Cardiovascular: Rate/Rhythm: regular rhythm and + bradycardic Extremities: no pedal edema Results & Data Results & Data Vital Signs (Past 12 Hours) Vital Signs Temp Pulse Pulse Resp BP Pulse Ox O2 Del Method 01/15/25 15:33 36.7 C 65 16 120/67 92 Room Air 01/15/25 13:49 44 L 01/15/25 11:41 36.8 C 94 H 16 110/46 L 95 Room Air 01/15/25 07:32 90 01/15/25 07:21 36.5 C 69 17 120/52 L 97 Room Air PG Care Time/CCT Total # of Minutes Spent Total Time Spent with Patient: Total time spent is greater than 50% in coordination of care (as documented) at patient's floor/unit and/or counseling patient: Coding Level of Care Code 23304 SUB INP/OBS CARE 2/35MIN Diagnoses Atypical Parkinsonism G20 Explosive personality disorder F60.3 Chronic radicular lumbar pain M54.16; G89.29
[2025-01-16] MEDS: CLINDAMYCIN/D5W 900 MG/50 ML BAG IV ONE (14:15)
--- NOTE | 2025-01-16 15:44 | Pre Anesthesia Assessment ---
Date of Service January 16, 2025 Pre Sedation Assessment Vital Signs Temp Pulse Pulse Resp BP Pulse Ox O2 Del Method 01/16/25 14:45 36.4 C L 79 18 108/64 92 Room Air 01/16/25 13:50 44 L 01/16/25 10:42 36.7 C 46 L 18 130/64 93 Room Air 01/16/25 08:30 Room Air 01/16/25 08:00 75 01/16/25 07:09 36.8 C 39 L 18 133/62 93 Room Air 01/16/25 03:33 36.7 C 57 L 20 151/73 H 96 Room Air 01/15/25 23:20 36.2 C L 59 L 18 134/73 96 Room Air 01/15/25 21:53 59 L 01/15/25 20:00 Room Air 01/15/25 20:00 86 18 113/70 01/15/25 19:20 36.7 C 64 18 87/40 L 94 Room Air Cardiovascular + regular rhythm Respiratory + respiratory effort normal Pre-Sedation Airway Assessment Smoking Status: Never smoker Hx Sleep Apnea: No Hx Difficult Intubation: No Short, Thick Neck: No Oral Cavity: + WNL Mallampati Class: III ASA: ASA3 Procedure Planning Contraindications for Sedation: none Current Medications Reviewed: Yes Notes The planned sedation has been discussed with the patient. Informed Consent was obtained. I have identified the patient, determined the appropriateness of sedation and have assessed the patient immediately prior to the procedure. All medicine(s) and interventions are by my order.
[2025-01-16] MEDS: VANCOMYCIN HCL 1000MG/20ML VIAL ONE (16:21)
[2025-01-16] MEDS: LIDOCAINE 1% LOCAL 20 ML VIAL ONE (16:21)
[2025-01-16] MEDS: BUPIVACAINE 0.25% PF 30 ML VIAL ONE (16:21)
[2025-01-16] MEDS: WATER, STERILE FOR INJ 10 ML VIAL ONE (16:22)
[2025-01-16] MEDS: MIDAZOLAM HCL 5 MG/ML 1 ML VIAL ONE (17:05)
[2025-01-16] MEDS ORDERED: ACETAMINOPHEN 325 MG TAB PO PRN (17:21)
--- NOTE | 2025-01-16 17:21 | Electrophysiology Report ---
Date of Service January 16, 2025 Electrophysiology Procedure Electrophysiology Procedure Report Procedure performed: Implantation of dual-chamber permanent pacemaker with left bundle pacing lead Staff warehouse logistics manager: Mann Novoa MD Indication: The patient is a 79-year-old gentleman who presented with weakness and bradycardia. This was secondary to intermittent complete heart block. Patient felt to be a good candidate for permanent pacemaker due to symptomatic nonreversible AV allison dysfunction. A dual-chamber device was selected as he is currently in sinus rhythm and wished to maintain AV synchrony. Procedure in detail: The patient was informed of the risks benefits and alternatives to the intended procedure and she wished to proceed. He was taken to the electrophysiology suite in a fasting state. A preoperative antibiotic had been administered. The patient was monitored electrocardiographically throughout today's procedure and conscious sedation was administered per protocol. The left upper pectoral area was prepped and draped in usual sterile fashion. This area was anesthetized using subcutaneous administration of a xylocaine solution. An incision was made at this site and carried down to the prepectoralis fascia using sharp dissection. Electrocautery was also employed for dissection as well as for hemostasis. A device pocket was fashioned tissues above the pectoralis muscle. Subsequent to this maneuver the left axillary vein was accessed using modified Seldinger technique. A sheath was placed over guidewire and used to facilitate passage of a guiding catheter for mapping of the interventricular septum. Once an appropriate location was identified a pacing lead was advanced into the interventricular septum until the appropriate electrophysiologic characteristics were obtained. At this point the guiding catheter was removed. The proximal portion of the lead was then sutured the prepectoralis fascia using nonabsorbable suture. A sheath was placed over the remaining guidewire and used to facilitate passage of a pacing lead to the right atrium under fluoroscopic guidance. Adequate sensing and threshold parameters were obtained prior to active fixation of this lead to the endocardial surface. The proximal portion of the leads were then sutured the prepectoral fascia using nonabsorbable suture. The device pocket was irrigated with antibiotic solution. The leads were then attached to the device. The device and leads were then placed in the pocket and pocket was closed in 3 layers of absorbable suture. Steri-Strips and sterile dressing were applied. The device was tested noninvasively prior to conclusion the procedure. The patient tolerated procedure well there no immediate complications. Equipment used: New pulse generator: Clinic Assistant [employer]. Model number: [id number] serial number [id number] Right atrial lead: Clinic Assistant [employer]. Model number: [id number] serial number [id number] Right ventricular lead: Clinic Assistant [employer]. Model number: [id number] serial number [id number] Measured data: Right atrial lead: P waves measured 1 mV. Pacing threshold was 0.75 V at 0.4 ms with a pacing appearance of 513 ohms Right ventricular lead: R waves measured 14.6 mV. Pacing threshold was 1 V at 0.4 ms with a pacing impedance of 722 ohms (bipolar) 475 ohms (unipolar) Impression: Successful implantation of dual-chamber permanent pacemaker with left bundle pacing lead [facility] Electrophysiology codes Pacing Procedure 1: Pacin Insert/Replace Pacer A & V PG Moderate Sedation Codes Moderate Sedation Codes Procedure 1: Sedation/Anesthesia: 77102 Mod Sedation by the same physician;Init15 Min Child Age 5 & Up Procedure 2: Sedation/Anesthesia: 82542 Mod Sedation by the same physician; Ea [id number] Minutes
--- NOTE | 2025-01-16 17:21 | Post Anesthesia Assessment ---
Date of Service January 16, 2025 Post Sedation Assessment Vital Signs Temp Pulse Pulse Resp BP BP Pulse Ox 01/16/25 15:42 41 L 14 110/64 95 01/16/25 14:45 36.4 C L 79 18 108/64 92 01/16/25 13:50 44 L 01/16/25 10:42 36.7 C 46 L 18 130/64 93 01/16/25 08:30 01/16/25 08:00 75 01/16/25 07:09 36.8 C 39 L 18 133/62 93 01/16/25 03:33 36.7 C 57 L 20 151/73 H 96 01/15/25 23:20 36.2 C L 59 L 18 134/73 96 01/15/25 21:53 59 L 01/15/25 20:00 01/15/25 20:00 86 18 113/70 01/15/25 19:20 36.7 C 64 18 87/40 L 94 O2 Del Method 01/16/25 15:42 Room Air 01/16/25 14:45 Room Air 01/16/25 13:50 01/16/25 10:42 Room Air 01/16/25 08:30 Room Air 01/16/25 08:00 01/16/25 07:09 Room Air 01/16/25 03:33 Room Air 01/15/25 23:20 Room Air 01/15/25 21:53 01/15/25 20:00 Room Air 01/15/25 20:00 01/15/25 19:20 Room Air Recovery Score Activity: Moves 4 extremities Respiration: Deep Breath/Cough Circulation: +/-20-49% PreAnes Value Consciousness: Arouseable (by name) Oxygen Saturation: O2 needed for >90% Discharge Sedation Level of Care: Fast Track Phase II Post Sedation Plan On clinical assessment, the patient appears to have tolerated the sedation without complications. Patient is recovering as anticipated. Patient will continue to be monitored by nursing and may be discharged when sedation discharge criteria are met per below protocol. Upon Completions of procedure up to 15 minutes continue every 5 minute vital signs and the P.A.R. score; then discharge to a Phase I or Fast Track to Phase II per the following guidelines: * Discharge Patient to appropriate Phase II area if PAR is 8 or greater or return to pre- procedure baseline. The post - procedure orders will be as directed. * If PAR score is less than 8 or not return to pre-procedure baseline then patient will follow Phase I monitoring till PAR is reached for Phase II. The Phase I may be done in procedure room or may call to secure a Phase I area. * If naloxone or flumazenil are used for reversal, hold in Phase I for continued monitoring from when last reversal dose was given for a minimum of 60 minutes or longer pending the nurse and/or physician discretion of patient condition before discharge to Phase II. Please call the Sedation Physician to re-evaluate and complete post-note for discharge to Phase II area. Do NOT discharge from procedure sedation or Phase 1 until post- sedation evaluation note is complete by procedure /sedation MD Sedation Discharge Instructions to be given to the patient at discharge to home.
--- NOTE | 2025-01-16 23:15 | Hospitalist Progress Note ---
Date of Service January 16, 2025 Assessment & Plan (1) Atypical Parkinsonism: (2) Explosive personality disorder: (3) Chronic radicular lumbar pain: Plan 79 year old male with atypical parkinson's presents to the ER with generalized weakness #2nd degree heart block Mobitz II s/p pacemaker insertion 01/[address] Novoa, post operative CXR and pacemaker check in AM Continue to hold Lovenox and ASA post operatively, can likely restart tomorrow. #Generalized weakness Suspect he has some motor weakness from prior back surgeries although no acute complaints with his back. Consider nerve conduction studies with EMG testing as an outpatient. No objective weakness on lower extremity exam on admission. PT/OT - recommending inpatient rehabilitation #Chronic back pain Continue his usual pain regimen of hydrocodone /acetaminophen 10/325mg TID #Atypical Parkinson's Continue Sinemet and entacapone #Explosive personality disorder / PTSD Continue venlafaxine, quetiapine and Lamictal #Type 2 diabetes mellitus HbA1C 6.8 Novolog for correction only - not needing any significant amount, will stop BSG ACHS Continue metformin and empagliflozin VTE Prophylaxis - Lovenox 40mg SQ daily (on hold diane-operatively for pacemaker insertion) Disposition - continue on PCU Admission and Anticipated Discharge Date Admission Date: January 12, 2025 Subjective Doing well post operatively, no acute concerns or questions from patient. Dressing clean/dry/intact. Physical Exam Respiratory: normal respiratory effort, lungs clear to auscultation Cardiovascular: RRR, no murmur, no edema Skin: Dressing clean/dry/intact Results & Data Results & Data Vital Signs (Past 12 Hours) Vital Signs Temp Pulse Pulse Resp BP BP Pulse Ox 01/16/25 21:41 60 01/16/25 20:00 01/16/25 19:29 36.4 C L 62 18 116/68 96 01/16/25 17:51 70 01/16/25 17:36 36.4 C L 71 20 123/72 94 01/16/25 15:42 41 L 14 110/64 95 01/16/25 14:45 36.4 C L 79 18 108/64 92 01/16/25 13:50 44 L O2 Del Method 01/16/25 21:41 01/16/25 20:00 Room Air 01/16/25 19:29 Room Air 01/16/25 17:51 01/16/25 17:36 Room Air 01/16/25 15:42 Room Air 01/16/25 14:45 Room Air 01/16/25 13:50 PG Care Time/CCT Total # of Minutes Spent Total Time Spent with Patient: Total time spent is greater than 50% in coordination of care (as documented) at patient's floor/unit and/or counseling patient: Coding Level of Care Code 40726 SUB INP/OBS CARE 2/35MIN Diagnoses Atypical Parkinsonism G20 Explosive personality disorder F60.3 Chronic radicular lumbar pain M54.16; G89.29
[2025-01-16] MEDS: CLINDAMYCIN/D5W 600 MG/50 ML BAG IV ONE (23:24)
--- NOTE | 2025-01-17 08:50 | Cardiology Progress Note ---
Date of Service January 17, 2025 Assessment & Plan (1) Mobitz (type) II atrioventricular block: Plan 1. Heart block: He appears to have undergone a successful pacemaker implant without evident complication. I think would be safe for him to be discharged as planned. He should refrain from lifting left arm above the shoulder behind the neck for 6 weeks. He needs to keep his wound dry and the Steri-Strips intact until follow-up in our clinic next week. I will arrange for follow-up with one of our nurses to check his wound, alternatively, the wound can be checked at the rehab facility. He could start showering and get the wound wet 6 days from now. Admission and Anticipated Discharge Date Admission Date: January 12, 2025 Subjective This morning the patient clinically feeling well. Some discomfort at the device implant site. Physical Exam Physical Exam: Alert. Oriented. Answered all questions appropriately Device implant site with some mild ecchymosis. No significant erythema. No hematoma. No drainage. Results & Data Vital Signs (Past 12 Hours) Vital Signs Temp Pulse Pulse Resp BP BP Pulse Ox 01/17/25 07:07 37.0 C 74 18 114/61 93 01/17/25 03:19 36.7 C 72 20 116/66 97 01/16/25 23:19 36.6 C 77 18 101/64 92 01/16/25 21:41 60 O2 Del Method 01/17/25 07:07 Room Air 01/17/25 03:19 Room Air 01/16/25 23:19 Room Air 01/16/25 21:41 Diagnostic Findings Chest x-ray demonstrated stable lead position without pneumothorax Device interrogation revealed good function of the atrial and ventricular leads
--- NOTE | 2025-01-17 09:25 | XRay Report ---
EXAM: XR chest 2V PA/lateral CLINICAL HISTORY: Evaluate for pneumothorax. TECHNIQUE: X-ray image of the chest is obtained in AP and lateral projection. COMPARISON: Comparison is made with the prior CR examination dated 01/12/2025. FINDINGS: Pulmonary Parenchyma: Bilateral prominent pulmonary interstitial markings, grossly unchanged. No evidence of consolidation, collapse, or focal opacities. No pulmonary nodules are identified. No evidence of pleural effusion or pleural thickening. Heart and Mediastinum: Interval placement of a cardiac pacemaker. Cardiomegaly. No mediastinal widening or masses. No hilar or mediastinal lymphadenopathy. Bony Thorax: Bony thorax appears intact without fractures or deformities. Redemonstrated spinal cord stimulator. Soft Tissues: Soft tissues overlying the chest wall are unremarkable. IMPRESSION: 1. Interval placement of cardiac pacemaker. 2. Cardiomegaly. 3. Bilateral prominent pulmonary interstitial markings, grossly unchanged, findings are of concern for vascular congestion. Electronically signed by Narayan Starks 01-17-2025 09:24 AM
--- NOTE | 2025-01-17 13:50 | Hospitalist Progress Note ---
Date of Service January 17, 2025 Assessment & Plan (1) Atypical Parkinsonism: (2) Explosive personality disorder: (3) Chronic radicular lumbar pain: Plan 79 year old male with atypical parkinson's presents to the ER with generalized weakness #2nd degree heart block Mobitz II s/p pacemaker insertion 01/[address] Novoa, completed post operative checks #Generalized weakness Suspect he has some motor weakness from prior back surgeries although no acute complaints with his back. Consider nerve conduction studies with EMG testing as an outpatient. No objective weakness on lower extremity exam on admission. PT/OT - recommending inpatient rehabilitation #Chronic back pain Continue his usual pain regimen of hydrocodone /acetaminophen 10/325mg TID #Atypical Parkinson's Continue Sinemet and entacapone #Explosive personality disorder / PTSD Continue venlafaxine, quetiapine and Lamictal #Type 2 diabetes mellitus HbA1C 6.8 Novolog for correction only - not needing any significant amount, will stop BSG ACHS Continue metformin and empagliflozin VTE Prophylaxis - Lovenox 40mg SQ daily, resume Disposition - stable for transfer to med/surg Admission and Anticipated Discharge Date Admission Date: January 12, 2025 Subjective Pacemaker check complete and working normall. Patient has no concerns or questions. Awaiting placement at this time. Physical Exam Respiratory: normal respiratory effort, lungs clear to auscultation Cardiovascular: RRR, no murmur, no edema Neurologic: moves all extremities and awake; no focal motor deficits and not confused Results & Data Results & Data Vital Signs (Past 12 Hours) Vital Signs Temp Pulse Resp BP Pulse Ox O2 Del Method 01/17/25 12:57 Room Air 01/17/25 10:49 36.9 C 78 18 116/73 93 Room Air 01/17/25 07:07 37.0 C 74 18 114/61 93 Room Air 01/17/25 03:19 36.7 C 72 20 116/66 97 Room Air PG Care Time/CCT Total # of Minutes Spent Total Time Spent with Patient: Total time spent is greater than 50% in coordination of care (as documented) at patient's floor/unit and/or counseling patient: Coding Level of Care Code 65703 SUB INP/OBS CARE 2/35MIN Diagnoses Atypical Parkinsonism G20 Explosive personality disorder F60.3 Chronic radicular lumbar pain M54.16; G89.29
[2025-01-17 19:24] VITALS: RESP 14
--- NOTE | 2025-01-18 05:46 | Electrocardiogram Report ---
Test Reason : Blood Pressure : */* mmHG Vent. Rate : 82 BPM Atrial Rate : 82 BPM P-R Int : 190 ms QRS Dur : 106 ms QT Int : 356 ms P-R-T Axes : 23 48 181 degrees QTcB Int : 415 ms Atrial-sensed ventricular-paced rhythm Abnormal ECG When compared with ECG of 12-Jan-2025 14:55, Ventricular pacing is now present Vent. rate has increased by 43 bpm Confirmed by Aron Solomon ([id number]) on 01/18/2025 5:45:46 AM Referred By: REFERRED SELF Confirmed By: Aron Solomon
[2025-01-18 07:40] VITALS: PULSE 75; TEMP 97.7; O2SAT 95
[2025-01-18 10:57] VITALS: BP 119/81
--- NOTE | 2025-01-18 11:25 | Discharge Summary ---
Date of Service January 18, 2025 Admission HPI Per Admitting Provider Sai Ratliff is a 79 year old male who presents to the ER with generalized weakness. Patient seen with at bedside who provides most of the story. He reports this has been going on for weeks but today he had an appointment in [place] and couldn't stand up and walk. He slid down to the floor and his was unable to get him up. He has longstanding back issues with multiple back surgeries but reports no acute change in his back or leg pain. No one sided weakness, change in sensation, speech, vision or hearing. No fever, chills, respiratory, gastrointestinal or urinary symptoms. In the ER he was noticed to have an intermittent 2nd degree Mobitz II heart block. He is mostly in bed at home and just gets up to eat and get dressed but has not noticed any dizziness, chest pain or shortness of breath doing those activities. Admission Exam (Per Admitting) Constitutional The patient is awake, alert and oriented 3, well developed and well nourished, normocephalic and atraumatic, lying in bed and in no acute distress. HEENT--PERRL, EOMI, mucous membranes and oropharynx mildly dry Neck--supple. No JVD. No bruits. Thyroid normal, trachea midline, no adenopathy. Heart--normal S1 and S2. No murmurs, rubs or gallops. Lungs--clear bilaterally, no respiratory distress, no accessory muscle use. Abdomen--normal bowel sounds and soft. Extremities--no cyanosis or clubbing. No edema. Dermatologic--normal skin turgor, normal color, no abnormal lymph nodes, no rash. Neurologic--cranial nerves II through XII grossly intact. Rheumatologic--normal range of motion. Psychiatric--normal affect. 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 Consider nerve conduction studies with EMG testing as an outpatient. No objective weakness on lower extremity exam on admission. PT/OT - recommending inpatient rehabilitation, however, patient refused and said he wanted to go home He asked his to come and take him home Will discharge him home with home health and PT #Chronic back pain Continue his usual pain regimen of hydrocodone /acetaminophen 10/325mg TID #Atypical Parkinson's Continue Sinemet and entacapone #Explosive personality disorder / PTSD Continue venlafaxine, quetiapine and Lamictal #Type 2 diabetes mellitus HbA1C 6.8 Novolog for correction only - not needing any significant amount, will stop BSG ACHS Continue metformin and empagliflozin VTE Prophylaxis - Lovenox 40mg SQ daily, resume Disposition - d/c home with home health and PT Coding Level of Care Code 59616 INP/OBS DISCH >30 MIN Diagnoses Atypical Parkinsonism G20 Explosive personality disorder F60.3 Chronic radicular lumbar pain M54.16; G89.29
== END 2025-01-18 10:57 | disposition home health service (06) | DRG 244 ==
LOC: ED 13:34 → 2S 17:12 → SUATTDRO 17:12 → 2S 18:22